=== PATIENT | male | born 1945 | race Caucasian/White ===

== ENCOUNTER 2016-05-07 12:53 | Outpatient (CLI) | payer MEDICARE, OTHER ==
[~2016-05-07] VITALS: Ht 167.6 cm; Wt 124.9 kg
[~2016-05-07 12:53] MED LIST: ACET325T49 PO; ALFU10TA11 PO; ALLO100T PO; AMIO200T2 PO; ASP325T PO; ASP81TEC PO; ATOR10TA66 PO; CA C1TAB26 PO; CARV3.122 PO; CARV3.12T PO; CARV6.252 PO; CEFU500T5 PO; CHOL100011 PO; CLOP75TA28 PO; DICL100G18 TP; DIVA250T12 PO; DIVA250T2 PO; DIVA250T4 PO; DIVA250T93 PO; ENOX30DI4 SC; FENO30CA PO; FEXO-104 PO; FEXO180T84 PO; FISH OIL OMEGA1 EAC1 PO; FISH1CAP15 PO; FLUT16SP22 NS; FLUT1DIS26 IH; FLUT9.9S NS; FURO40TA4 PO; GLUC-173 PO; GLUC1000 PO; GLUC100016 PO; HYDR-3812 PO; HYDR-757 PO; IRON150C3 PO; KCL20TCR PO; LEVO112T55 PO; LORA10TA54 PO; LOSA100T28 PO; LOSA100T7 PO; LSRT50T PO; LVT.1T PO; MECL-124 PO; MULT-1029 PO; MULT-142 PO; MULT-974 PO; MULTIVITAMIN PO; NAPR-710 PO; NAPR220C11 PO; OMEG-11 PO; OXYC-12 PO; OXYC-471 PO; POTA-53 PO; POTA20TA8 PO; POTA2TAB15 PO; POTA99TA17 PO; SENN-20 PO; SPIR25TA3 PO; SPRN25T PO; [UNRECOGNIZED DRUG - OTHER] PO
[2016-05-07] MEDS ORDERED: CALC600T12 PO (13:16)
[2016-05-07] MEDS ORDERED: VITA100033 PO (13:16)
[2016-05-07] MEDS ORDERED: IBUP-1773 PO (13:16)
[2016-05-07 13:37] VITALS: BP 114/64
[2016-05-07 14:05] LABS: BASOPHILS % (AUTO) 0 % (0-10); EOSINOPHILS # (AUTO) 0.2 10^3/uL (0.0-0.3); EOSINOPHILS % (AUTO) 2 % (0-10); LYMPHOCYTES # (AUTO) 1.7 X 10^3 (1.0-4.0); LYMPHOCYTES % (AUTO) 24 % (12-44); MEAN CORPUSCULAR HEMOGLOBIN 32 PG (25-34); MEAN CORPUSCULAR HGB CONC 35 G/DL (32-36); MEAN CORPUSCULAR VOLUME 92 FL (80-99); MEAN PLATELET VOLUME 9.1 FL (7.4-10.4); MONOCYTES # (AUTO) 1.2 X 10^3 (0.0-1.0); MONOCYTES % (AUTO) 16 % (0-12); NEUTROPHILS # (AUTO) 4.1 X 10^3 (1.8-7.8); NEUTROPHILS % (AUTO) 57 % (42-75); PLATELET COUNT 146 10^3/uL (130-400); RED BLOOD COUNT 4.52 10^6/uL (4.35-5.85); WHITE BLOOD COUNT 7.1 10^3/uL (4.3-11.0)
[2016-05-10] MEDS ORDERED: PANT40TA2 PO (14:25)
[2016-05-10] MEDS ORDERED: ONDN4T PO (14:25)
[2016-05-10] MEDS ORDERED: OXYC-473 PO (14:25)
== END 2016-05-07 15:03 | disposition home or self-care (01) ==
LOC: PREOP 12:53
PROVIDERS: ATTEND Surgery Pediatric Surgery
DX: Z01.812 Encounter for preprocedural laboratory examination (principal); Z11.2 Encounter for screening for other bacterial diseases; E66.01 Morbid (severe) obesity due to excess calories; Z68.41 Body mass index [BMI] 40.0-44.9, adult
CPT/HCPCS: 36415; 85025; 87081

== ENCOUNTER 2016-05-10 11:00 | Inpatient (IN) | payer MEDICARE, OTHER ==
[~2016-05-10] VITALS: Ht 167.6 cm; Wt 124.9 kg
[~2016-05-10 11:00] MED LIST changes: +CALC600T12 PO; +IBUP-1773 PO; +VITA100033 PO
[2016-05-10] MEDS ORDERED: LACTATED RINGERS 1,000 ML IV PRN (11:23)
[2016-05-10] MEDS ORDERED: ceFAZolin 1 GM/NS 50 ML IVPB IV ONE ×2 (11:30)
[2016-05-10] MEDS ORDERED: ONDANSETRON 4 MG/2 ML (SDV) Z0FRAN IV ONE (11:30)
[2016-05-10] MEDS ORDERED: FAMOTIDINE 20MG/2ML IV (PEPCID) IV ONE (11:30)
[2016-05-10] MEDS ORDERED: SEVOFLURANE (ULTANE) 15 ML INHAL SOLN ONE ×2 (11:35→13:20)
[2016-05-10] MEDS ORDERED: ONDANSETRON 4 MG/2 ML (SDV) Z0FRAN ONE (11:35)
[2016-05-10] MEDS ORDERED: LIDOCAINE PF 2% 10 ML (XYLOCAINE) AMP ONE (11:35)
[2016-05-10] MEDS ORDERED: LACTATED RINGERS 1,000 ML IV ONE ×2 (11:35→13:20)
[2016-05-10] MEDS ORDERED: proPOfol 200 MG/20 ML (DIPRIVAN) VIAL IV ONE (11:35)
[2016-05-10] MEDS ORDERED: ROCURONIUM 50 MG/5 ML (ZEMURON) VIAL IV ONE (11:35)
[2016-05-10] MEDS ORDERED: fentaNYL INJECTION 100 MCG/2 ML AMP ONE ×3 (11:36→14:52)
[2016-05-10] MEDS ORDERED: MIDAZOLAM 2 MG/2 ML (VERSED) VIAL ONE (11:36)
[2016-05-10] MEDS ORDERED: BUP/EPI 0.5% 1:200,000 (SENSORCAINE) 30 ML VIAL ONE (11:47)
--- NOTE | 2016-05-10 11:50 | Progress Note-Pre Operative ---
Pre-Operative Progress Note H&P Reviewed The H&P was reviewed, patient examined and no changes noted. Date H&P Reviewed: May 10, 2016 Time H&P Reviewed: 11:45 Pre-Operative Diagnosis: morbid obesity, CAD, MELVA ROSSY CUNNINGHAM MD May 10, 2016 11:50 am
[2016-05-10 12:13] VITALS: BP 148/103
[2016-05-10] MEDS ORDERED: DESFLURANE (SUPRANE) 15 ML INHAL SOLN ONE ×4 (13:20→13:57)
[2016-05-10] MEDS ORDERED: GLYCOPYRROLATE 0.2 MG/ML (ROBINUL) 2 ML VIAL ONE ×2 (13:57→14:05)
[2016-05-10] MEDS ORDERED: NEOSTIGMINE (BLOXIVERZ ) 1 MG/1ML 10 ML VIAL ONE (13:57)
--- NOTE | 2016-05-10 14:09 | Progress Note-Post Operative ---
Post-Operative Progess Note Shuttle Veneering Supervisor tiny saldivar CHLORINATOR OPERATOR Pre-Operative Diagnosis morbid obesity, CAD, MELVA Post-Operative Diagnosis same Post-Op Procedure Note Date of Procedure: May 10, 2016 Name of Procedure: laparoscopic gastric sleeve resection Anesthesia Type GET Estimated blood loss (mL): minimal Specimen(s) collected stomach ROSSY CUNNINGHAM MD May 10, 2016 2:09 pm
[2016-05-10] MEDS ORDERED: fentaNYL INJECTION 5,000 MCG in NS (IVPB) 0 ML IV SCH (14:15)
[2016-05-10] MEDS ORDERED: diphenhydrAMINE 50 MG/ML INJ (BENADRYL) IVP PRN (14:15)
[2016-05-10] MEDS ORDERED: PANT40TA2 PO (14:25)
[2016-05-10] MEDS ORDERED: OXYC-473 PO (14:25)
[2016-05-10] MEDS ORDERED: ONDN4T PO (14:25)
--- NOTE | 2016-05-10 14:26 | Discharge Inst-Surgical ---
D/C Lap Instructions-OCTAVIO Follow Up Appt in 2 weeks Activity as tolerated No driving for 24 hours No driving while on pain medications Incentive Spirometry use every 2 hours while awake Phase 1 clear liquid diet for 2 weeks. Symptoms to Report: Fever over 101 degree F, Nausea/Vomiting Infection Signs and Symptoms to report: Increased redness, Foul odor of wound, Increased drainage Bathing instructions: May shower Operative Area Clean/Dry; Keep incision clean/dry If any problems/questions: Contact your physician or go to Emergency Room ROSSY CUNNINGHAM MD May 10, 2016 2:26 pm
[2016-05-10] MEDS: morphine INJ 10 MG/ML 1ML (SYR OR VIAL) IV PRN ×2 (14:44→14:51)
[2016-05-10] MEDS ORDERED: PROMETHAZINE INJ 25 MG/ML (PHENERGAN) AMP IV PRN (14:45)
[2016-05-10] MEDS ORDERED: ONDANSETRON 4 MG/2 ML (SDV) Z0FRAN IV PRN (14:45)
[2016-05-10] MEDS ORDERED: fentaNYL INJECTION 250 MCG/5 ML AMP IV PRN (14:45)
[2016-05-10 16:00] VITALS: BP 189/101
[2016-05-10] MEDS ORDERED: fentaNYL PCA 300 MCG/30 ML VIAL ONE (16:09)
[2016-05-10] MEDS ORDERED: fentaNYL PCA 300 MCG/30 ML VIAL IV PRN (16:30)
[2016-05-10] MEDS: 1/2 NS W/KCL 20 MEQ/L 1,000 ML IV SCH (16:41)
[2016-05-10] MEDS: metroNIDAZOLE 500MG/100ML IVPB 100 ML IV SCH (18:21)
[2016-05-10] MEDS: meTOprolol 5 MG/5 ML (LOPRESSOR) VIAL IVP SCH ×2 (18:22→22:20)
[2016-05-10] MEDS: ONDANSETRON 4 MG/2 ML (SDV) Z0FRAN IVP SCH ×2 (18:22→23:34)
[2016-05-10] MEDS: RT-ALBUTEROL SULF 2.5 MG/3 ML PRE-MIX VIAL INH SCH ×3 (18:35→22:14)
[2016-05-10 19:00] VITALS: BP 173/94
[2016-05-10] MEDS: ENOXAPARIN 40 MG/0.4 ML (LOVENOX) SYR SC SCH (20:38)
[2016-05-10] MEDS: ceFAZolin 2 GM IV (SDC ONLY) 50 ML IV SCH (20:38)
[2016-05-10 22:20] VITALS: BP 195/99
[2016-05-10 23:37] VITALS: BP 151/71
[2016-05-11] VITALS (10 sets, daily range): BP systolic 169–194; BP diastolic 64–94
[2016-05-11] MEDS: 1/2 NS W/KCL 20 MEQ/L 1,000 ML IV SCH ×5 (00:53→17:57)
[2016-05-11] MEDS: RT-ALBUTEROL SULF 2.5 MG/3 ML PRE-MIX VIAL INH SCH ×5 (02:11→22:32)
[2016-05-11] MEDS: metroNIDAZOLE 500MG/100ML IVPB 100 ML IV SCH ×2 (02:23→10:17)
[2016-05-11] MEDS: meTOprolol 5 MG/5 ML (LOPRESSOR) VIAL IVP SCH ×6 (02:26→20:28)
[2016-05-11] MEDS: ceFAZolin 2 GM IV (SDC ONLY) 50 ML IV SCH ×2 (04:29→12:24)
[2016-05-11 06:21] LABS: MEAN PLATELET VOLUME 9.1 FL (7.4-10.4); RED BLOOD COUNT 4.01 10^6/uL (4.35-5.85); WHITE BLOOD COUNT 10.7 10^3/uL (4.3-11.0)
[2016-05-11] MEDS: ONDANSETRON 4 MG/2 ML (SDV) Z0FRAN IVP SCH ×2 (06:30→12:24)
--- NOTE | 2016-05-11 06:34 | OPERATIVE REPORT ---
PROCEDURE PHYSICIAN: ROSSY KHAN DATE OF PROCEDURE: 05/10/2016 ATTENDING PRIMARY CARE PHYSICIAN: Dr. Nelson PREOPERATIVE DIAGNOSIS: 1. Morbid obesity. 2. Hypertension. 3. Hypercholesterolemia. 4. Coronary artery disease. 5. Sleep apnea. POSTOPERATIVE DIAGNOSIS: 1. Morbid obesity. 2. Hypertension. 3. Hypercholesterolemia. 4. Coronary artery disease. 5. Sleep apnea. PROCEDURE: Laparoscopic gastric sleeve resection. SURGEON: Dr. Khan DIVISIONAL MERCHANDISING MANAGER: Ck Tejada APRN ANESTHESIA: General endotracheal. ESTIMATED BLOOD LOSS: Minimal FINDINGS: Mild hepatomegaly. The gallbladder appeared normal. DISPOSITION: The patient tolerated the procedure well. Mr. Peng Camargo is a 70-year-old male with morbid obesity and in our bariatric surgical program for the laparoscopic gastric sleeve resection and meets the medical criteria for bariatric surgery. He reports that gaining the majority of his weight in the past several years. He had several surgeries and did gain a significant amount of weight. He has tried diet programs including Weight Watchers, Wilson, Low Calorie, and Mediterranean diet and would lose some weight, however, would regain the weight back. He has also tried exercise regimens, including biking, swimming, walking and weight training with no success. He has not tried any medications in the past. His medical comorbidities related to his obesity include hypertension, hypercholesterolemia, coronary artery disease, lower extremity edema, degenerative joint disease and obstructive sleep apnea. The patient was brought to the operating room, laid supine on the table. After adequate IV pain and sedative medications and general endotracheal intubation, the abdomen was prepped and draped in the standard surgical fashion. 0.5% Marcaine with epinephrine was used to anesthetize the overlying skin in the left upper abdominal quadrant and a small transverse skin incision was made using the 15 blade. An 0-silk suture was applied to the medial aspect of the incision for retraction and Veress needle inserted with a low opening pressure of 0 mmHg and the abdomen was insufflated to 15 mmHg pressure. A four quadrant abdominal exploration was performed. There was mild hepatomegaly. The gallbladder appeared normal. There was also thick peritoneum and omentum. Under direct visualization we then proceeded to place the mid abdominal, left of midline 10 mm port after the skin and peritoneum were anesthetized using 0.5% Marcaine with epinephrine and a transverse skin incision made using a 15 blade. In a similar manner a mid abdominal midline 15 mm port was placed followed by a 5 mm right upper abdominal quadrant port. An area in the epigastric region was then anesthetized and a small skin incision made using an 11 blade. A tract was then created through the abdominal layers using the trocar to a 5 mm port. Through this opening a medium sized Sundar liver retractor was placed. The left lobe of the liver was retracted anteriorly and superiorly. The patient was then placed in the steep reverse Trendelenburg position. The distance from the pylorus was measured proximally along the greater curvature and marked with a marking pen. We then proceeded to open the gastrocolic ligament close to the stomach using the Sonicision. We first proceeded with distal dissection until we were approximately 2 centimeters below our marking with visualization of good hemostasis. We then proceeded with a proximal dissection taking down the short gastric vessels. The entire angle of His was dissected out as well as the posterior stomach behind it with visualization of good hemostasis. The GastroSail was the placed under direct visualization and the Sail opened, placed to suction and the Sail portion closed with the tip of the GastroSail in the pylorus. We used this as our lighted bougie. A black load 45 mm polyglycolic acid coated stapler was then used to staple and transect approximately 2 cm below our marking. We then proceeded with two 60 millimeter black loads followed by one 60 millimeter purple load following the Sail as a guide. We also allocated approximately 2 cm from the gastroesophageal junction. Good hemostasis was observed. The staple line corners were then clipped with 5 mm clips. The pylorus was then occluded and 75 ml of air were placed into the stomach after saline infused with no air bubbles seen. The saline was then suctioned out. The staple line was then covered with Tisseel fibrin glue and the omentum placed back over the staple line. The liver retractor was then removed and the gastric sleeve was removed through the 15 mm port site. The fascia and peritoneum to the 15 and 10 millimeter port sites were then closed under direct visualization using Elijah-Juan Carlos device and 0-Vicryl suture. The abdomen was desufflated and the remaining ports removed. All skin incisions were closed using 4-0 Monocryl running subcuticular sutures. The wounds were then cleaned and covered with Dermabond. The patient tolerated the procedure well. We will admit him to the surgical floor. We will start phase I clear liquid diet tomorrow. We will also proceed with a UPPER CUTTER MACHINE with Fentanyl for pain control. We will also proceed with DVT prophylaxis with early ambulation, calf high SCDs as well as Lovenox injections. Once he is tolerating clears, has good pain control with oral pain medications, ambulating well, we will discharge him home. Job ID: [id number] Dictated Date: 05/10/2016 14:39:00 Outside Medical Sales Representative Date: 05/10/2016 14:49:58 / chaitanya FERRARA
[2016-05-11 06:38] LABS: ANION GAP 12 MMOL/L (5-14); BLOOD UREA NITROGEN 16 MG/DL (7-18); BUN/CREATININE RATIO 16; CALCIUM 8.8 MG/DL (8.5-10.1); CARBON DIOXIDE 22 MMOL/L (21-32); CHLORIDE 102 MMOL/L (98-107); CREATININE SERUM 1.01 MG/DL (0.60-1.30); GFR ESTIMATED > 60; GLUCOSE 141 MG/DL (70-105); POTASSIUM 4.5 MMOL/L (3.6-5.0); SODIUM 136 MMOL/L (135-145)
[2016-05-11] MEDS: PANTOPRAZOLE 40 MG/10 ML (PROTONIX) VIAL IV SCH (09:01)
[2016-05-11] MEDS: ENOXAPARIN 40 MG/0.4 ML (LOVENOX) SYR SC SCH ×2 (09:02→20:29)
[2016-05-11] MEDS ORDERED: CATHETER FLUSH 10 ML SYR IV PRN (09:45)
--- NOTE | 2016-05-11 10:42 | Progress Note (SOAP) ---
Subjective Subjective/Events-last exam doing well. tolerating phase 1 clear liquid diet. pain controlled however has some difficulty with ambulation. Objective Exam Vital Signs Date Time Temp Pulse Resp B/P Pulse Ox O2 Delivery O2 Flow Rate FiO2 05/11/16 10:10 98.4 73 16 190/94 97 Nasal Cannula 3.00 05/11/16 09:02 98.4 05/11/16 09:00 Nasal Cannula 3.00 05/11/16 08:00 98.4 73 16 190/94 97 Nasal Cannula 3.00 05/11/16 07:00 67 05/11/16 07:00 72 184/70 05/11/16 06:29 98.7 76 20 194/74 95 Nasal Cannula 3.00 05/11/16 06:29 98.7 76 20 194/74 95 3.00 05/11/16 04:00 99.5 67 20 178/64 96 3.00 05/11/16 04:00 99.5 67 20 178/64 96 Nasal Cannula 3.00 05/11/16 02:28 98.2 76 20 176/79 96 NIV/CPAP 05/11/16 02:28 98.2 76 20 176/79 96 3.00 05/11/16 02:11 96 NIV CPAP 3.00 05/10/16 23:37 97.6 81 20 151/71 98 Nasal Cannula 3.00 05/10/16 23:37 81 20 151/71 98 Nasal Cannula 3.00 05/10/16 23:37 97.6 81 20 151/71 98 Nasal Cannula 3.00 05/10/16 22:20 97.8 81 22 195/99 96 Nasal Cannula 3.00 05/10/16 22:20 97.8 81 22 195/99 96 Nasal Cannula 3.00 05/10/16 22:14 98 Nasal Cannula 3.00 05/10/16 21:00 Nasal Cannula 3.00 05/10/16 20:38 72 05/10/16 20:13 Nasal Cannula 4.00 05/10/16 19:00 97.0 75 20 173/94 98 Nasal Cannula 3.00 05/10/16 18:36 95 Nasal Cannula 3.00 05/10/16 17:10 98 Nasal Cannula 3.00 05/10/16 16:00 96.8 88 22 189/101 96 Nasal Cannula 3.00 05/10/16 15:03 97.8 05/10/16 14:51 97.8 05/10/16 14:44 97.8 05/10/16 12:13 98.1 76 16 148/103 95 Room Air I & O 05/11/16 07:00 Intake Total 100 ml Output Total 435 ml Balance -335 ml Capillary Refill : General Appearance: No Apparent Distress HEENT: PERRL/EOMI Neck: Full Range of Motion Respiratory: Chest Non Tender Lungs Clear Normal Breath Sounds Cardiovascular: Regular Rate, Rhythm Gastrointestinal: soft other (wound clean/dry) Extremity: Normal Capillary Refill Neurologic/Psychiatric: Alert Oriented x3 Skin: Normal Color Lymphatic: No Adenopathy Results Lab Laboratory Tests 05/11/16 05:40: Anion Gap 12, BUN/Creatinine Ratio 16, Blood Urea Nitrogen 16, Calcium Level 8.8 , Carbon Dioxide Level 22, Chloride Level 102, Creatinine 1.01, Estimat Glomerular Filtration Rate > 60, Glucose Level 141H, Hematocrit 37L, Hemoglobin 12.9L, Mean Corpuscular Hemoglobin 32, Mean Corpuscular Hemoglobin Concent 35, Mean Corpuscular Volume 93, Mean Platelet Volume 9.1, Platelet Count 166, Potassium Level 4.5, Red Blood Count 4.01L, Red Cell Distribution Width 13.0, Sodium Level 136, White Blood Count 10.7 Assessment/Plan Assessment/Plan Assess & Plan/Chief Complaint s/p laparoscopic gastric sleeve resection. doing well tolerating diet and stable vitals. having some mild issues with ambulation due to body habitus. will continue ambulation with assist and home tomorrow. Diagnosis/Problems: Clinical Quality Measures DVT/VTE Risk/Contraindication: Risk Factor Score Per Nursin RFS Level Per Nursing on Admit: 4+=Very High ROSSY CUNNINGHAM MD May 11, 2016 10:42 am
--- NOTE | 2016-05-11 11:44 | Consultation-Hospitalist ---
HPI History of Present Illness: HPI/Chief Complaint CC: s/p uncomplicated gastric sleeve HPI: This is a 70-year-old white male clinic patient of [facility] with a past medical history of congestive heart failure, CAD, and borderline diabetes the presents after an uncomplicated gastric sleeve procedure by Dr. Khan. He currently is doing well otherwise. Source: patient Exam Limitations: no limitations Date Seen 05/11/16 Attending Physician Lady Khan MD PCP Reina Nelson DO Referring Physician Date of Admission May 10, 2016 at 11:00 Home Medications & Allergies Home Medications Reviewed patient Home Medication Reconciliation Form Allergies Coded Allergies: Guwxcau-Gmc-Bcj Reductase Inhibitor (Unverified Allergy, Unknown, 05/07/16) Past Qcnyhca-Vlrfqj-Rllufz Hx Patient Social History Marrital Status: cohabiting Employed/Student: retired Alcohol Use: Denies Use Recreational Drug Use: No Smoking Status: Former Smoker Former smoker/When Quit: Dec 30, 1982 Physical Abuse Screen: No Sexual Abuse: No Recent Foreign Travel: No Contact w/other who traveled: No Recent Hopitalizations: No Recent Infectious Disease Expo: No Immunizations Up To Date Date of Pneumonia Vaccine: Mar 05, 2016 Date of Influenza Vaccine: Mar 05, 2016 Seasonal Allergies Seasonal Allergies: Yes Surgeries HX Surgeries: Yes (BILATERAL TKR, STENTS ', DEVIATED SEPTUM, BYPASS ) Surgeries: Orthopedic, Pacemaker Respiratory Hx Respiratory Disorders: Yes (VERY MILD, CPAP) Respiratory Disorders: Sleep Apnea Cardiovascular Hx Cardiovascular Disorders: Yes (CHF, PVC'S, 3X STENTS, TRIPLE BY-PASS '96) Cardiac Disorders: Atrial Fibrillation, Chronic Edema/Swelling, Congenital Heart Disease, High Cholesterol, Hypertension, Valvular Heart Disease Neurological Hx Neurological Disorders: No Neurological Disorders: Neuropathy Reproductive System Hx Reproductive Disorders: No Sexually Transmitted Disease: No HIV/AIDS: No Genitourinary Hx Genitourinary Disorders: No Genitourinary Disorders: Renal Failure Gastrointestinal Hx Gastrointestinal Disorders: Yes Gastrointestinal Disorders: Diverticulosis, Polyps Musculoskeletal Hx Musculoskeletal Disorders: Yes (OSTEOARTHRITIS) Musculoskeletal Disorders: Degenerate Disk Disease, Arthritis, Gout Endocrine Hx Endocrine Disorders: Yes (BOARDERLINE DIABETIC) Endocrine Disorders: Hypothyroidsim HEENT HX ENT Disorders: Yes (INDUSTRIAL HEARING LOSS, READING GLASSES) Loss of Vision: Bilateral Hearing Impairment: Denies, Bilateral Hearing Aide Cancer Hx Cancer: No Psychosocial Hx Psychiatric Problems: Yes Behavioral Health Disorders: Anxiety, Bipolar, Depression Integumentary HX Skin/Integumentary Disorder: No Blood Transfusions Hx Blood Disorders: No Adverse Reaction to a Blood Tr: No Family Medical History Family Hx: Alzheimer's disease 19 MOTHER Hypertension 19 FATHER G8 BROTHER G8 SISTER Myocardial infarction 19 FATHER Review of Systems Constitutional: see HPI EENTM: no symptoms reported Respiratory: no symptoms reported Cardiovascular: no symptoms reported Gastrointestinal: nausea Genitourinary: no symptoms reported Musculoskeletal: no symptoms reported Skin: no symptoms reported Psychiatric/Neurological: No Symptoms Reported All Other Systems Reviewed Negative Unless Noted: Yes Physical Exam Physical Exam Vital Signs Vital Sign - Last 12Hours 05/10/16 05/10/16 12:13 16:00 Temp 98.1 Pulse 76 Resp 16 B/P 148/103 Pulse Ox 95 O2 Delivery Room Air O2 Flow Rate 3.00 Capillary Refill : General Appearance: No Apparent Distress WD/WN Chronically ill Obese Eyes: Bilateral Eye Normal Inspection, Bilateral Eye PERRL HEENT: PERRL/EOMI Normal ENT Inspection Pharynx Normal Neck: Full Range of Motion Normal Inspection Non Tender Supple Carotid Bruit Respiratory: Chest Non Tender Lungs Clear Normal Breath Sounds No Accessory Muscle Use No Respiratory Distress Cardiovascular: Regular Rate, Rhythm No Edema No Gallop No JVD No Murmur Normal Peripheral Pulses Gastrointestinal: Normal Bowel Sounds No Organomegaly No Pulsatile Mass Non Tender Soft Back: Normal Inspection No CVA Tenderness No Vertebral Tenderness Extremity: Normal Capillary Refill Normal Inspection Normal Range of Motion Non Tender No Calf Tenderness No Pedal Edema Neurologic/Psychiatric: Alert Oriented x3 No Motor/Sensory Deficits Normal Mood/Affect Skin: Normal Color Warm/Dry Lymphatic: No Adenopathy Results Results/Procedures Lab Laboratory Tests 05/11/16 05:40 Assessment/Plan Admission Diagnosis Assessment: uncomplicated gastric sleeve procedure Borderline diabetes Congestive heart failure managed by Dr. Childers Pacemaker defibrillator placement by Dr. Childers Hypertension Hyperlipidemia intolerant to statin therapy MELVA COPD Assessment and Plan continue all home meds Sleep apnea treatment Monitor closely Clinical Quality Measures DVT/VTE Risk/Contraindication: Risk Factor Score Per Nursin RFS Level Per Nursing on Admit: 4+=Very High REINA NELSON DO May 11, 2016 11:44
[2016-05-11] MEDS ORDERED: amLODIPine 5 MG (NORVASC) TAB PO NR (12:45)
[2016-05-11] MEDS ORDERED: ALFU10TA11 PO (13:38)
--- NOTE | 2016-05-11 14:01 | Occupational Therapy Eval ---
OT Evaluation-General/PLF Medical Diagnosis Admission Date May 10, 2016 at 11:00 Medical Diagnosis: gastric sleeve Onset Date: May 10, 2016 Therapy Diagnosis Therapy Diagnosis: decreased self care Height/Weight Height (Feet): 5 Height (Inches): 6.00 Weight (Pounds): 275 Weight (Ounces): 4.0 Precautions Precautions/Isolations: Standard Precautions Safety Interventions: Bed Exit Alarm Medical History Pertinent Medical History: Atrial Fib, CABG, CAD, Heart Failure, HTN, Hypothroidism, Neuropathy, OA Additional Medical History bilateral TKA, sleep apnea, chronic edema, high cholesterol, valvular heart disease, renal failure, diverticulosis, gout, borderline diabetic, anxiety, depression. Current History Pt had gastric sleeve procedure yesterday Reviewed History: Yes Social History Current Living Status: Significant Other Entry Into Home: Stairs With Railing Steps Into Home: 2 ADL-Prior Level of Function ADL PLOF Comments Pt reports being independent with basic self care and mobility. Pt states he was not using any assistive devices for mobility. Drive Self: Yes OT Current Status Subjective Pt in bed, agrees to treatment. Pt reports 4/10 abdominal pain. At end of session pt reports itching feet and nausea. RN notified of pt's complaints. Mental Status/Objective Patient Orientation: Person, Place, Time, Situation Attachments: IV, Oxygen Current Glasses/Contacts: Yes Upper Extremity ROM grossly WFL Upper Extremity Coordination intact Upper Extremity Strength grossly WFL ADL-Treatment ADL-Current Pt supine to sit with minimal assistance. Pt requests to use restroom. Don slippers with set up. Sit to stand with supervision. Pt ambulated to restroom with SBA using cane, assist for IV pole. Pt transferred to toilet with supervision using grab bar. Pt sit to stand with supervision. Pt stood at sink to wash hands and brush teeth with SBA. Pt transferred to chair with supervision. Pt sitting in chair with needs met after session, RN aware. Functional [place] Measure 0=Not Assessed/NA 4=Minimal Assistance 1=Total Assistance 5=Supervision or Setup 2=Maximal Assistance 6=Modified [place] 3=Moderate Assistance 7=Complete IndependenceIRFPAI Quality Coding Scale 6 Independent with activity with or without an assistive device 5 Patient requires set up or clean up by helper. Patient completes activity by themselves 4 Supervision or touching assist (CGA). [place] provide cues , steadying assist 3 The helper provides less than half the effort to complete the activity 2 The helper provides more than half the effort to complete the activity 1 Dependent. The helper does all the effort to complete an activity 7 Patient refused to complete or attempt activity 9 The patient did not perform the activity before the current illness or injury 88 Not attempted due to Medical conditions or safety concerns Grooming (FIM): 5 Toilet/Commode Transfer (FIM): 5 Education OT Patient Education: Rehab process Teaching Recipient: Patient Teaching Methods: Discussion Response to Teaching: Verbalize Understanding OT Short Term Goals Short Term Goals 1=Demonstrate adherence to instructed precautions during ADL tasks. 2=Patient will verbalize/demonstrate understanding of assistive devices/ modifications for ADL. 3=Patient will improve strength/tolerance for activity to enable patient to perform ADL's. OT Zmt Operator Goals Nursing Home Goals Time Frame: 1 week Eating (FIM): 6 Grooming(FIM): 6 Bathing(FIM): 5 Upper Body Dressing(FIM): 6 Lower Body Dressing(FIM): 5 Toileting(FIM): 6 Toilet/Commode Transfer(FIM): 6 1=Demonstrate adherence to instructed precautions during ADL tasks. 2=Patient will verbalize/demonstrate understanding of assistive devices/ modifications for ADL. 3=Patient will improve strength/tolerance for activity to enable patient to perform ADL's. OT Education/Plan Problem List/Assessment Assessment: Dependent Transfers, Impaired Self-Care Skills Pt to benefit from short term skilled OT while hospitalized to increase functional independence and allow safe return home. Discharge Recommendations Plan/Recommendations: Continue POC Treatment Plan/Plan of Care Treatment,Training & Education: Yes Patient would benefit from OT for education, treatment and training to promote independence in ADL's, mobility, safety and/or upper extremity function for ADL' s. Plan of Care: ADL Retraining, Functional Mobility, UE Funct Exercise/Act Treatment Duration: May 18, 2016 # of days/week 5 Agreement: Yes Rehab Potential: Good Time/GCodes Start Time: 11:44 Stop Time: 12:07 Total Time Billed (hr/min): 23 Billed Treatment Time 1 visit, EVLOWC(8minutes), ADL(15minutes) CRUZITO BARTON OT May 11, 2016 14:01
[2016-05-11] MEDS ORDERED: METOCLOPRAMIDE INJ 10 MG/2 ML (REGLAN) IVP PRN (14:15)
[2016-05-11] MEDS ORDERED: ONDANSETRON 4 MG/2 ML (SDV) Z0FRAN IVP PRN (14:15)
--- NOTE | 2016-05-11 14:18 | Anesthesia-General Post-Op ---
General Patient Condition Mental Status/LOC: Same as Preop Cardiovascular: Satisfactory Nausea/Vomiting: Absent Respiratory: Satisfactory Pain: Controlled Complications: Absent Post Op Complications Complications None Follow Up Care/Instructions Patient Instructions None needed. Anesthesia/Patient Condition Patient Condition Patient is doing well, no complaints, stable vital signs, no apparent adverse anesthesia problems. No complications reported per nursing. CAIT HOWARD CRNA May 11, 2016 14:18
[2016-05-11] MEDS: APAP 325 MG/10.15 ML LIQ (TYLENOL) UDC PO PRN ×2 (21:22→22:23)
[2016-05-12] VITALS: BP 186/87
[2016-05-12] MEDS: meTOprolol 5 MG/5 ML (LOPRESSOR) VIAL IVP SCH ×4 (00:03→13:10)
[2016-05-12] MEDS: oxyCODONE 20 MG/1 ML ORAL CONC (RoxiCODONE) CHARGE PER 1 ML PO PRN ×3 (03:14→11:16)
[2016-05-12] MEDS: RT-ALBUTEROL SULF 2.5 MG/3 ML PRE-MIX VIAL INH SCH ×3 (03:15→11:15)
[2016-05-12 04:00] VITALS: BP 161/75
[2016-05-12] MEDS: APAP 325 MG/10.15 ML LIQ (TYLENOL) UDC PO PRN (04:05)
[2016-05-12] MEDS: 1/2 NS W/KCL 20 MEQ/L 1,000 ML IV SCH (04:11)
[2016-05-12 06:43] LABS: RED BLOOD COUNT 3.82 10^6/uL (4.35-5.85); RED CELL DISTRIBUTION WIDTH 13.1 % (10.0-14.5); WHITE BLOOD COUNT 9.6 10^3/uL (4.3-11.0)
[2016-05-12] MEDS: PANTOPRAZOLE 40 MG/10 ML (PROTONIX) VIAL IV SCH (08:09)
[2016-05-12] MEDS: ENOXAPARIN 40 MG/0.4 ML (LOVENOX) SYR SC SCH (08:09)
[2016-05-12 08:30] VITALS: BP 126/65
--- NOTE | 2016-05-12 11:02 | Progress Note-Hospitalist ---
Subjective HPI/CC On Admission CC: s/p uncomplicated gastric sleeve HPI: This is a 70-year-old white male clinic patient of [facility] with a past medical history of congestive heart failure, CAD, and borderline diabetes the presents after an uncomplicated gastric sleeve procedure by Dr. Cunningham. He currently is doing well otherwise. Date Seen 05/12/16 Subjective/Events-last exam patient reports she's tolerating liquids without difficulty. He's had no nausea this morning and is hoping to go home today. He denies chest pain or shortness of breath. Objective Exam Vital Signs Vital Sign - Last 12Hours 05/10/16 05/10/16 12:13 16:00 Temp 98.1 Pulse 76 Resp 16 B/P 148/103 Pulse Ox 95 O2 Delivery Room Air O2 Flow Rate 3.00 Capillary Refill : General Appearance: No Apparent Distress Respiratory: Chest Non Tender Lungs Clear Normal Breath Sounds No Accessory Muscle Use No Respiratory Distress Cardiovascular: Regular Rate, Rhythm No Edema No Gallop No JVD No Murmur Normal Peripheral Pulses Gastrointestinal: Other (obese but nondistended bowel sounds are present butt hypoactive trocar incision sites look good no evidence for significant hematoma formation is noted. The abdomen is relatively soft.) Extremity: Other (no cyanosis clubbing or edema is noted.) Results/Procedures Lab Laboratory Tests 05/12/16 06:29 Assessment/Plan Assessment and Plan Assess & Plan/Chief Complaint 1. Status post gastric sleeve doing well. From a medical standpoint discharge later today is okay pending Dr. CUNNINGHAM's evaluation. CLOTILDE AUGUST MD May 12, 2016 11:02
[2016-05-12 12:10] VITALS: BP 115/58
--- NOTE | 2016-05-12 13:05 | Progress Note (SOAP) ---
Subjective Subjective/Events-last exam doing well. tolerating clears. pain controlled. Objective Exam Vital Signs Date Time Temp Pulse Resp B/P Pulse Ox O2 Delivery O2 Flow Rate FiO2 05/12/16 11:15 94 Room Air 05/12/16 08:30 97.4 65 20 126/65 93 Nasal Cannula 05/12/16 08:14 Nasal Cannula 3.00 05/12/16 08:09 98.6 05/12/16 07:26 94 Nasal Cannula 3.00 05/12/16 07:00 67 05/12/16 06:24 98.6 05/12/16 06:24 98.6 05/12/16 04:05 100.2 05/12/16 04:00 100.2 83 18 161/75 95 NIV/CPAP 05/12/16 03:15 94 Nasal Cannula 3.00 05/12/16 01:04 64 05/12/16 00:00 99.9 72 19 186/87 92 NIV/CPAP 05/11/16 22:33 95 NIV CPAP 3.00 05/11/16 22:22 99.2 05/11/16 21:22 101.2 05/11/16 21:18 101.6 05/11/16 20:30 NIV/CPAP 3.00 05/11/16 19:50 101.2 77 18 190/79 94 Nasal Cannula 3.00 05/11/16 19:00 84 05/11/16 15:50 98.9 79 22 190/83 95 Nasal Cannula 3.00 05/11/16 15:09 96 Nasal Cannula 3.00 05/11/16 14:05 99.0 82 18 169/78 96 Nasal Cannula 3.00 I & O 05/12/16 07:00 Intake Total 4340 ml Output Total 3475 ml Balance 865 ml Capillary Refill : General Appearance: No Apparent Distress HEENT: PERRL/EOMI Neck: Full Range of Motion Respiratory: Chest Non Tender Lungs Clear Normal Breath Sounds Cardiovascular: Regular Rate, Rhythm Gastrointestinal: soft other (wounds clean/dry) Extremity: Normal Capillary Refill Neurologic/Psychiatric: Alert Oriented x3 Skin: Normal Color Lymphatic: No Adenopathy Results Lab Laboratory Tests 05/12/16 06:29: Hematocrit 36L, Hemoglobin 12.4L, Mean Corpuscular Hemoglobin 33, Mean Corpuscular Hemoglobin Concent 34, Mean Corpuscular Volume 94, Mean Platelet Volume 9.0, Platelet Count 145, Red Blood Count 3.82L, Red Cell Distribution Width 13.1, White Blood Count 9.6 Assessment/Plan Assessment/Plan Assess & Plan/Chief Complaint s/p laparoscopic gastric sleeve resection. doing well tolerating diet and stable vitals. ambulate and home soon. Diagnosis/Problems: Clinical Quality Measures DVT/VTE Risk/Contraindication: Risk Factor Score Per Nursin RFS Level Per Nursing on Admit: 4+=Very High ROSSY CUNNINGHAM MD May 12, 2016 1:05 pm
[2016-05-12] MEDS ORDERED: CARVEDILOL 6.25 MG (COREG) TAB PO SCH (21:00)
[2016-05-13] MEDS ORDERED: LOSARTAN 50 MG (COZAAR) TAB PO SCH (09:00)
== END 2016-05-12 14:30 | disposition home or self-care (01) | DRG 621 ==
LOC: SURGICAL 11:00 → SURG 11:01 → 4TH 15:40
PROVIDERS: ADMIT Surgery Pediatric Surgery; ATTEND Surgery Pediatric Surgery
PROC: 0DB64Z3 Excision of Stomach, Percutaneous Endoscopic Approach, Vertical (ICD-10-PCS; principal; 2016-05-10 12:09)
DX: E66.01 Morbid (severe) obesity due to excess calories (principal); Z68.41 Body mass index [BMI] 40.0-44.9, adult; G47.33 Obstructive sleep apnea (adult) (pediatric); I25.10 Atherosclerotic heart disease of native coronary artery without angina pectoris; I11.0 Hypertensive heart disease with heart failure; I50.9 Heart failure, unspecified; E78.5 Hyperlipidemia, unspecified; M19.90 Unspecified osteoarthritis, unspecified site; R73.03 Prediabetes; J44.9 Chronic obstructive pulmonary disease, unspecified; Z95.810 Presence of automatic (implantable) cardiac defibrillator
CPT/HCPCS: 36415; 80048; 85025; 85027; 87081; 94640; 94760

== ENCOUNTER 2016-10-24 09:48 | Outpatient (CLI) | payer MEDICARE, OTHER ==
[~2016-10-24] VITALS: Ht 167.6 cm; Wt 99.0 kg
[~2016-10-24 09:48] MED LIST changes: +LORA-714 PO; -LORA10TA54 PO; +ONDN4T PO; +OXYC-473 PO; +PANT40TA2 PO
== END 2016-10-24 12:01 ==
LOC: PREOP 09:48
PROVIDERS: ATTEND Surgery
DX: Z01.818 Encounter for other preprocedural examination (principal); R19.4 Change in bowel habit

== ENCOUNTER 2016-10-26 10:48 | Day surgery (SDC) | payer MEDICARE, OTHER ==
[~2016-10-26] VITALS: Ht 167.6 cm; Wt 99.0 kg
--- OUTSIDE RECORDS SUMMARY | 2016-10-26 10:54 | XMS REPORT | Clinical Summary ---
Author Author User, [employer] Organization Reina Nelson DO, FACP Address Unknown Phone Allergies, Adverse Reactions, Alerts Allergy Name Reaction Description Start Date Severity Status Provider DIABETIC MEDICATIONS Critical Active Reina Nelson STATIN DRUGS Critical Active Reina Nelson Conditions or Problems Problem Name Problem Code Onset Date Status Entry Date Provider Comment Standard Description Annotate DIABETES MELLITUS, NONINSULIN DEPENDENT (NIDDM) 250.02 Active Reina Nelson Diabetes mellitus without mention of complication, type II or unspecified type, uncontrolled CORONARY ARTERY BYPASS GRAFT, THREE VESSEL, HX OF V45.81 Active eRina Nelson Postsurgical aortocoronary bypass status CORONARY ATHEROSCLEROSIS, 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 Active Reina Nelson Coronary atherosclerosis of [place] coronary artery HYPERTENSION 401.1 Active Reina Nelson Benign essential hypertension CHF 428.0 Active Reina Nelson Congestive heart failure, unspecified OSTEOARTHRITIS 715.90 Active Reina Nelson Osteoarthrosis, unspecified whether generalized or localized, involving unspecified site DYSPNEA 786.09 Active Reina Nelson Other dyspnea and respiratory abnormality EDEMA LEG 782.3 Active Reina Nelson Edema HYPOTHYROIDISM, PRIMARY 244.9 Active Reina Nelson Unspecified hypothyroidism ALLERGIC RHINITIS, SEASONAL 477.0 Active Reina Nelson Allergic rhinitis due to pollen UNSPECIFIED VITAMIN D DEFICIENCY 268.9 Active Reina Nelson Unspecified vitamin D deficiency PALPITATIONS, OCCASIONAL 785.1 Active Reina Nelson Palpitations SINUSITIS, SPHENOIDAL, ACUTE 461.3 Inactive Reina Nelson Acute sphenoidal sinusitis CARDIOMYOPATHY, ISCHEMIC 414.8 Active Reina Nelson Other specified forms of chronic ischemic heart disease IMPLANTATION OF DEFIBRILLATOR, HX OF V45.02 Active Reina Nelson Automatic implantable cardiac defibrillator in situ COUGH 786.2 Resolved Reina Nelson Cough MUSCLE PAIN 729.1 Active Reina Nelson Myalgia and myositis, unspecified SPINAL STENOSIS, LUMBAR 724.02 Active Reina Nelson Spinal stenosis of lumbar region without neurogenic claudication HYPOKALEMIA 276.8 Active Reina Nelson Hypopotassemia BRONCHITIS, ACUTE 466.0 Resolved Reina Nelson Acute bronchitis COUGH 786.2 Resolved Reina Nelson Cough DIZZINESS 780.4 Active Reina Nelson Dizziness and giddiness GOUT 274.9 Active Reina Nelson Gout, unspecified SLEEP APNEA, OBSTRUCTIVE, SEVERE 780.57 Active Reina Nelson Unspecified sleep apnea Medication List Medication Instructions Start Date Stop Date Generic Name NDC Status Provider Patient Instruction ADVAIR DISKUS 250-50 MCG/DOSE MISC 1 Puff BID FLUTICASONE-SALMETEROL 15304368211 Active Reina Nelson COLCRYS 0.6 MG TABS 1 PO every 4 hrs prn Gout flare COLCHICINE 42272853851 No Longer Active Reinawilmar Nelson HYDROCODONE-ACETAMINOPHEN 5-325 MG TABS 1 PO TID HYDROCODONE-ACETAMINOPHEN 37423512456 No Longer Active Reina Shayy Nelson ADVAIR DISKUS 250-50 MCG/DOSE MISC 1 Puff BID FLUTICASONE-SALMETEROL 82175324754 No Longer Active Reina Shayy Nelson FLUTICASONE PROPIONATE 50 MCG/ACT SUSP 2 puffs each nostril daily FLUTICASONE PROPIONATE 69497729687 Active Reina Shayy Nelson TRANSDERM-SCOP 1.5 MG PT72 1 patch behind ear and change every 3 days SCOPOLAMINE BASE 68236132606 No Longer Active Joan Jack MECLIZINE HCL 25 MG TAB 1 PO Q6hrs prn dizziness MECLIZINE HCL 50673585709 Active Joan Jack ZOSTAVAX 38254 UNT/0.65ML SOLR 1 injection once to prevent Shingles ZOSTER VACCINE LIVE 43515813232 No Longer Active Reinawilmar Nelson SYNTHROID 0.112 MG TAB 1 PO daily LEVOTHYROXINE SODIUM 53786958223 Active Reinawilmar Nelson AMIODARONE HCL 200 MG TABS 1 PO daily AMIODARONE HCL 86485420591 Active Reina Shayy Nelson COREG 6.25 MG TABS 1 PO BID CARVEDILOL 73369887521 Active Reinawilmar Nelson ZYLOPRIM 100 MG TABS 1 PO daily to prevent Gout ALLOPURINOL 69201114666 Active Reinawilmar Nelson TUSSIONEX PENNKINETIC ER 10-8 MG/5ML LQCR 1 tsp PO BID prn cough HYDROCOD POLST-CHLORPHEN POLST 70797628229 No Longer Active Reinawilmar Nelson PREDNISONE 10 MG TAB 2 PO at one time daily for 3 days, then 1 PO daily for 3 days PREDNISONE 50316742471 No Longer Active Reina Shayy Nelson BIAXIN 500 MG TAB 1 PO BID CLARITHROMYCIN 05024700799 No Longer Active Reina Shayy Nelson ALEVE 220 MG TAB 2 PO BID NAPROXEN SODIUM 03858609869 Active Reina Shayy Nelson WELCHOL 3.75 GM PACK 1 packet PO daily COLESEVELAM HCL 74869233294 No Longer Active Reina Shayy Nelson DIVALPROEX SODIUM 250 MG TBEC 2 PO BID DIVALPROEX SODIUM 22283855938 Active Reina Shayy Nelson PACERONE 200 MG TABS 1 PO DAILY AMIODARONE HCL 19392679432 No Longer Active Reina Shayy Nelson KLOR-CON M20 20 MEQ CR-TABS 1 PO BID POTASSIUM CHLORIDE PHILLIP CR 07441187409 Active Joan Jack ASPIRIN 81 MG TAB 1 PO daily ASPIRIN 50895466065 Active Reinawilmar Nelson FISH OIL 1000 MG CAPS 3 PO daily OMEGA-3 FATTY ACIDS 42735698225 Active Reinawilmar Nelson PLAVIX 75 MG TABS 1 PO QD CLOPIDOGREL BISULFATE 65199396376 Active Reinawilmar Nelson LASIX 40 MG TABS 2 PO QAM and 1 PO QPM FUROSEMIDE 18509016812 Active Reinawilmar Nelson ANTARA 130 MG CAPS 1 PO daily FENOFIBRATE MICRONIZED 03320502532 No Longer Active Reinawilmar Nelson ALDACTONE 25 MG TABS 1 PO daily SPIRONOLACTONE 61513877709 Active Reinawilmar Nelson AUGMENTIN 500-125 MG TAB 1 PO BID AMOXICILLIN-POT CLAVULANATE 53165422218 No Longer Active Reina MCINTYRE'S NASAL SPRAY (DEXAMETHASONE, GENTAMICIN, SALINE) 2 puffs each nostril TID for [address] MCINTYRE'Precious NASAL SPRAY ( DEXAMETHASONE, GENTAMICIN, SALINE) No Longer Active Reina Nelson DIVALPROEX SODIUM 250 MG TBEC 1 PO DAILY DIVALPROEX SODIUM 44726160922 No Longer Active Reina Coener ZOSTAVAX 16647 UNT/0.65ML SOLR 1 injection once to prevent Shingles ZOSTER VACCINE LIVE 61945569895 No Longer Active Johnny Hines ZOSTAVAX 85733 UNT/0.65ML SOLR 1 injection once to prevent Shingles ZOSTER VACCINE LIVE 28825691673 No Longer Active Reinawilmar Nelson VITAMIN D 1000 UNIT TABS 1 PO Daily CHOLECALCIFEROL 77954214745 Active Reina Nelson [facility] GLUCOSAMINE-CHONDROITIN TABS 2 PO DAILY GLUCOSAMINE- CHONDROITIN TABS 20232643030 Active Reina Nelson IBUPROFEN 200 MG TAB 1 PO PRN IBUPROFEN 95981530806 No Longer Active Reina Nelson MULTIVITAMINS TABS 1 PO QD MULTIPLE VITAMIN Active Reina Nelson COZAAR 100 MG TABS 1 PO DAILY [place] POTASSIUM 47254765165 Active Reina Nelson Immunizations Vaccine Administration Date Value Standard Description Influenza vaccine given Done influenza virus vaccine, unspecified formulation Influenza vaccine given Done influenza virus vaccine, unspecified formulation pneumococcal immunization administered done pneumococcal polysaccharide vaccine, 23 valent Vital Signs Date Name Value Unit Range Description blood pressure, diastolic - 8462-4 86 mm[Hg] BP nguyen blood pressure, systolic - 8480-6 139 mm[Hg] BP sys pulse rate E&M - 8867-4 60 /min Heart rate respiratory rate E&M - 9279-1 14 /min Resp rate temperature E&M 98.6 [degF] Body temperature weight E&M - 3141-9 258 [lb_av] Weight Measured blood pressure, diastolic - 8462-4 74 mm[Hg] BP nguyen blood pressure, systolic - 8480-6 120 mm[Hg] BP sys pulse rate E&M - 8867-4 64 /min Heart rate respiratory rate E&M - 9279-1 14 /min Resp rate weight E&M - 3141-9 248 [lb_av] Weight Measured blood pressure, diastolic - 8462-4 68 mm[Hg] BP nguyen blood pressure, systolic - 8480-6 122 mm[Hg] BP sys pulse rate E&M - 8867-4 70 /min Heart rate respiratory rate E&M - 9279-1 14 /min Resp rate temperature E&M 98.6 [degF] Body temperature weight E&M - 3141-9 255 [lb_av] Weight Measured blood pressure, diastolic - 8462-4 78 mm[Hg] BP nguyen blood pressure, systolic - 8480-6 138 mm[Hg] BP sys pulse rate E&M - 8867-4 64 /min Heart rate respiratory rate E&M - 9279-1 14 /min Resp rate temperature E&M 97.7 [degF] Body temperature weight E&M - 3141-9 250 [lb_av] Weight Measured blood pressure, diastolic - 8462-4 96 mm[Hg] BP nguyen blood pressure, systolic - 8480-6 162 mm[Hg] BP sys pulse rate E&M - 8867-4 78 /min Heart rate respiratory rate E&M - 9279-1 14 /min Resp rate weight E&M - 3141-9 244 [lb_av] Weight Measured blood pressure, diastolic - 8462-4 78 mm[Hg] BP nguyen blood pressure, systolic - 8480-6 124 mm[Hg] BP sys pulse rate E&M - 8867-4 64 /min Heart rate respiratory rate E&M - 9279-1 14 /min Resp rate temperature E&M 98.6 [degF] Body temperature weight E& - 3141-9 233 [lb_av] Weight Measured blood pressure, diastolic - 8462-4 70 mm[Hg] BP nguyen blood pressure, systolic - 8480-6 128 mm[Hg] BP sys pulse rate E&M - 8867-4 64 /min Heart rate respiratory rate E& - 9279-1 14 /min Resp rate weight E&M - 3141-9 230 [lb_av] Weight Measured Diagnostic Results Date Name Value Unit Range Description Clinical Lists Update: CBC,[facility] - Chemistry Estimated Glomerular Filtration Rate (calc) 53 mL/min/1.73m2 glucose, plasma fasting 120 mg/dL albumin, serum 4.3 g/dL alkaline phosphatase, serum 44 U/L urea nitrogen, blood 34 mg/dL calcium, serum 9.3 mg/dL chloride, serum 95 mmol/L carbon dioxide, venous blood 27.0 mmol/L anion gap, serum 13 sodium, serum 131 mmol/L bilirubin, serum, total 0.3 mg/dL alanine aminotransferase (SGPT), serum 15 U/L aspartate aminotransferase (SGOT), serum 23 U/L protein, total, serum 6.5 g/dL potassium, serum 4.4 mmol/L creatinine, serum 1.4 mg/dL Clinical Lists Update: CBC,[facility] - Hematology erythrocyte (RBC) count 4.10 10*6/mm3 leukocyte count, blood 7.5 10*3/mm3 mean corpuscular volume, RBC 98 fL red blood cell distribution width 13.7 % hemoglobin, blood 13.9 g/dL platelet count 168 10*3/mm3 hematocrit, blood 40 % Clinical Lists Update: CBC,CMP,CHOL,TRIG,TSH,FREE T4,FERRITIN,ESR - Chemistry Estimated Glomerular Filtration Rate (calc) 51 mL/min/1.73m2 albumin, serum 4.7 g/dL anion gap, serum 11 sodium, serum 138 mmol/L triglyceride, serum, fasting 398 mg/dL bilirubin, serum, total 0.5 mg/dL alanine aminotransferase (SGPT), serum 18 U/L aspartate aminotransferase (SGOT), serum 24 U/L protein, total, serum 7.3 g/dL potassium, serum 4.4 mmol/L thyroid stimulating hormone, serum 1.94 u[iU]/mL thyroxine, serum, free 0.95 ng/dL ferritin, serum 36.3 ng/mL creatinine, serum 1.4 mg/dL carbon dioxide, venous blood 32.0 mmol/L cholesterol, serum 253 mg/dL chloride, serum 99 mmol/L calcium, serum 9.7 mg/dL urea nitrogen, blood 29 mg/dL alkaline phosphatase, serum 43 U/L glucose, plasma fasting 103 mg/dL Clinical Lists Update: CBC,CMP,CHOL,TRIG,TSH,FREE T4,FERRITIN,ESR - Hematology hematocrit, blood 48 % erythrocyte sedimentation rate 18 mm/h hemoglobin, blood 15.2 g/dL platelet count 208 10*3/mm3 erythrocyte (RBC) count 4.87 10*6/mm3 leukocyte count, blood 9.1 10*3/mm3 mean corpuscular volume, RBC 99 fL red blood cell distribution width 14.9 % Clinical Lists Update: CBC,CMP,FLP,PT,INR [facility] - Chemistry protein, total, serum 6.9 g/dL Estimated Glomerular Filtration Rate (calc) 53 mL/min/1.73m2 LDL cholesterol, serum 105 mg/dL HDL cholesterol, serum 29 mg/dL creatinine, serum 1.33 mg/dL carbon dioxide, venous blood 26 mmol/L cholesterol, serum 188 mg/dL chloride, serum 105 mmol/L calcium, serum 9.2 mg/dL urea nitrogen, blood 24 mg/dL alkaline phosphatase, serum 42 U/L albumin, serum 4.1 g/dL potassium, serum 5.2 mmol/L glucose, plasma fasting 97 mg/dL very low density lipoproteins 61 mg/dL aspartate aminotransferase (SGOT), serum 26 U/L alanine aminotransferase (SGPT), serum 17 U/L bilirubin, serum, total 0.3 mg/dL triglyceride, serum, fasting 305 mg/dL sodium, serum 140 mmol/L Clinical Lists Update: CBC,CMP,FLP,PT,INR [facility] - Coagulation prothrombin time (patient) 12.4 s PTT patient 24 s international normalized ratio (INR) 0.9 Clinical Lists Update: CBC,CMP,FLP,PT,INR [facility] - Hematology red blood cell distribution width 13.7 % mean corpuscular volume, RBC 93 fL leukocyte count, blood 8.3 10*3/mm3 erythrocyte (RBC) count 4.12 10*6/mm3 platelet count 171 10*3/mm3 hemoglobin, blood 13.3 g/dL hematocrit, blood 38 % Clinical Lists Update: CMP,FLP,TSH,FREE T4,ESR,HGA1C - Chemistry cholesterol/HDL ratio, serum, percent 6.8 glucose, plasma fasting 108 mg/dL Estimated Glomerular Filtration Rate (calc) 57 mL/min/1.73m2 anion gap, serum 14 sodium, serum 134 mmol/L triglyceride, serum, fasting 361 mg/dL bilirubin, serum, total 0.4 mg/dL alanine aminotransferase (SGPT), serum 16 U/L aspartate aminotransferase (SGOT), serum 20 U/L protein, total, serum 6.4 g/dL potassium, serum 4.5 mmol/L LDL cholesterol, serum 109 mg/dL thyroid stimulating hormone, serum 4.91 u[iU]/mL hemoglobin A1C, blood, as % of total hemoglobin 5.5 % HDL cholesterol, serum 31.0 mg/dL creatinine, serum 1.3 mg/dL carbon dioxide, venous blood 23.0 mmol/L cholesterol, serum 212 mg/dL chloride, serum 102 mmol/L calcium, serum 8.7 mg/dL urea nitrogen, blood 25 mg/dL alkaline phosphatase, serum 46 U/L albumin, serum 4.1 g/dL Clinical Lists Update: CMP,FLP,TSH,FREE T4,ESR,HGA1C - Hematology erythrocyte sedimentation rate 21 mm/h Office Visit: Dr Nelson's Check Up: Established Patient Visit - Chemistry cholesterol/HDL ratio, serum, percent 6.2 glucose, plasma fasting 86 mg/dL Estimated Glomerular Filtration Rate (calc) 52 mL/min/1.73m2 anion gap, serum 10 albumin, serum 4.6 g/dL alkaline phosphatase, serum 42 U/L urea nitrogen, blood 32 mg/dL calcium, serum 9.4 mg/dL chloride, serum 100 mmol/L cholesterol, serum 235 mg/dL carbon dioxide, venous blood 33.0 mmol/L sodium, serum 139 mmol/L triglyceride, serum, fasting 271 mg/dL bilirubin, serum, total 0.4 mg/dL alanine aminotransferase (SGPT), serum 19 U/L aspartate aminotransferase (SGOT), serum 29 U/L protein, total, serum 6.9 g/dL potassium, serum 4.3 mmol/L LDL cholesterol, serum 143 mg/dL thyroid stimulating hormone, serum 3.29 u[iU]/mL hemoglobin A1C, blood, as % of total hemoglobin 4.9 % HDL cholesterol, serum 38.0 mg/dL thyroxine, serum, free 0.86 ng/dL creatinine, serum 1.4 mg/dL Office Visit: Dr Nelson's Check Up: Established Patient Visit - Hematology red blood cell distribution width 13.4 % hematocrit, blood 50 % hemoglobin, blood 15.9 g/dL platelet count 151 10*3/mm3 erythrocyte (RBC) count 5.03 10*6/mm3 leukocyte count, blood 7.7 10*3/mm3 mean corpuscular volume, RBC 99 fL Office Visit: Dr Nelson'precious Check Up: Established Patient Visit - Urinalysis microalbumin, urine, semiquantitative 0.3 mg/dL Encounters Code Encounter Date Provider Facility CPT-66976 Ofc Vst, Est Level IV 16:59:35 CDT Re[facility] CPT-94992 Ofc Vst, Est Level III 16:22:38 CDT Re[facility] CPT-96954 Ofc Vst, Est Level III 13:27:33 [facility] Reina Nelson DO, FACP CPT-74819 Ofc Vst, Est Level IV 12:43:02 [facility] FACILITY MANAGER Reina Noe Omar, DO, FACP CPT-86280 Ofc Vst, Est Level III 20:57:09 [facility] FACILITY MANAGER Reina Noe Omar, DO, FACP CPT-14812 Ofc Vst, Est Level III 12:57:02 [facility] FACILITY MANAGER Reina Noe Omar, DO, FACP CPT-37322 Ofc Vst, Est Level IV 16:21:18 CDT Reinawilmar Coener Reina Noe Omar, DO, FACP CPT-75287 Ofc Vst, Est Level III 14:05:10 CDT Reinawilmar Noe Omar, DO, FACP CPT-68484 Ofc Vst, Est Level III 12:30:23 [facility]IDENTIAL CARE FACILITY MANAGER Reina Noe Omar, DO, FACP CPT-21264 Ofc Vst, Est Level III 20:03:53 [facility] FACILITY MANAGER Reina Noe Omar, DO, FACP CPT-24558 Ofc Vst, New Level IV 16:23:53 [facility] FACILITY MANAGER Reina Noe Omar, DO, FACP Procedures Code Procedure Name Date Entry Date Standard Description CPT-G0439 Medicare Annual Wellness Visit 16:57:55 CDT CPT-G8443 E-Prescribing Medication Sent 14:05:10 CDT CPT-G8446 E-Prescribing not done due to controlled substance 16:17 :01 [facility]IDENT[facility] FACILITY MANAGER CPT-G0438 Medicare Annual Wellness Visit Initial 16:17:01 RESIDENTIAL CARE FACILITY MANAGER CPT-G8446 E-Prescribing not done due to controlled substance 12:30 :23 RESIDENTIAL CARE FACILITY MANAGER CPT-G8443 E-Prescribing Medication Sent 20:03:53 RESIDENTIAL CARE FACILITY MANAGER CPT-G8443 E-Prescribing Medication Sent 16:23:53 RESIDENTIAL CARE FACILITY MANAGER
--- OUTSIDE RECORDS SUMMARY | 2016-10-26 11:03 | XMS REPORT | Continuity of Care Document ---
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 03/12/2016 CRESCENCIO QUESADA MD Ot Z01.810 ENCOUNTER FOR PREPROCEDURAL CARDIOVASCUL 03/12/2016 CRESCENCIO QUESADA MD Ot Z01.811 ENCOUNTER FOR PREPROCEDURAL RESPIRATORY 03/12/2016 CRESCENCIO QUESADA MD Ot Z01.812 ENCOUNTER FOR PREPROCEDURAL LABORATORY E 03/12/2016 CRESCENCIO QUESADA MD Ot Z11.2 ENCOUNTER FOR SCREENING FOR OTHER BACTER 03/12/2016 JAYLA DOWNING DO Ot I71.4 ABDOMINAL AORTIC ANEURYSM, WITHOUT RUPTU 03/12/2016 JAYLA DOWNING DO Ot R10.12 LEFT UPPER QUADRANT PAIN 03/13/2016 ROSSY CUNNINGHAM MD Ot K21.9 GASTRO-ESOPHAGEAL REFLUX DISEASE WITHOUT 04/03/2016 ROSSY CUNNINGHAM MD, Ot K21.9 GASTRO-ESOPHAGEAL REFLUX DISEASE WITHOUT 04/06/2016 ROSSY CUNNINGHAM MD, Ot K21.9 GASTRO-ESOPHAGEAL REFLUX DISEASE WITHOUT 05/07/2016 ROSSY CUNNINGHAM MD, Ot E66.01 MORBID (SEVERE) OBESITY DUE TO EXCESS CA 05/07/2016 ROSSY CUNNINGHAM MD, Ot Z01.812 ENCOUNTER FOR PREPROCEDURAL LABORATORY E 05/07/2016 ROSSY CUNNINGHAM MD, Ot Z11.2 ENCOUNTER FOR SCREENING FOR OTHER BACTER 05/07/2016 ROSSY CUNNINGHAM MD, Ot Z68.41 BODY MASS INDEX (BMI) 40.0-44.9, ADULT 05/12/2016 ROSSY CUNNINGHAM MD, Ot E66.01 MORBID (SEVERE) OBESITY DUE TO EXCESS CA 05/12/2016 ROSSY CUNNINGHAM MD, Ot E78.5 HYPERLIPIDEMIA, UNSPECIFIED 05/12/2016 ROSSY CUNNINGHAM MD, Ot G47.33 OBSTRUCTIVE SLEEP APNEA (ADULT) (PEDIATR 05/12/2016 ROSSY CUNNINGHAM MD, Ot I11.0 HYPERTENSIVE HEART DISEASE WITH HEART FA 05/12/2016 ROSSY CUNNINGHAM MD, Ot I25.10 ATHSCL HEART DISEASE OF [place] CORONARY 05/12/2016 ROSSY CUNNINGHAM MD Ot I50.9 HEART FAILURE, UNSPECIFIED 05/12/2016 ROSSY CUNNINGHAM MD, Ot J44.9 CHRONIC OBSTRUCTIVE PULMONARY DISEASE, U 05/12/2016 ROSSY CUNNINGHAM MD, Ot M19.90 UNSPECIFIED OSTEOARTHRITIS, UNSPECIFIED 05/12/2016 ROSSY CUNNINGHAM MD Ot R73.03 PREDIABETES 05/12/2016 ROSSY CUNNINGHAM MD, Ot Z68.41 BODY MASS INDEX (BMI) 40.0-44.9, ADULT 05/12/2016 ROSSY CUNNINGHAM MD, Ot Z95.810 PRESENCE OF AUTOMATIC (IMPLANTABLE) CARD 05/22/2016 BEAN GAGE MD Ot E11.9 TYPE 2 DIABETES MELLITUS WITHOUT COMPLIC 05/22/2016 BEAN GAGE MD, Ot E78.2 MIXED HYPERLIPIDEMIA 05/22/2016 BEAN GAGE MD Ot I10 ESSENTIAL (PRIMARY) HYPERTENSION 05/22/2016 BEAN GAGE MD Ot I25.10 ATHSCL HEART DISEASE OF [place] CORONARY 05/22/2016 BEAN GAGE MD Ot I50.22 CHRONIC SYSTOLIC (CONGESTIVE) HEART FAIL 05/25/2016 BEAN GAGE MD, Ot E11.9 TYPE 2 DIABETES MELLITUS WITHOUT COMPLIC 05/25/2016 BEAN GAGE MD, Ot E78.2 MIXED HYPERLIPIDEMIA 05/25/2016 BEAN GAGE MD, Ot I10 ESSENTIAL (PRIMARY) HYPERTENSION 05/25/2016 BEAN GAGE MD, Ot I25.10 ATHSCL HEART DISEASE OF [place] CORONARY 05/25/2016 BEAN GAGE MD, Ot I50.22 CHRONIC SYSTOLIC (CONGESTIVE) HEART FAIL Procedures Code Description Performed By Performed On [id number] 02/02/2015 [id number] 07/06/2015 [id number] 07/08/2015 [id number] EXCISION OF STOMACH, PERCUTANEOUS ENDOSC 05/10/2016 Results Test Result Range Complete blood count (CBC) with automated white blood cell (WBC) differential - 05/07/16 13:45 Blood leukocytes automated count (number/volume) 7.1 10*3/ uL 4.3-11.0 Blood erythrocytes automated count (number/volume) 4.52 10*6 /uL 4.35-5.85 Venous blood hemoglobin measurement (mass/volume) 14.4 g/dL 13.3-17.7 Blood hematocrit (volume fraction) 41 % 40-54 Automated erythrocyte mean corpuscular volume 92 [foz_us] 80-99 Automated erythrocyte mean corpuscular hemoglobin (mass per erythrocyte) 32 pg 25-34 Automated erythrocyte mean corpuscular hemoglobin concentration measurement ( mass/volume) 35 g/dL 32-36 Automated erythrocyte distribution width ratio 13.0 % 10.0-14.5 Automated blood platelet count (count/volume) 146 10*3/uL 130-400 Automated blood platelet mean volume measurement 9.1 [foz_us ] 7.4-10.4 Automated blood neutrophils/100 leukocytes 57 % 42-75 Automated blood lymphocytes/100 leukocytes 24 % 12-44 Blood monocytes/100 leukocytes 16 % 0-12 Automated blood eosinophils/100 leukocytes 2 % 0-10 Automated blood basophils/100 leukocytes 0 % 0-10 Blood neutrophils automated count (number/volume) 4.1 10*3 1.8-7.8 Blood lymphocytes automated count (number/volume) 1.7 10*3 1.0-4.0 Blood monocytes automated count (number/volume) 1.2 10*3 0.0-1.0 Automated eosinophil count 0.2 10*3/uL 0.0-0.3 Automated blood basophil count (count/volume) 0.0 10*3/uL 0.0-0.1 Methicillin resistant Staphylococcus aureus (MRSA) screening culture - 13:45 Methicillin resistant Staphylococcus aureus (MRSA) screening culture NEG NRG Automated blood complete blood count (hemogram) panel - 05/11/16 05:40 Blood leukocytes automated count (number/volume) 10.7 10*3/ uL 4.3-11.0 Blood erythrocytes automated count (number/volume) 4.01 10*6 /uL 4.35-5.85 Venous blood hemoglobin measurement (mass/volume) 12.9 g/dL 13.3-17.7 Blood hematocrit (volume fraction) 37 % 40-54 Automated erythrocyte mean corpuscular volume 93 [foz_us] 80-99 Automated erythrocyte mean corpuscular hemoglobin (mass per erythrocyte) 32 pg 25-34 Automated erythrocyte mean corpuscular hemoglobin concentration measurement ( mass/volume) 35 g/dL 32-36 Automated erythrocyte distribution width ratio 13.0 % 10.0-14.5 Automated blood platelet count (count/volume) 166 10*3/uL 130-400 Automated blood platelet mean volume measurement 9.1 [foz_us ] 7.4-10.4 Whole blood basic metabolic panel - 05/11/16 05:40 Serum or plasma sodium measurement (moles/volume) 136 mmol/ L 135-145 Serum or plasma potassium measurement (moles/volume) 4.5 mmol/L 3.6-5.0 Serum or plasma chloride measurement (moles/volume) 102 mmol /L 98-107 Carbon dioxide 22 mmol/L 21-32 Serum or plasma anion gap determination (moles/volume) 12 mmol/L 5-14 Serum or plasma urea nitrogen measurement (mass/volume) 16 mg/dL 7-18 Serum or plasma creatinine measurement (mass/volume) 1.01 mg /dL 0.60-1.30 Serum or plasma urea nitrogen/creatinine mass ratio 16 NRG Serum or plasma creatinine measurement with calculation of estimated glomerular filtration rate > NRG Serum or plasma glucose measurement (mass/volume) 141 mg/dL 70-105 Serum or plasma calcium measurement (mass/volume) 8.8 mg/dL 8.5-10.1 Automated blood complete blood count (hemogram) panel - 05/12/16 06:29 Blood leukocytes automated count (number/volume) 9.6 10*3/ uL 4.3-11.0 Blood erythrocytes automated count (number/volume) 3.82 10*6 /uL 4.35-5.85 Venous blood hemoglobin measurement (mass/volume) 12.4 g/dL 13.3-17.7 Blood hematocrit (volume fraction) 36 % 40-54 Automated erythrocyte mean corpuscular volume 94 [foz_us] 80-99 Automated erythrocyte mean corpuscular hemoglobin (mass per erythrocyte) 33 pg 25-34 Automated erythrocyte mean corpuscular hemoglobin concentration measurement ( mass/volume) 34 g/dL 32-36 Automated erythrocyte distribution width ratio 13.1 % 10.0-14.5 Automated blood platelet count (count/volume) 145 10*3/uL 130-400 Automated blood platelet mean volume measurement 9.0 [foz_us ] 7.4-10.4 Encounters ACCT No. Visit Date/Time Discharge Status Pt. Type Provider Facility Loc./Unit Complaint [id number] 05/10/2016 11:00:00 2016 14:30:00 DIS Inpatient ROSSY CUNNINGHAM MD Via [facility] 4TH MORBID OBESITY [id number] 05/07/2016 12:53:00 2016 15:03:00 DIS Outpatient ROSSY CUNNINGHAM MD [facility] PREOP MORBID OBESITY [id number] 10/07/2015 14:45:00 2015 15:22:00 DIS Outpatient CRESCENCIO QUESADA MD [facility] REHAB S/P L TKR [id number] 07/08/2015 10:35:00 2015 10:20:00 DIS Inpatient MAURICIO REYES MD [facility] IRF IRF-LEFT KNEE OSTEOARTHRITIS [id number] 07/06/2015 05:57:00 2015 11:26:00 DIS Inpatient CRESCENCIO QUESADA MD [facility] 4TH LEFT KNEE OSTEOARTHRITIS [id number] 04/19/2015 14:15:00 2014 17:33:00 DIS Outpatient CRESCENCIO QUESADA MD [facility] REHAB OA RIGHT KNEE [id number] 02/07/2015 09:56:00 2014 11:00:00 DIS Inpatient MAURICIO REYES MD [facility] IRF RIGHT TOTAL KNEE REPLACEMENT [id number] 01/26/2015 09:49:00 2014 23:59:59 CLS Outpatient CRESCENCIO QUESADA MD [facility] PREOP RIGHT KNEE SEVERE OSTEOARTHRITIS [id number] 12/28/2014 09:40:00 2014 23:59:59 CLS Outpatient NANETTE COWAN MD [facility] RAD CHRONIC PAIN OF RIGHT KNEE [id number] 12/10/2014 19:37:00 2014 04:50:00 DIS Outpatient FREEMAN HOWE DO [facility] SLEEP OBSERVED APNEAS SNORING EXCESSIVE DAYTIME SLEEPINE [id number] 11/22/2014 07:49:00 2014 23:59:59 CLS Outpatient BEAN GAGE MD [facility] CARD CAD,CHF,HTN,HLP [id number] 11/17/2014 16:16:00 2014 23:59:59 CLS Outpatient HARLEY DOVER DO [facility] RT SOB [id number] 11/08/2014 13:32:00 2014 23:59:59 CLS Outpatient BEAN GAGE MD [facility] CARD CAD,CHF,HTN,HLP [id number] 10/22/2014 06:54:00 2014 07:48:00 DIS Outpatient NANETTE COWAN MD [facility] CARD DEGENERATIVE DISC DISEASE LUMBAR [id number] 01/20/2014 08:14:00 2013 12:10:00 DIS Outpatient BEAN GAGE MD [facility] CR STENT [id number] 01/11/2014 08:53:00 2013 00:01:00 DIS Outpatient BEAN GAGE MD [facility] CR STENT [id number] 12/30/2013 09:04:00 2013 13:19:00 DIS Outpatient BEAN GAGE MD [facility] SDC CHS,CAD,HLP,HTN [id number] 12/24/2013 12:47:00 2013 23:59:59 CLS Outpatient BEAN GAGE MD [facility] CARD CHF,CAD,HLP,HTN [id number] 11/15/2013 19:24:00 2013 19:53:00 DIS Emergency CAROL ANN PORTILLO, KVNG Shea [facility] ER R TOE INJ [id number] 09/23/2013 11:55:00 2013 19:30:00 DIS Outpatient BEAN GAGE MD [facility] CATH ABNORMAL STRESS, CAD,CHF,HTN,HLP [id number] 09/16/2013 07:29:00 2013 23:59:59 CLS Outpatient BEAN GAGE MD [facility] CARD CAD,CHF,DM,HTN [id number] 08/26/2013 08:35:00 2013 23:59:59 CLS Outpatient BEAN GAGE MD [facility] CARD CAD,CHF,DM,HTN [id number] 04/12/2016 10:31:00 ACT Outpatient BEAN GAGE MD [facility] CARD CAD,CHF,DIABETES MELLITUS,HLP,HTN [id number] 03/12/2016 10:15:00 ACT Outpatient ROSSY CUNNINGHAM MD [facility] RAD REFLUX [id number] 11/11/2015 13:28:00 ACT Outpatient JAYLA DOWNING DO [facility] RAD SOFT TISSUE MASS,LT UPPER QUAD PAIN [id number] 06/15/2015 09:47:00 ACT Outpatient CRESCENCIO QUESADA MD [facility] PREOP LEFT KNEE OSTEOARTHRITIS [id number] 02/02/2015 05:46:00 PEN Inpatient CRESCENCIO QUESADA MD [facility] SURGICAL RIGHT KNEE SEVERE OSTEOARTHRITIS [id number] 11/09/2013 08:30:00 Document Registration
[2016-10-26] MEDS ORDERED: NS IV 500 ML 500 ML ONE (11:06)
[2016-10-26] MEDS ORDERED: NS IV 500 ML 500 ML IV ONE (11:15)
[2016-10-26 11:35] VITALS: BP 131/75
[2016-10-26] MEDS ORDERED: FLUT9.9S NS (11:44)
[2016-10-26] MEDS ORDERED: MIDAZOLAM 2 MG/2 ML (VERSED) VIAL ONE ×6 (12:09→12:10)
[2016-10-26] MEDS ORDERED: LIDOCAINE JELLY 2% (XYLOCAINE) 5 ML TUBE ONE (12:09)
[2016-10-26] MEDS ORDERED: fentaNYL INJECTION 100 MCG/2 ML AMP ONE ×2 (12:09)
[2016-10-26] MEDS: fentaNYL INJECTION 100 MCG/2 ML AMP IVP PRN ×4 (12:22→12:32)
--- NOTE | 2016-10-26 12:23 | Conscious Sedation/ASA ---
Conscious Sedation Pre-Proced Time Reviewed: 12:00 ASA Class: 2 Airway Mallampati Classification: ([place] appropriate class) I. II. III, IV Lungs Heart ASA score ASA 1: a normal healthy patient ASA 2: a patient with a mild systemic disease (mid diabetes, controlled hypertension, obesity ASA 3: a patient with a severe systemic disease that limits activity (angina , COPD, prior Myocardial infarction) ASA 4: a patient with an incapacitating disease that is a constant threat to life (CHF, renal failure) ASA 5: a moribund patient not expected to survive 24 hrs. (ruptured aneurysm) ASA 6: a declared brain patient whose organs are being harvested. For emergent operations, add the letter E after the classification Grade 2 Sedation Plan: Analgesia, Amnesia, Plan communicated to team members, Discussed options with patient/fam, Discussed risks with patient/fam Note The patient is an appropriate candidate to undergo the planned procedure, sedation, and anesthesia. The patient immediately re-assessed prior to indication. ROSSY CUNNINGHAM MD Oct 26, 2016 12:23 pm
--- NOTE | 2016-10-26 12:23 | Progress Note-Pre Operative ---
Pre-Operative Progress Note H&P Reviewed The H&P was reviewed, patient examined and no changes noted. Date Seen by Provider: Oct 26, 2016 Time Seen by Provider: 12:00 Date H&P Reviewed: Oct 26, 2016 Time H&P Reviewed: 12:00 Pre-Operative Diagnosis: hx colon polyp, change bowel habit ROSSY CUNNINGHAM MD Oct 26, 2016 12:23 pm
[2016-10-26] MEDS: MIDAZOLAM 2 MG/2 ML (VERSED) VIAL IVP PRN ×3 (12:24→12:31)
[2016-10-26] MEDS ORDERED: ONDANSETRON 4 MG/2 ML (SDV) Z0FRAN IV PRN (12:30)
[2016-10-26] MEDS ORDERED: HYDROcodone/APAP 5 MG/325 MG (LORTAB) TAB PO PRN (12:30)
[2016-10-26] MEDS ORDERED: ACETAMINOPHEN 325 MG TABLET/CAPLET (TYLENOL) PO PRN (12:30)
[2016-10-26] MEDS ORDERED: morphine INJ 10 MG/ML 1ML (SYR OR VIAL) IV PRN (12:30)
--- NOTE | 2016-10-26 12:59 | Progress Note-Post Operative ---
Post-Operative Progess Note Surgeon (s)/Concrete Stone Fabricating Supervisor (s) Surgeon ROSSY CUNNINGHAM MD [employer] Fabricating Supervisor: none Pre-Operative Diagnosis hx colon polyp, change bowel habit, family hx colon ca Post-Operative Diagnosis chronic stage 2 ext and int hemorrhoids, mild sigmoid diverticulosis. Procedure & Operative Findings Date of Procedure 10/26/16 Procedure Performed/Findings Colonoscopy Anesthesia Type CS Estimated Blood Loss Estimated blood loss (mL): minimal Specimens/Packing Specimens Removed none ROSSY CUNNINGHAM MD Oct 26, 2016 12:59 pm
--- NOTE | 2016-10-26 13:00 | Discharge Inst-Surgical ---
D/C Lap Instructions-OCTAVIO Follow Up 5 years Activity as tolerated High Fiber Diet 25g or more per day Avoid Alcohol, Caffeine, Spicy [place] and Acid foods. Drink 64 fluid oz or more of fluids per day. Symptoms to Report: Fever over 101 degree F, Nausea/Vomiting If any problems/questions: Contact your physician or go to Emergency Room ROSSY CUNNINGHAM MD Oct 26, 2016 1:00 pm
[2016-10-26] MEDS ORDERED: LIDOCAINE JELLY 2% (XYLOCAINE) 5 ML TUBE TOP ONE (13:15)
[2016-10-26 13:20] VITALS: BP 101/60
[2016-10-26 13:50] VITALS: BP 100/67
[2016-10-26 14:15] VITALS: BP 100/67
--- NOTE | 2016-10-27 12:10 | OPERATIVE REPORT ---
PROCEDURE PHYSICIAN: ROSSY KHAN DATE OF PROCEDURE: 10/26/2016 ATTENDING PHYSICIAN: Dr. Nelson. PREOPERATIVE DIAGNOSIS: 1. History of colon polyps. 2. Change in bowel habits. POSTOPERATIVE DIAGNOSES: 1. Chronic, stage II external and internal hemorrhoids. 2. Mild sigmoid diverticulosis. PROCEDURE: Colonoscopy. SURGEON: Dr. Khan. ANESTHESIA: Conscious sedation. ESTIMATED BLOOD LOSS: Minimal. FINDINGS: 1. Chronic, stage II external and internal hemorrhoids. 2. Prostate gland was palpable and appeared normal. 3. Mild sigmoid diverticulosis. 4. The remainder of the colon was normal. There were no polyps identified. DISPOSITION: The patient tolerated the procedure well. Mr. Peng Camargo is a 71-year-old male in need of a colonoscopy. This gentleman reports that his last colonoscopy was greater than 10 years ago and he does remember that on his last colonoscopy, he was found to have polyps, biopsied and found to be benign. He also does report a family history of colon cancer. The patient was brought to the endoscopy suite, laid in the left lateral decubitus position. After adequate IV pain and sedative medications and conscious sedation anesthesia, a digital rectal examination was performed. Chronic, stage II external and internal hemorrhoids were identified which were not actively edematous nor inflamed and no bleeding. Normal sphincter tone was felt and there were no palpable masses. Prostate gland was palpable and appeared normal. The endoscope was then intubated into the anus and the rectum gently insufflated. The endoscope was then advanced through the valves of Zhou of the rectum with no polyps or any neoplasms identified. Through the sigmoid colon, a mild sigmoid diverticulosis identified. There were no mucosal inflammatory changes to indicate any diverticulitis. The endoscope was then advanced through the remainder of the descending, transverse, and ascending colon to the cecum. These segments were normal. There were no polyps or any neoplasms identified throughout the colon or rectum. The endoscope was then slowly withdrawn while taking a second look and suctioning the residual air with no additional findings. The patient tolerated the procedure well. We will have him continue with medical management with a high fiber diet with at least 30 grams of fiber per day, as well as at least 64 fluid ounces of water daily to promote soft stools on a daily basis. We will recommend a follow-up colonoscopy in approximately 5 years. Job ID: [id number] Dictated Date: 10/26/2016 12:52:29 Edge Stripper Date: 10/27/2016 11:58:39 / piter
== END 2016-10-26 14:15 | disposition home or self-care (01) ==
LOC: ENDO 10:48
PROVIDERS: ATTEND Surgery
DX: R19.4 Change in bowel habit (principal); K57.30 Diverticulosis of large intestine without perforation or abscess without bleeding; K64.1 Second degree hemorrhoids; Z86.010 Personal history of colon polyps; Z80.0 Family history of malignant neoplasm of digestive organs; I10 Essential (primary) hypertension; E03.9 Hypothyroidism, unspecified; E78.00 Pure hypercholesterolemia, unspecified; I25.10 Atherosclerotic heart disease of native coronary artery without angina pectoris

== ENCOUNTER → 2017-02-27 | Outpatient (CLI) | payer MEDICARE, OTHER ==
[~2017-02-27] MED LIST changes: +CATHETER FLUSH 10 ML SYR IV PRN; +REGADENOSON 0.4 MG/5 ML SYR (LEXISCAN) IV ONE
[2017-02-27 09:08] VITALS: BP 117/65
--- NOTE | 2017-02-27 22:42 | STRESS TEST ---
DATE OF SERVICE: 02/27/2017 LEXISCAN MYOVIEW STRESS TEST REPORT REFERRING PHYSICIAN: Dr. Nelson. Baseline heart rate is 67. Baseline blood pressure is 154/77. Baseline EKG sinus rhythm with no ischemic changes. In summary, patient was injected with 10.46 mCi of technetium-99 Myoview and the resting images were obtained. Then, the patient received 0.4 mg of Lexiscan followed by 29.8 mCi of technetium-99 Myoview. Throughout the test, there were no EKG changes. The resting and stress images were reviewed and compared in the short axis, horizontal long axis, and vertical long axis views. Review of the images showed fixed defect involving the whole inferior wall and inferolateral wall at SSS 24, SDS 0. TID value 1.15. On the gated images, the left ventricle appeared to be dilated with diffuse left ventricular hypokinesia, akinesia of the inferior wall. Calculated ejection fraction 30%. CONCLUSION: 1. The patient tolerated Lexiscan well. 2. 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 3. Diffuse left ventricular hypokinesia with akinesia of the inferior wall. Calculated ejection fraction 30%. Job ID: [id number] DocumentID: [id number] Dictated Date: 02/27/2017 14:56:58 Chief Fishery Division Date: 02/27/2017 18:36:25 Dictated By: BEAN GAGE MD
== END ==
LOC: CARD 06:51
PROVIDERS: ATTEND Physician Assistant
DX: I25.10 Atherosclerotic heart disease of native coronary artery without angina pectoris (principal); I11.0 Hypertensive heart disease with heart failure; I50.22 Chronic systolic (congestive) heart failure; E78.2 Mixed hyperlipidemia
CPT/HCPCS: 78452; 93017

== ENCOUNTER → 2017-05-22 | Outpatient (CLI) | payer MEDICARE, OTHER ==
[~2017-05-22] MED LIST changes: +ACHD5005 PO; -CATHETER FLUSH 10 ML SYR IV PRN; -HYDR-3812 PO; -REGADENOSON 0.4 MG/5 ML SYR (LEXISCAN) IV ONE
== END ==
LOC: RAD 12:37
PROVIDERS: ATTEND Internal Medicine Cardiovascular Disease
DX: I25.10 Atherosclerotic heart disease of native coronary artery without angina pectoris (principal); I11.9 Hypertensive heart disease without heart failure; I50.22 Chronic systolic (congestive) heart failure; E78.2 Mixed hyperlipidemia
CPT/HCPCS: 93306

== ENCOUNTER → 2018-02-26 | Outpatient (CLI) | payer MEDICARE, OTHER ==
[~2018-02-26] MED LIST changes: -AMIO200T2 PO; +AMIO200T4 PO; +HYDR-4226 PO; -HYDR-757 PO; -LOSA100T28 PO; +LOSA100T8 PO; +REGADENOSON 0.4 MG/5 ML SYR (LEXISCAN) IV ONE; -SPIR25TA3 PO; +SPIR25TA5 PO
[2018-02-26] MEDS: CATHETER FLUSH 10 ML SYR IV PRN ×2 (08:08→09:34)
[2018-02-26 09:32] VITALS: BP 155/70
--- NOTE | 2018-02-26 18:18 | STRESS TEST ---
DATE OF SERVICE: 02/26/2018 LEXISCAN MYOVIEW STRESS TEST REPORT Baseline heart rate is 66, baseline blood pressure 155/70. Baseline EKG is sinus rhythm with nonspecific T-wave abnormality. In summary, the patient received 9.91 mCi of technetium-99 Myoview and the resting images were obtained. Then, he received 0.4 mg of Lexiscan followed by 31.3 mCi of technetium-99 Myoview. Throughout the test, there were no EKG changes. The resting and stress images were reviewed and compared in the short axis, horizontal long axis, and vertical long axis views. Review of the images showed fix defect involving the whole inferior wall inferoapical segment and through apex and inferolateral wall. SSS is 28, SDS 2, TID value 1.07. On the gated images, the left ventricle appeared to be dilated with akinesia of the inferior wall and inferolateral wall and inferoseptum. Calculated ejection fraction 28%. CONCLUSION: 1. The patient tolerated Lexiscan well. 2. Total infarction of the whole inferior wall, inferolateral wall and inferior apex with no significant ischemia. 3. Dilated left ventricle with akinesia of the inferior wall, inferolateral wall and inferoseptum and inferior apex. Calculated ejection fraction 28%. Job ID: [id number] DocumentID: [id number] Dictated Date: 02/26/2018 15:21:05 Couture Alterations Dressmaker Date: 02/26/2018 18:17:40 Dictated By: BEAN GAGE MD
== END ==
LOC: CARD 07:30
PROVIDERS: ATTEND Physician Assistant
DX: I25.10 Atherosclerotic heart disease of native coronary artery without angina pectoris (principal); I11.0 Hypertensive heart disease with heart failure; I50.22 Chronic systolic (congestive) heart failure; E78.5 Hyperlipidemia, unspecified
CPT/HCPCS: 78452; 93017

== ENCOUNTER 2018-04-04 11:02 | Outpatient (RCR) | payer MEDICARE, OTHER ==
[~2018-04-04 11:02] MED LIST changes: -REGADENOSON 0.4 MG/5 ML SYR (LEXISCAN) IV ONE
[2018-04-30] MEDS ORDERED: AMIO100T4 PO (11:40)
[2018-04-30] MEDS ORDERED: CHOL10003 PO (11:40)
[2018-04-30] MEDS ORDERED: ASPI-999 PO (11:40)
[2018-04-30] MEDS ORDERED: DIVA250T2 PO (11:40)
[2018-04-30] MEDS ORDERED: LOSA50TA7 PO (14:19)
[2018-04-30] MEDS ORDERED: DIVA250T12 PO (14:19)
[2018-04-30] MEDS ORDERED: LEVO88TA54 PO (14:19)
[2018-04-30] MEDS ORDERED: AMIO200T4 PO (14:19)
[2018-04-30] MEDS ORDERED: FLUT16SP22 NS (14:19)
[2018-05-01] MEDS ORDERED: RT-ALBUINH INH (10:51)
[2018-05-01] MEDS ORDERED: MONT10TA21 PO (10:51)
[2018-05-01] MEDS ORDERED: BUDE10.2 IH (10:51)
[2018-05-06] MEDS ORDERED: ACHD5005 PO (06:20)
== END 2018-05-05 | disposition home or self-care (01) ==
PROVIDERS: ATTEND Nurse Practitioner
DX: M54.16 Radiculopathy, lumbar region (principal)

== ENCOUNTER 2018-04-30 10:25 | Outpatient (CLI) | payer MEDICARE, OTHER ==
[~2018-04-30] VITALS: Ht 167.6 cm; Wt 100.2 kg
[2018-04-30 10:34] VITALS: BP 118/65
[2018-04-30 11:06] LABS: BASOPHILS % (AUTO) 0 % (0-10); EOSINOPHILS % (AUTO) 0 % (0-10); HEMATOCRIT 39 % (40-54); HEMOGLOBIN 13.3 G/DL (13.3-17.7); LYMPHOCYTES # (AUTO) 2.1 X 10^3 (1.0-4.0); LYMPHOCYTES % (AUTO) 24 % (12-44); MEAN CORPUSCULAR HEMOGLOBIN 33 PG (25-34); MEAN CORPUSCULAR HGB CONC 34 G/DL (32-36); MEAN CORPUSCULAR VOLUME 96 FL (80-99); MEAN PLATELET VOLUME 8.7 FL (7.4-10.4); MONOCYTES # (AUTO) 1.1 X 10^3 (0.0-1.0); MONOCYTES % (AUTO) 12 % (0-12); NEUTROPHILS # (AUTO) 5.4 X 10^3 (1.8-7.8); NEUTROPHILS % (AUTO) 63 % (42-75); PLATELET COUNT 180 10^3/uL (130-400); RED BLOOD COUNT 4.04 10^6/uL (4.35-5.85); RED CELL DISTRIBUTION WIDTH 12.9 % (10.0-14.5); WHITE BLOOD COUNT 8.5 10^3/uL (4.3-11.0)
[2018-04-30 11:23] LABS: CALCIUM 9.1 MG/DL (8.5-10.1); CREATININE SERUM 1.22 MG/DL (0.60-1.30); POTASSIUM 4.3 MMOL/L (3.6-5.0)
[2018-04-30] MEDS ORDERED: AMIO100T4 PO (11:40)
[2018-04-30] MEDS ORDERED: DIVA250T2 PO (11:40)
[2018-04-30] MEDS ORDERED: CHOL10003 PO (11:40)
[2018-04-30] MEDS ORDERED: ASPI-999 PO (11:40)
[2018-04-30] MEDS ORDERED: AMIO200T4 PO (14:19)
[2018-04-30] MEDS ORDERED: LEVO88TA54 PO (14:19)
[2018-04-30] MEDS ORDERED: FLUT16SP22 NS (14:19)
[2018-04-30] MEDS ORDERED: LOSA50TA7 PO (14:19)
[2018-04-30] MEDS ORDERED: DIVA250T12 PO (14:19)
[2018-05-01] MEDS ORDERED: MONT10TA21 PO (10:51)
[2018-05-01] MEDS ORDERED: RT-ALBUINH INH (10:51)
[2018-05-01] MEDS ORDERED: BUDE10.2 IH (10:51)
== END 2018-04-30 10:59 | disposition home or self-care (01) ==
LOC: PREOP 10:25
PROVIDERS: ATTEND Orthopaedic Surgery Orthopaedic Surgery of the Spine
DX: Z01.812 Encounter for preprocedural laboratory examination (principal); Z11.2 Encounter for screening for other bacterial diseases; M48.061 Spinal stenosis, lumbar region without neurogenic claudication
CPT/HCPCS: 36415; 80048; 85025; 87081

== ENCOUNTER 2018-05-05 05:45 | Inpatient (IN) | payer MEDICARE, OTHER ==
--- NOTE | 2018-05-01 10:57 | NUR ---
HAD A LIST FAXED OVER FROM [employer] AND CALLED AND WENT OVER THE LIST WITH THE PATIENT. salgomed FILLED: 04-27-18 AMIODARONE 200MG DAILY #30 (STATES HE TAKES 1/2 TAB DAILY) 04-26-18 PREDNISONE 20MG #7 (WILL BE FINISHED BY SURGERY) 04-26-18 AMOX/CLAV 875-125 #20 ( WILL BE FINISHED BY SURGERY) 04-14-18 SINGULAIR 10MG #30 DAILY 04-14-18 LOSARTAN 50MG #90 DAILY 04-14-18 DEPAKOTE ER 250MG #150 2 AM 3 HS 04-14-18 PLAVIX 75MG DAILY #90 03-26-18 SYMBICORT 160 03-26-18 FLONASE 03-25-18 LEVOTHYROXINE 88MCG DAILY #90 03-11-18 SPIRONOLACTONE 25MG DAILY #90 03-11-18 CRESTOR 10MG #30 (NO LONGER TAKING) 03-11-18 ALFUZOSIN HCL ER 10MG DAILY #30 03-03-18 NIACIN ER 1000MG DAILY #30(NO LONGER TAKING) 02-17-18 IBU 500MG BID PRN #60 01-07-18 KLOR CON 20MEQ BID #180 01-07-18 COREG 6.25MG BID #180 10-31-17 VENTOLIN 10-22-17 FUROSEMIDE 40MG #270 FOR 90 DAYS (STATES HE ONLY TAKES IT BID) PATIENT TAKES THE FOLLOWING OTC: MTV DAILY JARAD PRN FISH OIL DAILY VITAMIN D DAILY ASPIRIN 81MG DAILY
[~2018-05-05] VITALS: Ht 167.6 cm; Wt 103.0 kg
[~2018-05-05 05:45] MED LIST changes: +AMIO100T4 PO; +ASPI-999 PO; +BUDE10.2 IH; +CHOL10003 PO; +LEVO88TA54 PO; +LOSA50TA7 PO; +MONT10TA21 PO; +RT-ALBUINH INH
[2018-05-05 06:05] VITALS: BP 134/76
[2018-05-05] MEDS ORDERED: ceFAZolin 2 GM IV Premixed 50 ML IV ONE (06:15)
[2018-05-05] MEDS: LACTATED RINGERS 1,000 ML IV PRN ×2 (06:33→08:10)
[2018-05-05] MEDS ORDERED: BUP/EPI 0.5% 1:200,000 (SENSORCAINE) 30 ML VIAL ONE (06:35)
[2018-05-05] MEDS ORDERED: GENTAMICIN 40 MG/ML 2 ML INJ SDV ONE (06:35)
[2018-05-05] MEDS ORDERED: VANCOMYCIN 1000 MG/VIAL ONE (06:35)
[2018-05-05] MEDS ORDERED: DEXAMETHASONE 10 MG/ML (DECADRON) 1 ML VIAL ONE (06:41)
[2018-05-05] MEDS ORDERED: proPOfol 200 MG/20 ML (DIPRIVAN) VIAL IV ONE (06:41)
[2018-05-05] MEDS ORDERED: PROPOFOL INJECTION 50 ML IV ONE (06:41)
[2018-05-05] MEDS ORDERED: ONDANSETRON 4 MG/2 ML (SDV) Z0FRAN ONE (06:41)
[2018-05-05] MEDS ORDERED: SEVOFLURANE (ULTANE) 15 ML INHAL SOLN ONE ×3 (06:41→09:03)
[2018-05-05] MEDS ORDERED: SUCCINYLCHOLINE INJ 100 MG/5 ML SYR ONE (06:41)
[2018-05-05] MEDS ORDERED: fentaNYL INJECTION 100 MCG/2 ML AMP ONE (06:41)
[2018-05-05] MEDS ORDERED: ROCURONIUM 10 MG/ML 5 ML SYRINGE IV ONE (06:41)
[2018-05-05] MEDS ORDERED: LIDOCAINE PF 2% 5 ML (XYLOCAINE) VIAL ONE (06:52)
[2018-05-05] MEDS ORDERED: BISACODYL 10 MG SUPP (DULCOLAX) PR PRN (07:15)
[2018-05-05] MEDS ORDERED: morphine INJ 10 MG/ML 1ML (SYR OR VIAL) IVP PRN (07:15)
[2018-05-05] MEDS ORDERED: ONDANSETRON 4 MG/2 ML (SDV) Z0FRAN IV PRN (07:15)
[2018-05-05] MEDS ORDERED: ACETAMINOPHEN 325 MG TABLET PO PRN (07:15)
[2018-05-05] MEDS ORDERED: PHENYLEPHRINE 100 MCG/ML 10 ML (ANESTHESIA) SYR ONE (08:10)
[2018-05-05] MEDS ORDERED: GLYCOPYRROLATE 0.2 MG/ML (ROBINUL) 2 ML VIAL ONE (08:37)
[2018-05-05] MEDS ORDERED: NEOSTIGMINE 1 MG/ML 5 ML SYRINGE ONE (08:37)
--- NOTE | 2018-05-05 08:43 | Progress Note-Post Operative ---
Post-Operative Progess Note Surgeon (s)/Table Lever Operator (s) Surgeon DAIANA TIDWELL MD Table Lever Operator: PONCHO Serrano Pre-Operative Diagnosis Lumbar Stenosis Post-Operative Diagnosis Same Procedure & Operative Findings Date of Procedure 05/05/18 Procedure Performed/Findings L2-5 Laminectpmy Anesthesia Type GETA Estimated Blood Loss Estimated blood loss (mL): minimal Specimens/Packing Specimens Removed none DAIANA TIDWELL MD May 05, 2018 08:43
[2018-05-05] MEDS ORDERED: HYDROmorphone 2 MG/ML VIAL (DILAUDID) ONE (09:11)
[2018-05-05] MEDS ORDERED: ONDANSETRON 4 MG/2 ML (SDV) Z0FRAN IVP PRN (09:15)
[2018-05-05] MEDS ORDERED: HYDROmorphone 2 MG/ML VIAL (DILAUDID) IV ONE (09:15)
--- NOTE | 2018-05-05 09:55 | NUR ---
TRANSFERRED FROM [facility] PER BED. ALERT AND ORIENTED. SKIN W/D/ DRESSING TO LOW BACK AND MID BACK WITH TELFA AND OP-SITE IN PLACE. SITES CLEAR. NO BLEEDING NOTED. ARUN DRAIN TO LOW BACK WITH SMALL AMT. RED DRAINAGE NOTED. IV SITE TO LEFT F/A CLEAR AND IV FLUIDS INFUSING WELL. DEEP BREATHING ENCOURAGED. AT BEDSIDE. V/S-TEMP-97 BP-148/88 P-78 R-18 O2 SAT 98 % WITH O2 AT 2 L PER MIN. RATES PAIN 3/10 TO BACK INC. AREA.
--- NOTE | 2018-05-05 10:12 | Diagnostic Imaging Report ---
INDICATION: Back pain. IMPRESSION: 3.5 seconds of fluoroscopy and a single digital image for localization was used in Surgery by Dr. Salazar. Dictated by: Dictated on workstation # [id number]
[2018-05-05] MEDS ORDERED: ceFAZolin 2 GM IV Premixed 50 ML ONE (11:07)
[2018-05-05] MEDS: NS IV 1000 ML 1,000 ML IV SCH ×2 (11:12→19:24)
[2018-05-05] MEDS ORDERED: ceFAZolin INJECTION 2,000 MG in NS (IVPB) 50 ML IV SCH (11:15)
[2018-05-05] MEDS: ceFAZolin 2 GM IV Premixed 50 ML IV SCH ×6 (11:30→19:24)
[2018-05-05 12:00] VITALS: BP 118/64
--- NOTE | 2018-05-05 12:00 | NUR ---
UP TO CHAIR. HEIDI. WELL. BACK BRACE APPLIED. AMBULATED TO BATHROOM. VOIDED WITHOUT DIFFICULTY. CHEERFUL AND COOPERATIVE.
[2018-05-05] MEDS ORDERED: HYDROcodone/APAP 5 MG/325 MG (LORTAB) TAB ONE (12:29)
[2018-05-05] MEDS: HYDROcodone/APAP 5 MG/325 MG (LORTAB) TAB PO PRN ×3 (12:33→23:00)
--- NOTE | 2018-05-05 13:01 | OPERATIVE REPORT ---
DATE OF SERVICE: 05/05/2018 PREOPERATIVE DIAGNOSES: Lumbar stenosis, neural canal degenerative disk and osseous structures, neurogenic claudication. POSTOPERATIVE DIAGNOSES: Lumbar stenosis, neural canal degenerative disk and osseous structures, neurogenic claudication. PROCEDURES PERFORMED: 1. L2-3 laminectomy, bilateral medial facetectomy and foraminotomy. 2. L3-4 laminectomy, bilateral medial facetectomy and foraminotomy. 3. L4-5 laminectomy, bilateral medial facetectomy and foraminotomy. DATE AND TIME OF SURGERY: Please see anesthesia record. SURGEON: William Salazar MD. DOCUMENTATION LEAD: FAROOQ Serrano. ROLE OF USED CAR SALES MANAGER: Aid in retraction of the procedure, suction of neural elements, and wound closure. ANESTHESIA: General endotracheal. ESTIMATED BLOOD LOSS: Minimal. INTRAVENOUS FLUIDS: Please see anesthesia record. ANTIBIOTICS: Ancef. COMPLICATIONS: None. INDICATIONS FOR PROCEDURE: The patient is a -72-year-old male with progressive and intolerable back and lower extremity pain, high grade stenosis, failed conservative therapy and desires operative treatment. NEUROMONITORING: Standard intraoperative neurophysiologic monitoring carried out by means of real time continuous high quality bidirectional mode, audio and visual communication to both the broadcast operations technician and surgeon by Dr. Saenz was performed. SSEPS, EMGs, TcMEPs, TOFs were carried out continuously throughout the procedure stable. DESCRIPTION OF PROCEDURE: The patient was taken to the preoperative holding area and brought back to the operative suite. After adequate induction of general anesthetic and preoperative antibiotics, carefully turned prone on Edenil[place] table, careful padding to all extremities, sterilely prepped and draped posterior lumbar spine. Attention directed into the midline where incision was made from L2-5. Dissection was carried down to the level of lamina. Once the appropriate level was confirmed, self-retaining retractors were placed and then a partial 2, complete 3, complete 4 and partial L5 laminectomy, bilateral medial facetectomy and foraminotomy was carried out. Full and adequate decompression was assured. Hemostasis was achieved with bone wax, bipolar cautery and Surgiflo. Once sufficient hemostasis and decompression was assured, wound was copiously irrigated, closed in layers over a drain and the patient was transferred to recovery room in stable condition having tolerated the procedure well with stable spinal monitoring. Job ID: [id number] DocumentID: [id number] Dictated Date: 05/05/2018 08:46:18 Paper Core Machine Operator Date: 05/05/2018 13:00:40 Dictated By: WILLIAM SALAZAR MD
[2018-05-05 16:30] VITALS: BP 148/81
[2018-05-05 20:55] VITALS: BP 118/57
[2018-05-05] MEDS: DOCUSATE SODIUM 100 MG (COLACE) CAP PO SCH (20:56)
[2018-05-06] VITALS: BP 155/71
[2018-05-06] MEDS ORDERED: ceFAZolin 2 GM IV Premixed 50 ML IV SCH (02:00)
[2018-05-06] MEDS: NS IV 1000 ML 1,000 ML IV SCH (03:47)
[2018-05-06 04:00] VITALS: BP 154/69
--- NOTE | 2018-05-06 06:18 | Progress Note (SOAP) ---
Subjective Date Seen by a Provider: May 06, 2018 Time Seen by a Provider: 06:17 Subjective/Events-last exam Pain ok, legs better, can stand up straight for first time in forever. Objective Exam Vital Signs Date Time Temp Pulse Resp B/P (MAP) Pulse Ox O2 Delivery O2 Flow Rate FiO2 05/06/18 00:00 98.1 60 16 155/71 (99) 95 Room Air 05/05/18 20:55 98.0 69 20 118/57 (77) 95 Room Air 05/05/18 20:45 95 Room Air 05/05/18 16:30 98.0 85 20 148/81 (103) 95 Room Air 05/05/18 12:00 95.9 71 18 118/64 (82) 94 Room Air I & O 05/06/18 07:00 Intake Total 3230 ml Output Total 1260 ml Balance 1970 ml Capillary Refill : General Appearance: No Apparent Distress Respiratory: Chest Non Tender, No Accessory Muscle Use, No Respiratory Distress Cardiovascular: Regular Rate, Rhythm Gastrointestinal: soft Extremity: No Calf Tenderness Neurologic/Psychiatric: Alert, Oriented x3, No Motor/Sensory Deficits Assessment/Plan Assessment/Plan Assess & Plan/Chief Complaint Lumbar Stenosis Neurogenic Claudication Plan: Up with PT, D/C Drain, D/c Home today, instructions given Clinical Quality Measures DVT/VTE Risk/Contraindication: Risk Factor Score Per Nursin RFS Level Per Nursing on Admit: 4+=Very High DAIANA TIDWELL MD May 06, 2018 06:18
[2018-05-06] MEDS ORDERED: ACHD5005 PO (06:20)
[2018-05-06] MEDS ORDERED: PANTOPRAZOLE 40 MG (PROTONIX) TAB PO SCH (07:00)
[2018-05-06] MEDS ORDERED: MULTIVIT W/MINERALS TAB (THERAGRAN M) PO SCH (07:00)
--- NOTE | 2018-05-06 07:00 | NUR ---
ARUN Drain dc'd as instructed by Dr. Salazar. New dressing applied. Pt tolerated well.
[2018-05-06] MEDS: HYDROcodone/APAP 5 MG/325 MG (LORTAB) TAB PO PRN ×2 (07:08→11:59)
[2018-05-06 08:00] VITALS: BP 166/75
--- NOTE | 2018-05-06 09:09 | Consultation-Hospitalist ---
HPI History of Present Illness: HPI/Chief Complaint CC: Medical management following lumbar spine surgery uncomplicated by Dr Salazar HPI: This is a 72-year-old white male clinic patient of mine for the last several years with a history of diabetes, congestive heart failure, pacemaker placement, hypertension and hyperlipidemia with obstructive sleep apnea who presented following an uncomplicated lumbar spine surgery by Dr. Salazar. Patient has recovered rapidly and doing extremely well and is set for discharge today. I did order a front wheeled walker for patient. Source: patient Exam Limitations: no limitations Date Seen 05/06/18 Attending Physician William Salazar MD PCP Reina Dover DO Referring Physician Date of Admission May 05, 2018 at 05:45 Home Medications & Allergies Home Medications Reviewed patient Home Medication Reconciliation performed by pharmacy medication reconciliations medical laboratory technician and/or nursing. Patients Allergies have been reviewed. Allergies Allergies Coded Allergies Acksidd-Wjx-Rck Reductase Inhibitor (Unverified Allergy, Unknown, 10/24/16) niacin (Verified Allergy, Unknown, 05/05/18) sacubitril (Verified Allergy, Unknown, 05/05/18) valsartan (Verified Allergy, Unknown, 05/05/18) Past Ruyxesa-Oqqzdb-Xvqtsh Hx Past Med/Social Hx: Reviewed Nursing Past Med/Soc Hx, Reviewed and Corrections made Patient Social History Marrital Status: cohabiting Employed/Student: retired Alcohol Use: Past History Recreational Drug Use: No Smoking Status: Former Smoker Former Smoker, Quit: May 07, 1984 Physical Abuse Screen: No Sexual Abuse: No Recent Foreign Travel: No Contact w/other who traveled: No Recent Hopitalizations: No Recent Infectious Disease Expo: No Immunizations Up To Date Date of Pneumonia Vaccine: Mar 05, 2016 Date of Influenza Vaccine: Jan 27, 2018 Seasonal Allergies Seasonal Allergies: Yes Past Medical History Surgeries: Abdominal (gastric sleeve Dr Khan), Orthopedic, Pacemaker Respiratory: Sleep Apnea Currently Using CPAP: Yes (not able to use r/t claustrophobia) Currently Using BIPAP: No Cardiac: Atrial Fibrillation, Chronic Edema/Swelling, Congenital Heart Disease , High Cholesterol, Hypertension, Valvular Heart Disease Neurological: Neuropathy Reproductive: No Sexually Transmitted Disease: No HIV/AIDS: No Genitourinary: Renal Failure Gastrointestinal: Diverticulosis, Polyps Musculoskeletal: Degenerate Disk Disease, Arthritis, Gout Endocrine: Hypothyroidsim Loss of Vision: Bilateral Hearing Impairment: Denies, Bilateral Hearing Aide Psychosocial: Anxiety, Bipolar, Depression History of Blood Disorders: No Adverse Reaction to Blood Nash: No Family History Alzheimer's disease 19 MOTHER Hypertension 19 FATHER G8 BROTHER G8 SISTER Myocardial infarction 19 FATHER Review of Systems Constitutional: see HPI, weakness EENTM: no symptoms reported Respiratory: no symptoms reported Cardiovascular: no symptoms reported Gastrointestinal: no symptoms reported Genitourinary: no symptoms reported Musculoskeletal: back pain Skin: no symptoms reported Psychiatric/Neurological: No Symptoms Reported All Other Systems Reviewed Negative Unless Noted: Yes Physical Exam Physical Exam Vital Signs Vital Signs - First Documented 05/05/18 06:05 Temp 96.4 Pulse 65 Resp 20 B/P (MAP) 134/76 (95) Pulse Ox 95 O2 Delivery Room Air Capillary Refill : Height, Weight, BMI Height: 5'6.00" Weight: 227lbs. 0.0oz. 102.037430gf; 36.6 BMI Method: General Appearance: No Apparent Distress, WD/WN, Chronically ill Eyes: Bilateral Eye Normal Inspection, Bilateral Eye PERRL HEENT: PERRL/EOMI, Normal ENT Inspection, Pharynx Normal Neck: Full Range of Motion, Normal Inspection, Non Tender, Supple, Carotid Bruit Respiratory: Chest Non Tender, Lungs Clear, Normal Breath Sounds, No Accessory Muscle Use, No Respiratory Distress Cardiovascular: Regular Rate, Rhythm, No Edema, No Gallop, No JVD, No Murmur, Normal Peripheral Pulses Gastrointestinal: Normal Bowel Sounds, No Organomegaly, No Pulsatile Mass, Non Tender, Soft Back: Decreased Range of Motion Extremity: Normal Capillary Refill, Normal Inspection, Normal Range of Motion, Non Tender, No Calf Tenderness, No Pedal Edema Neurologic/Psychiatric: Alert, Oriented x3, No Motor/Sensory Deficits, Normal Mood/Affect Skin: Normal Color, Warm/Dry Lymphatic: No Adenopathy Results Results/Procedures Labs Patient resulted labs reviewed. Assessment/Plan Assessment and Plan Assess & Plan/Chief Complaint Assessment: Status post uncomplicated lumbar spine surgery due to severe stenosis Diabetes mellitus Congestive heart failure Pacemaker Hyperlipidemia Hypertension Chronic renal insufficiency Obstructive sleep apnea Plan: Continue home medications Pain medication Discharge home Walker order placed Diagnosis/Problems Diagnosis/Problems (1) Lumbar stenosis with neurogenic claudication Status: Resolved Resolution Date/Time: 05/06/18 @ 19:56 (2) Coronary arteriosclerosis in [place] artery Status: Chronic (3) Obstructive sleep apnea Status: Chronic (4) Renal insufficiency Status: Chronic (5) Diabetes Status: Chronic Qualifiers: Diabetes mellitus type: type 2 Diabetes mellitus senior living insulin use: without under cutter use Diabetes mellitus complication status: with circulatory complication Diabetes mellitus complication detail: with other circulatory complications Qualified Codes: E11.59 - Type 2 diabetes mellitus with other circulatory complications Clinical Quality Measures DVT/VTE Risk/Contraindication: Risk Factor Score Per Nursin RFS Level Per Nursing on Admit: 4+=Very High REINA DOVER DO May 06, 2018 09:09
[2018-05-06] MEDS: DOCUSATE SODIUM 100 MG (COLACE) CAP PO SCH (09:16)
--- NOTE | 2018-05-06 09:50 | Physical Therapy Evaluation ---
PT Evaluation-General Medical Diagnosis Admission Date May 05, 2018 at 05:45 Medical Diagnosis: stenosis Onset Date: May 05, 2018 Therapy Diagnosis Therapy Diagnosis: debility Height/Weight Height (Feet): 5 Height (Inches): 6.00 Weight (Pounds): 227 Weight (Ounces): 0.0 Precautions Precautions/Isolations: Fall Prevention, Standard Precautions, Pressure Ulcer Weight Bear Status Right Lower Extremity: Right Weight Bearing/Tolerated Left Lower Extremity: Left Weight Bearing/Tolerated Referral Physician: Martin Reason for Referral: Evaluation/Treatment Medical History Pertinent Medical History: Atrial Fib, CABG, CAD, Heart Failure, HTN, Hypothroidism, Neuropathy, OA Current History s/p L2-L5 lami Reviewed History: Yes Social History Home: Single Level Current Living Status: Significant Other Prior/Core FIM Prior Level of Function Therapy Code Descriptions/Definitions Functional [place] Measure: 0=Not Assessed/NA 4=Minimal Assistance 1=Total Assistance 5=Supervision or Setup 2=Maximal Assistance 6=Modified [place] 3=Moderate Assistance 7=Complete [place] Therapy Quality Codes: 6 Independent with activity with or without an assistive device 5 Patient requires set up or clean up by helper. Patient completes activity by themselves 4 Supervision or touching assist (CGA). [place] provide cues , steadying assist 3 The helper provides less than half the effort to complete the activity 2 The helper provides more than half the effort to complete the activity 1 Dependent. The helper does all the effort to complete an activity 7 Patient refused to complete or attempt activity 9 The patient did not perform the activity before the current illness or injury 88 Not attempted due to Medical conditions or safety concerns Functional Abilities and Goals: Independent: Patient completed the activities by him/herself, with or without an assistive device, with no assistance from a helper. Needed Some Help: Patient needed partial assistance from another person to complete activities. Dependent: A helper completed the activities for the patient. Unknown: Not Applicable: Bed Mobility: 6 Transfers (B,C,W/C) (FIM): 6 Gait: 6 Indoor Mobility (Ambulation): Independent Stairs: Independent Prior Devices Use: Other-see list below (cane) PT Evaluation-Current Subjective Patient reports he feels much better and agrees to PT. Pain Numeric Pain Scale: 3 Location: Lower Location Body Site: Back Pain Description: Chronic Objective Patient Orientation: Normal For Age Problem Solving: Fair ROM/Strength ROM Lower Extremities bilateral LE WFL Strength Lower Extremities 4/5 grossly bilaterally Integumentary/Posture Integumentary refer to nursing notes Bowel Incontinence: No Bladder Incontinence: No Posture trunk flexed posture Neuromuscular (Tone, Coordination, Reflexes) grossly intact Sensory Vision: Functional Hearing: Impaired Sensation Right Lower Extremit: Impaired Sensation Left Lower Extremity: Impaired Transfers Therapy Code Descriptions/Definitions Functional [place] Measure: 0=Not Assessed/NA 4=Minimal Assistance 1=Total Assistance 5=Supervision or Setup 2=Maximal Assistance 6=Modified [place] 3=Moderate Assistance 7=Complete [place] Transfers (B, C, W/C) (FIM): 6 Scootin Rollin Supine to/from Sit: 6 Sit to/from Stand: 6 Gait Mode of Locomotion: Walk Anticipated Mode of Locomotion: Walk Gait (FIM): 6 Distance (FIM): 3=150 ft Distance: >500' Gait Level of Assist: 6 Gait Assistive Device: FWW Comments/Gait Description skilled verbal instruction for body placement in FWW for safety Balance Sitting Static: Normal Sitting Dynamic: Normal Standing Static: Normal Standing Dynamic: Normal Assessment/Needs 72 y.o. male, is currently at [facility] with all gross motor skills and will dismiss to home on this date. Rehab Potential: Good PT Plan Treatment/Plan Treatment Plan: Discontinue PT, goals met Treatment Plan: Other Treatment Duration: May 06, 2018 Frequency: 1 time per week Estimated Hrs Per Day: .5 hour per day Patient and/or Family Agrees t: Yes Discharge Recommendations Therapy D/C Recommendations: Home w/ Family Support Time/GCodes Time In: 815 Time Out: 834 Total Billed Treatment Time: 14 Total Billed Treatment 1 visit [facility] 14 min MARY ESCOBAR PT May 06, 2018 09:50
--- NOTE | 2018-05-06 11:18 | NUR ---
CM/SS sent information to DME for FWW. 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 He knew of no other needs at this time.
--- NOTE | 2018-05-06 13:22 | Anesthesia-General Post-Op ---
General Patient Condition Mental Status/LOC: Same as Preop Cardiovascular: Satisfactory Nausea/Vomiting: Absent Respiratory: Satisfactory Pain: Controlled Complications: Absent Post Op Complications Complications None Follow Up Care/Instructions Patient Instructions None needed. Anesthesia/Patient Condition Patient Condition Patient is doing well, no complaints, stable vital signs, no apparent adverse anesthesia problems. No complications reported per nursing. MATT DAY CRNA May 06, 2018 13:22
[2018-05-06 13:56] VITALS: BP 166/75
== END 2018-05-06 12:00 | disposition home or self-care (01) | DRG 519 ==
LOC: 4TH 05:45 → SURG 05:46 → EDSTATUS 07:30 → 4TH 09:55
PROVIDERS: ADMIT Orthopaedic Surgery Orthopaedic Surgery of the Spine; ATTEND Orthopaedic Surgery Orthopaedic Surgery of the Spine
PROC: 00NY0ZZ Release Lumbar Spinal Cord, Open Approach (ICD-10-PCS; principal; 2018-05-05 07:28)
DX: M48.062 Spinal stenosis, lumbar region with neurogenic claudication (principal); E11.40 Type 2 diabetes mellitus with diabetic neuropathy, unspecified; I13.0 Hypertensive heart and chronic kidney disease with heart failure and stage 1 through stage 4 chronic kidney disease, or unspecified chronic kidney disease; I50.9 Heart failure, unspecified; E78.5 Hyperlipidemia, unspecified; E03.9 Hypothyroidism, unspecified; G47.33 Obstructive sleep apnea (adult) (pediatric); I48.91 Unspecified atrial fibrillation; E78.00 Pure hypercholesterolemia, unspecified; Q24.9 Congenital malformation of heart, unspecified; F31.9 Bipolar disorder, unspecified; N18.9 Chronic kidney disease, unspecified; I25.10 Atherosclerotic heart disease of native coronary artery without angina pectoris; E11.59 Type 2 diabetes mellitus with other circulatory complications; Z95.0 Presence of cardiac pacemaker; Z95.1 Presence of aortocoronary bypass graft; Z95.5 Presence of coronary angioplasty implant and graft; Z86.010 Personal history of colon polyps; Z87.891 Personal history of nicotine dependence
CPT/HCPCS: 94664

== ENCOUNTER → 2018-06-24 | Outpatient (CLI) | payer MEDICARE, OTHER ==
[~2018-06-24] MED LIST changes: +LOSA100T57 PO; -LOSA100T8 PO; +LOSA50TA63 PO; -LOSA50TA7 PO
[2018-06-24 09:36] LABS: BASOPHILS % (AUTO) 0 % (0-10); EOSINOPHILS # (AUTO) 0.1 10^3/uL (0.0-0.3); EOSINOPHILS % (AUTO) 1 % (0-10); HEMATOCRIT 40 % (40-54); HEMOGLOBIN 13.5 G/DL (13.3-17.7); LYMPHOCYTES # (AUTO) 2.7 X 10^3 (1.0-4.0); LYMPHOCYTES % (AUTO) 33 % (12-44); MEAN CORPUSCULAR HEMOGLOBIN 32 PG (25-34); MEAN CORPUSCULAR HGB CONC 33 G/DL (32-36); MEAN CORPUSCULAR VOLUME 95 FL (80-99); MEAN PLATELET VOLUME 8.7 FL (7.4-10.4); MONOCYTES # (AUTO) 0.9 X 10^3 (0.0-1.0); MONOCYTES % (AUTO) 11 % (0-12); NEUTROPHILS # (AUTO) 4.6 X 10^3 (1.8-7.8); NEUTROPHILS % (AUTO) 55 % (42-75); PLATELET COUNT 200 10^3/uL (130-400); RED CELL DISTRIBUTION WIDTH 13.1 % (10.0-14.5); WHITE BLOOD COUNT 8.2 10^3/uL (4.3-11.0)
[2018-06-24 09:58] LABS: ALANINE AMINOTRANSFERASE 7 U/L (0-55); ALBUMIN 4.2 GM/DL (3.2-4.5); ALKALINE PHOSPHATASE 44 U/L (40-136); BILIRUBIN,TOTAL 0.4 MG/DL (0.1-1.0); BUN/CREATININE RATIO 20; CALCIUM 9.9 MG/DL (8.5-10.1); CARBON DIOXIDE 23 MMOL/L (21-32); CHLORIDE 104 MMOL/L (98-107); CREATININE SERUM 1.05 MG/DL (0.60-1.30); GFR ESTIMATED > 60; GLUCOSE 92 MG/DL (70-105); POTASSIUM 4.1 MMOL/L (3.6-5.0); SODIUM 138 MMOL/L (135-145)
--- NOTE | 2018-06-24 09:58 | Diagnostic Imaging Report ---
INDICATION: Cough and fever. COMPARISON: Comparison made with prior examination 07/12/2015. FINDINGS: There is cardiomegaly. There has been a previous median sternotomy and coronary bypass graft. There is calcified granuloma in the left lung base. There is no pleural effusion, pneumothorax or pneumonia. Mediastinum is unremarkable. Pacemaker overlies the left hemithorax. IMPRESSION: 1. No acute cardiopulmonary abnormality. 2. Mild cardiomegaly. Dictated by: Dictated on workstation # [id number]
[2018-06-24 10:01] LABS: VALPROIC ACID 37.8 UG/ML (50.0-100.0)
[2018-06-24 11:32] LABS: ERYTHROCYTE SEDIMENTATION RATE 19 MM/HR (0-30)
== END ==
LOC: RAD 08:42
PROVIDERS: ATTEND Internal Medicine
DX: I51.7 Cardiomegaly (principal); R05 Cough; Z95.1 Presence of aortocoronary bypass graft
CPT/HCPCS: 36415; 71046; 80053; 80164; 83880; 84484; 85025; 85652

== ENCOUNTER 2018-08-21 14:16 | Outpatient (RCR) | payer MEDICARE, OTHER | END 2018-09-01 | disposition home or self-care (01) | PROVIDERS: ATTEND Physician Assistant | DX: M54.2 Cervicalgia (principal); Z98.890 Other specified postprocedural states ==

== ENCOUNTER 2018-09-09 13:42 | Outpatient (RCR) | payer MEDICARE, OTHER | END 2018-09-25 14:06 | disposition home or self-care (01) | PROVIDERS: ATTEND Physician Assistant | DX: M54.2 Cervicalgia (principal); Z98.890 Other specified postprocedural states ==

== ENCOUNTER 2018-12-04 14:35 | Outpatient (RCR) | payer MEDICARE, OTHER | END 2018-12-04 16:29 | disposition home or self-care (01) | PROVIDERS: ATTEND Orthopaedic Surgery | DX: S43.421A Sprain of right rotator cuff capsule, initial encounter (principal); W19.XXXA Unspecified fall, initial encounter ==

== ENCOUNTER → 2019-03-09 | Outpatient (CLI) | payer MEDICARE | LOC: CARD 12:31 | PROVIDERS: ATTEND Physician Assistant | DX: I08.0 Rheumatic disorders of both mitral and aortic valves (principal); I11.0 Hypertensive heart disease with heart failure; E78.5 Hyperlipidemia, unspecified; I50.9 Heart failure, unspecified; I25.10 Atherosclerotic heart disease of native coronary artery without angina pectoris | CPT/HCPCS: 93306 ==

== ENCOUNTER 2019-03-11 18:32 | Emergency (ER) | payer MEDICARE ==
[~2019-03-11] VITALS: Ht 170 cm; Wt 102.9 kg
--- NOTE | 2019-03-11 19:21 | ED Head Injury ---
General Chief Complaint: Trauma-Non Activation Stated Complaint: FELL Nursing Triage Note: L toe, L knee and nose pain Source: patient Exam Limitations: no limitations History of Present Illness Date Seen by Provider: Mar 11, 2019 Time Seen by Provider: 19:19 Initial Comments To ER with reports of pain to the left knee left great toe and nose after he tripped and fell at [employer] and [place]. No loss consciousness no neck pain no abdomen pelvis or chest pain. On Plavix Location Injury Occurred: [employer] Occurred: this evening Severity: moderate Location: frontal Method of Injury: direct blow Loss of Consciousness: no loss of consciousness Associated Systoms: No Headaches, No Nausea/Vomiting Allergies and Home Medications Allergies Coded Allergies: Xikvuym-Ihw-Nvf Reductase Inhibitor (Unverified Allergy, Unknown, 10/24/16) niacin (Verified Allergy, Unknown, 05/05/18) sacubitril (Verified Allergy, Unknown, 05/05/18) valsartan (Verified Allergy, Unknown, 05/05/18) Home Medications Albuterol Sulfate 1 Puff Puff, 2 PUFF INH Q4H PRN for SHORTNESS OF BREATH, (Reported) 1 PUFF = 90 MCG Alfuzosin HCl 10 Mg Tab.er.24h, 10 MG PO 1800, (Reported) LAST FILLED #30 03-11-18 Amiodarone HCl 200 Mg Tablet, 100 MG PO DAILY, (Reported) TAKES 1/2 (200MG) TABLET Aspirin 81 Mg Tab.chew, 81 MG PO DAILY, (Reported) Budesonide/Formoterol Fumarate 10.2 Gm Hfa.aer.ad, 2 PUFF IH BID, (Reported) Carvedilol 6.25 Mg Tablet, 6.25 MG PO BID, (Reported) LAST FILLED #180 01-07-18 Cholecalciferol (Vitamin D3) 1,000 Unit Tablet, 1,000 UNIT PO DAILY, (Reported) Divalproex Sodium 250 Mg Tab.er.24h, 500 MG PO DAILY, (Reported) TAKES 2 (250 MG) TABLETS Divalproex Sodium 250 Mg Tab.er.24h, 750 MG PO HS, (Reported) TAKES 3 (250MG) TABLETS Fexofenadine HCl 180 Mg Tablet, 180 MG PO DAILY PRN for ALLERGIES, (Reported) Fish Oil/Dha/Epa 1 Each Capsule, 1,200 MG PO DAILY, (Reported) Fluticasone Propionate 16 Gm Harris.susp, 1 SPRAY NS BID, (Reported) Furosemide 40 Mg Tablet, 40 MG PO BID, (Reported) LAST FILLED #270 10-22-17 Hydrocodone Bit/Acetaminophen 1 Tab Tab, 1-2 TAB PO Q4H PRN for PAIN-MODERATE TO SEVERE Prescribed by: DAIANA TIDWELL on 05/06/18 0620 Ibuprofen 600 Mg Tablet, 600 MG PO BID PRN for PAIN-MILD, (Reported) Levothyroxine Sodium 88 Mcg Tablet, 88 MCG PO DAILY, (Reported) Losartan Potassium 50 Mg Tablet, 50 MG PO DAILY, (Reported) Montelukast Sodium 10 Mg Tablet, 10 MG PO HS, (Reported) Multivit-Min/FA/Lycopene/Lut 1 Each Tablet, 1 TAB PO DAILY, (Reported) Potassium Chloride 20 Meq Tab.er.prt, 20 MEQ PO BID, (Reported) LAST FILLED #180 01-07-18 Spironolactone 25 Mg Tablet, 25 MG PO DAILY, (Reported) Patient Home Medication List Home Medication List Reviewed: Yes Review of Systems Review of Systems Constitutional: see HPI Eyes: No Symptoms Reported Ears, Nose, Mouth, Throat: no symptoms reported Respiratory: no symptoms reported Cardiovascular: no symptoms reported Genitourinary: no symptoms reported Musculoskeletal: no symptoms reported Skin: see HPI Psychiatric/Neurological: No Symptoms Reported Endocrine: No Symptoms Reported Hematologic/Lymphatic: No Symptoms Reported Past Sjqxgmh-Zpxdku-Ahcjtn Hx Patient Social History Alcohol Use: Denies Use Recreational Drug Use: No Former Smoker, Quit: May 07, 1984 Recent Foreign Travel: No Contact w/Someone Who Travel: No Recent Infectious Disease Expo: No Recent Hopitalizations: No Physical Abuse: No Sexual Abuse: No Mistreated: No Fear: No Immunizations Up To Date Date of Pneumonia Vaccine: Mar 05, 2016 Date of Influenza Vaccine: Jan 27, 2018 Seasonal Allergies Seasonal Allergies: Yes Past Medical History Surgeries: Yes (BILATERAL TKR, STENTS ', DEVIATED SEPTUM, triple BYPASS ) Abdominal, Coronary Stent, Orthopedic, Pacemaker Respiratory: Yes (VERY MILD, ) Asthma, Sleep Apnea, COPD Currently Using CPAP: Yes (not able to use r/t claustrophobia) Currently Using BIPAP: No Cardiac: Yes (CHF, PVC'S, 3X STENTS, TRIPLE BY-PASS ) Atrial Fibrillation, Chronic Edema/Swelling, Congenital Heart Disease, High Cholesterol, Hypertension, Valvular Heart Disease Neurological: Yes Neuropathy Reproductive Disorders: No Sexually Transmitted Disease: No HIV/AIDS: No Genitourinary: No (denies) Renal Failure Gastrointestinal: Yes Diverticulosis, Polyps Musculoskeletal: Yes (OSTEOARTHRITIS) Degenerate Disk Disease, Arthritis, Gout Endocrine: Yes Hypothyroidsim HEENT: Yes (cataracts removed) Loss of Vision: Bilateral Hearing Impairment: Denies, Bilateral Hearing Aide Cancer: No Psychosocial: Yes Anxiety, Bipolar, Depression Integumentary: No Blood Disorders: No Adverse Reaction/Blood Tranf: No Family Medical History Alzheimer's disease 19 MOTHER Hypertension 19 FATHER G8 BROTHER G8 SISTER Myocardial infarction 19 FATHER Physical Exam Vital Signs Vital Signs - First Documented 03/11/19 18:40 Temp 36.8 Pulse 65 Resp 20 B/P (MAP) 158/82 (107) Pulse Ox 99 Capillary Refill : Less Than 3 Seconds Height, Weight, BMI Height: 5'6.00" Weight: 227lbs. 0.0oz. 102.552751nn; 35.00 BMI Method: General Appearance: WD/WN, no apparent distress HEENT: PERRL/EOMI, TMs normal, pharynx normal, other (abrasion/laceration to the bridge of the nose no septal hematoma) Neck: non-tender, full range of motion; No tender lateral, No tender midline Respiratory: no respiratory distress, no accessory muscle use Extremities: normal range of motion, non-tender Psychiatric: alert, oriented x 3 [place] Nerves: normal hearing, normal speech, PERRL Skin: normal color, warm/dry, other (Neurologic abrasion left knee) Progress/Results/Core Measures Results/Orders My Orders Orders - GAYE ROWELL APRN Ct Head Wo (03/11/19 19:17) Foot, Left, 3 Views (03/11/19 19:21) Cbc With Automated Diff (03/11/19 19:36) Comprehensive Metabolic Panel (03/11/19 19:36) Protime With Inr (03/11/19 19:36) Ct Cervical Spine Wo (03/11/19 19:44) Vital Signs/I&O 03/11/19 18:40 Temp 36.8 Pulse 65 Resp 20 B/P (MAP) 158/82 (107) Pulse Ox 99 Blood Pressure Mean: 107 POS Diagnostic Imaging Diagonstic Imaging: CT Comments NAME: RADHA BENAVIDES [facility] REC#: [id number] PT STATUS: REG ER : 1945 PHYSICIAN: GAYE ROWELL APRN ADMIT DATE: 03/11/19/ER Signed POSDate of Exam:03/11/19 CT HEAD WO PROCEDURE: CT head without contrast. TECHNIQUE: Multiple contiguous axial images were obtained through the brain without the use of intravenous contrast. Auto Exposure Controls were utilized during the CT exam to meet ALARA standards for radiation dose reduction. INDICATION: Facial trauma from a fall There is a left posterior parietal extra-axial and has acute margins typical of an epidural hematoma, however, it has mixed density. Hematoma measuring 5 cm in diameter with a thickness of 7 mm. It extends anteriorly in the extra-axial space into the left temporal fossa. IMPRESSION: Left posterior parietal extra-axial hemorrhage. The appearance is concerning for epidural hematoma. Results were called to Gaye in the Emergency Room at time of dictation. Dictated by: Dictated on workstation # [id number] Dict: 03/11/191929 Trans: 03/11/191941 [facility] [id number] Interpreted by: YOLETTE PRATT MD Electronically signed by: YOLETTE PRATT MD 03/11/191941 NAME: RADHA BENAVIDES [facility] REC#: [id number] PT STATUS: REG ER : 1945 PHYSICIAN: GAYE ROWELL APRN ADMIT DATE: 03/11/19/ER Signed POSDate of Exam:03/11/19 CT CERVICAL SPINE WO PROCEDURE: CT cervical spine without contrast. TECHNIQUE: Multiple contiguous axial images were obtained through the cervical spine without the use of intravenous contrast. Sagittal and coronal reformations were then performed. Auto Exposure Controls were utilized during the CT exam to meet ALARA standards for radiation dose reduction. INDICATION: Fell onto face. Neck pain. COMPARISON: None. FINDINGS: No acute fracture or dislocation is seen in the cervical spine. No focal osseous lesions. Vertebral body heights are well-maintained. The craniocervical junction is well-maintained. Mild degenerative changes are seen in the cervical spine with disc osteophyte complexes and uncovertebral arthropathy. Soft tissues of the neck are unremarkable. IMPRESSION: 1. No acute fracture or dislocation in the cervical spine. Dictated by: Dictated on workstation # [id number] Dict: 03/11/191999 Trans: 03/11/[address] [facility] [phone] Interpreted by: SANCHEZ VU DO Electronically signed by: SANCHEZ VU DO 03/11/192000 Departure Communication (Admissions) 1954-discussed the case with Dr. Arnold from neurosurgery in [place], except the patient in transfer to the emergency room. Spoke with Dr. Castillo in the emergency room also agrees to accept the patient. GCS remains 15 alert and oriented left and joking without symptoms of head injury such as nausea vomiting dizziness confusion. Blood pressure 176/86. I'll give 10 mg of labetalol IV. Urologist has called to report that it has the shape of an epidural but the mixed density to suggest a subacute subdural. Impression Primary Impression: Intracranial hemorrhage Disposition: 01 HOME, SELF-CARE Condition: Stable Transfer Transfer Reason: Exceeds level of care Time Spoke to Accepting Phy: 19:55 Transfer Time: 19:55 Departure-Patient Inst. Decision time for Depature: 20:06 Referrals: HARLEY DOVER DO (PCP/Family) Primary Care Physician Copy Copies To 1: HARLEY DOVER PETER J ACQUISITION MARKETING COORDINATOR Mar 11, 2019 19:20 POS
--- NOTE | 2019-03-11 19:39 | Diagnostic Imaging Report ---
PROCEDURE: CT head without contrast. TECHNIQUE: Multiple contiguous axial images were obtained through the brain without the use of intravenous contrast. Auto Exposure Controls were utilized during the CT exam to meet ALARA standards for radiation dose reduction. INDICATION: Facial trauma from a fall There is a left posterior parietal extra-axial and has acute margins typical of an epidural hematoma, however, it has mixed density. Hematoma measuring 5 cm in diameter with a thickness of 7 mm. It extends anteriorly in the extra-axial space into the left temporal fossa. IMPRESSION: Left posterior parietal extra-axial hemorrhage. The appearance is concerning for epidural hematoma. Results were called to Dave in the Emergency Room at time of dictation. Dictated by: Dictated on workstation # [id number]
--- NOTE | 2019-03-11 20:03 | Diagnostic Imaging Report ---
PROCEDURE: CT cervical spine without contrast. TECHNIQUE: Multiple contiguous axial images were obtained through the cervical spine without the use of intravenous contrast. Sagittal and coronal reformations were then performed. Auto Exposure Controls were utilized during the CT exam to meet ALARA standards for radiation dose reduction. INDICATION: Fell onto face. Neck pain. COMPARISON: None. FINDINGS: No acute fracture or dislocation is seen in the cervical spine. No focal osseous lesions. Vertebral body heights are well-maintained. The craniocervical junction is well-maintained. Mild degenerative changes are seen in the cervical spine with disc osteophyte complexes and uncovertebral arthropathy. Soft tissues of the neck are unremarkable. IMPRESSION: 1. No acute fracture or dislocation in the cervical spine. Dictated by: Dictated on workstation # [id number]
--- NOTE | 2019-03-11 20:04 | Diagnostic Imaging Report ---
CLINICAL HISTORY: Fall. Pain in the left great toe. COMPARISON: None TECHNIQUE: 3 views of the left foot. FINDINGS: There is no acute fracture or dislocation of the left foot. Osteopenia is noted. No focal osseous lesions. Mild generalized soft tissue edema is present in the left foot. IMPRESSION: 1. No acute fracture or dislocation in the left foot. Dictated by: Dictated on workstation # [id number]
[2019-03-11 20:25] VITALS: BP 171/91
[2019-03-11 20:27] LABS: BASOPHILS % (AUTO) 0 % (0-10); EOSINOPHILS # (AUTO) 0.2 10^3/uL (0.0-0.3); EOSINOPHILS % (AUTO) 3 % (0-10); HEMATOCRIT 39 % (40-54); LYMPHOCYTES # (AUTO) 1.8 X 10^3 (1.0-4.0); LYMPHOCYTES % (AUTO) 28 % (12-44); MEAN CORPUSCULAR HEMOGLOBIN 32 PG (25-34); MEAN CORPUSCULAR HGB CONC 34 G/DL (32-36); MEAN CORPUSCULAR VOLUME 96 FL (80-99); MONOCYTES # (AUTO) 1.2 X 10^3 (0.0-1.0); MONOCYTES % (AUTO) 19 % (0-12); NEUTROPHILS % (AUTO) 49 % (42-75); PLATELET COUNT 125 10^3/uL (130-400); RED CELL DISTRIBUTION WIDTH 13.3 % (10.0-14.5); WHITE BLOOD COUNT 6.2 10^3/uL (4.3-11.0)
[2019-03-11 20:49] LABS: ALBUMIN 4.1 GM/DL (3.2-4.5); BILIRUBIN,TOTAL 0.4 MG/DL (0.1-1.0); CALCIUM 8.9 MG/DL (8.5-10.1); CREATININE SERUM 1.43 MG/DL (0.60-1.30); POTASSIUM 4.6 MMOL/L (3.6-5.0); TOTAL PROTEIN 6.6 GM/DL (6.4-8.2)
[2019-03-11 21:18] LABS: BAND NEUTROPHILS 0 %; BASOPHILS % (MANUAL) 0 %; EOSINOPHILS % (MANUAL) 5 %; LYMPHOCYTES % (MANUAL) 32 %; MONOCYTES % (MANUAL) 9 %; NEUTROPHILS % (MANUAL) 53 %
[2019-03-11 21:19] LABS: ATYPICAL LYMPHOCYTES 1 %; RBC MORPH NORMAL
== END 2019-03-11 20:26 | disposition short-term general hospital (02) ==
LOC: EDUNIT# 18:32 → ER 18:33
DX: S06.9X0A Unspecified intracranial injury without loss of consciousness, initial encounter (principal); J44.9 Chronic obstructive pulmonary disease, unspecified; I11.0 Hypertensive heart disease with heart failure; I10 Essential (primary) hypertension; I48.91 Unspecified atrial fibrillation; E78.00 Pure hypercholesterolemia, unspecified; G62.9 Polyneuropathy, unspecified; M10.9 Gout, unspecified; E03.9 Hypothyroidism, unspecified; F41.9 Anxiety disorder, unspecified; F31.9 Bipolar disorder, unspecified; Z88.8 Allergy status to other drugs, medicaments and biological substances; Z79.82 Long term (current) use of aspirin; Z79.51 Long term (current) use of inhaled steroids; Z87.891 Personal history of nicotine dependence; Z96.653 Presence of artificial knee joint, bilateral; Z95.1 Presence of aortocoronary bypass graft; Z95.5 Presence of coronary angioplasty implant and graft; Z95.0 Presence of cardiac pacemaker; Z82.49 Family history of ischemic heart disease and other diseases of the circulatory system; W01.0XXA Fall on same level from slipping, tripping and stumbling without subsequent striking against object, initial encounter; Y92.511 Restaurant or cafe as the place of occurrence of the external cause
CPT/HCPCS: 36415; 70450; 72125; 73630; 80053; 85007; 85027

== ENCOUNTER 2019-03-16 18:30 | Observation (INO) | payer MEDICARE ==
[~2019-03-16] VITALS: Ht 167.7 cm; Wt 105.4 kg
[2019-03-16] MEDS ORDERED: NS IV 500 ML 500 ML IV ONE (18:49)
--- NOTE | 2019-03-16 19:00 | NUR ---
REPORT TO KENNETH ROD
[2019-03-16 19:10] LABS: BASOPHILS % (AUTO) 0 % (0-10); EOSINOPHILS # (AUTO) 0.3 10^3/uL (0.0-0.3); EOSINOPHILS % (AUTO) 3 % (0-10); HEMATOCRIT 36 % (40-54); HEMOGLOBIN 12.4 G/DL (13.3-17.7); LYMPHOCYTES # (AUTO) 2.6 X 10^3 (1.0-4.0); LYMPHOCYTES % (AUTO) 26 % (12-44); MEAN CORPUSCULAR HEMOGLOBIN 33 PG (25-34); MEAN CORPUSCULAR HGB CONC 34 G/DL (32-36); MEAN CORPUSCULAR VOLUME 96 FL (80-99); MEAN PLATELET VOLUME 10.2 FL (7.4-10.4); MONOCYTES % (AUTO) 20 % (0-12); NEUTROPHILS # (AUTO) 4.9 X 10^3 (1.8-7.8); NEUTROPHILS % (AUTO) 51 % (42-75); PLATELET COUNT 143 10^3/uL (130-400); RED CELL DISTRIBUTION WIDTH 13.6 % (10.0-14.5); WHITE BLOOD COUNT 9.7 10^3/uL (4.3-11.0)
--- NOTE | 2019-03-16 19:18 | NUR ---
SEE LIST FOR CURRENT MEDS
--- NOTE | 2019-03-16 19:18 | ED Fall/Injury ---
General Chief Complaint: Trauma-Non Activation Stated Complaint: FALL Source: patient Exam Limitations: no limitations History of Present Illness Date Seen by Provider: Mar 16, 2019 Time Seen by Provider: 18:39 Initial Comments Here with report of fall at home. This is not well described it appears that he was sitting in his chair and was trying to get to his walker. Patient states that he slid down to the floor because he was too weak to get up. Did have a fa ll on 03/11/19 and ended up with epidural hematoma and transferred to [facility]. He was discharged from there today to home. At home, he apparently was too weak to stand on his own and had this incident. He denies any significant injury. Patient's significant other arrived later and tells the story of him being discharged home today. On arrival home, patient stated he couldn't get out of the car because of pain in his feet (has history of gout). On trying to get out of the car and ended up sliding to the ground. He was ultimately helped up on that and was able to make it into the house. Several hours later when it was dinnertime, significant other has been trying to get him to get up and he tried for about an hour and couldn't due to pain. She had given him a Percocet for the pain. She said he was a little sleepy but still talking and such. Ultimately he was unable to get out of the chair and slid down to the floor. It took 4 people to get him back up to the chair and that was when EMS was summoned. She doesn't report any injuries during either of these events. She does admit that he does not do very well with pain. He is supposed to be on CPAP but refuses to use it at home. Does not report any other concerns. Occurred: just prior to arrival Severity: mild Injuries/Pain Location: no injury Loss of Consciousness: no loss of consciousness Associated Symptoms (Fall): No Abdominal Pain, No Chest Pain, No Headache, No Muscle Spasms, No Nausea/Vomiting; Trouble Walking, Other (global weakness) Allergies and Home Medications Allergies Coded Allergies: Ycsksga-Mdr-Vpy Reductase Inhibitor (Unverified Allergy, Unknown, 10/24/16) niacin (Verified Allergy, Unknown, 05/05/18) sacubitril (Verified Allergy, Unknown, 05/05/18) valsartan (Verified Allergy, Unknown, 05/05/18) Home Medications Albuterol Sulfate 1 Puff Puff, 2 PUFF INH Q4H PRN for SHORTNESS OF BREATH, (Reported) 1 PUFF = 90 MCG Alfuzosin HCl 10 Mg Tab.er.24h, 10 MG PO 1800, (Reported) LAST FILLED #30 03-11-18 Amiodarone HCl 200 Mg Tablet, 100 MG PO DAILY, (Reported) TAKES 1/2 (200MG) TABLET Aspirin 81 Mg Tab.chew, 81 MG PO DAILY, (Reported) Budesonide/Formoterol Fumarate 10.2 Gm Hfa.aer.ad, 2 PUFF IH BID, (Reported) Carvedilol 6.25 Mg Tablet, 6.25 MG PO BID, (Reported) LAST FILLED #180 01-07-18 Cholecalciferol (Vitamin D3) 1,000 Unit Tablet, 1,000 UNIT PO DAILY, (Reported) Divalproex Sodium 250 Mg Tab.er.24h, 500 MG PO DAILY, (Reported) TAKES 2 (250 MG) TABLETS Divalproex Sodium 250 Mg Tab.er.24h, 750 MG PO HS, (Reported) TAKES 3 (250MG) TABLETS Fexofenadine HCl 180 Mg Tablet, 180 MG PO DAILY PRN for ALLERGIES, (Reported) Fish Oil/Dha/Epa 1 Each Capsule, 1,200 MG PO DAILY, (Reported) Fluticasone Propionate 16 Gm [place].susp, 1 SPRAY NS BID, (Reported) Furosemide 40 Mg Tablet, 40 MG PO BID, (Reported) LAST FILLED #270 10-22-17 Hydrocodone Bit/Acetaminophen 1 Tab Tab, 1-2 TAB PO Q4H PRN for PAIN-MODERATE TO SEVERE Prescribed by: DAIANA TIDWELL on 05/06/18 0620 Ibuprofen 600 Mg Tablet, 600 MG PO BID PRN for PAIN-MILD, (Reported) Levothyroxine Sodium 88 Mcg Tablet, 88 MCG PO DAILY, (Reported) Losartan Potassium 50 Mg Tablet, 50 MG PO DAILY, (Reported) Montelukast Sodium 10 Mg Tablet, 10 MG PO HS, (Reported) Multivit-Min/FA/Lycopene/Lut 1 Each Tablet, 1 TAB PO DAILY, (Reported) Potassium Chloride 20 Meq Tab.er.prt, 20 MEQ PO BID, (Reported) LAST FILLED #180 01-07-18 Spironolactone 25 Mg Tablet, 25 MG PO DAILY, (Reported) Patient Home Medication List Home Medication List Reviewed: Yes Review of Systems Review of Systems Constitutional: see HPI; No chills, No fever Eyes: No Symptoms Reported Ears, Nose, Mouth, Throat: no symptoms reported Respiratory: no symptoms reported Cardiovascular: no symptoms reported Gastrointestinal: No abdominal pain, No nausea, No vomiting Genitourinary: no symptoms reported Musculoskeletal: No back pain; joint pain, joint swelling (bilateral feet), muscle weakness; No neck pain Psychiatric/Neurological: No Symptoms Reported All Other Systems Reviewed Negative Unless Noted: Yes Past Wzyngyn-Oqswga-Temcwk Hx Past Med/Social Hx: Reviewed Nursing Past Med/Soc Hx Patient Social History Alcohol Use: Denies Use Recreational Drug Use: No Smoking Status: Former Smoker Former Smoker, Quit: May 07, 1984 Recent Foreign Travel: No Contact w/Someone Who Travel: No Recent Hopitalizations: No Immunizations Up To Date Date of Pneumonia Vaccine: Mar 05, 2016 Date of Influenza Vaccine: Jan 27, 2018 Seasonal Allergies Seasonal Allergies: Yes Past Medical History Surgeries: Yes (BILATERAL TKR, STENTS ', DEVIATED SEPTUM, triple BYPASS ) Abdominal, Coronary Stent, Orthopedic, Pacemaker Respiratory: Yes (VERY MILD, ) Asthma, Sleep Apnea, COPD Currently Using CPAP: Yes (not able to use r/t claustrophobia) Currently Using BIPAP: No Cardiac: Yes (CHF, PVC'S, 3X STENTS, TRIPLE BY-PASS ') Atrial Fibrillation, Chronic Edema/Swelling, Congenital Heart Disease, High Cholesterol, Hypertension, Valvular Heart Disease Neurological: Yes Neuropathy Reproductive Disorders: No Sexually Transmitted Disease: No HIV/AIDS: No Genitourinary: No (denies) Renal Failure Gastrointestinal: Yes Diverticulosis, Polyps Musculoskeletal: Yes (OSTEOARTHRITIS) Degenerate Disk Disease, Arthritis, Gout Endocrine: Yes Hypothyroidsim HEENT: Yes (cataracts removed) Loss of Vision: Bilateral Hearing Impairment: Denies, Bilateral Hearing Aide Cancer: No Psychosocial: Yes Anxiety, Bipolar, Depression Integumentary: No Blood Disorders: No Adverse Reaction/Blood Tranf: No Family Medical History Reviewed Nursing Family Hx Alzheimer's disease 19 MOTHER Hypertension 19 FATHER G8 BROTHER G8 SISTER Myocardial infarction 19 FATHER Physical Exam Vital Signs Vital Signs - First Documented 03/16/19 18:32 Temp 36.5 Pulse 98 Resp 20 B/P (MAP) 117/72 (87) Pulse Ox 96 Capillary Refill : Height, Weight, BMI Height: 5'6.00" Weight: 227lbs. 0.0oz. 102.730139hc; 35.00 BMI Method: General Appearance: WD/WN, no apparent distress HEENT: PERRL/EOMI, pharynx normal Neck: full range of motion, supple Cardiovascular: regular rate, rhythm, no murmur Respiratory: lungs clear, normal breath sounds Gastrointestinal: non tender, soft Back: normal inspection, no CVA tenderness, no vertebral tenderness Extremities: normal range of motion, pelvis stable, other (tender bilateral feet) Neurologic/Psychiatric: alert, other (oriented to self and place but seems a bit confused about situation.) Skin: warm/dry, ecchymosis (ecchymotic lesions noted on the face) Uriel Coma Score Best Eye Response: (4) Open Spontaneously Best Verbal Response: (5) Oriented Best Motor Response: (6) Obeys Commands Progress/Results/Core Measures Results/Orders Lab Results Laboratory Tests Test 03/16/19 19:00 03/16/19 19:27 03/16/19 19:33 Range/Units White Blood Count 9.7 4.3-11.0 10^3/uL Red Blood Count 3.77 L 4.35-5.85 10^6/uL Hemoglobin 12.4 L 13.3-17.7 G/DL Hematocrit 36 L 40-54 % Mean Corpuscular Volume 96 80-99 FL Mean Corpuscular Hemoglobin 33 25-34 PG Mean Corpuscular Hemoglobin Concent 34 32-36 G/DL Red Cell Distribution Width 13.6 10.0-14.5 % Platelet Count 143 130-400 10^3/uL Mean Platelet Volume 10.2 7.4-10.4 FL Neutrophils (%) (Auto) 51 42-75 % Lymphocytes (%) (Auto) 26 12-44 % Monocytes (%) (Auto) 20 H 0-12 % Eosinophils (%) (Auto) 3 0-10 % Basophils (%) (Auto) 0 0-10 % Neutrophils # (Auto) 4.9 1.8-7.8 X 10^3 Lymphocytes # (Auto) 2.6 1.0-4.0 X 10^3 Monocytes # (Auto) 2.0 H 0.0-1.0 X 10^3 Eosinophils # (Auto) 0.3 0.0-0.3 10^3/uL Basophils # (Auto) 0.0 0.0-0.1 10^3/uL Sodium Level 134 L 135-145 MMOL/L Potassium Level 6.1 H 3.6-5.0 MMOL/L Chloride Level 100 98-107 MMOL/L Carbon Dioxide Level 22 21-32 MMOL/L Anion Gap 12 5-14 MMOL/L Blood Urea Nitrogen 15 7-18 MG/DL Creatinine 0.99 0.60-1.30 MG/DL Estimat Glomerular Filtration Rate > 60 BUN/Creatinine Ratio 15 Glucose Level 96 70-105 MG/DL Calcium Level 8.6 8.5-10.1 MG/DL Corrected Calcium 8.8 8.5-10.1 MG/DL Total Bilirubin 0.6 0.1-1.0 MG/DL Aspartate Amino Transf (AST/SGOT) 35 H 5-34 U/L Alanine Aminotransferase (ALT/SGPT) 12 0-55 U/L Alkaline Phosphatase 49 40-136 U/L C-Reactive Protein High Sensitivity 4.55 H 0.00-0.50 MG/DL Total Protein 6.9 6.4-8.2 GM/DL Albumin 3.8 3.2-4.5 GM/DL Blood Gas Puncture Site RT BRACHIAL Blood Gas Patient Temperature 36.2 Arterial Blood pH 7.45 H 7.37-7.43 Arterial Blood Partial Pressure CO2 37 35-45 MMHG Arterial Blood Partial Pressure O2 70 L 79-93 MMHG Arterial Blood HCO3 25 23-27 MMOL/L Arterial Blood Total CO2 26.4 21.0-31.0 MMOL/L Arterial Blood Oxygen Saturation 95 94-100 % Arterial Blood Base Excess 1.4 -2.5-2.5 MMOL/L Enoc Test NA Blood Gas Ventilator Setting NA Blood Gas Inspired Oxygen NOT INDICATED Urine Color DARK YELLOW Urine Clarity CLEAR Urine pH 6.5 5-9 Urine Specific [place] 1.015 L 1.016-1.022 Urine Protein NEGATIVE NEGATIVE Urine Glucose (UA) NEGATIVE NEGATIVE Urine Ketones TRACE H NEGATIVE Urine Nitrite NEGATIVE NEGATIVE Urine Bilirubin NEGATIVE NEGATIVE Urine Urobilinogen 2.0 < = 1.0 MG/DL Urine Leukocyte Esterase NEGATIVE NEGATIVE Urine RBC (Auto) NEGATIVE NEGATIVE Urine RBC NONE /HPF Urine WBC NONE /HPF Urine Crystals NONE /LPF Urine Bacteria TRACE /HPF Urine Casts NONE /LPF Urine Mucus NEGATIVE /LPF Urine Culture Indicated NO My Orders Orders - YOLETTE DAVILA MD Cbc With Automated Diff (03/16/19 18:49) Comprehensive Metabolic Panel (03/16/19 18:49) Hs C Reactive Protein (03/16/19 18:49) Ed Iv/Invasive Line Start (03/16/19 18:49) Ns Iv 500 Ml (Sodium Chloride 0.9%) (03/16/19 18:49) Ct Head Wo (03/16/19 18:49) Ua Culture If Indicated (03/16/19 18:49) Arterial Blood Gas (03/16/19 19:00) Arterial Blood Draw (03/16/19 ) Arterial Blood Gas (03/16/19 19:27) General/Regular (03/16/19 Dinner) Medications Given in ED Current Medications Medications Dose Ordered Sig/Cyril Route Start Time Stop Time Status Last Admin Dose Admin Sodium Chloride 500 ml @ 0 mls/hr Q0M ONCE IV 03/16/19 18:49 03/16/19 18:51 DC 03/16/19 19:03 0 MLS/HR Vital Signs/I&O 03/16/19 18:32 Temp 36.5 Pulse 98 Resp 20 B/P (MAP) 117/72 (87) Pulse Ox 96 Progress Progress Note : Progress Note Seen and evaluated. IV, labs, CT head ordered. Normal saline 500 mL bolus. We will check urine. 1900: I have discussed the case with Dr. Dover. We will admit him for observation status with anticipation of transfer to inpatient rehabilitation if there is no other significant findings. We will check ABG as patient has history of CO2 narcosis and is not wearing his CPAP. Monitor patient. 8: Radiology does have concerns about CT scan. We will call [facility] and asked them to cloud the CT film from this morning for comparison. 2019: CT scan has been compared to the outside facility and there does appear to be slight increased layering especially in the area of the temporal lobe per radiology. We will cloud our CT scan over to [place] and I will try to talk with neurosurgery solutions development analyst about current findings. 2057. His [place] hospital. 2109: I was able to review the case in depth with Dr. Richey, on-call neurosurgeon and the neurosurgeon that has cared for this patient there. He was discharged and this morning so he was very familiar with the case. We did review both sets of images including the CT scan done this morning at their facility and the CT scan done this evening at our facility. He believes this is likely somewhat layering and did not necessarily increasing bleed or worsening. At this point he agrees with observation admission here and transition to inpatient rehabilitation which he believes will greatly benefit the patient. 2119: I did discuss the findings, concerns and conversations with Dr. Dover and she accepts patient for admission, observation status with anticipation of transition to inpatient rehabilitation. All findings concerns were discussed with patient who agrees with plan. He is hungry and would like something to eat so diet was ordered. He will go to medical bed initially. Diagnostic Imaging Diagonstic Imaging: CT Plain Films/CT/US/NM/MRI: head Comments [facility] POS [place], [place] POS NAME: RADHA BENAVIDES [facility] REC#: [id number] PT STATUS: REG ER : 1945 PHYSICIAN: YOLETTE DAVILA MD ADMIT DATE: 03/16/19/ER Draft POSDate of Exam:03/16/19 CT HEAD WO PROCEDURE: CT head without contrast. TECHNIQUE: Multiple contiguous axial images were obtained through the brain without the use of intravenous contrast. Auto Exposure Controls were utilized during the CT exam to meet ALARA standards for radiation dose reduction. INDICATION: Intracranial hemorrhage, follow-up. Continued headache and dizziness. CORRELATION STUDY: 03/11/2019 FINDINGS: There is the presence of an acute extra-axial hematoma most pronounced in the left posterior convexity. Maximum thickness is approximately 1 cm, relatively stable from prior study. However, this has a more uniform hyperdensity and extends more anteriorly into the left temporal region so overall appears to be likely larger. There is some mild localized mass effect upon the left occipital lobe. Generalized atrophic changes with prominence of the ventricles and sulci are again demonstrated. Basilar cisterns are maintained. No hyperdense MCA sign. The bony calvarium is intact. IMPRESSION: 1. There does appear to be overall slight increased size of a left sided subdural hematoma. Blood most pronounced in the left occipital region but does extend anteriorly over the temporal region as well on follow-up. Mild localized mass effect upon the left occipital lobe. Telephone call has been made to the [facility] Emergency Department at time of this dictation, 7:25 PM. ADDENDUM: A previous study from [facility], obtained earlier in the day has now become available for comparison purposes. While somewhat difficult to quantify given the slight variation in layering differences, the overall volume of blood however does appear to be very slightly increased from the previous study more noticeable over the temporal region compared to earlier in the day. This is however a fairly minimal change. An additional phone call was made to the [facility] Emergency Department, 8:05 PM. Dictated on workstation # [id number] Dict: 03/16/191919 Trans: 03/16/192010 [facility] [id number] Interpreted by: MARCUS PEREZ DO Electronically signed by: Departure Communication (Admissions) Time/Spoke to Admitting Phy: 21:20 Impression Primary Impression: Generalized weakness Additional Impressions: Muscular deconditioning Subdural hematoma, post-traumatic Qualified Codes: S06.5X9D - Traumatic subdural hemorrhage with loss of consciousness of unspecified duration, subsequent encounter Gout Qualified Codes: M10.9 - Gout, unspecified Disposition: 09 ADMITTED INPATIENT Condition: Stable Admissions Decision to Admit Reason: Admit from ER (General) Decision to Admit/Date: Mar 16, 2019 Time/Decision to Admit Time: 21:20 Departure-Patient Inst. Referrals: HARLEY DOVER DO (PCP/Family) Primary Care Physician YOLETTE DAVILA MD Mar 16, 2019 19:18 POS
[2019-03-16 19:29] LABS: ALANINE AMINOTRANSFERASE 12 U/L (0-55); ALBUMIN 3.8 GM/DL (3.2-4.5); ALKALINE PHOSPHATASE 49 U/L (40-136); BILIRUBIN,TOTAL 0.6 MG/DL (0.1-1.0); BUN/CREATININE RATIO 15; CALCIUM 8.6 MG/DL (8.5-10.1); CARBON DIOXIDE 22 MMOL/L (21-32); CHLORIDE 100 MMOL/L (98-107); CREATININE SERUM 0.99 MG/DL (0.60-1.30); GFR ESTIMATED > 60; GLUCOSE 96 MG/DL (70-105); POTASSIUM 6.1 MMOL/L (3.6-5.0); SODIUM 134 MMOL/L (135-145); TOTAL PROTEIN 6.9 GM/DL (6.4-8.2)
--- NOTE | 2019-03-16 19:34 | Diagnostic Imaging Report ---
PROCEDURE: CT head without contrast. TECHNIQUE: Multiple contiguous axial images were obtained through the brain without the use of intravenous contrast. Auto Exposure Controls were utilized during the CT exam to meet ALARA standards for radiation dose reduction. INDICATION: Intracranial hemorrhage, follow-up. Continued headache and dizziness. CORRELATION STUDY: 03/11/2019 FINDINGS: There is the presence of an acute extra-axial hematoma most pronounced in the left posterior convexity. Maximum thickness is approximately 1 cm, relatively stable from prior study. However, this has a more uniform hyperdensity and extends more anteriorly into the left temporal region so overall appears to be likely larger. There is some mild localized mass effect upon the left occipital lobe. Generalized atrophic changes with prominence of the ventricles and sulci are again demonstrated. Basilar cisterns are maintained. No hyperdense MCA sign. The bony calvarium is intact. IMPRESSION: 1. There does appear to be overall slight increased size of a left sided subdural hematoma. Blood most pronounced in the left occipital region but does extend anteriorly over the temporal region as well on follow-up. Mild localized mass effect upon the left occipital lobe. Telephone call has been made to the [facility] Emergency Department at time of this dictation, 7:25 PM. ADDENDUM: A previous study from [facility], obtained earlier in the day has now become available for comparison purposes. While somewhat difficult to quantify given the slight variation in layering differences, the overall volume of blood however does appear to be very slightly increased from the previous study more noticeable over the temporal region compared to earlier in the day. This is however a fairly minimal change. An additional phone call was made to the [facility] Emergency Department, 8:05 PM. Dictated by: Dictated on workstation # [id number]
[2019-03-16 19:43] LABS: ABG BASE EXCESS 1.4 MMOL/L (-2.5-2.5); ABG OXYGEN SATURATION 95 % (94-100); ABG PCO2 37 MMHG (35-45); ABG PH 7.45 (7.37-7.43); ABG PO2 70 MMHG (79-93); ABG TCO2 26.4 MMOL/L (21.0-31.0)
[2019-03-16 19:44] LABS: INSPIRED O2 NOT INDICATED; PATIENT TEMP 36.2
[2019-03-16 19:47] LABS: BILIRUBIN,URINE NEGATIVE (NEGATIVE); CLARITY,URINE CLEAR; COLOR,URINE DARK YELLOW; GLUCOSE, URINE (UA) NEGATIVE (NEGATIVE); KETONES,URINE TRACE (NEGATIVE); LEUKOCYTE ESTERASE ,URINE NEGATIVE (NEGATIVE); NITRITE,URINE NEGATIVE (NEGATIVE); PH,URINE 6.5 (5-9); PROTEIN,URINE NEGATIVE (NEGATIVE)
[2019-03-16 19:59] LABS: BACTERIA,URINE TRACE /HPF
--- NOTE | 2019-03-16 21:45 | NUR ---
RADHA BENAVIDES admitted to room 411-1, with an admitting diagnosis of weakness, on 03/16/19 from ER, accompanied by ER STAFF.RADHA BENAVIDES introduced to surroundings, call light, bed controls, phone, TV, temperature control, lights, meal times, smoking policy, visitor policy, side rail policy, bathrooms and showers. Patient Rights given to patient in the handbook. RADHA BENAVIDES verbalizes understanding that [facility] is not responsible for the loss or damage to any personal effects or valuables that are kept in the patients posession during their hospitalization. Patient and/or family were informed about the Rapid Response Team and its purpose.
[2019-03-16 21:50] VITALS: BP 149/69
[2019-03-16] MEDS ORDERED: ONDANSETRON 4 MG/2 ML (SDV) Z0FRAN IV PRN (22:30)
[2019-03-16] MEDS: oxyCODONE/APAP 5/325MG (PERCOCET 5) TABLET PO PRN (22:32)
[2019-03-16 23:30] VITALS: BP 124/57
[2019-03-17 04:15] VITALS: BP 148/68
[2019-03-17] MEDS: oxyCODONE/APAP 5/325MG (PERCOCET 5) TABLET PO PRN (04:35)
[2019-03-17] MEDS ORDERED: FLU QUADRIvalent (5+ YOA) 2019-2020 (AFLURIA) 0.5 ML IM ONE (07:00)
[2019-03-17 08:00] VITALS: BP 110/65
[2019-03-17 08:27] LABS: BASOPHILS % (AUTO) 0 % (0-10); EOSINOPHILS # (AUTO) 0.2 10^3/uL (0.0-0.3); EOSINOPHILS % (AUTO) 3 % (0-10); HEMATOCRIT 34 % (40-54); HEMOGLOBIN 11.3 G/DL (13.3-17.7); LYMPHOCYTES # (AUTO) 2.3 X 10^3 (1.0-4.0); LYMPHOCYTES % (AUTO) 34 % (12-44); MEAN CORPUSCULAR HEMOGLOBIN 33 PG (25-34); MEAN CORPUSCULAR HGB CONC 33 G/DL (32-36); MEAN CORPUSCULAR VOLUME 99 FL (80-99); MEAN PLATELET VOLUME 8.9 FL (7.4-10.4); MONOCYTES # (AUTO) 0.9 X 10^3 (0.0-1.0); MONOCYTES % (AUTO) 13 % (0-12); NEUTROPHILS # (AUTO) 3.3 X 10^3 (1.8-7.8); NEUTROPHILS % (AUTO) 50 % (42-75); PLATELET COUNT 168 10^3/uL (130-400); RED CELL DISTRIBUTION WIDTH 13.3 % (10.0-14.5); WHITE BLOOD COUNT 6.7 10^3/uL (4.3-11.0)
[2019-03-17 08:47] LABS: ALANINE AMINOTRANSFERASE 10 U/L (0-55); ALBUMIN 3.3 GM/DL (3.2-4.5); ALKALINE PHOSPHATASE 44 U/L (40-136); BILIRUBIN,TOTAL 0.4 MG/DL (0.1-1.0); BUN/CREATININE RATIO 15; CALCIUM 8.6 MG/DL (8.5-10.1); CARBON DIOXIDE 21 MMOL/L (21-32); CHLORIDE 104 MMOL/L (98-107); CREATININE SERUM 1.01 MG/DL (0.60-1.30); GFR ESTIMATED > 60; GLUCOSE 135 MG/DL (70-105); POTASSIUM 4.6 MMOL/L (3.6-5.0); SODIUM 135 MMOL/L (135-145); TOTAL PROTEIN 5.5 GM/DL (6.4-8.2)
--- NOTE | 2019-03-17 08:56 | NUR ---
IRF Evaluation Order received to evaluate patient for the ARU. Chart review complete and findings discussed with Dr. Nelson. Patient accepted for admission. Anticipate admission, 03/17. Thank you for this referral.
--- NOTE | 2019-03-17 09:20 | Consultation-Cardiology ---
HPI-Cardiology Cardiology Consultation Date of Consultation 03/17/19 Date of Admission Time Seen by Provider: 08:15 Indication: CAD, CHF HPI Patient is a 73-year-old with history of coronary artery disease, congestive heart failure, retention, hyperlipidemia. Presented to the ER with complaints of generalized weakness. Patient was evaluated March 11, 2019 after sustaining a fall, diagnosed with subdural hematoma and transferred to [place]. Was discharged home yesterday. Once arriving home, patient had difficulty getting out of his car secondary to pain and weakness in his legs. He was able to get out of his car and into the house, patient and later had heart time getting out of his chair secondary to pain and generalized weakness. Denies any chest pain or palpitation. Continues complain of headache. Repeat CT had revealed slight increase of subdural hematoma. 73 years old gentleman with history of coronary artery disease, congestive heart failure, sustained a fall with subdural hematoma, still having generalized weakness and loss of energy, continue to have headache Home Medications & Allergies Allergies: Coded Allergies: Gssanvv-Rbi-Juv Reductase Inhibitor (Unverified Allergy, Unknown, 10/24/16) niacin (Verified Allergy, Unknown, 05/05/18) sacubitril (Verified Allergy, Unknown, 05/05/18) valsartan (Verified Allergy, Unknown, 05/05/18) Home Medication List Reviewed: Yes JOQ-Jcivpf-Opvuuc Hx Patient Social History Marital Status: domestic partnership Employed/Student: retired Alcohol Use: Denies Use Recreational Drug Use: No Smoking Status: Former Smoker Former smoker/When Quit: Dec 30, 1982 Recent Foreign Travel: No Recent Infectious Disease Expo: No Recent Hopitalizations: Yes (SUBDERAL HEMATOMA) Immunizations Up To Date Date of Pneumonia Vaccine: Mar 05, 2016 Date of Influenza Vaccine: Jan 27, 2018 Past Medical History Coronary artery disease, CHF, hypertension, hyperlipidemia Family Medical History Significant Family History: No Pertinent Family Hx Family History: Alzheimer's disease 19 MOTHER Hypertension 19 FATHER G8 BROTHER G8 SISTER Myocardial infarction 19 FATHER Review of Systems-General Review of Systems Constitutional: see HPI; No chills, No fever; malaise, weakness EENTM: see HPI; No blurred vision, No double vision Respiratory: no symptoms reported; No cough, No dyspnea on exertion, No short of breath Cardiovascular: no symptoms reported; No chest pain, No edema; Hx of Intervention; No palpitations, No syncope; vascular heart diseas Gastrointestinal: No abdominal pain, No nausea, No vomiting Genitourinary: no symptoms reported Musculoskeletal: No back pain; joint pain, joint swelling (bilateral feet), muscle weakness; No neck pain Skin: No lesions, No rash Psychiatric/Neurological: No Symptoms Reported All Other Systems Reviewed Negative Unless Noted: Yes Reviewed Test Results Reviewed Test Results Lab Laboratory Tests 03/16/19 19:00: White Blood Count 9.7, Red Blood Count 3.77L, Hemoglobin 12.4L, Hematocrit 36L, Mean Corpuscular Volume 96, Mean Corpuscular Hemoglobin 33, Mean Corpuscular Hemoglobin Concent 34, Red Cell Distribution Width 13.6, Platelet Count 143, Mean Platelet Volume 10.2, Neutrophils (%) (Auto) 51, Lymphocytes (%) (Auto) 26, Monocytes (%) (Auto) 20H, Eosinophils (%) (Auto) 3, Basophils (%) (Auto) 0, Neutrophils # (Auto) 4.9, Lymphocytes # (Auto) 2.6, Monocytes # (Auto) 2.0H, Eosinophils # (Auto) 0.3, Basophils # (Auto) 0.0, Sodium Level 134L, Potassium Level 6.1H, Chloride Level 100, Carbon Dioxide Level 22, Anion Gap 12, Blood Urea Nitrogen 15, Creatinine 0.99, Estimat Glomerular Filtration Rate > 60, BUN/Creatinine Ratio 15, Glucose Level 96, Calcium Level 8.6, Corrected Calcium 8.8, Total Bilirubin 0.6, Aspartate Amino Transf (AST/SGOT) 35H, Alanine Aminotransferase (ALT/SGPT) 12, Alkaline Phosphatase 49, C-Reactive Protein High Sensitivity 4.55H, Total Protein 6.9, Albumin 3.8 03/16/19 19:27: Blood Gas Puncture Site RT BRACHIAL, Blood Gas Patient Temperature 36.2, Arterial Blood pH 7.45H, Arterial Blood Partial Pressure CO2 37, Arterial Blood Partial Pressure O2 70L, Arterial Blood HCO3 25, Arterial Blood Total CO2 26.4, Arterial Blood Oxygen Saturation 95, Arterial Blood Base Excess 1.4, Enco Test NA, Blood Gas Ventilator Setting NA, Blood Gas Inspired Oxygen NOT INDICATED 03/16/19 19:33: Urine Color DARK YELLOW, Urine Clarity CLEAR, Urine pH 6.5, Urine Specific [place] 1.015L, Urine Protein NEGATIVE, Urine Glucose (UA) NEGATIVE, Urine Ketones TRACEH, Urine Nitrite NEGATIVE, Urine Bilirubin NEGATIVE, Urine Urobilinogen 2.0, Urine Leukocyte Esterase NEGATIVE, Urine RBC (Auto) NEGATIVE, Urine RBC NONE, Urine WBC NONE, Urine Crystals NONE, Urine Bacteria TRACE, Urine Casts NONE, Urine Mucus NEGATIVE, Urine Culture Indicated NO 03/17/19 08:20: White Blood Count 6.7, Red Blood Count 3.43L, Hemoglobin 11.3L, Hematocrit 34L, Mean Corpuscular Volume 99, Mean Corpuscular Hemoglobin 33, Mean Corpuscular Hemoglobin Concent 33, Red Cell Distribution Width 13.3, Platelet Count 168, Mean Platelet Volume 8.9, Neutrophils (%) (Auto) 50, Lymphocytes (%) (Auto) 34, Monocytes (%) (Auto) 13H, Eosinophils (%) (Auto) 3, Basophils (%) (Auto) 0, Neutrophils # (Auto) 3.3, Lymphocytes # (Auto) 2.3, Monocytes # (Auto) 0.9, Eosinophils # (Auto) 0.2, Basophils # (Auto) 0.0, Sodium Level 135, Potassium Level 4.6, Chloride Level 104, Carbon Dioxide Level 21, Anion Gap 10, Blood Urea Nitrogen 15, Creatinine 1.01, Estimat Glomerular Filtration Rate > 60, BUN/Creatinine Ratio 15, Glucose Level 135H, Calcium Level 8.6, Corrected Calcium 9.2, Total Bilirubin 0.4, Aspartate Amino Transf (AST/SGOT) 16, Alanine Aminotransferase (ALT/SGPT) 10, Alkaline Phosphatase 44, Total Protein 5.5L, Albumin 3.3 Physical Exam Physical Exam Vital Signs Vital Signs - First Documented 03/16/19 03/16/19 18:32 21:38 Temp 36.5 Pulse 98 Resp 20 B/P (MAP) 117/72 (87) Pulse Ox 96 O2 Delivery Room Air Capillary Refill : Less Than 3 Seconds Height, Weight, BMI Height: 5'6.00" Weight: 227lbs. 0.0oz. [id number]; 37.47 BMI Method: General Appearance: No Apparent Distress, WD/WN HEENT: PERRL/EOMI, Other (abrasion to nose, ecchymosis under her eyes, secondary to fall) Neck: Non Tender, Supple; No Carotid Bruit Respiratory: Chest Non Tender, Lungs Clear, Normal Breath Sounds, No Accessory Muscle Use, No Respiratory Distress Cardiovascular: Regular Rate, Rhythm, No Edema, No JVD, No Murmur, Normal Peripheral Pulses A/P-Cardiology Admission Diagnosis Generalized weakness/frequent falls Subdural hematoma CAD CHF Assessment/Plan Generalized weakness with frequent falls recently, PT/OT to eval Subdural hematoma secondary to trauma sustained from a fall on 03/11/19. Dx with subdural hematoma and transferred to [place]. Repeat CT head reveals minimal increase in size of subdural hematoma. Patient complaining of headache. Coronary artery disease, history of CABG 3 done in 1995, history of myocardial infarction 1995. Cardiac catheterization showed only 2 bypasses the ALVARADO to the LAD which was patent, the LAD itself is a very small artery with good flow profile the LAD system. The vein graft to the right coronary artery has 80 percent stenosis at the anastomosis point with mismatch in the size of the vein graft and the nome right coronary artery. The circumflex has mild to moderate disease, the left main coronary artery has 60 percent ostial lesion that is supplying the circumflex artery at this point. In September 2013 he had a cardiac catheterization with stent placement to the left main coronary artery with 3.08 mm Promus Premier stent, a stent to the vein graft to the right coronary artery using 3.020 mm Promus Premier stent without any complication, Stress test was done in January 2018 showing ejection fraction 28 percent dilated left ventricle, total infarction of the whole inferior wall and inferolateral wall. No ischemia was noted Congestive heart failure, history of chronic compensated left ventricular systolic dysfunction, last echocardiogram was done in February 2019 showing ejection fraction 55-60 percent, PA pressure 25 mmHg. Hyperkalemia-improved, continue to monitor. Intolerance to Entresto, had joint pain and muscle pain. Stopped the medication. History of Ventricular tachycardia, improved after restarting amiodarone and tolerating it well Permanent pacemaker/ICD, has chronic Evera , last interrogation was done on February 20, 2019 showing good sensing and capture activity. No arrhythmia was detected. Continue to monitor Hypertension, restart home blood pressure medication and continue to monitor. Hyperlipidemia, intolerance to statins, welchol, livalo, all causing myalgias and GI upset. couldn't afford Repatha. Continue to monitor as outpatient History of carotid stenosis, mild bilateral nonobstructive disease, last carotid ultrasound was done in February 2019, continue to monitor. Metabolic syndrome, not on any diabetic medicine, history of intolerance to metformin. Patient is doing well with weight loss and exercise. Encouraged to continue. Obesity, BMI is 36, has lost over 70 pounds since his gastric sleeve surgery. Encouraged to continue with diet and exercise Osteoarthritis. Obstructive sleep apnea, intolerant to C Pap machine. Hypothyroidism, monitored and managed by primary care physician. Thank you for allowing us to participate in the management of Mr. Camargo. This is Omar Liang PA-C, as a scribe for Dr. Childers. Patient was seen and evaluated with Omar, examination performed, management plan was discussed, agree with the current scribed note, I made few changes to the note using Italic font Patient is still having headache due to the subdural hematoma Cardiac status at this time is stable Cannot tolerate anticoagulation due to current condition Continue to monitor blood pressure Started with physical therapy Clinical Quality Measures DVT/VTE Risk/Contraindication: Risk Factor Score Per Nursin RFS Level Per Nursing on Admit: 4+=Very High OMAR HAINES Mar 17, 2019 09:20 BEAN ARRIAZA MD Mar 17, 2019 16:04 POS
[2019-03-17] MEDS ORDERED: LOSA25TA41 PO (09:33)
[2019-03-17] MEDS ORDERED: FURO40TA4 PO (09:33)
[2019-03-17] MEDS ORDERED: DIVA250T2 PO (09:33)
[2019-03-17] MEDS ORDERED: FLUT1DIS26 IH (09:33)
[2019-03-17] MEDS ORDERED: ASPI-983 PO (09:33)
[2019-03-17] MEDS ORDERED: OMEG-91 PO (09:33)
[2019-03-17] MEDS ORDERED: LORA10TA7 PO (09:33)
[2019-03-17] MEDS ORDERED: [UNRECOGNIZED DRUG - OTHER] TOP (09:33)
[2019-03-17] MEDS ORDERED: DOCU-143 PO (09:33)
[2019-03-17] MEDS ORDERED: OXYC1TAB87 PO (09:33)
[2019-03-17] MEDS ORDERED: DIVA-74 PO (09:33)
[2019-03-17] MEDS ORDERED: METO-370 PO (09:33)
[2019-03-17] MEDS ORDERED: ACET-2650 PO (09:33)
[2019-03-17] MEDS ORDERED: CLOP75TA69 PO ×2 (09:36→12:28)
--- NOTE | 2019-03-17 09:46 | NUR ---
PATIENT HAD HIS MEDICATION BOTTLES IN THE ROOM WITH HIM WELL HIS DISCHARGE MEDICATION LIST FROM [facility] FROM 03-16-19. WE WENT OVER THE LIST FROM [facility] AND I COMPARED IT WITH HIS BOTTLES. THE FOLLOWING MEDICATIONS WERE ORDERED TO STOP AT [facility] HOWEVER I HAVE LEFT THEM ON THE MED REC AT THIS TIME. PATIENT IS UNSURE WHEN HE IS SUPPOSED TO RESUME THEM. SPIRONOLACTONE 25MG DAILY POTASSIUM 20MEQ BID FISH OIL 1040 DAILY FUROSEMIDE 40MG BID AND PRN IBU 600MG BID PRN ASPIRIN 81MG DAILY ALFUZOSIN ER 10MG HS PLAVIX 75MG DAILY THE FOLLOWING WERE NEW PRESCRIPTIONS PRESCRIBED AT DISCHARGE FROM [facility]: OXYCODONE 5-325MG Q8H PRN #21 (FILLED 03-16-19 AT [facility]) COLCHICINE 0.6MG BID (PATIENT DID NOT RECEIVE PRINTED SCRIPT SEE NOTE BELOW) COLACE 100MG BID TYLENOL 650MG Q4 HOURS PRN [facility] DID NOT HAVE THE COLCHICINE SCRIPT ON FILE, I CALLED [facility] TO SEE IF THE COLCHICINE WAS E-SCRIBED TO A DIFFERENT LOCATION, THEY DID NOT HAVE RECORD OF IT BEING E-SCRIBED OR PRINTED AND SIGNED. I CALLED [facility] AT [facility] TO VERIFY AND THEY DID NOT HAVE THE PATIENT ON FILE. I SPOKE WITH THE PATIENTS SIGNIFICANT OTHER WHO STATES WHEN SHE WENT TO THE PHARMACY THEY TOLD HER THE ONLY MED WAS THE PERCOCET, SHE ALSO HAD A WRITTEN ORDER FOR OUTPATIENT PHYSICAL THERAPY. I DID NOT INCLUDE THIS MEDICATION ON THE MED REC SINCE IT WAS NOT FILLED OR AVAILABLE TO THE PATIENT. AFTER GOING OVER EACH MEDICATION WITH THE PATIENT HE STATES HE IS ONLY TAKING 1 LOSARTAN 25MG TABLET DAILY, THE SCRIPT STATES 2 DAILY HOWEVER HE DID NOT KNOW THAT AND HAS ONLY BEEN TAKING 1. I PUT IT ON THE MED REC ONE DAILY. HE VERIFIED HE ONLY USES HIS ADVAIR INHALER ONCE DAILY. ALSO, MADINA REPORTED JARAD DAILY HOWEVER CURRENTLY HE IS TAKING LORATADINE DAILY. NOT ON THE LIST FROM [facility] BUT IN HIS MED BOTTLES ARE VENTOLIN, HE STATES HE ONLY USES RARELY, AND TERPENICOL SOLUTION HE USES TOPICALLY NEEDED FOR TOE FUNGUS. I ADDED THEM TO THE MED REC AT THIS TIME. HE HAD A BOTTLE OF FIBER TABS BUT STATES HE HAS NOT TAKEN THIS FOR SOME TIME. BOTTLES HE HAD WITH HIM: 02-23-[address] 250MG 2AM AND 4 HS #180 02-15-19 POTASSIUM CHLORIDE 20MEQ BID #180 (DC'D ON DISCHARGE FROM [facility]) 02-04-19 FUROSEMIDE 40MG BID AND 1 EXTRA IF NEEDED #210 (DC'D ON DISCHARGE FROM [facility]) 02-04-19 IBU 600MG BID PRN #60 (DC'D ON DISCHARGE FROM [facility]) 02-04-19 PLAVIX 75MG DAILY #90 (DC'D ON DISCHARGE FROM [facility]) 01-27-19 METOPROLOL SUCCINATE 50MG DAILY #90 (TAKES AT HS) 01-22-19 AMIODARONE 200MG 1/2 DAILY #45 01-22-19 MONTELUKAST 10MG HS #90 01-16-19 ALFUZOSIN ER 10MG HS #90 (DC'D ON DISCHARGE FROM [facility]) 01-10-19 LOSARTAN 25MG 2 DAILY #180 (ONLY TAKES 1 DAILY) LEVOTHYROXINE 88MCG DAILY #90 12-17-18 SPIRONOLACTONE 25MG DAILY #90 (DC'D ON DISCHARGE FROM [facility]) VENTOLIN (STATES HE ONLY TAKES PRN AND NOT VERY OFTEN) ADVAIR 250-50 (TAKES 1 PUFF DAILY) FLONASE NASAL SPRAY DAILY OTC: ASPIRIN 81MG (DAILY) (DC'D ON DISCHARGE FROM [facility]) OMEGA 3 1040MG DAILY (DC'D ON DISCHARGE FROM [facility]) MTV DAILY VITAMIN D3 1000 UNITS DAILY LORATADINE 10MG DAILY (WAS ON LIST FROM [facility] JARAD 180, CHANGED TO CURRENT) TERPENICOL SOLUTION (USES TOPICALLY NEEDED FOR TOE FUNGUS FROM DR. BRAGA)
--- NOTE | 2019-03-17 11:39 | Short Stay Summary-Hospitalist ---
[facility] HERCULES,MED STUDENT 03/17/19 1139: History of Present Illness HPI/Chief Complaint Pt presented to ED via EMS after falling at home while trying to rise from his chair to his walker. Pts who witnessed fall states the pt slid to the ground and didn't fall traumatically. Pt had just returned home from inpatient stay at [facility] after falling on 03/11/19 that resulted in a subdural hematoma. Pt could not ambulate from the car into the house and also slumped to the ground outside his home. Endorses weakness and difficulty ambulating even with walker. Denies LoC, RODRIGUEZ. Source: patient Exam Limitations: no limitations Date Seen 03/17/19 Time Seen by a Provider: 08:06 Attending Physician Reina Dover DO PCP Reina Dover DO Referring Physician Date of Admission Mar 16, 2019 at 21:28 Home Medications & Allergies Home Medications Reviewed patient Home Medication Reconciliation performed by pharmacy medication reconciliations body art technician and/or nursing. Patients Allergies have been reviewed. Allergies Allergies Coded Allergies Ygbzbel-Sbq-Rru Reductase Inhibitor (Unverified Allergy, Unknown, 10/24/16) niacin (Verified Allergy, Unknown, 05/05/18) sacubitril (Verified Allergy, Unknown, 05/05/18) valsartan (Verified Allergy, Unknown, 05/05/18) Past Pguayll-Ztecei-Ynwmkr Hx Past Med/Social Hx: Reviewed Nursing Past Med/Soc Hx Patient Social History Marrital Status: domestic partnership Employed/Student: retired Alcohol Use: Denies Use Recreational Drug Use: No Smoking Status: Former Smoker Former Smoker, Quit: May 07, 1984 Recent Foreign Travel: No Contact w/other who traveled: No Recent Hopitalizations: Yes (SUBDERAL HEMATOMA) Recent Infectious Disease Expo: No Immunizations Up To Date Date of Pneumonia Vaccine: Mar 05, 2016 Date of Influenza Vaccine: Jan 27, 2018 Seasonal Allergies Seasonal Allergies: Yes Past Medical History Surgeries: Abdominal, Coronary Stent, Orthopedic, Pacemaker Respiratory: Sleep Apnea Currently Using CPAP: Yes (not able to use r/t claustrophobia) Currently Using BIPAP: No Cardiac: Atrial Fibrillation, Chronic Edema/Swelling, Congenital Heart Disease, High Cholesterol, Hypertension, Valvular Heart Disease Neurological: Neuropathy Reproductive: No Sexually Transmitted Disease: No HIV/AIDS: No Genitourinary: Renal Failure Gastrointestinal: Diverticulosis, Polyps Musculoskeletal: Degenerate Disk Disease, Arthritis, Gout Endocrine: Hypothyroidsim Loss of Vision: Bilateral Hearing Impairment: Denies, Bilateral Hearing Aide Psychosocial: Anxiety, Bipolar, Depression History of Blood Disorders: No Adverse Reaction to Blood Nash: No Family History Reviewed Nursing Family Hx Alzheimer's disease 19 MOTHER Hypertension 19 FATHER G8 BROTHER G8 SISTER Myocardial infarction 19 FATHER No Pertinent Family Hx, Hypertension (father, brother, sister) Review of Systems Constitutional: No chills, No fever, No malaise, No weight loss EENTM: other (face pain from previous fall ); No ear pain, No eye pain, No nose pain, No throat pain Respiratory: No cough, No dyspnea on exertion, No hemoptysis, No short of breath Cardiovascular: No chest pain; Hx of Intervention, vascular heart diseas Gastrointestinal: No abdominal pain, No constipation, No diarrhea, No dysphagia, No hematemesis, No melena, No nausea, No vomiting Genitourinary: No discharge, No frequency, No incontinence Musculoskeletal: back pain, joint pain Skin: lesions (abrasions from fall on face and L knee ); No lumps Psychiatric/Neurological: Anxiety, Depressed Physical Exam Physical Exam Vital Signs Vital Signs - First Documented 03/16/19 03/16/19 18:32 21:38 Temp 36.5 Pulse 98 Resp 20 B/P (MAP) 117/72 (87) Pulse Ox 96 O2 Delivery Room Air Capillary Refill : Less Than 3 SecondsLess Than 3 Seconds Height, Weight, BMI Height: 5'6.00" Weight: 227lbs. 0.0oz. [id number]; 37.47 BMI Method: General Appearance: No Apparent Distress, WD/WN HEENT: PERRL/EOMI, Other (abrasion to nose, ecchymosis under her eyes, secondary to fall) Neck: Non Tender, Supple; No Carotid Bruit Respiratory: Chest Non Tender, Lungs Clear, Normal Breath Sounds, No Accessory Muscle Use, No Respiratory Distress Cardiovascular: Regular Rate, Rhythm, No Edema, No JVD, No Murmur, Normal Peripheral Pulses Extremity: No Calf Tenderness, No Pedal Edema Neurologic/Psychiatric: Alert, Oriented x3 Skin: Normal Color, Warm/Dry Results Results/Procedures Labs Laboratory Tests 03/16/19 19:00 03/17/19 08:20 Patient resulted labs reviewed. Imaging: Reviewed Imaging Films, Reviewed Imaging Report Imaging CT HEAD WO PROCEDURE: CT head without contrast. TECHNIQUE: Multiple contiguous axial images were obtained through the brain without the use of intravenous contrast. Auto Exposure Controls were utilized during the CT exam to meet ALARA standards for radiation dose reduction. INDICATION: Intracranial hemorrhage, follow-up. Continued headache and dizziness. CORRELATION STUDY: 03/11/2019 FINDINGS: There is the presence of an acute extra-axial hematoma most pronounced in the left posterior convexity. Maximum thickness is approximately 1 cm, relatively stable from prior study. However, this has a more uniform hyperdensity and extends more anteriorly into the left temporal region so overall appears to be likely larger. There is some mild localized mass effect upon the left occipital lobe. Generalized atrophic changes with prominence of the ventricles and sulci are again demonstrated. Basilar cisterns are maintained. No hyperdense MCA sign. The bony calvarium is intact. IMPRESSION: 1. There does appear to be overall slight increased size of a left sided subdural hematoma. Blood most pronounced in the left occipital region but does extend anteriorly over the temporal region as well on follow-up. Mild localized mass effect upon the left occipital lobe. Telephone call has been made to the [facility] at time of this dictation, 7:25 PM. ADDENDUM: A previous study from [facility], obtained earlier in the day has now become available for comparison purposes. While somewhat difficult to quantify given the slight variation in layering differences, the overall volume of blood however does appear to be very slightly increased from the previous study more noticeable over the temporal region compared to earlier in the day. This is however a fairly minimal change. An additional phone call was made to the [facility] Emergency Department, 8:05 PM. Short Stay Diagnosis Discharge Diagnosis-Short Stay Admission Diagnosis S/P traumatic fall Final Discharge Diagnosis S/P Traumatic fall Conclusion Plan Pt is being transferred to Inpatient rehab unit PT, OT, Speech therapy will evaluate and treat Emphasis on regaining ADLs and ability to get OOB and ambulate so pt can return home with similar functional level Clinical Quality Measures DVT/VTE Risk/Contraindication: Risk Factor Score Per Nursin RFS Level Per Nursing on Admit: 4+=Very High REINA DOVER DO 03/17/192023: History of Present Illness HPI/Chief Complaint Chief complaint: Fall with severe leg weakness HPI: This is a 73yoWM with a multitude of medical problems including pacemaker defibrillator, and MELVA, who presented to the ER after an epidural hematoma after suffering a fall at home, had been moved to [facility], Dr. Arnold (neurosurgery), Pt was monitored, no surgical intervention required, discharged home but he began having falls and could not walk. All workup in the ER was within normal limits but he did show some evidence of slight thickening of the epidural, Dr. Arnold reviewed those results, imaging scans with Dr. Harrington so he was admitted to observation, monitored closely, Dr. Childers consulted, he will be moved down to inpatient rehab to regain function from his severe debility from the stroke. Source: patient Exam Limitations: no limitations Past Knciabr-Fbveqq-Iucppk Hx Past Med/Social Hx: Reviewed Nursing Past Med/Soc Hx, Reviewed and Corrections made Family History Alzheimer's disease 19 MOTHER Hypertension 19 FATHER G8 BROTHER G8 SISTER Myocardial infarction 19 FATHER Review of Systems Constitutional: weakness Psychiatric/Neurological: Anxiety, Depressed, Headache Physical Exam Physical Exam General Appearance: No Apparent Distress, WD/WN, Chronically ill Eyes: Bilateral Eye Normal Inspection, Bilateral Eye PERRL HEENT: PERRL/EOMI, Normal ENT Inspection, Pharynx Normal Neck: Full Range of Motion, Normal Inspection, Non Tender, Supple, Carotid Bruit Respiratory: Chest Non Tender, Lungs Clear, Normal Breath Sounds, No Accessory Muscle Use, No Respiratory Distress Cardiovascular: Regular Rate, Rhythm, No Edema, No Gallop, No JVD, No Murmur, Normal Peripheral Pulses Gastrointestinal: Normal Bowel Sounds, No Organomegaly, No Pulsatile Mass, Non Tender, Soft Back: Normal Inspection, No CVA Tenderness, No Vertebral Tenderness Extremity: Normal Capillary Refill, Normal Inspection, Normal Range of Motion, Non Tender, No Calf Tenderness, No Pedal Edema Neurologic/Psychiatric: Alert, Oriented x3, No Motor/Sensory Deficits, Normal Mood/Affect Skin: Normal Color, Warm/Dry Lymphatic: No Adenopathy Short Stay Diagnosis Discharge Diagnosis-Short Stay Admission Diagnosis Subdural hematoma Fall MELVA Final Discharge Diagnosis Subdural hematoma Fall MELVA Conclusion Plan DC to IRF Diagnosis/Problems Diagnosis/Problems (1) Subdural hematoma, post-traumatic Status: Acute Qualifiers: Qualified Codes: S06.5X9D - Traumatic subdural hemorrhage with loss of consciousness of unspecified duration, subsequent encounter (2) Muscular deconditioning Status: Acute (3) Intracranial hemorrhage Status: Acute (4) Generalized weakness Status: Acute Supervisory-Addendum Brief Verification & Attestation Participated in pt care: history, MDM, physical Personally performed: exam, history, MDM, supervision of care Care discussed with: Medical Student Procedures: n/a Results interpretation: Verified all documentation Verification and Attestation of Medical Student E/M Service A medical student performed and documented this service in my presence. I reviewed and verified all information documented by the medical student and made modifications to such information, when appropriate. I personally performed the physical exam and medical decision making. Reina Dover, Mar 17, 2019,20:22 [facility],MED STUDENT Mar 17, 2019 11:39 REINA MORLEY DO Mar 17, 2019 20:24 POS
== END 2019-03-17 11:15 ==
LOC: EDUNIT# 18:30 → ER 18:31 → UNDOADMOB 21:28 → 4TH 21:28 → UNDODISOB 03-17 11:15
PROVIDERS: ADMIT Internal Medicine; ATTEND Internal Medicine
DX: M62.81 Muscle weakness (generalized) (principal); S06.5X9D Traumatic subdural hemorrhage with loss of consciousness of unspecified duration, subsequent encounter; J44.9 Chronic obstructive pulmonary disease, unspecified; G47.30 Sleep apnea, unspecified; E24.9 Cushing's syndrome, unspecified; E78.00 Pure hypercholesterolemia, unspecified; G62.9 Polyneuropathy, unspecified; N19 Unspecified kidney failure; M19.90 Unspecified osteoarthritis, unspecified site; M10.9 Gout, unspecified; E66.9 Obesity, unspecified; E03.9 Hypothyroidism, unspecified; I48.91 Unspecified atrial fibrillation; I11.0 Hypertensive heart disease with heart failure; I25.10 Atherosclerotic heart disease of native coronary artery without angina pectoris; I50.9 Heart failure, unspecified; E78.5 Hyperlipidemia, unspecified; F31.9 Bipolar disorder, unspecified; F41.9 Anxiety disorder, unspecified; W01.0XXA Fall on same level from slipping, tripping and stumbling without subsequent striking against object, initial encounter; Z68.36 Body mass index [BMI] 36.0-36.9, adult; Z91.81 History of falling; Z79.82 Long term (current) use of aspirin; Z87.891 Personal history of nicotine dependence; Z95.0 Presence of cardiac pacemaker
CPT/HCPCS: 36415; 36600; 70450; 80053; 81000; 82805; 85025; 86141; 96360; G0378

== ENCOUNTER 2019-03-17 10:53 | Inpatient (IN) | payer MEDICARE ==
[~2019-03-17] VITALS: Ht 170 cm; Wt 103.4 kg
[~2019-03-17 10:53] MED LIST changes: +ACET-2650 PO; +ASPI-983 PO; +CLOP75TA69 PO; +DIVA-74 PO; +DOCU-143 PO; +LORA10TA7 PO; +LOSA25TA41 PO; +METO-370 PO; +OMEG-91 PO; +OXYC1TAB87 PO; +[UNRECOGNIZED DRUG - OTHER] TOP
[2019-03-17] MEDS ORDERED: DOCUSATE SODIUM 100 MG (COLACE) CAP PO PRN (11:00)
[2019-03-17] MEDS ORDERED: CALCIUM CARBONATE 500 MG (TUMS) TAB.CHEW PO PRN (11:00)
[2019-03-17] MEDS ORDERED: guaiFENesin/CODEINE (ROBITUSSIN AC) 10ML UDC PO PRN (11:00)
[2019-03-17] MEDS ORDERED: LOPERAMIDE 2 MG (IMODIUM) TABLET PO PRN (11:00)
[2019-03-17] MEDS ORDERED: ONDANSETRON 4 MG (ZOFRAN) ORAL DISSOLVE TAB PO PRN (11:00)
[2019-03-17] MEDS ORDERED: FLEET ENEMA ADULT 1 EA BTL PR PRN (11:00)
[2019-03-17] MEDS ORDERED: ALPRAZolam 0.25 MG (XANAX) TAB PO PRN (11:00)
[2019-03-17] MEDS ORDERED: BISACODYL 10 MG SUPP (DULCOLAX) PR PRN (11:00)
[2019-03-17] MEDS ORDERED: LACTULOSE SYRUP 10GM/15ML (ENULOSE) 30ML UDC PO PRN (11:00)
[2019-03-17] MEDS ORDERED: diphenhydrAMINE 25 MG TAB (BENADRYL) PO PRN (11:00)
[2019-03-17] MEDS ORDERED: ENOXAPARIN 40 MG/0.4 ML (LOVENOX) SYR SC SCH (11:00)
[2019-03-17 11:40] VITALS: BP 156/85
--- NOTE | 2019-03-17 11:47 | Physical Therapy Evaluation ---
PT Evaluation-General Medical Diagnosis Admission Date Medical Diagnosis: SDH Onset Date: Mar 12, 2019 Therapy Diagnosis Therapy Diagnosis: impaired mobility, strength, endurance Height/Weight Height (Feet): 5 Height (Inches): 6.00 Weight (Pounds): 227 Weight (Ounces): 0.0 Referral Physician: Reina Nelson DO Reason for Referral: Evaluation/Treatment Medical History Pertinent Medical History: Atrial Fib, CABG, CAD, Heart Failure, HTN, Hypothroidism, Neuropathy, OA Social History Home: Single Level Current Living Status: Spouse Entry Into Home: Level Entry Prior Prior Level of Function SCALE: Activities may be completed with or without assistive devices. 8-Ozlgbrgtjf-knbgzmn completes the activity by him/herself with no assistance from a helper. 5-Set-up or Clean-up Assistance-helper sets up or cleans up; patient completes activity. [place] assists only prior to or following the activity. 4-Supervision or Touching Assistance-helper provides verbal cues and/or touching/steadying and/or contact guard assistance as patient completes activity. Assistance may be provided throughout the activity or intermittently. 3-Partial/Moderate Assistance-helper does LESS THAN HALF the effort. [place] lifts, holds or supports trunk or limbs, but provides less than half the effort. 2-Substantial/Maximal Assistance-helper does MORE THAN HALF the effort. [place] lifts or holds trunk or limbs and provides more than half the effort. 7-Tjlehgwqy-quqwcz does ALL the effort. Patient does none of the effort to complete the activity. Or, the assistance of 2 or more helpers is required for the patient to complete the activity. If activity was not attempted, code reason: 7-Patient Refused. 9-Not Applicable-not attempted and the patient did not perform the activity before the current illness, exacerbation or injury. 10-Not Attempted due to Environmental Limitations-(lack of equipment, weather restraints, etc.). 88-Not Attempted due to Medical Conditions or Safety Concerns. Bed Mobility: 6 Transfers (B,C,W/C): 6 Gait: 6 Indoor Mobility (Ambulation): Independent Patient states he was using a single point cane previously. PT Evaluation-Current Subjective Patient in bed pre tx, agrees to PT, has 5/10 pain in his head, right hip, and left foot. Pt/Family Goals to be independent at home Objective Patient Orientation: Person, Place, Situation ROM/Strength ROM Lower Extremities WNL Strength Lower Extremities LLE (hip flexion 3+/5, knee flexion 4/5, knee extension 4/5, dorsiflexion 3/5), RLE (hip flexion 4/5, knee flexion 4+/5, knee extension 4+/5, dorsiflexion 4+/5) Sensory Vision: Wears Glasses Hearing: Functional Sensation Right Lower Extremit: Impaired Sensation Left Lower Extremity: Impaired Sensation Lower Extremities Patient has intact light touch sensation in both LE but states he has neuropathy bilaterally. Transfers Roll Left to Right (QC): 4 Sit to Lying (QC): 4 Lying to Sitting/Side of Bed(Q: 4 Sit to Stand (QC): 3 Chair/Fwz-ek-Tdpae Xfer(QC): 3 Car Transfer (QC): 3 Patient performs bed mobility with SBA, supine <-> sit with SBA, sit <-> stand min assist, transfers min assist, car transfer min assist. Patient needs o ccasional cues for positioning and safety. Gait Does the Patient Walk?: Yes Mode of Locomotion: Walk Anticipated Mode of Locomotion: Walk Walk 10 feet (QC): 4 Walk 50 ft with 2 Turns(QC): 88 Walk 150 ft (QC): 88 Walking 10ft/uneven surface-QC: 4 Distance: 40', 10' Gait Assistive Device: FWW Comments/Gait Description Patient ambulated 40' with a rolling walker with CGA (including 10' over an uneven surface). Patient needs close CGA and his knees seem to be just on the verge of buckling but it did not occur. Wheelchair Training Does the Pt Use a Wheelchair?: Yes Distance: 100' Wheel 50 ft with 2 turns (QC): 5 Wheel 150 ft (QC): 88 Type of Wheelchair: Manual Stairs 1 Step (curb) (QC): 88 4 Steps (QC): 88 12 Steps (QC): 88 No steps performed due to possibility of knee buckling. Balance Sitting Static: Normal Sitting Dynamic: Normal Standing Static: Good Standing Dynamic: Fair Picking up an Object (QC): 88 Assessment/Needs Patient has impaired mobility, strength, endurance. Weak LE strength and possible knee buckling with fatigue. Patient is a fall risk. Rehab Potential: Fair PT Short Term Goals Short Term Goals Time Frame: Mar 24, 2019 Roll Left & Right: 6 Sit to lyin Lying to sitting on side of be: 6 Sit to stand: 4 (SBA) Chair/xes-dm-bxbbb transfer: 4 (SBA) Toilet transfer: 4 (SBA) Car transfer: 4 (SBA) Walk 10 feet: 4 (SBA) Walk 50 feet with two turns: 4 (SBA) Walking 10ft on uneven surface: 4 (SBA) PT Snf Goals Snf Goals PT Snf Goals Time Frame: Apr 07, 2019 Roll Left & Right (QC): 6 Sit to Lying (QC): 6 Lying-Sitting on Side/Bed(QC): 6 Sit to Stand (QC): 6 Chair/Ujs-mq-Jsyvs Xfer(QC): 6 Toilet Transfer (QC): 6 Car Transfer (QC): 6 Does the Patient Walk: Yes Walk 10 feet (QC): 6 Walk 50ft with 2 Turns (QC): 6 Walk 150 ft (QC): 6 Walking 10ft on Uneven Surface: 6 1 Step (curb) (QC): 4 4 Steps (QC): 9 12 Steps (QC): 9 Picking up an Object (QC): 4 Does the Pt use WC or Scooter?: No Type: N/A Type: N/A PT Plan Problem List Problem List: Activity Tolerance, Functional Strength, Safety, Balance, Gait, Transfer, Bed Mobility Treatment/Plan Treatment Plan: Continue Plan of Care Treatment Plan: Bed Mobility, Concurrent Therapy, Education, Functional Activity Mary Jane, Functional Strength, Group Therapy, Gait, Safety, Therapeutic Exercise, Transfers Treatment Duration: Apr 07, 2019 Frequency: At least 5 of 7 days/Wk (IRF) Estimated Hrs Per Day: 1.5 hours per day Patient and/or Family Agrees t: Yes Safety Risks/Education Patient Education: Gait Training, Transfer Techniques, Correct Positioning, Safety Issues Teaching Recipient: Patient Teaching Methods: Demonstration, Discussion Response to Teaching: Reinforcement Needed Discharge Recommendations Plan Patient will perform bed mobility and transfer training, balance and endurance training, functional strengthening, stair training, gait training, and education, to improve functional mobility and independence at home. Therapy Discharge Recommendati: Other, See Comments (home with family) Time/GCodes Time In: 1110 Time Out: 1140 Total Billed Treatment Time: 30 Total Billed Treatment 1 visit [place] 15' FA 15' RENETTA SHARP PT Mar 17, 2019 11:47 POS
[2019-03-17] MEDS ORDERED: CLOP75TA69 PO (12:28)
--- NOTE | 2019-03-17 12:29 | NUR ---
REVIEWED MED REC IT WAS REPORTED UPON ADMISSION TO 4TH FLOOR. SEE NOTES ON THAT ACCOUNT FOR DETAIL. NOTE PLAVIX WAS DISCONTINUED UPON DISCHARGE FROM 4TH FLOOR TO REHAB, I ADDED IT BACK TO THE MED REC AT THIS TIME FOR PROPER DISCHARGE TO HOME ORDERS.
[2019-03-17] MEDS ORDERED: RT-ALBUTEROL SULF 2.5 MG/3 ML PRE-MIX VIAL INH PRN (13:00)
[2019-03-17] MEDS ORDERED: NON-FORMULARY MEDICATION 1 EA EA (Acetaminophen (Tylenol Arthritis) 650 MG) PO PRN (13:00)
[2019-03-17] MEDS ORDERED: FUROSEMIDE 40 MG (LASIX) TAB PO PRN (13:00)
[2019-03-17] MEDS ORDERED: IBUPROFEN 600 MG (MOTRIN) TAB PO PRN (13:00)
[2019-03-17] MEDS ORDERED: predniSONE 20 MG TAB PO NR (13:15)
--- NOTE | 2019-03-17 13:19 | Occupational Therapy Eval ---
OT Evaluation-General/PLF Medical Diagnosis Admission Date Mar 17, 2019 at 11:10 Medical Diagnosis: SDH Onset Date: Mar 12, 2019 Therapy Diagnosis Therapy Diagnosis: decreased ADL skills Height/Weight Height (Feet): 5 Height (Inches): 6.00 Weight (Pounds): 227 Weight (Ounces): 0.0 Precautions Precautions/Isolations: Fall Prevention, Standard Precautions Referral Physician: Reina Nelson DO Medical History Pertinent Medical History: Atrial Fib, CABG, CAD, Heart Failure, HTN, Hypothroidism, Neuropathy, OA Additional Medical History hyperlipidemia, sleep apnea, GERD, bipolar, bilateral TKA Social History Home: Single Level Current Living Status: Spouse Entry Into Home: Level Entry ADL-Prior Level of Function SCALE: Activities may be completed with or without assistive devices. 1-Cbozoxexjf-iygyqna completes the activity by him/herself with no assistance from a helper. 5-Set-up or Clean-up Assistance-helper sets up or cleans up; patient completes activity. [place] assists only prior to or following the activity. 4-Supervision or Touching Assistance-helper provides verbal cues and/or touching/steadying and/or contact guard assistance as patient completes activity. Assistance may be provided throughout the activity or intermittently. 3-Partial/Moderate Assistance-helper does LESS THAN HALF the effort. [place] lifts, holds or supports trunk or limbs, but provides less than half the effort. 2-Substantial/Maximal Assistance-helper does MORE THAN HALF the effort. [place] lifts or holds trunk or limbs and provides more than half the effort. 1-Zxejjdqww-elljis does ALL the effort. Patient does none of the effort to complete the activity. Or, the assistance of 2 or more helpers is required for the patient to complete the activity. If activity was not attempted, code reason: 7-Patient Refused. 9-Not Applicable-not attempted and the patient did not perform the activity before the current illness, exacerbation or injury. 10-Not Attempted due to Environmental Limitations-(lack of equipment, weather restraints, etc.). 88-Not Attempted due to Medical Conditions or Safety Concerns. ADL PLOF Comments Pt reports being independent with basic self care and mobility. Pt reports 3 falls recently. Self Care: Independent DME/Equipment: Grab Bars, Tub/Shower Drive Self: Yes OT Current Status Subjective Pt agreeable to therapy. Pt reports headache, and pain in knees and left foot. Pt requests pain medication, RN notified. Mental Status/Objective Patient Orientation: Person, Place Current Glasses/Contacts: Yes (reading) Dentures/Partials: No Hand Dominance: Left Upper Extremity ROM grossly WFL Upper Extremity Coordination Fair ADL-Treatment ADL-Current Pt sitting in w/c and participated in UE assessment. Pt required assist to doff socks. Pt requires assist to don left sock. Attempted to don right sock, but unable to complete without assist. Pt sit to stand and transfer to chair with min assist using FWW. Pt able to reposition in chair without assist. All needs met. Eating (QC): 10 Oral Hygiene (QC): 10 Shower/Bathe Self (QC): 10 Upper Body Dressing (QC): 10 Lower Body Dressing (QC): 10 On/Off Footwear (QC): 2 Toileting Hygiene (QC): 10 Toilet Transfer (QC): 10 Education OT Patient Education: Rehab process Teaching Recipient: Patient Teaching Methods: Discussion Response to Teaching: Verbalize Understanding OT Correction Goals Cigarette And Filter Chief Inspector Goals Time Frame: Apr 07, 2019 Eating (QC): 6 Oral Hygiene (QC): 6 Toileting Hygiene (QC): 6 Shower/Bathe Self (QC): 6 Upper Body Dressing (QC): 6 Lower Body Dressing (QC): 6 On/Off Footwear (QC): 6 Additional Goals: 1-Demonstrate ADL Tasks, 2-Verbalize Understanding, 3- ImproveStrength/Mary Jane 1=Demonstrate adherence to instructed precautions during ADL tasks. 2=Patient will verbalize/demonstrate understanding of assistive devices/modifications for ADL. 3=Patient will improve strength/tolerance for activity to enable patient to perform ADL's. OT Education/Plan Problem List/Assessment Assessment: Decreased Activ Tolerance, Decreased UE Strength, Dependent Transfers, Impaired Funct Balance, Impaired I ADL's, Impaired Self-Care Skills Pt to benefit from skilled OT intervention for ADL training, transfers, s trengthening, and home safety education to increase level of function and allow safe discharge. Discharge Recommendations Plan/Recommendations: Continue POC Treatment Plan/Plan of Care Treatment,Training & Education: Yes Patient would benefit from OT for education, treatment and training to promote independence in ADL's, mobility, safety and/or upper extremity function for ADL's. Plan of Care: ADL Retraining, Functional Mobility, Group Exercise/Act as Ind, UE Funct Exercise/Act Treatment Duration: Apr 07, 2019 Frequency: At least 5 of 7 days/Wk (IRF) Estimated Hrs Per Day: 1.5 hours per day Rehab Potential: Fair Time/GCodes Start Time: 11:40 Stop Time: 12:10 Total Time Billed (hr/min): 30 Billed Treatment Time 1 visit, EVM(20minutes), ADL(10minutes) CRUZITO BARTON OT Mar 17, 2019 13:19 POS
[2019-03-17] MEDS: oxyCODONE/APAP 5/325MG (PERCOCET 5) TABLET PO PRN ×2 (13:25→21:26)
--- NOTE | 2019-03-17 14:09 | Occupational Ther Daily Note ---
OT Current Status-Daily Note Subjective Pt alert, sitting in recliner. Pt agrees to therapy. No c/o pain at this time. Mental Status/Objective Patient Orientation: Person, Place, Time, Situation ADL-Treatment Pt agrees to shower. Pt able to set up own meal and uses regular utensils. Pt ambulated to bathroom using FWW, min A. Transferred to toilet using BSC, grabbars and FWW with CGA. Completed own hygiene and clothing manipulation with CGA in standing using grabbars, FWW and BSC. Pt transferred to shower with min A using FWW, shower bench and grabbars. Pt completed shower using grabbars, hand held shower and shower bench. Pt cleanse 80% of body sitting on bench, buttocks/yarely area in standing with CGA using grabbars for balance. Assist to wash L foot and dry B lower legs. After set up, pt required min A to pull shirt down in back and completed rest of donning shirt. Pt threaded feet through pant legs, assist to get pants over heels then CGA in standing to hike over hips. Max A for footwear. Sitting at sink, pt able to complete own oral care. After therapy, pt sitting in recliner with feet elevated. Call light/phone in reach. All needs met in room. Therapy Code Descriptions/Definitions Functional [place] Measure: 0=Not Assessed/NA 4=Minimal Assistance 1=Total Assistance 5=Supervision or Setup 2=Maximal Assistance 6=Modified [place] 3=Moderate Assistance 7=Complete IndependenceSCALE: Activities may be completed with or without assistive devices. 3-Ogwofkrzqy-ruczvpv completes the activity by him/herself with no assistance from a helper. 5-Set-up or Clean-up Assistance-helper sets up or cleans up; patient completes activity. [place] assists only prior to or following the activity. 4-Supervision or Touching Assistance-helper provides verbal cues and/or touching/steadying and/or contact guard assistance as patient completes activity. Assistance may be provided throughout the activity or intermittently. 3-Partial/Moderate Assistance-helper does LESS THAN HALF the effort. [place] lifts, holds or supports trunk or limbs, but provides less than half the effort. 2-Substantial/Maximal Assistance-helper does MORE THAN HALF the effort. [place] lifts or holds trunk or limbs and provides more than half the effort. 1-Exbtddfyk-moqlkl does ALL the effort. Patient does none of the effort to complete the activity. Or, the assistance of 2 or more helpers is required for the patient to complete the activity. If activity was not attempted, code reason: 7-Patient Refused. 9-Not Applicable-not attempted and the patient did not perform the activity before the current illness, exacerbation or injury. 10-Not Attempted due to Environmental Limitations-(lack of equipment, weather restraints, etc.). 88-Not Attempted due to Medical Conditions or Safety Concerns. Eating (QC): 6 Oral Hygiene (QC): 6 Shower/Bathe Self (QC): 3 Upper Body Dressing (QC): 3 Lower Body Dressing (QC): 3 (Footwear (QC) 2) Toileting Hygiene (QC): 4 Toilet Transfer (QC): 4 Pt will need sock aide and hand sewer shoes for lower body dressing. OT Cable Engineer Outside Plant Goals Fdc Goals Time Frame: Apr 07, 2019 Eating (QC): 6 Oral Hygiene (QC): 6 Toileting Hygiene (QC): 6 Shower/Bathe Self (QC): 6 Upper Body Dressing (QC): 6 Lower Body Dressing (QC): 6 On/Off Footwear (QC): 6 Additional Goals: 1-Demonstrate ADL Tasks, 2-Verbalize Understanding, 3- ImproveStrength/[place] 1=Demonstrate adherence to instructed precautions during ADL tasks. 2=Patient will verbalize/demonstrate understanding of assistive device s/modifications for ADL. 3=Patient will improve strength/tolerance for activity to enable patient to perform ADL's. OT Education/Plan Problem List/Assessment Assessment: Decreased Activ Tolerance, Decreased UE Strength, Impaired Coordination, Impaired Funct Balance, Impaired I ADL's, Impaired Self-Care Skills Pt to benefit from skilled OT intervention for ADL training, transfers, strengthening, and home safety education to increase level of function and allow safe discharge. Discharge Recommendations Plan/Recommendations: Continue POC Treatment Plan/Plan of Care Patient would benefit from OT for education, treatment and training to promote independence in ADL's, mobility, safety and/or upper extremity function for ADL's. Plan of Care: ADL Retraining, Functional Mobility, Group Exercise/Act as Ind, UE Funct Exercise/Act Treatment Duration: Apr 07, 2019 Frequency: At least 5 of 7 days/Wk (IRF) Estimated Hrs Per Day: 1.5 hours per day Rehab Potential: Fair Time/GCodes Start Time: 13:00 Stop Time: 14:00 Total Time Billed (hr/min): 60 Billed Treatment Time 1 visit-ADL 4 (60 min) KEESHA MORAN Mar 17, 2019 14:09 POS
--- NOTE | 2019-03-17 14:44 | Physical Therapy Daily Note ---
PT Daily Note-Current Subjective pt in recliner pre-tx agrees to therapy. pt's present but leaves before therapy starts Appearance Pt in recliner post-tx. pt with call light, room phone, and tray table in reach with all needs met at this time. Mental Status Patient Orientation: Person, Place, Time, Situation Transfers SCALE: Activities may be completed with or without assistive devices. 5-Jycggfgxzs-iiqaexz completes the activity by him/herself with no assistance from a helper. 5-Set-up or Clean-up Assistance-helper sets up or cleans up; patient completes activity. [place] assists only prior to or following the activity. 4-Supervision or Touching Assistance-helper provides verbal cues and/or touching/steadying and/or contact guard assistance as patient completes activity. Assistance may be provided throughout the activity or intermittently. 3-Partial/Moderate Assistance-helper does LESS THAN HALF the effort. [place] lifts, holds or supports trunk or limbs, but provides less than half the effort. 2-Substantial/Maximal Assistance-helper does MORE THAN HALF the effort. [place] lifts or holds trunk or limbs and provides more than half the effort. 4-Zzvzorecy-madpgf does ALL the effort. Patient does none of the effort to complete the activity. Or, the assistance of 2 or more helpers is required for the patient to complete the activity. If activity was not attempted, code reason: 7-Patient Refused. 9-Not Applicable-not attempted and the patient did not perform the activity before the current illness, exacerbation or injury. 10-Not Attempted due to Environmental Limitations-(lack of equipment, weather restraints, etc.). 88-Not Attempted due to Medical Conditions or Safety Concerns. Sit to Stand (QC): 3 Gait Training Distance: 120'x2 Walk 10 feet (QC): 4 (SBA) Walk 50 ft with 2 Turns(QC): 4 (SBA) Gait Assistive Device: FWW Pt allows FWW to get out ahead of him and leans forward without standing straight up. Cues to stay closer to the walker. Exercises Standing: Hip Abduction, Heel/toe raises, Marching, Step-ups (forward & sideways) Standing Reps: 30 (10reps 3 sets) NuStep Minutes: 15 NuStep Workload: 4 Treatments pt performed functional LE strengthening/endurance training, transfer training, skilled ambulation training, and education this date. Assessment Current Status: Good Progress pt sit to stand transfers are improving with increased control for descent. Pt is increasing ambulation distance and activity c[place]. PT Short Term Goals Short Term Goals Time Frame: Mar 24, 2019 Roll Left & Right: 6 Sit to lyin Lying to sitting on side of be: 6 Sit to stand: 4 (SBA) Chair/bqy-ey-rehgg transfer: 4 (SBA) Toilet transfer: 4 (SBA) Car transfer: 4 (SBA) Walk 10 feet: 4 (SBA) Walk 50 feet with two turns: 4 (SBA) Walking 10ft on uneven surface: 4 (SBA) PT Care Home Goals [place] Goals PT [place] Goals Time Frame: Apr 07, 2019 Roll Left & Right (QC): 6 Sit to Lying (QC): 6 Lying-Sitting on Side/Bed(QC): 6 Sit to Stand (QC): 6 Chair/Vfg-fn-[place] Xfer(QC): 6 Toilet Transfer (QC): 6 Car Transfer (QC): 6 Does the Patient Walk: Yes Walk 10 feet (QC): 6 Walk 50ft with 2 Turns (QC): 6 Walk 150 ft (QC): 6 Walking 10ft on Uneven Surface: 6 1 Step (curb) (QC): 4 4 Steps (QC): 9 12 Steps (QC): 9 Picking up an Object (QC): 4 Does the Pt use WC or Scooter?: No Type: N/A Type: N/A PT Plan Problem List Problem List: Activity Tolerance, Functional Strength, Safety, Balance, Gait, Transfer, Bed Mobility, ROM Treatment/Plan Treatment Plan: Continue Plan of Care Treatment Plan: Bed Mobility, Concurrent Therapy, Education, Functional Activity Mary Jane, Functional Strength, Group Therapy, Gait, Safety, Therapeutic Exercise, Transfers Treatment Duration: Apr 07, 2019 Frequency: At least 5 of 7 days/Wk (IRF) Estimated Hrs Per Day: 1.5 hours per day Patient and/or Family Agrees t: Yes Safety Risks/Education Patient Education: Gait Training, Transfer Techniques, Correct Positioning, Safety Issues Teaching Recipient: Patient Teaching Methods: Demonstration, Discussion Response to Teaching: Return Demonstration, Reinforcement Needed Time/GCodes Time In: 1400 Time Out: 1500 Total Billed Treatment Time: 60 Total Billed Treatment 1 visit EX 30' FA 15' GT 15' RENETTA SHARP PT Mar 17, 2019 14:44 POS
[2019-03-17] MEDS: FUROSEMIDE 40 MG (LASIX) TAB PO SCH (17:06)
[2019-03-17] MEDS: TAMSULOSIN 0.4 MG (FLOMAX) CAP PO SCH (17:06)
[2019-03-17 17:30] VITALS: BP 127/69
[2019-03-17] MEDS: MONTELUKAST 10 MG (SINGULAIR) TAB PO SCH (20:27)
[2019-03-17] MEDS: meTOproloL SUCCINATE 50 MG (TOPROL XL) TAB PO SCH (20:27)
[2019-03-17] MEDS: DIVALPROEX 250 MG DELAYED RELEASE (DEPAKOTE) TAB PO SCH (20:28)
[2019-03-17] MEDS: POLYETHYLENE GLYCOL 17 GM (MIRALAX) PACK PO SCH (20:28)
[2019-03-17] MEDS: DOCUSATE SODIUM 100 MG (COLACE) CAP PO SCH (20:28)
[2019-03-17] MEDS: SENNA W/DOCUSATE (SENOKOT S) TABLET PO SCH (20:28)
[2019-03-17] MEDS ORDERED: NON-FORMULARY MEDICATION 1 EA EA (Montelukast Sodium (Singulair) 10 MG) PO SCH (21:00)
[2019-03-17] MEDS ORDERED: NON-FORMULARY MEDICATION 1 EA EA (Alfuzosin HCl (Alfuzosin HCl ER) 10 MG) PO SCH (21:00)
[2019-03-18 04:58] LABS: BASOPHILS % (AUTO) 0 % (0-10); EOSINOPHILS % (AUTO) 0 % (0-10); HEMATOCRIT 32 % (40-54); HEMOGLOBIN 10.9 G/DL (13.3-17.7); LYMPHOCYTES # (AUTO) 2.2 X 10^3 (1.0-4.0); LYMPHOCYTES % (AUTO) 31 % (12-44); MEAN CORPUSCULAR HEMOGLOBIN 33 PG (25-34); MEAN CORPUSCULAR HGB CONC 35 G/DL (32-36); MEAN CORPUSCULAR VOLUME 94 FL (80-99); MEAN PLATELET VOLUME 8.5 FL (7.4-10.4); MONOCYTES # (AUTO) 1.1 X 10^3 (0.0-1.0); MONOCYTES % (AUTO) 15 % (0-12); NEUTROPHILS # (AUTO) 3.9 X 10^3 (1.8-7.8); NEUTROPHILS % (AUTO) 54 % (42-75); PLATELET COUNT 174 10^3/uL (130-400); RED CELL DISTRIBUTION WIDTH 12.8 % (10.0-14.5); WHITE BLOOD COUNT 7.1 10^3/uL (4.3-11.0)
[2019-03-18 05:09] VITALS: BP 124/73
[2019-03-18 05:24] LABS: ALANINE AMINOTRANSFERASE 8 U/L (0-55); ALBUMIN 3.3 GM/DL (3.2-4.5); ALKALINE PHOSPHATASE 42 U/L (40-136); BILIRUBIN,TOTAL 0.3 MG/DL (0.1-1.0); BUN/CREATININE RATIO 16; CALCIUM 8.3 MG/DL (8.5-10.1); CARBON DIOXIDE 25 MMOL/L (21-32); CHLORIDE 103 MMOL/L (98-107); CREATININE SERUM 0.98 MG/DL (0.60-1.30); GFR ESTIMATED > 60; GLUCOSE 114 MG/DL (70-105); POTASSIUM 4.2 MMOL/L (3.6-5.0); SODIUM 138 MMOL/L (135-145); TOTAL PROTEIN 5.4 GM/DL (6.4-8.2)
[2019-03-18] MEDS: LEVOTHYROXINE 88 MCG (LEVOTHORID) TAB PO SCH (05:26)
[2019-03-18] MEDS: oxyCODONE/APAP 5/325MG (PERCOCET 5) TABLET PO PRN ×3 (05:26→22:20)
[2019-03-18] MEDS: FUROSEMIDE 40 MG (LASIX) TAB PO SCH ×2 (05:26→18:23)
[2019-03-18] MEDS: MULTIVIT W/MINERALS TAB (THERAGRAN M) PO SCH (05:27)
[2019-03-18] MEDS: OMEGA 3 (FISH OIL) 1000 MG CAP PO SCH (05:27)
[2019-03-18] MEDS: RT-ADVAIR HFA 115/21 MCG PER PUFF IH SCH (06:23)
[2019-03-18] MEDS ORDERED: predniSONE 20 MG TAB PO SCH (07:00)
--- NOTE | 2019-03-18 07:46 | PM&R Post Admission Assessment ---
PM&R HP Date of Visit: Mar 18, 2019 Time of Visit: 08:15 History of Present Illness Chief complaint: Fall with severe leg weakness HPI: This is a 73yoWM with a multitude of medical problems including pacemaker defibrillator, and MELVA, who presented to the ER after an subdural hematoma after suffering a fall at home, had been moved to [facility], Dr. Arnold (neurosurgery), Pt was monitored, no surgical intervention required, discharged home but he began having falls and could not walk. All workup in the ER was within normal limits but he did show some evidence of slight thickening of the subdural, Dr. Arnold reviewed those results, imaging scans with Dr. Harrington so he was admitted to observation, monitored closely, Dr. Childers consulted, he will be moved down to inpatient rehab to regain function from his severe debility from the stroke. HPI per medical student: Pt presented to ED via EMS after falling at home while trying to rise from his chair to his walker. Pts who witnessed fall states the pt slid to the ground and didn't fall traumatically. Pt had just returned home from inpatient stay at [facility] after falling on 03/11/19 that resulted in a subdural h ematoma. Pt could not ambulate from the car into the house and also slumped to the ground outside his home. Endorses weakness and difficulty ambulating even with walker. Denies LoC, RODRIGUEZ. Today his left foot gout attack is much improved on prednisone of 20 MG for total of 3 days. Bowels are moving really well. Pain is much better with oxycodone. Past Iyxkihh-Uwqttl-Cbgpcw Hx Past Med/Social Hx: Reviewed Nursing Past Med/Soc Hx, Reviewed and Corrections made Patient Social History Marrital Status: cohabiting Employed/Student: retired Alcohol Use: Denies Use Recreational Drug Use: No Smoking Status: Former Smoker Former Smoker, Quit: May 07, 1984 Physical Abuse Screen: No Sexual Abuse: No Recent Foreign Travel: No Contact w/other who traveled: No Recent Hopitalizations: Yes (SUBDERAL HEMATOMA) Recent Infectious Disease Expo: No Immunizations Up To Date Date of Pneumonia Vaccine: Mar 05, 2016 Date of Influenza Vaccine: Jan 27, 2019 Seasonal Allergies Seasonal Allergies: Yes Past Medical History Surgeries: Abdominal, Coronary Stent, Orthopedic, Pacemaker Respiratory: Sleep Apnea Currently Using CPAP: Yes (not able to use r/t claustrophobia) Currently Using BIPAP: No Cardiac: Atrial Fibrillation, Chronic Edema/Swelling, Congenital Heart Disease, High Cholesterol, Hypertension, Valvular Heart Disease pacemaker/defibrillator Neurological: Neuropathy Reproductive: No Sexually Transmitted Disease: No HIV/AIDS: No Genitourinary: Renal Failure Gastrointestinal: Diverticulosis, Polyps Musculoskeletal: Degenerate Disk Disease, Arthritis, Gout Endocrine: Hypothyroidsim Loss of Vision: Bilateral Hearing Impairment: Denies, Bilateral Hearing Aide Psychosocial: Anxiety, Bipolar, Depression History of Blood Disorders: No Adverse Reaction to Blood Nash: No Family History Alzheimer's disease 19 MOTHER Hypertension 19 FATHER G8 BROTHER G8 SISTER Myocardial infarction 19 FATHER No Pertinent Family Hx Prior Level of Function Bed Mobility: 6 Transfers: 6 Gait: 6 Indoor Mobility (Ambulation): Independent Self Care: Independent Drive Self: Yes Current Level of Fuctioning Roll Left to Right: 4 Sit to Lyin Lying to Sitting/Side of Bed: 4 Sit to Stand: 3 Chair/Dfw-jz-Eoqcv Xfer: 3 Car Transfer: 3 Does the Patient Walk: Yes Mode of Locomotion: Walk Anticipated Mode of Locomotion: Walk Walk 10 feet: 4 (SBA) Walk 50 ft with 2 Turns: 4 (SBA) Walk 150 ft: 88 Walking 10ft on uneven surface: 4 Gait Assistive Device: FWW Does the Pt Use a Wheelchair: Yes Wheelchair Distance: 100' Wheel 50 ft with 2 turns: 5 Wheel 150 ft: 88 Type of Wheelchair: Manual 1 Step (curb): 88 4 Steps: 88 12 Steps: 88 Picking up an Object: 88 Eatin Oral Hygiene: 6 Shower/Bathe Self: 3 Upper Body Dressin Lower Body Dressin (Footwear (QC) 2) On/Off Footwear: 2 Toileting Hygiene: 4 Toilet Transfer: 4 PM&R Allergy/Meds/Data Review Allergies Coded Allergies: Jcqxcbr-Vcq-Bqm Reductase Inhibitor (Unverified Allergy, Unknown, 10/24/16) niacin (Verified Allergy, Unknown, 05/05/18) sacubitril (Verified Allergy, Unknown, 05/05/18) valsartan (Verified Allergy, Unknown, 05/05/18) Home Medications Scheduled Alfuzosin HCl (Alfuzosin HCl ER), 10 MG PO HS, (Reported) Amiodarone HCl (Amiodarone HCl), 100 MG PO DAILY, (Reported) Aspirin (Aspirin EC), 81 MG PO DAILY, (Reported) Cholecalciferol (Vitamin D3) (Vitamin D3), 1,000 UNIT PO DAILY, (Reported) Clopidogrel Bisulfate (Plavix), 75 MG PO DAILY, (Reported) Divalproex Sodium (Depakote), 500 MG PO DAILY, (Reported) Divalproex Sodium (Divalproex Sodium), 1,000 MG PO HS, (Reported) Docusate Sodium (Colace), 100 MG PO BID, (Reported) Fluticasone Propionate (Fluticasone Propionate), 1 SPRAY NS DAILY, (Reported) Fluticasone/Salmeterol (Advair 250-50 Diskus), 1 PUFF IH DAILY, (Reported) Furosemide (Furosemide), 40 MG PO BID, (Reported) Levothyroxine Sodium (Levothyroxine Sodium), 88 MCG PO DAILY, (Reported) Loratadine (Loratadine), 10 MG PO DAILY, (Reported) Losartan Potassium (Losartan Potassium), 25 MG PO DAILY, (Reported) Metoprolol Succinate (Metoprolol Succinate), 50 MG PO HS, (Reported) Montelukast Sodium (Singulair), 10 MG PO HS, (Reported) Multivit-Min/FA/Lycopene/Lut (Centrum Silver Tablet), 1 TAB PO DAILY, (Reported) White Post-3/Dha/Epa/Dpa/Fish Oil (White Post-3 1,050 mg Softgel), 1 CAP PO DAILY, (Reported) Potassium Chloride (Klor-Con M20), 20 MEQ PO BID, (Reported) Spironolactone (Spironolactone), 25 MG PO DAILY, (Reported) Scheduled PRN Acetaminophen (Tylenol Arthritis), 650 MG PO Q4H PRN for PAIN-MILD (1-4), (Reported) Albuterol Sulfate (Ventolin Hfa), 2 PUFF INH Q4H PRN for SHORTNESS OF BREATH, (Reported) Furosemide (Furosemide), 40 MG PO DAILY PRN for EXTRA DOSE PRN SWELLING, (Reported) Ibuprofen (Ibuprofen), 600 MG PO BID PRN for PAIN-MILD, (Reported) Oxycodone HCl/Acetaminophen (Percocet 5-325 mg Tablet), 1 TAB PO Q8H PRN for PAIN-MODERATE (5-7), (Reported) [Terpenicol Solution], TOP DAILY PRN for TOE FUNGUS, (Reported) Discontinued Medications Carvedilol (Carvedilol), 6.25 MG PO BID, (Reported) Discontinued Reason: No Longer Taking Clopidogrel Bisulfate (Plavix), 75 MG PO DAILY, (Reported) Fexofenadine HCl (Jennifer Allergy), 180 MG PO DAILY PRN for ALLERGIES, (Reported) Discontinued Reason: Duplicate Order Fish Oil/Dha/Epa (Fish Oil 1,200 mg Fish Oil), 1,200 MG PO DAILY, (Reported) Discontinued Reason: Prescription changed Hydrocodone Bit/Acetaminophen (Hydrocodone/Acetaminophen 5/325mg Tablet), 1-2 TA B PO Q4H PRN for PAIN-MODERATE TO SEVERE Discontinued Reason: No Longer Taking Losartan Potassium (Losartan Potassium), 50 MG PO DAILY, (Reported) Discontinued Reason: Prescription changed Current Medications Current Medications Reviewed Laboratory Data Laboratory Tests 03/18/19 04:40: White Blood Count 7.1, Red Blood Count 3.35L, Hemoglobin 10.9L, Hematocrit 32L, Mean Corpuscular Volume 94, Mean Corpuscular Hemoglobin 33, Mean Corpuscular Hemoglobin Concent 35, Red Cell Distribution Width 12.8, Platelet Count 174, Mean Platelet Volume 8.5, Neutrophils (%) (Auto) 54, Lymphocytes (%) (Auto) 31, Monocytes (%) (Auto) 15H, Eosinophils (%) (Auto) 0, Basophils (%) (Auto) 0, Neutrophils # (Auto) 3.9, Lymphocytes # (Auto) 2.2, Monocytes # (Auto) 1.1H, Eosinophils # (Auto) 0.0, Basophils # (Auto) 0.0, Sodium Level 138, Potassium Level 4.2, Chloride Level 103, Carbon Dioxide Level 25, Anion Gap 10, Blood Urea Nitrogen 16, Creatinine 0.98, Estimat Glomerular Filtration Rate > 60, BUN/Creatinine Ratio 16, Glucose Level 114H, Calcium Level 8.3L, Corrected Calcium 8.9, Total Bilirubin 0.3, Aspartate Amino Transf (AST/SGOT) 15, Alanine Aminotransferase (ALT/SGPT) 8, Alkaline Phosphatase 42, Total Protein 5.4L, Albumin 3.3 Review of Systems Constitutional: see HPI, malaise, weakness EENTM: other (facial pain) Respiratory: no symptoms reported Cardiovascular: no symptoms reported Gastrointestinal: no symptoms reported Genitourinary: no symptoms reported Musculoskeletal: back pain, joint pain, muscle stiffness Skin: no symptoms reported Psychiatric/Neurological: Anxiety, Depressed, Headache, Numbness, Weakness All Other Systems Reviewed Negative Unless Noted: Yes Physical Exam Physical Exam Vital Signs Vital Signs - First Documented 03/17/19 11:40 Temp 36.3 Pulse 52 Resp 22 B/P (MAP) 156/85 Pulse Ox 94 O2 Delivery Room Air Capillary Refill : Height, Weight, BMI Height: 5'6.00" Weight: 227lbs. 0.0oz. 102.237872ux; 37.47 BMI Method: General Appearance: No Apparent Distress, WD/WN, Chronically ill Eyes: Bilateral Eye Normal Inspection, Bilateral Eye PERRL HEENT: PERRL/EOMI, Normal ENT Inspection, Pharynx Normal Neck: Full Range of Motion, Normal Inspection, Non Tender, Supple, Carotid Bruit Respiratory: Chest Non Tender, Lungs Clear, Normal Breath Sounds, No Accessory Muscle Use, No Respiratory Distress Cardiovascular: Regular Rate, Rhythm, No Edema, No Gallop, No JVD, No Murmur, Normal Peripheral Pulses Gastrointestinal: Normal Bowel Sounds, No Organomegaly, No Pulsatile Mass, Non Tender, Soft Back: Normal Inspection, No CVA Tenderness, No Vertebral Tenderness Extremity: Normal Capillary Refill, Normal Inspection, Normal Range of Motion, Non Tender, No Calf Tenderness, No Pedal Edema, Other (left foot gouty attack) Neurologic/Psychiatric: Alert, Oriented x3, No Motor/Sensory Deficits (weakness of the legs 4/5 with high fall risk), Normal Mood/Affect, copy center associate II-XII Norm as Tested Skin: Normal Color, Warm/Dry Lymphatic: No Adenopathy PM&R Medical Assessment & Plan REHAB/MEDICAL ASSESSMENT AND PLAN: REHAB IMPAIRMENT GROUP: Subdural hematoma ETIOLOGIC DIAGNOSIS: Subdural hematoma with fall The comorbidities that impact the patients function and/or functional outcome by: Obstructive sleep apnea, pacemaker/defibrillator, CAD, bipolar disorder REHAB PLAN: The patient is being admitted to our comprehensive inpatient rehabilitation facility and can tolerate the intensity of service consisting of at least: 180 minutes of therapy a day, 5 out of 7 days a week Rehab treatment will consist of: Physical therapy will focus on fall prevention and strengthening of lower extremities with the use of a walker, OT will help regain independence with ADLs and prevent falls in the bathroom The patient/family has a good understanding of our discharge process and will benefit from an interdisciplinary inpatient rehabilitation program. The patient has potential to make improvement and is in need of at least two of the following multidisciplinary therapies including but not limited to physical, occupational, speech, and prosthetics and orthotics. Additionally the patient will need services from respiratory, nutritional services, wound care, psychology, etc. (Customize this to each patient). Given the patients complex condition and risk of further medical complications, rehabilitation services cannot be safely or effectively provided at a lower level of care such as a assisted facility. BARRIERS TO DISCHARGE: Able to ambulate and regain enough strength to prevent falls ESTIMATED LOS: 7 days DISPOSITION: Home RELEVANT CHANGES SINCE PREADMISSION SCREENING: I have compared the patients medical and functional status at the time of the preadmission screening and there are: no changes PROGNOSIS: Good REHABILITATION GOALS: 1. PT will focus on the weakness of the legs from the subdural hematoma residual 2. OT will focus on improving ADL strengths All the above goals were reviewed with the patient and he/she is in agreement. By signing this document, I acknowledge that I have personally performed a full physical examination on this patient within 24 hours of admission to this inpatient rehabilitation facility and have determined the patient to be able to tolerate the above course of treatment at an intensive level for a reasonable period of time. I will be completing a detailed individualized Plan of Care for this patient by day #4 of the patients stay based upon the Preadmission Screen, the Post-Admission Evaluation, and the therapy evaluations. Admission Dx/Comorbidities: (1) Subdural hematoma, post-traumatic Status: Acute ICD Codes: S06.5X9A - Traumatic subdural hemorrhage with loss of consciousness of unspecified duration, initial encounter (2) Muscular deconditioning Status: Acute ICD Codes: R29.898 - Other symptoms and signs involving the musculoskeletal system (3) Generalized weakness Status: Acute ICD Codes: R53.1 - Weakness (4) Gout Status: Acute ICD Codes: M10.9 - Gout, unspecified (5) Coronary arteriosclerosis in rosebud artery Status: Chronic ICD Codes: I25.10 - Coronary arteriosclerosis in rosebud artery (6) Obstructive sleep apnea Status: Chronic ICD Codes: G47.33 - Obstructive sleep apnea (7) Renal insufficiency Status: Chronic ICD Codes: N28.9 - Renal insufficiency (8) Diabetes Status: Chronic ICD Codes: E11.9 - Diabetes (9) Bipolar 1 disorder, depressed, full remission Status: Acute ICD Codes: F31.76 - Bipolar 1 disorder, depressed, full remission HARLEY DOVER DO Mar 18, 2019 07:46 POS
[2019-03-18] MEDS: FLUTICASONE NASAL SPRAY (FLONASE) 16 GM BTL NS SCH (08:34)
[2019-03-18] MEDS: SPIRONOLACTONE 25 MG (ALDACTONE) TAB PO SCH (08:35)
[2019-03-18] MEDS: LORATADINE (CLARITIN) 10 MG TAB PO SCH (08:35)
[2019-03-18] MEDS: LOSARTAN 25 MG (COZAAR) TAB PO SCH (08:36)
[2019-03-18] MEDS: AMIODARONE 200 MG (CORDARONE) TAB PO SCH (08:36)
[2019-03-18] MEDS: VITAMIN D3 1,000 UNITS (CHOLECALCIFEROL) TABLET PO SCH (08:36)
[2019-03-18] MEDS: DIVALPROEX 500 MG DELAYED RELEASE (DEPAKOTE) TAB PO SCH (08:36)
[2019-03-18] MEDS: SENNA W/DOCUSATE (SENOKOT S) TABLET PO SCH ×2 (08:37→20:48)
[2019-03-18] MEDS: POLYETHYLENE GLYCOL 17 GM (MIRALAX) PACK PO SCH ×2 (08:37→20:48)
[2019-03-18] MEDS: DOCUSATE SODIUM 100 MG (COLACE) CAP PO SCH ×2 (08:40→20:48)
[2019-03-18] MEDS ORDERED: NON-FORMULARY MEDICATION 1 EA EA (Cholecalciferol (Vitamin D3) (Vitamin D3) 1,000 UNIT) PO SCH (09:00)
[2019-03-18] MEDS ORDERED: DIVALPROEX SODIUM 500 MG PO SCH (09:00)
[2019-03-18] MEDS ORDERED: NON-FORMULARY MEDICATION 1 EA EA (Fluticasone/Salmeterol (Advair 250-50 Diskus) 1 PUFF) IH SCH (09:00)
[2019-03-18] MEDS ORDERED: NON-FORMULARY MEDICATION 1 EA EA (Multivit-Min/FA/Lycopene/Lut (Centrum Silver Tablet) 1 T PO SCH (09:00)
[2019-03-18] MEDS ORDERED: NON-FORMULARY MEDICATION 1 EA EA (Losartan Potassium 25 MG) PO SCH (09:00)
--- NOTE | 2019-03-18 09:32 | ST Cognitive Linguistic Eval ---
Speech Evaluation-General Medical Diagnosis SDH Onset Date: Mar 12, 2019 Therapy Diagnosis Therapy Diagnosis: Cognitive-communication Referral Referring Physician: Dr. Nelson Medical History Pertinent Medical History: Atrial Fib, CABG, CAD, Heart Failure, HTN, Hypothroidism, Neuropathy, OA Social History Current Living Status: Spouse Speech PLF-Current Status Prior Level of Function Patient lives at home with his spouse. He is independent for his daily needs. Subjective Patient was pleasant and cooperative with the cognitive assessment. Language Eval: Auditory Comprehends Simple Yes/No Ques: Functional Indent/Objects Multiple Paez: Functional Ident/Pics in Multiple Paez: Functional Follows 1-Step Commands: Functional Follows Complex Directions: Functional Follows General Conversations: Functional Language Eval: Verbal Language Completes Spontaneous Greeting: Functional Produces Auto, Serial Info: Functional Imitates Simple Words/Phrases: Functional Word Finding: Functional Requests Basic Needs: Functional States Basic Personal Info: Functional Expresses Complex Ideas: Functional Objective Cognitive Domain Attention: WNL Memory: Mild Problem Solving: Functional Executive Functions: WNL Visuospatial Skills: WNL Composite Severity Rating: WNL Clock Drawing Severity Rating: WNL Objective Formal/Standardized Tests [facility] Mental Status ([facility]) Results 28/30, within normal range of function Oral Motor/Speech Production Within Functional Limits Impression Patient is a pleasant 73 year old male who was admitted to the ARU for strengthening prior to returning home. The patient was given the SLUMS at bedside. Results obtained were 28/30 which is within the normal range of function. The patient does not require skilled ST services at this time. Speech Patient Assess Expression of Ideas/Wants: Expression (4) Understanding Verbal Content: Understands (4) Brief Interview-Mental Status: Yes Repetition of Three Words: Three (3) Temporal Orientation: Year: Correct (3) Temporal Orientation: Month: Accurate within 5 days(2) Temporal Orientation: Day: Correct (1) Recall : Wear to say "Sock": Yes, no cue required (2) Recall : Color: Yes, after cueing (1) Recall : Bed: Yes,after cueing (1) Memory/Recall Ability: Current season, Staff names and faces, That he or she is in a hsp/hsp unit Speech-Plan Patient/Family Goals Patient/Family Goals: Patient plans on returning home with his post rehab. Treatment Plan Speech Therapy Treatment Plan: Discontinue ST Patient does not warrant skilled ST services at this time. Treatment Duration: Mar 18, 2019 Frequency: 1 time per week Estimated Hrs Per Day: .25 hour per day Rehab Potential: Fair Barriers to Learning: None identified Pt/Family Agrees to Plan: Yes Safety Risks/Education Teaching Recipient: Patient Teaching Methods: Discussion Response to Teaching: Verbalize Understanding Education Topics Provided: Safety within his room and communication of wants/needs. Time Speech Therapy Time In: 09:00 Speech Therapy Time Out: 09:15 Total Billed Time: 15 Billed Treatment Time 1, MAGDY Mccauley Mar 18, 2019 09:32 POS
--- NOTE | 2019-03-18 10:35 | Physical Therapy Daily Note ---
PT Daily Note-Current Subjective Pt agreeable to PT session. States he is worried about his and dog because they are both close to having a nervous break down. Pain Numeric Pain Scale: 4 Comment: had oxycodone earlier this morning, some pain shoulders, knees Appearance Pt sitting up in recliner awake and alert upon arrival. At end of session, pt sitting up in recliner with phone, call light and bedside table within reach. Mental Status Patient Orientation: Person, Place, Time, Eyes Open, Situation Attachments: Saline Lock Transfers SCALE: Activities may be completed with or without assistive devices. 4-Efpqroejge-imfdkqe completes the activity by him/herself with no assistance from a helper. 5-Set-up or Clean-up Assistance-helper sets up or cleans up; patient completes activity. Clinton assists only prior to or following the activity. 4-Supervision or Touching Assistance-helper provides verbal cues and/or touch ing/steadying and/or contact guard assistance as patient completes activity. Assistance may be provided throughout the activity or intermittently. 3-Partial/Moderate Assistance-helper does LESS THAN HALF the effort. Clinton lifts, holds or supports trunk or limbs, but provides less than half the effort. 2-Substantial/Maximal Assistance-helper does MORE THAN HALF the effort. Clinton lifts or holds trunk or limbs and provides more than half the effort. 4-Nliajbaqz-zhzynt does ALL the effort. Patient does none of the effort to complete the activity. Or, the assistance of 2 or more helpers is required for the patient to complete the activity. If activity was not attempted, code reason: 7-Patient Refused. 9-Not Applicable-not attempted and the patient did not perform the activity before the current illness, exacerbation or injury. 10-Not Attempted due to Environmental Limitations-(lack of equipment, weather restraints, etc.). 88-Not Attempted due to Medical Conditions or Safety Concerns. Sit to Stand (QC): 4 Good technique with hand placement, talking self through steps for safety and technique Gait Training Does the Patient Walk?: Yes Distance: 250 x2 Walk 10 feet (QC): 4 Walk 50 ft with 2 Turns(QC): 4 Walk 150 ft (QC): 4 Gait Persons Needed: 1 Gait Assistive Device: FWW able to follow skilled instruction to correct fwd flexed posture, increasing step height and fwd head as well as maintaining safe distance from walker but does require re instruction at times Wheelchair Training Does the Pt Use a Wheelchair?: No Exercises Seated Therapy Exercises: Ankle pumps (50), Long arc quads (BLE's simultaneously slow and controlled x50), Hip flexion (x50 BLE's simultaneously to incorporate core strengthening) NuStep Minutes: 10 NuStep Workload: 6 (seat 9, arms 9) Neuromuscular standing in // bars with unilat UE support, attempting without UE support at times: SLS each LE x5 with up to 15 sec holds, tandem stand each x5 up to 15 sec holds, toe tap onto lg roll with foot roll fwd and bkwd 2x 5 each LE, step over fwd and backward small roll with each LE 2x5 each Treatments education, safety, transfers, gait, balance, strength, functional mobility, activity tolerance Assessment Current Status: Good Progress pt requiring several sitting and standing rest breaks throughout tx session PT Short Term Goals Short Term Goals Time Frame: Mar 24, 2019 Roll Left & Right: 6 Sit to lyin Lying to sitting on side of be: 6 Sit to stand: 4 (SBA) Chair/pyz-is-naknk transfer: 4 (SBA) Toilet transfer: 4 (SBA) Car transfer: 4 (SBA) Walk 10 feet: 4 (SBA) Walk 50 feet with two turns: 4 (SBA) Walking 10ft on uneven surface: 4 (SBA) PT Snf Goals Snf Goals PT Eyewear Manufacturing Supervisor Goals Time Frame: Apr 07, 2019 Roll Left & Right (QC): 6 Sit to Lying (QC): 6 Lying-Sitting on Side/Bed(QC): 6 Sit to Stand (QC): 6 Chair/Jfh-fk-Mtbbo Xfer(QC): 6 Toilet Transfer (QC): 6 Car Transfer (QC): 6 Does the Patient Walk: Yes Walk 10 feet (QC): 6 Walk 50ft with 2 Turns (QC): 6 Walk 150 ft (QC): 6 Walking 10ft on Uneven Surface: 6 1 Step (curb) (QC): 4 4 Steps (QC): 9 12 Steps (QC): 9 Picking up an Object (QC): 4 Does the Pt use WC or Scooter?: No Type: N/A Type: N/A PT Plan Treatment/Plan Treatment Plan: Continue Plan of Care Treatment Plan: Bed Mobility, Concurrent Therapy, Education, Functional Activity Mary Jane, Functional Strength, Group Therapy, Gait, Safety, Therapeutic Exercise, Transfers Treatment Duration: Apr 07, 2019 Frequency: At least 5 of 7 days/Wk (IRF) Estimated Hrs Per Day: 1.5 hours per day Patient and/or Family Agrees t: Yes Safety Risks/Education Patient Education: Gait Training, Transfer Techniques, Safety Issues Teaching Recipient: Patient Teaching Methods: Demonstration, Discussion Response to Teaching: Verbalize Understanding, Return Demonstration, Reinforcement Needed Time/GCodes Time In: 1030 Time Out: 1130 Total Billed Treatment Time: 60 Total Billed Treatment 1 visit, EX x20 min, GT x15 min, NM x25 JUAN J MEYERS SIEBEL DEVELOPER Mar 18, 2019 10:35 POS
--- NOTE | 2019-03-18 11:58 | Occupational Ther Daily Note ---
OT Current Status-Daily Note Subjective Pt in bed, agrees to treatment. ADL-Treatment Pt declined shower this am. Requested clean gown, states his spouse will be bringing him more clothes later. Supine to sit without assist. Pt donned clean gown with set up. Sit to stand with supervision. Gait to restroom with FWW. Pt transferred to toilet with SBA. Pt able to complete toileting hygiene and clothing management with SBA. Pt stood at sink to brush teeth and wash hands with supervision. Therapy Code Descriptions/Definitions Functional [place] Measure: 0=Not Assessed/NA 4=Minimal Assistance 1=Total Assistance 5=Supervision or Setup 2=Maximal Assistance 6=Modified [place] 3=Moderate Assistance 7=Complete IndependenceSCALE: Activities may be completed with or without assistive devices. 8-Kcoexfnqvn-vjwgems completes the activity by him/herself with no assistance from a helper. 5-Set-up or Clean-up Assistance-helper sets up or cleans up; patient completes activity. [place] assists only prior to or following the activity. 4-Supervision or Touching Assistance-helper provides verbal cues and/or touching /steadying and/or contact guard assistance as patient completes activity. Assistance may be provided throughout the activity or intermittently. 3-Partial/Moderate Assistance-helper does LESS THAN HALF the effort. [place] lifts, holds or supports trunk or limbs, but provides less than half the effort. 2-Substantial/Maximal Assistance-helper does MORE THAN HALF the effort. [place] lifts or holds trunk or limbs and provides more than half the effort. 4-Ggghccwuq-pzjttt does ALL the effort. Patient does none of the effort to complete the activity. Or, the assistance of 2 or more helpers is required for the patient to complete the activity. If activity was not attempted, code reason: 7-Patient Refused. 9-Not Applicable-not attempted and the patient did not perform the activity before the current illness, exacerbation or injury. 10-Not Attempted due to Environmental Limitations-(lack of equipment, weather restraints, etc.). 88-Not Attempted due to Medical Conditions or Safety Concerns. Oral Hygiene (QC): 4 Toileting Hygiene (QC): 4 (SBA) Toilet Transfer (QC): 4 (SBA) Other Treatment Gait to therapy gym with FWW, occasional cues for safety. Arm bike [id number] to increase overall strength and activity tolerance needed for functional task completion. Pt completed activity with minimal resistance and slow pace. No rest breaks needed. Pt completed wilde bag toss with bilateral UE while standing to increase balance and activity tolerance. Pt able to complete task with supervision and one seated rest break. Pt performed fine motor task with nuts and bolts with bilateral UE to increase coordination/manipulation skills and activity tolerance. Pt completed task with increased time. Pt returned to room, sitting in chair with needs met after session. OT Tourist Adviser Goals Tourist Adviser Goals Time Frame: Apr 07, 2019 Eating (QC): 6 Oral Hygiene (QC): 6 Toileting Hygiene (QC): 6 Shower/Bathe Self (QC): 6 Upper Body Dressing (QC): 6 Lower Body Dressing (QC): 6 On/Off Footwear (QC): 6 Additional Goals: 1-Demonstrate ADL Tasks, 2-Verbalize Understanding, 3- ImproveStrength/Mary Jane 1=Demonstrate adherence to instructed precautions during ADL tasks. 2=Patient will verbalize/demonstrate understanding of assistive devices/modifications for ADL. 3=Patient will improve strength/tolerance for activity to enable patient to perform ADL's. OT Education/Plan Discharge Recommendations Plan/Recommendations: Continue POC Treatment Plan/Plan of Care Patient would benefit from OT for education, treatment and training to promote independence in ADL's, mobility, safety and/or upper extremity function for ADL's. Plan of Care: ADL Retraining, Functional Mobility, Group Exercise/Act as Ind, UE Funct Exercise/Act Treatment Duration: Apr 07, 2019 Frequency: At least 5 of 7 days/Wk (IRF) Estimated Hrs Per Day: 1.5 hours per day Rehab Potential: Fair Time/GCodes Start Time: 09:15 Stop Time: 10:15 Total Time Billed (hr/min): 60 Billed Treatment Time 1 visit, ADL(20minutes), EXx2(25minutes), FA(15minutes) CRUZITO BARTON OT Mar 18, 2019 11:57 POS
--- NOTE | 2019-03-18 15:00 | Therapy Group Daily Note ---
Therapy Daily Group Note Patient Education Topic Home Safety Exercises LE Seated Exercise, UE Exercise Session Ratio (pt:therapist): 6:2 Goal of Session: Home Safety Strategies, UE/LE Strengthing Goal Met for this Session: Yes Pt Benefit of Group: Contributions to Others, F/U Use of Strategies @Home, Increased Functional Safety, Increased Functional Strength, Improved Cognition, Recognition of Peers, Socialization Other/Notes Pt ambulated to [facility] for OT/PT group. Group consisted of introductions (name, place living, favorite restaurant), socialization, UE/LE seated exercises and home safety. Pt introduced self appropriately and actively listened to peers. Pt was able to remember an exercise and lead group then participated when peers lead an exercise. Pt acknowledged understanding of educational topics by verbalizing own personal story and strategies. After therapy, pt sitting in recliner with call light/phone in reach. All needs met. Start Time: 13:00 Stop Time: 14:10 Total Billed Treatment Time: 70 Total Billed Treatment 1-GRP KEESHA MORAN Mar 18, 2019 15:00 POS
--- NOTE | 2019-03-18 15:07 | NUR ---
"RD ASSESSMENT PMHx: CAD; CHF; HTN; HLD PT INTERACTION: Pt was awake and pleasant during nutrition assessment. Pt states current appetite is not good and hasn't been good since his injury. Note pt avg PO intake of 56% x2d, per chart review. Pt states following a regular diet at home and he typically avoids meat. Pt states no recent issues with chewing/swallowing food at this time. Pt states some episodes with nausea and vomiting. Pt states no recent issues with constipation or diarrhea. Note last BM was 03/17 and pt currently on bowel regimen of miralax BID; senna BID; colace BID; and bisacodyl PRN, per chart review. Pt states no recent wt changes. Note unable to determine recent wt hx, per chart review. ABNORMAL NUTRITION-RELATED LAB VALUES: glu 114 (H); Ca 8.3 (L); Pro 5.4 (L) Est. kcal needs: 2627-4207 kcal | 15-20 kcal/kg Est. Pro needs: 86-107 g Pro | 0.8-1.0 g Pro/kg PES STATEMENT: Inadequate oral intake (NI-2.1) related to loss of appetite | nausea | vomiting as evidenced by pt interview | avg PO intake of 56% x2d INTERVENTION: Continue with current diet order of Regular diet. Add Ensure Enlive (vanilla) to meals BID. Provides 350 kcal and 13 g Pro per serving. Will continue to follow and reassess as pt needs and status change. MONITOR/EVALUATE: PO Intake; Plan of Care; Hydration Status; Weight Status; Lab Values Emily Mcintosh, MS, RD, LD"
[2019-03-18 18:00] VITALS: BP 120/69
[2019-03-18] MEDS: TAMSULOSIN 0.4 MG (FLOMAX) CAP PO SCH (18:23)
[2019-03-18 18:51] VITALS: BP 120/69
[2019-03-18] MEDS: DIVALPROEX 250 MG DELAYED RELEASE (DEPAKOTE) TAB PO SCH (20:48)
[2019-03-18] MEDS: meTOproloL SUCCINATE 50 MG (TOPROL XL) TAB PO SCH (20:48)
[2019-03-18] MEDS: MONTELUKAST 10 MG (SINGULAIR) TAB PO SCH (20:48)
--- NOTE | 2019-03-18 21:03 | Individualized Plan of Care ---
Individualized Plan of Care Rehab Nursing IPOC Order Admission Date Mar 17, 2019 at 11:10 Current Orders Orders Admission Order(Inpt,Obs,Sdc) (03/17/19 10:57) Vital Signs: Per Unit Policy ( 08,16,00 (03/17/19 10:57) Calendar Control Clerk Blood Bank-Inpt Rehab Con (03/17/19 10:57) Rehab Nursing Orders-Ipoc (03/17/19 10:57) Physical Therapy Rehab Orders (03/17/19 10:57) Occupational Therapy Rehab Ord (03/17/19 10:57) Speech Therapy Rehab Orders (03/17/19 10:57) Cbc With Automated Diff (03/18/19 06:00) Comprehensive Metabolic Panel (03/18/19 06:00) Intake & Output 06,14,22 (03/17/19 10:57) Precautions (Aru) (03/17/19 10:57) Daily Weight 06 (03/17/19 10:57) Rehab-Intensity Of Therapy (03/17/19 10:57) Initiate Admission Nursing Pro .admission (03/17/19 10:57) Alprazolam Tablet (Xanax Tablet) (03/17/19 11:00) Calcium Carbonate Chew Tablet (Antacid C (03/17/19 11:00) Diphenhydramine Tablet (Benadryl Tablet) (03/17/19 11:00) Docusate Sodium Capsule (Colace Capsule) (03/17/19 11:00) Bisacodyl Suppository (Dulcolax Supposit (03/17/19 11:00) Lactulose Oral Solution (Enulose Oral So (03/17/19 11:00) Na Phos/Na Biphos Enema (Fleet Enema Lukasz (03/17/19 11:00) Guaifenesin/Codeine Syrup (Robitussin Ac (03/17/19 11:00) Loperamide Tablet (Imodium Tablet) (03/17/19 11:00) Enoxaparin Injection (Lovenox Injection) (03/17/19 11:00) Melatonin Tablet (Melatonin Tablet) (03/17/19 11:00) Polyethylene Glycol Powder Pkt (Miralax (03/17/19 21:00) Ondansetron Oral Dissolve Tab (Zofran (03/17/19 11:00) Senna S Tablet (Senokot S Tablet) (03/17/19 21:00) Admission Arrival Bed Request (03/17/19 11:10) General/Regular (03/17/19 Lunch) Albuterol Pre-Mix Nebs (Rt) (Proventil (03/17/19 13:00) Amiodarone Tablet (Cordarone Tablet) (03/18/19 09:00) Divalproex Delay Release Tab (Depakote T (03/17/19 21:00) Docusate Sodium Capsule (Colace Capsule) (03/17/19 21:00) Fluticasone Nasal Zenda (Flonase Nasal S (03/18/19 09:00) Furosemide Tablet (Lasix Tablet) (03/17/19 17:00) Furosemide Tablet (Lasix Tablet) (03/17/19 13:00) Ibuprofen Tablet (Motrin Tablet) (03/17/19 13:00) Levothyroxine Tablet (Synthroid Tablet) (03/18/19 06:30) Loratadine Tablet (Claritin Tablet) (03/18/19 09:00) Metoprolol Succinate (Xl) Tab (Toprol Xl (03/17/19 21:00) Oxycodone/Apap 5/325mg Tablet (Percocet (03/17/19 13:00) Spironolactone Tablet (Aldactone Tablet) (03/18/19 09:00) (Nf) Acetaminophen (Tylenol Arthritis) (03/17/19 13:00) (Nf) Alfuzosin Hcl (Alfuzosin Hcl Er) (03/17/19 21:00) (Nf) Cholecalciferol (Vitamin D3) (Vitam (03/18/19 09:00) (Nf) Divalproex Sodium (Depakote) (03/18/19 09:00) (Nf) Fluticasone/Salmeterol (Advair 250- (03/18/19 09:00) (Nf) Losartan Potassium (03/18/19 09:00) (Nf) Montelukast Sodium (Singulair) (03/17/19 21:00) (Nf) Multivit-Min/Fa/Lycopene/Lut (Centr (03/18/19 09:00) (Nf) [place]-3/Dha/Epa/Dpa/Fish Oil ([place] (03/18/19 09:00) Svn Small Volume Nebulizer (03/17/19 12:52) Vte Contraindication (03/17/19 12:55) Losartan Tablet (Cozaar Tablet) (03/18/19 09:00) Acetaminophen Tablet/Caplet (Tylenol T (03/17/19 13:15) Cholecalciferol Capsule/Tablet (Vitamin (03/18/19 09:00) Therapeutic Multivitamin Tab (Vitamins, (03/18/19 07:00) Montelukast Tablet (Singulair Tablet) (03/17/19 21:00) Divalproex Delay Release Tab (Depakote T (03/18/19 09:00) [place] 3 Capsule (Fish Oil Capsule) (03/18/19 07:00) Fluticasone/Salmeterol Common (Advair 11 (03/18/19 08:00) Tamsulosin Capsule (Flomax Capsule) (03/17/19 18:00) Prednisone Tablet (Deltasone Tablet) (03/17/19 13:15) Prednisone Tablet (Deltasone Tablet) (03/18/19 07:00) Patient Visit (03/17/19 ) Pt Eval Moderate Complexity (03/17/19 ) Functional Activities, Ea 15 (03/17/19 ) Exercise Therap, Ea 15 Min (03/17/19 ) Gait Training, Ea 15 Min (03/17/19 ) Ambulate 08,12,20 (03/17/19 15:14) Sequential Compression Device Q4H (03/17/19 15:14) Dvt/Vte Risk - Notifiy Physici Q4H (03/17/19 15:14) Vte Contraindication (03/17/19 15:53) Patient Visit (03/18/19 ) Speech Sound Lang Comp (03/18/19 ) Patient Visit (03/18/19 ) Gait Training, Ea 15 Min (03/18/19 ) Exercise Therap, Ea 15 Min (03/18/19 ) Ex Neuromuscular, Ea 15 Min (03/18/19 ) Rehab Nursing Orders: Ongoing Assess. of Cognitive Status, Ongoing Assess. of Function Status, Bladder Training, Bowel Management, Disease Management & Educaiton, DVT Prophylaxis, Fall Prevention, Fluid/Electrolyte/Nutrition Mgmt, Infection Prevention, Medication Management & Education, Management of Risks & Complications, Nutrition Management, Pain Management, Patient/Family Support, Safety Management, Swallow Precautions Intensity of Therapy to be met Patient to be seen: Min.3h per day/5 of 7d PT IPOC Problem List: Activity Tolerance, Functional Strength, Safety, Balance, Gait, Transfer, Bed Mobility, ROM Treatment Plan: Continue Plan of Care Bed Mobility, Concurrent Therapy, Education, Functional Activity Mary Jane, Functional Strength, Group Therapy, Gait, Safety, Therapeutic Exercise, Transfers Treatment Duration: Apr 07, 2019 Frequency: At least 5 of 7 days/Wk (IRF) Estimated Hrs Per Day: 1.5 hours per day OT IPOC Problems: Decreased Activ Tolerance, Decreased UE Strength, Dependent Transfers, Impaired Funct Balance, Impaired I ADL's, Impaired Self-Care Skills OT Treatment, Training and Edu: Yes Plan of Care: ADL Retraining, Functional Mobility, Group Exercise/Act as Ind, UE Funct Exercise/Act Treatment Duration: Apr 07, 2019 Frequency: At least 5 of 7 days/Wk (IRF) Estimated Hrs Per Day: 1.[address] IPOC Speech Therapy Treatment Plan: Discontinue ST Treatment Duration: Mar 18, 2019 Frequency: 1 time per week Estimated Hrs Per Day: .25 hour per day Calendar Control Clerk Blood Bank/Case Mgmt Calendar Control Clerk Blood Bank/Case Managemen: Discharge Planning Dietitian/Tactical/Mobile Watch Officer Dietitian/Tactical/Mobile Watch Officer to monitor nutritional status and make changes and/or recommendations as needed and work with speech pathology on dietary upgrades as the occur. Physician IPOC Medical Issues being managed closely and that require the 24 hour availability of a physician: 24hr physician coverage required due to recent subdural hematoma with slight thickening of the bleed after he had a fall prior to admission date Medical Issues: Bowel/Bladder Function, DVT Prophylaxis, Falls Precautions, Fluid/Electrolyte/Nutrition Balance, Pain Management Brief Synthesis of Preadmission Screen, Post-Admission Evaluation, and Therapy Evaluations: PT and OT will focus on ambulation and strengthening orf the lower legs with the use of a walker OT will focus on regaining independence with ADLs considering subdural hematoma one week ago Medical Prognosis: Good Anticipated Length of Stay: 7 days HARLEY DOVER DO Mar 18, 2019 21:03 POS
[2019-03-19 06:00] VITALS: BP 131/66
[2019-03-19] MEDS: OMEGA 3 (FISH OIL) 1000 MG CAP PO SCH (06:20)
[2019-03-19] MEDS: LEVOTHYROXINE 88 MCG (LEVOTHORID) TAB PO SCH (06:20)
[2019-03-19] MEDS: MULTIVIT W/MINERALS TAB (THERAGRAN M) PO SCH (06:20)
[2019-03-19] MEDS: FUROSEMIDE 40 MG (LASIX) TAB PO SCH ×2 (06:20→18:11)
[2019-03-19] MEDS: oxyCODONE/APAP 5/325MG (PERCOCET 5) TABLET PO PRN (06:20)
[2019-03-19] MEDS: VITAMIN D3 1,000 UNITS (CHOLECALCIFEROL) TABLET PO SCH (08:47)
[2019-03-19] MEDS: DOCUSATE SODIUM 100 MG (COLACE) CAP PO SCH ×2 (08:47→21:00)
[2019-03-19] MEDS: SENNA W/DOCUSATE (SENOKOT S) TABLET PO SCH ×2 (08:47→21:07)
[2019-03-19] MEDS: AMIODARONE 200 MG (CORDARONE) TAB PO SCH (08:47)
[2019-03-19] MEDS: SPIRONOLACTONE 25 MG (ALDACTONE) TAB PO SCH (08:47)
[2019-03-19] MEDS: LOSARTAN 25 MG (COZAAR) TAB PO SCH (08:47)
[2019-03-19] MEDS: DIVALPROEX 500 MG DELAYED RELEASE (DEPAKOTE) TAB PO SCH (08:47)
[2019-03-19] MEDS: LORATADINE (CLARITIN) 10 MG TAB PO SCH (08:47)
[2019-03-19] MEDS: FLUTICASONE NASAL SPRAY (FLONASE) 16 GM BTL NS SCH (08:48)
[2019-03-19] MEDS: RT-ADVAIR HFA 115/21 MCG PER PUFF IH SCH (09:01)
[2019-03-19] MEDS: POLYETHYLENE GLYCOL 17 GM (MIRALAX) PACK PO SCH ×2 (09:37→21:10)
--- NOTE | 2019-03-19 09:52 | PM&R Progress Note ---
Subjective HPI/CC On Admission Date Seen by Provider: Mar 19, 2019 Time Seen by Provider: 08:15 Subjective/Events-last exam Changing Oxycodone to Q12hrs since he can overuse narcotics. Tylenol will be given prn. K-Pad to the left foot for gout will be initiated. Kenn wrap will be provided to the foot also. Overall progressing well and participating in therapy. Checked meds and labs Conferred with RN Reviewed therapy notes Review of Systems General: Fatigue Musculoskeletal: foot pain Objective Exam Vital Signs Vital Signs Date Time Temp Pulse Resp B/P (MAP) Pulse Ox O2 Delivery O2 Flow Rate FiO2 03/19/19 18:00 36.5 58 20 120/69 (86) 96 Room Air Capillary Refill : General Appearance: No Apparent Distress, WD/WN, Chronically ill HEENT: PERRL/EOMI, Normal ENT Inspection, Pharynx Normal Neck: Full Range of Motion, Normal Inspection, Non Tender, Supple, Carotid Bruit Respiratory: Chest Non Tender, Lungs Clear, Normal Breath Sounds, No Accessory Muscle Use, No Respiratory Distress Cardiovascular: Regular Rate, Rhythm, No Edema, No Gallop, No JVD, No Murmur, Normal Peripheral Pulses Gastrointestinal: Normal Bowel Sounds, No Organomegaly, No Pulsatile Mass, Non Tender, Soft Back: Normal Inspection, No CVA Tenderness, No Vertebral Tenderness Extremity: Normal Capillary Refill, Normal Inspection, Normal Range of Motion, Non Tender, No Calf Tenderness, No Pedal Edema, Other (left foot gouty attack) Neurologic/Psychiatric: Alert, Oriented x3, No Motor/Sensory Deficits (weakness of the legs 4/5 with high fall risk), Normal 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 FIM Transfers Therapy Code Descriptions/Definitions Functional [place] Measure: 0=Not Assessed/NA 4=Minimal Assistance 1=Total Assistance 5=Supervision or Setup 2=Maximal Assistance 6=Modified [place] 3=Moderate Assistance 7=Complete IndependenceSCALE: Activities may be completed with or without assistive devices. 0-Mqczhedphi-otqciex completes the activity by him/herself with no assistance from a helper. 5-Set-up or Clean-up Assistance-helper sets up or cleans up; patient completes activity. [place] assists only prior to or following the activity. 4-Supervision or Touching Assistance-helper provides verbal cues and/or touchin g/steadying and/or contact guard assistance as patient completes activity. Assistance may be provided throughout the activity or intermittently. 3-Partial/Moderate Assistance-helper does LESS THAN HALF the effort. [place] lifts, holds or supports trunk or limbs, but provides less than half the effort. 2-Substantial/Maximal Assistance-helper does MORE THAN HALF the effort. [place] lifts or holds trunk or limbs and provides more than half the effort. 9-Lfpfjnumt-kwsrol does ALL the effort. Patient does none of the effort to complete the activity. Or, the assistance of 2 or more helpers is required for the patient to complete the activity. If activity was not attempted, code reason: 7-Patient Refused. 9-Not Applicable-not attempted and the patient did not perform the activity before the current illness, exacerbation or injury. 10-Not Attempted due to Environmental Limitations-(lack of equipment, weather restraints, etc.). 88-Not Attempted due to Medical Conditions or Safety Concerns. Roll Left to Right (QC): 4 Sit to Lying (QC): 4 Sit to Stand (QC): 4 Chair/Zxr-mz-Hiwun Xfer(QC): 3 Car Transfer (QC): 3 Gait Training Does the Patient Walk?: Yes Distance: 250 x2 Walk 10 feet (QC): 4 Walk 50 ft with 2 Turns(QC): 4 Walk 150 ft (QC): 4 Walking 10ft/uneven surface-QC: 4 Gait Persons Needed: 1 Gait Assistive Device: FWW Wheelchair Training Does the Pt Use a Wheelchair?: No Distance: 100' Wheel 50 ft with 2 turns (QC): 5 Wheel 150 ft (QC): 88 Type of Wheelchair: Manual Stair Training 1 Step (curb) (QC): 88 4 Steps (QC): 88 12 Steps (QC): 88 Balance Picking up an Object (QC): 88 ADL-Treatment Eating (QC): 6 Oral Hygiene (QC): 4 Shower/Bathe Self (QC): 3 Upper Body Dressing (QC): 3 Lower Body Dressing (QC): 3 (Footwear (QC) 2) On/Off Footwear (QC): 2 Toileting Hygiene (QC): 4 (SBA) Toilet Transfer (QC): 4 (SBA) Assessment/Plan Assessment and Plan Assess & Plan/Chief Complaint Assessment: Subdural hematoma Falls Weakness of legs Bipolar disorder CHF CAD MELVA Gout left foot Plan: IRF protocol O2 CPAP Monitor closely (1) Subdural hematoma, post-traumatic Status: Acute (2) Muscular deconditioning Status: Acute (3) Generalized weakness Status: Acute (4) Gout Status: Acute (5) Coronary arteriosclerosis in [place] artery Status: Chronic (6) Obstructive sleep apnea Status: Chronic (7) Renal insufficiency Status: Chronic (8) Diabetes Status: Chronic (9) Bipolar 1 disorder, depressed, full remission Status: Acute HARLEY DOVER DO Mar 19, 2019 09:52 POS
--- NOTE | 2019-03-19 10:07 | Occupational Ther Daily Note ---
OT Current Status-Daily Note Subjective Pt alert, sitting in recliner. Pt agrees to therapy. No c/o pain. Mental Status/Objective Patient Orientation: Person, Place, Time, Situation ADL-Treatment Pt agrees to shower. Pt ambulated to bathroom using FWW, initially unsteady and stiff. Pt transferred to toilet using BSC and FWW with supervision. Completed hygiene and clothing manipulation with supervision. Transferred into shower with SBA using FWW, grabbars and shower bench. Completed shower with SBA when standing to cleanse buttocks/yarely area then supervision for all other areas when pt was sitting. After set up, pt able to complete upper body by self then SBA for lower body and donned/doffed socks by self. Pt stood at sink with SBA to complete oral care. Therapy Code Descriptions/Definitions Functional [place] Measure: 0=Not Assessed/NA 4=Minimal Assistance 1=Total Assistance 5=Supervision or Setup 2=Maximal Assistance 6=Modified [place] 3=Moderate Assistance 7=Complete IndependenceSCALE: Activities may be completed with or without assistive devices. 9-Gzswrvcurp-djkprfm completes the activity by him/herself with no assistance from a helper. 5-Set-up or Clean-up Assistance-helper sets up or cleans up; patient completes activity. [place] assists only prior to or following the activity. 4-Supervision or Touching Assistance-helper provides verbal cues and/or touching/steadying and/or contact guard assistance as patient completes ac tivity. Assistance may be provided throughout the activity or intermittently. 3-Partial/Moderate Assistance-helper does LESS THAN HALF the effort. [place] lifts, holds or supports trunk or limbs, but provides less than half the effort. 2-Substantial/Maximal Assistance-helper does MORE THAN HALF the effort. [place] lifts or holds trunk or limbs and provides more than half the effort. 7-Tcmtdxizu-powtgy does ALL the effort. Patient does none of the effort to complete the activity. Or, the assistance of 2 or more helpers is required for the patient to complete the activity. If activity was not attempted, code reason: 7-Patient Refused. 9-Not Applicable-not attempted and the patient did not perform the activity before the current illness, exacerbation or injury. 10-Not Attempted due to Environmental Limitations-(lack of equipment, weather restraints, etc.). 88-Not Attempted due to Medical Conditions or Safety Concerns. Oral Hygiene (QC): 4 Bathing Location: L Arm, R Arm, L Upper Leg, R Upper Leg, L Lower Leg (including foot), R Lower Leg (including foot), Chest, Abdomen, Buttocks, Per ineal Area Shower/Bathe Self (QC): 4 Upper Body Dressing (QC): 5 Lower Body Dressing (QC): 4 (Footwear (QC) 6) Toileting Hygiene (QC): 4 Toilet Transfer (QC): 4 Other Treatment Pt ambulated to therapy gym using FWW with SBA. Completed arm bike for 15 min at 15 iverson resistance to increase strength and activity tolerance for daily functional tasks. Physician wanted JOANN wraps and MHP to pt's L foot, reported to nrsg. Pt sitting in recliner with feet elevated and call light/phone in reach after session. All needs met in room. OT Consular Officer Goals Consular Officer Goals Time Frame: Apr 07, 2019 Eating (QC): 6 Oral Hygiene (QC): 6 Toileting Hygiene (QC): 6 Shower/Bathe Self (QC): 6 Upper Body Dressing (QC): 6 Lower Body Dressing (QC): 6 On/Off Footwear (QC): 6 Additional Goals: 1-Demonstrate ADL Tasks, 2-Verbalize Understanding, 3- ImproveStrength/Mary Jane 1=Demonstrate adherence to instructed precautions during ADL tasks. 2=Patient will verbalize/demonstrate understanding of assistive devices/modifications for ADL. 3=Patient will improve strength/tolerance for activity to enable patient to perform ADL's. OT Education/Plan Problem List/Assessment Assessment: Decreased Activ Tolerance, Decreased Safety Aware, Decreased UE Strength, Impaired Coordination, Impaired Funct Balance, Impaired Self-Care Skills Discharge Recommendations Plan/Recommendations: Continue POC Treatment Plan/Plan of Care Patient would benefit from OT for education, treatment and training to promote independence in ADL's, mobility, safety and/or upper extremity function for ADL's. Plan of Care: ADL Retraining, Functional Mobility, Group Exercise/Act as Ind, UE Funct Exercise/Act Treatment Duration: Apr 07, 2019 Frequency: At least 5 of 7 days/Wk (IRF) Estimated Hrs Per Day: 1.5 hours per day Rehab Potential: Fair Time/GCodes Start Time: 07:00 Stop Time: 08:30 Total Time Billed (hr/min): 90 Billed Treatment Time 1 visit-ADL 5 (75 min) EX 1 (15 min) KEESHA MORAN Mar 19, 2019 10:07 POS
--- NOTE | 2019-03-19 10:35 | NUR ---
Pastoral care visit.
--- NOTE | 2019-03-19 11:07 | Physical Therapy Daily Note ---
PT Daily Note-Current Subjective Pt agreeable to PT session. States he is going to be here at least another week. States he had a bath this morning and felt very good to do that. Pain Numeric Pain Scale: 3 Comment: L leg and head, received pain med earlier Appearance Pt sitting up in recliner awake and alert visiting with mobile sales consultant upon arrival. Pt requesting and assisted to bathroom. At end of session, pt reclined in recliner, call light, phone and bedside table within reach, nursing present Mental Status Patient Orientation: Person, Place, Time, Eyes Open, Situation Transfers SCALE: Activities may be completed with or without assistive devices. 7-Ouebyioywb-pymejpn completes the activity by him/herself with no assistance from a helper. 5-Set-up or Clean-up Assistance-helper sets up or cleans up; patient completes activity. [place] assists only prior to or following the activity. 4-Supervision or Touching Assistance-helper provides verbal cues and/or touching/steadying and/or contact guard assistance as patient completes activity. Assistance may be provided throughout the activity or intermittently. 3-Partial/Moderate Assistance-helper does LESS THAN HALF the effort. [place] lifts, holds or supports trunk or limbs, but provides less than half the effort. 2-Substantial/Maximal Assistance-helper does MORE THAN HALF the effort. [place] lifts or holds trunk or limbs and provides more than half the effort. 5-Iidkvwmzj-rfppfg does ALL the effort. Patient does none of the effort to complete the activity. Or, the assistance of 2 or more helpers is required for the patient to complete the activity. If activity was not attempted, code reason: 7-Patient Refused. 9-Not Applicable-not attempted and the patient did not perform the activity before the current illness, exacerbation or injury. 10-Not Attempted due to Environmental Limitations-(lack of equipment, weather restraints, etc.). 88-Not Attempted due to Medical Conditions or Safety Concerns. Sit to Stand (QC): 4 (SBA) Pt demonstrating good technique with all sit to and from stand transfers. Gait Training Does the Patient Walk?: Yes Distance: 600, 300, 120 Walk 10 feet (QC): 4 Walk 50 ft with 2 Turns(QC): 4 Walk 150 ft (QC): 4 Gait Persons Needed: 1 Gait Assistive Device: FWW Shuffling, heavily relying with UE's on walker, fwd flexed, walker too far out front. Gait quality, posture and use of walker improved with skilled inst but pt does require re instruction at times Exercises Seated Therapy Exercises: Ankle pumps (50), Sit to stand, Long arc quads, Hip flexion, Kicking activity, Hip abd/add Seated Reps: 20 NuStep Minutes: 15 NuStep Workload: 5 (seat 10 arms 8, c/o pain R ankle and foot adjusting foot on pedal several times during time on NuStep) Treatments education, safety, transfers, gait, balance, strength, functional mobility, activity tolerance, toileting, yarely care Assessment Current Status: Good Progress RODRIGUEZ increasing throughout tx session, nursing advised. Pain in R foot/ankle > L with amb and liyah on NuStep PT Short Term Goals Short Term Goals Time Frame: Mar 24, 2019 Roll Left & Right: 6 Sit to lyin Lying to sitting on side of be: 6 Sit to stand: 4 (SBA) Chair/gzb-rh-qinyp transfer: 4 (SBA) Toilet transfer: 4 (SBA) Car transfer: 4 (SBA) Walk 10 feet: 4 (SBA) Walk 50 feet with two turns: 4 (SBA) Walking 10ft on uneven surface: 4 (SBA) PT Half-Way Goals Half-Way Goals PT Half-Way Goals Time Frame: Apr 07, 2019 Roll Left & Right (QC): 6 Sit to Lying (QC): 6 Lying-Sitting on Side/Bed(QC): 6 Sit to Stand (QC): 6 Chair/Rxw-ru-Ctnbl Xfer(QC): 6 Toilet Transfer (QC): 6 Car Transfer (QC): 6 Does the Patient Walk: Yes Walk 10 feet (QC): 6 Walk 50ft with 2 Turns (QC): 6 Walk 150 ft (QC): 6 Walking 10ft on Uneven Surface: 6 1 Step (curb) (QC): 4 4 Steps (QC): 9 12 Steps (QC): 9 Picking up an Object (QC): 4 Does the Pt use WC or Scooter?: No Type: N/A Type: N/A PT Plan Treatment/Plan Treatment Plan: Continue Plan of Care Treatment Plan: Bed Mobility, Concurrent Therapy, Education, Functional Activity Mary Jane, Functional Strength, Group Therapy, Gait, Safety, Therapeutic Exercise, Transfers Treatment Duration: Apr 07, 2019 Frequency: At least 5 of 7 days/Wk (IRF) Estimated Hrs Per Day: 1.5 hours per day Patient and/or Family Agrees t: Yes Safety Risks/Education Patient Education: Gait Training, Transfer Techniques, Safety Issues Teaching Recipient: Patient Teaching Methods: Demonstration, Discussion Response to Teaching: Verbalize Understanding, Return Demonstration, Reinforcement Needed Time/GCodes Time In: 1100 Time Out: 1200 Total Billed Treatment Time: 60 Total Billed Treatment 1 visit, EX x30 min, GT x30 min JUAN J MEYERS EMPLOYMENT EDUCATIONAL COORD Mar 19, 2019 11:07 POS
[2019-03-19] MEDS: ACETAMINOPHEN 325 MG TABLET PO PRN (11:52)
--- NOTE | 2019-03-19 11:59 | NUR ---
Patient was admitted to ARU 03/17/19 for Subdural Hematoma resulting from a fall. He had been hospitalized for this issue under Neurology at [facility], was discharged home, and upon arrival he was unable to ambulate safely enough to get himself inside. Met with patient to complete initial assessment. He resides at home with his spouse Melissa Bustos who is also indicated as his POA. They have two dogs, Bernadette and Venice, who are an important part of both of their lives. Consider a pet pass depending on length of stay. Patient and spouse have downsized from a 3 story home to a smaller ranch, remodel continues. He will return home with Melissa when medically/functionally safe to do so. DME: Patient has 4WW with seat. Discussed FWW for better control, patient stated he was used to his 4WW and preferred it. He desires a shower chair for a walk-in shower, he understands it is not covered under Medicare benefits and he stated he can private pay without issue. HHC: Recommended for PT and OT. Reviewed agencies within patient service area, he requested [facility] stating "you can not beat [facility] services." Insured Medicare and [facility] AA Plan F. Explained purpose of ARU Weekly Team Conference and patient verbalized understanding. Continue intermittent review and followup regarding post hospital care needs.
--- NOTE | 2019-03-19 12:15 | NUR ---
Reviewed weekly Rehab Team Conference Summary with patient. He understands his target discharge date is 03/26/19 () and is in agreement to a continued stay with review next Saturday.
--- NOTE | 2019-03-19 15:08 | Physical Therapy Daily Note ---
PT Daily Note-Current Subjective Pt agreeable to PT session. States RODRIGUEZ is better. States foot and ankle still hurt some throughout tx session Appearance Pt sitting up in recliner upon arrival, awake and alert. Pt requesting and assisted to bathroom. At end of session, pt sitting up in recliner with LE's elevated, present, call light, phone and bedside table within reach Mental Status Patient Orientation: Person, Place, Time, Eyes Open, Situation Transfers SCALE: Activities may be completed with or without assistive devices. 1-Frnmhowbwn-aiilvqs completes the activity by him/herself with no assistance from a helper. 5-Set-up or Clean-up Assistance-helper sets up or cleans up; patient completes activity. [place] assists only prior to or following the activity. 4-Supervision or Touching Assistance-helper provides verbal cues and/or touching/steadying and/or contact guard assistance as patient completes activity. Assistance may be provided throughout the activity or intermittently. 3-Partial/Moderate Assistance-helper does LESS THAN HALF the effort. [place] lifts, holds or supports trunk or limbs, but provides less than half the effort. 2-Substantial/Maximal Assistance-helper does MORE THAN HALF the effort. [place] lifts or holds trunk or limbs and provides more than half the effort. 4-Rrnyhldvs-xbrvkh does ALL the effort. Patient does none of the effort to complete the activity. Or, the assistance of 2 or more helpers is required for the patient to complete the activity. If activity was not attempted, code reason: 7-Patient Refused. 9-Not Applicable-not attempted and the patient did not perform the activity before the current illness, exacerbation or injury. 10-Not Attempted due to Environmental Limitations-(lack of equipment, weather restraints, etc.). 88-Not Attempted due to Medical Conditions or Safety Concerns. Sit to Stand (QC): 4 Gait Training Does the Patient Walk?: Yes Distance: 150 x2 Walk 10 feet (QC): 4 Walk 50 ft with 2 Turns(QC): 4 Walk 150 ft (QC): 4 Gait Persons Needed: 1 Gait Assistive Device: FWW skilled verb inst to improve gait quality and posture, kyphotic, maintains distance too far from walker, decreased step height Exercises Seated Therapy Exercises: Ankle pumps, Sit to stand, Long arc quads, Hip flexion, Hip abd/add Seated Reps: 20 Neuromuscular standing in // bars, unilat to no UE support, static and dynamic stance on Airex, tandem gait, retro gait, heel toe raises, march in place, mini squats, wt shifting, stepping over objects. Pt requiring grasping of // bars at times, min A to correct LOB x4 episodes Treatments education, safety, transfers, gait, balance, strength, toileting, activity tolerance, functional mobility Assessment Current Status: Good Progress PT Short Term Goals Short Term Goals Time Frame: Mar 24, 2019 Roll Left & Right: 6 Sit to lyin Lying to sitting on side of be: 6 Sit to stand: 4 (SBA) Chair/tbx-ou-pykxs transfer: 4 (SBA) Toilet transfer: 4 (SBA) Car transfer: 4 (SBA) Walk 10 feet: 4 (SBA) Walk 50 feet with two turns: 4 (SBA) Walking 10ft on uneven surface: 4 (SBA) PT Chcf Goals Personnel Specialist Goals PT Chcf Goals Time Frame: Apr 07, 2019 Roll Left & Right (QC): 6 Sit to Lying (QC): 6 Lying-Sitting on Side/Bed(QC): 6 Sit to Stand (QC): 6 Chair/Waj-py-Cqill Xfer(QC): 6 Toilet Transfer (QC): 6 Car Transfer (QC): 6 Does the Patient Walk: Yes Walk 10 feet (QC): 6 Walk 50ft with 2 Turns (QC): 6 Walk 150 ft (QC): 6 Walking 10ft on Uneven Surface: 6 1 Step (curb) (QC): 4 4 Steps (QC): 9 12 Steps (QC): 9 Picking up an Object (QC): 4 Does the Pt use WC or Scooter?: No Type: N/A Type: N/A PT Plan Treatment/Plan Treatment Plan: Continue Plan of Care Treatment Plan: Bed Mobility, Concurrent Therapy, Education, Functional Activity Mary Jane, Functional Strength, Group Therapy, Gait, Safety, Therapeutic Exercise, Transfers Treatment Duration: Apr 07, 2019 Frequency: At least 5 of 7 days/Wk (IRF) Estimated Hrs Per Day: 1.5 hours per day Patient and/or Family Agrees t: Yes Safety Risks/Education Patient Education: Gait Training, Transfer Techniques, Safety Issues Teaching Recipient: Patient Teaching Methods: Discussion Response to Teaching: Verbalize Understanding, Return Demonstration, Reinforcement Needed Time/GCodes Time In: 1430 Time Out: 1500 Total Billed Treatment Time: 30 Total Billed Treatment 1 visit, GT x10 min, NM x20 min JUAN J MEYERS WOODWINDS TEACHER Mar 19, 2019 15:08 POS
[2019-03-19 16:36] VITALS: BP 119/67
[2019-03-19 18:00] VITALS: BP 120/69
[2019-03-19] MEDS ORDERED: oxyCODONE/APAP 5/325MG (PERCOCET 5) TABLET PO PRN (18:00)
[2019-03-19] MEDS: TAMSULOSIN 0.4 MG (FLOMAX) CAP PO SCH (18:11)
--- NOTE | 2019-03-19 19:00 | NUR ---
resting quietly in bed, pain level 0/10 on flacc scale
--- NOTE | 2019-03-19 19:14 | NUR ---
bedside report received from XIOMARA ROD, assume care of pt
[2019-03-19] MEDS: DIVALPROEX 250 MG DELAYED RELEASE (DEPAKOTE) TAB PO SCH (21:00)
[2019-03-19] MEDS: MONTELUKAST 10 MG (SINGULAIR) TAB PO SCH (21:00)
--- NOTE | 2019-03-19 21:00 | NUR ---
pt stated when woke up alittle while ago was disoriented & did not know what to urinate in stated he figured it out but this happened twice already today, advised had taken pain pain pill at 1850 this evening & doctor cut dose to q 12hrs, should see improvement, refused miralax this evening
[2019-03-19] MEDS: meTOproloL SUCCINATE 50 MG (TOPROL XL) TAB PO SCH (21:07)
[2019-03-20] MEDS: ACETAMINOPHEN 325 MG TABLET PO PRN ×4 (01:42→21:25)
--- NOTE | 2019-03-20 01:42 | NUR ---
c/o neck, leg & foot pain level 4/10 on numeric scale, Tylenol 650mg given, also c/o upset stomach Zofran 4mg given
--- NOTE | 2019-03-20 02:16 | NUR ---
rates pain 2/10 on numeric scale
[2019-03-20 05:55] VITALS: BP 122/71
[2019-03-20] MEDS: LEVOTHYROXINE 88 MCG (LEVOTHORID) TAB PO SCH (06:43)
[2019-03-20] MEDS: OMEGA 3 (FISH OIL) 1000 MG CAP PO SCH (06:43)
[2019-03-20] MEDS: MULTIVIT W/MINERALS TAB (THERAGRAN M) PO SCH (06:43)
[2019-03-20] MEDS: FUROSEMIDE 40 MG (LASIX) TAB PO SCH ×2 (06:43→17:39)
--- NOTE | 2019-03-20 07:08 | NUR ---
bedside report given to MITZI ROD
[2019-03-20 07:57] VITALS: BP 114/66
[2019-03-20] MEDS: LORATADINE (CLARITIN) 10 MG TAB PO SCH (07:58)
[2019-03-20] MEDS: DIVALPROEX 500 MG DELAYED RELEASE (DEPAKOTE) TAB PO SCH (07:58)
[2019-03-20] MEDS: SPIRONOLACTONE 25 MG (ALDACTONE) TAB PO SCH (07:58)
[2019-03-20] MEDS: AMIODARONE 200 MG (CORDARONE) TAB PO SCH (07:59)
[2019-03-20] MEDS: VITAMIN D3 1,000 UNITS (CHOLECALCIFEROL) TABLET PO SCH (07:59)
[2019-03-20] MEDS: LOSARTAN 25 MG (COZAAR) TAB PO SCH (07:59)
[2019-03-20] MEDS: DOCUSATE SODIUM 100 MG (COLACE) CAP PO SCH ×2 (09:00→21:29)
[2019-03-20] MEDS: POLYETHYLENE GLYCOL 17 GM (MIRALAX) PACK PO SCH ×2 (09:00→21:29)
[2019-03-20] MEDS: SENNA W/DOCUSATE (SENOKOT S) TABLET PO SCH ×2 (09:00→21:30)
[2019-03-20] MEDS: FLUTICASONE NASAL SPRAY (FLONASE) 16 GM BTL NS SCH (09:00)
--- NOTE | 2019-03-20 09:56 | Physical Therapy Daily Note ---
PT Daily Note-Current Subjective Pt. agrees to Rx, quite jovial. Comments that he falls a lot but is usually able to get himself up Pain Numeric Pain Scale: 4 Location: Left Location Body Site: Knee Pain Description: Ache Comment: c/o pain only when challenged with quadruped position and attempt at crawli Mental Status Patient Orientation: Normal For Age Transfers SCALE: Activities may be completed with or without assistive devices. 8-Kknulyzswz-mwamrim completes the activity by him/herself with no assistance from a helper. 5-Set-up or Clean-up Assistance-helper sets up or cleans up; patient completes activity. [place] assists only prior to or following the activity. 4-Supervision or Touching Assistance-helper provides verbal cues and/or touching/steadying and/or contact guard assistance as patient completes activity. Assistance may be provided throughout the activity or intermittently. 3-Partial/Moderate Assistance-helper does LESS THAN HALF the effort. [place] lifts, holds or supports trunk or limbs, but provides less than half the effort. 2-Substantial/Maximal Assistance-helper does MORE THAN HALF the effort. [place] lifts or holds trunk or limbs and provides more than half the effort. 8-Jxwyhttno-ykpfwf does ALL the effort. Patient does none of the effort to complete the activity. Or, the assistance of 2 or more helpers is required for the patient to complete the activity. If activity was not attempted, code reason: 7-Patient Refused. 9-Not Applicable-not attempted and the patient did not perform the activity before the current illness, exacerbation or injury. 10-Not Attempted due to Environmental Limitations-(lack of equipment, weather restraints, etc.). 88-Not Attempted due to Medical Conditions or Safety Concerns. Roll Left & Right (QC): 6 Sit to Lying (QC): 6 Lying to Sitting/Side of Bed(Q: 6 Sit to Stand (QC): 6 Chair/Yyu-ui-Dyaou Xfer(QC): 6 Toilet Transfer (QC): 6 c/o quadruped and crawling was uncomfortable in knees but did crawl 2-3 ft for and back Gait Training Does the Patient Walk?: Yes Walk 10 feet (QC): 5 Walk 50 ft with 2 Turns(QC): 5 Walk 150 ft (QC): 5 Gait Persons Needed: 1 Gait Assistive Device: FWW flexed over FWW, heavy wt bearing on device Exercises Supine Ex: Bridging, Rolling, Heel Slides, Scooting, Straight leg raise, Hip abd/add Supine Reps: 12 Standing: Hip Abduction, Hamstring curls, Heel/toe raises, Marching, Mini squats Standing Reps: 12 Treatments tioleted indep Assessment Current Status: Good Progress PT Short Term Goals Short Term Goals Time Frame: Mar 24, 2019 Roll Left & Right: 6 Sit to lyin Lying to sitting on side of be: 6 Sit to stand: 4 (SBA) Chair/dht-fx-vxpye transfer: 4 (SBA) Toilet transfer: 4 (SBA) Car transfer: 4 (SBA) Walk 10 feet: 4 (SBA) Walk 50 feet with two turns: 4 (SBA) Walking 10ft on uneven surface: 4 (SBA) PT Fpc Goals Street Flusher Driver Goals PT Fpc Goals Time Frame: Apr 07, 2019 Roll Left & Right (QC): 6 Sit to Lying (QC): 6 Lying-Sitting on Side/Bed(QC): 6 Sit to Stand (QC): 6 Chair/Nec-ed-Ovpgg Xfer(QC): 6 Toilet Transfer (QC): 6 Car Transfer (QC): 6 Does the Patient Walk: Yes Walk 10 feet (QC): 6 Walk 50ft with 2 Turns (QC): 6 Walk 150 ft (QC): 6 Walking 10ft on Uneven Surface: 6 1 Step (curb) (QC): 4 4 Steps (QC): 9 12 Steps (QC): 9 Picking up an Object (QC): 4 Does the Pt use WC or Scooter?: No Type: N/A Type: N/A PT Plan Treatment/Plan Treatment Plan: Continue Plan of Care Treatment Plan: Bed Mobility, Concurrent Therapy, Education, Functional Activity Mary Jane, Functional Strength, Group Therapy, Gait, Safety, Therapeutic Exercise, Transfers Treatment Duration: Apr 07, 2019 Frequency: At least 5 of 7 days/Wk (IRF) Estimated Hrs Per Day: 1.5 hours per day Patient and/or Family Agrees t: Yes Safety Risks/Education Patient Education: Gait Training, Transfer Techniques, Correct Positioning, Disease Process, Safety Issues Teaching Recipient: Patient Teaching Methods: Demonstration, Discussion Response to Teaching: Verbalize Understanding, Return Demonstration, Reinforcement Needed Time/GCodes Time In: 900 Time Out: 1000 Total Billed Treatment Time: 60 Total Billed Treatment 1,EX25m,FA15m,GT20m LEEANN TERAN WARP PREPARER Mar 20, 2019 09:56 POS
--- NOTE | 2019-03-20 10:17 | PM&R Progress Note ---
Subjective HPI/CC On Admission Date Seen by Provider: Mar 20, 2019 Time Seen by Provider: 08:30 Subjective/Events-last exam Percocet will be discontinued per his order because he was confused with it last night Bowels are moving okay, two times yesterday and a little bit too loose so will hold laxatives Hydrocodone will be available if he needs to take pain med Gout of the left foot is much improved Checked meds and labs Conferred with RN Reviewed therapy notes Review of Systems General: Fatigue Musculoskeletal: leg pain, foot pain Objective Exam Vital Signs Vital Signs Date Time Temp Pulse Resp B/P (MAP) Pulse Ox O2 Delivery O2 Flow Rate FiO2 03/20/19 16:34 36.2 60 14 110/64 (79) 94 Room Air Capillary Refill : General Appearance: No Apparent Distress, WD/WN, Chronically ill HEENT: PERRL/EOMI, Normal ENT Inspection, Pharynx Normal Neck: Full Range of Motion, Normal Inspection, Non Tender, Supple, Carotid Bruit Respiratory: Chest Non Tender, Lungs Clear, Normal Breath Sounds, No Accessory Muscle Use, No Respiratory Distress Cardiovascular: Regular Rate, Rhythm, No Edema, No Gallop, No JVD, No Murmur, Normal Peripheral Pulses Gastrointestinal: Normal Bowel Sounds, No Organomegaly, No Pulsatile Mass, Non Tender, Soft Back: Normal Inspection, No CVA Tenderness, No Vertebral Tenderness Extremity: Normal Capillary Refill, Normal Inspection, Normal Range of Motion, Non Tender, No Calf Tenderness, No Pedal Edema, Other (left foot gouty attack) Neurologic/Psychiatric: Alert, Oriented x3, No Motor/Sensory Deficits (weakness of the legs 4/5 with high fall risk), Normal Mood/Affect, housing counselor II-XII Norm as Tested Skin: Normal Color, Warm/Dry Lymphatic: No Adenopathy Results/Procedures Lab Patient resulted labs reviewed. FIM Transfers Therapy Code Descriptions/Definitions Functional [place] Measure: 0=Not Assessed/NA 4=Minimal Assistance 1=Total Assistance 5=Supervision or Setup 2=Maximal Assistance 6=Modified [place] 3=Moderate Assistance 7=Complete IndependenceSCALE: Activities may be completed with or without assistive devices. 7-Sodaonlxhr-vswjddx completes the activity by him/herself with no assistance from a helper. 5-Set-up or Clean-up Assistance-helper sets up or cleans up; patient completes activity. [place] assists only prior to or following the activity. 4-Supervision or Touching Assistance-helper provides verbal cues and/or touching/steadying and/or contact guard assistance as patient completes activity. Assistance may be provided throughout the activity or intermittently. 3-Partial/Moderate Assistance-helper does LESS THAN HALF the effort. [place] lifts, holds or supports trunk or limbs, but provides less than half the effort. 2-Substantial/Maximal Assistance-helper does MORE THAN HALF the effort. [place] lifts or holds trunk or limbs and provides more than half the effort. 9-Gdnrnpjam-pzrfjp does ALL the effort. Patient does none of the effort to complete the activity. Or, the assistance of 2 or more helpers is required for the patient to complete the activity. If activity was not attempted, code reason: 7-Patient Refused. 9-Not Applicable-not attempted and the patient did not perform the activity before the current illness, exacerbation or injury. 10-Not Attempted due to Environmental Limitations-(lack of equipment, weather restraints, etc.). 88-Not Attempted due to Medical Conditions or Safety Concerns. Roll Left to Right (QC): 6 Sit to Lying (QC): 6 Sit to Stand (QC): 6 Chair/Kqt-me-Ebcex Xfer(QC): 6 Car Transfer (QC): 3 Gait Training Does the Patient Walk?: Yes Distance: 150 x2 Walk 10 feet (QC): 5 Walk 50 ft with 2 Turns(QC): 5 Walk 150 ft (QC): 5 Walking 10ft/uneven surface-QC: 4 Gait Persons Needed: 1 Gait Assistive Device: FWW Wheelchair Training Does the Pt Use a Wheelchair?: No Distance: 100' Wheel 50 ft with 2 turns (QC): 5 Wheel 150 ft (QC): 88 Type of Wheelchair: Manual Stair Training 1 Step (curb) (QC): 88 4 Steps (QC): 88 12 Steps (QC): 88 Balance Picking up an Object (QC): 88 ADL-Treatment Eating (QC): 6 Oral Hygiene (QC): 4 Bathing Location: L Arm, R Arm, L Upper Leg, R Upper Leg, L Lower Leg (including foot), R Lower Leg (including foot), Chest, Abdomen, Buttocks, Perineal Area Shower/Bathe Self (QC): 4 Upper Body Dressing (QC): 5 Lower Body Dressing (QC): 4 (Footwear (QC) 6) On/Off Footwear (QC): 2 Toileting Hygiene (QC): 4 Toilet Transfer (QC): 4 Assessment/Plan Assessment and Plan Assess & Plan/Chief Complaint Assessment: Subdural hematoma Falls Weakness of legs Bipolar disorder CHF CAD MELVA Gout left foot Confusion due to Percocet Plan: IRF protocol O2 CPAP Monitor closely DC Percocet (1) Subdural hematoma, post-traumatic Status: Acute (2) Muscular deconditioning Status: Acute (3) Generalized weakness Status: Acute (4) Gout Status: Acute (5) Coronary arteriosclerosis in [place] artery Status: Chronic (6) Obstructive sleep apnea Status: Chronic (7) Renal insufficiency Status: Chronic (8) Diabetes Status: Chronic (9) Bipolar 1 disorder, depressed, full remission Status: Acute HARLEY DOVER DO Mar 20, 2019 10:17 POS
[2019-03-20] MEDS: RT-ADVAIR HFA 115/21 MCG PER PUFF IH SCH (13:04)
--- NOTE | 2019-03-20 13:24 | Occupational Ther Daily Note ---
OT Current Status-Daily Note Subjective Pt sitting in chair, agrees to therapy. ADL-Treatment Pt declined ADLs at this time, states he has already completed a sponge bath, changed clothes, and groomed this morning with nursing. Pt doffed/donned socks while seated in chair. Pt sit to stand without assist. Gait to restroom with F WW. Pt demonstrated ability to perform toilet transfer using grab bars for safety. Therapy Code Descriptions/Definitions Functional [place] Measure: 0=Not Assessed/NA 4=Minimal Assistance 1=Total Assistance 5=Supervision or Setup 2=Maximal Assistance 6=Modified [place] 3=Moderate Assistance 7=Complete IndependenceSCALE: Activities may be completed with or without assistive devices. 9-Khsydsdnez-zakpkdv completes the activity by him/herself with no assistance from a helper. 5-Set-up or Clean-up Assistance-helper sets up or cleans up; patient completes activity. [place] assists only prior to or following the activity. 4-Supervision or Touching Assistance-helper provides verbal cues and/or touching/steadying and/or contact guard assistance as patient completes activity. Assistance may be provided throughout the activity or intermittently. 3-Partial/Moderate Assistance-helper does LESS THAN HALF the effort. [place] lifts, holds or supports trunk or limbs, but provides less than half the effort. 2-Substantial/Maximal Assistance-helper does MORE THAN HALF the effort. [place] lifts or holds trunk or limbs and provides more than half the effort. 7-Jdrmxstua-azqooa does ALL the effort. Patient does none of the effort to complete the activity. Or, the assistance of 2 or more helpers is required for the patient to complete the activity. If activity was not attempted, code reason: 7-Patient Refused. 9-Not Applicable-not attempted and the patient did not perform the activity before the current illness, exacerbation or injury. 10-Not Attempted due to Environmental Limitations-(lack of equipment, weather restraints, etc.). 88-Not Attempted due to Medical Conditions or Safety Concerns. Toilet Transfer (QC): 5 Footwear QC:6 Other Treatment Gait to therapy gym with FWW. Arm bike x15 minutes to increase overall strength and activity tolerance needed for functional task completion. Pt performed activity with moderate resistance and steady pace. No rest breaks needed. Graded clothespin task with bilateral hands to increase acls specialist/pinch strength. Pt performed biceps curls and triceps extension exercises x10 reps with red theraband to increase strength for ADLs and transfers. Pt performed ring toss activity with bilateral UE while standing to increase balance and activity tolerance for daily tasks. Pt completed activity with SBA for balance. One seated rest break taken secondary to fatigue. Pt completed fine motor task with nuts and bolts with 1# weights in place an bilateral UE to increase strength and coordination/manipulation skills. Activity completed with increased time. Pt performed sit to stand x5, 2 sets to increase strength and safety for transfers. Pt returned to room, sitting in chair with needs met after session. OT Museum Docent Goals Museum Docent Goals Time Frame: Apr 07, 2019 Eating (QC): 6 Oral Hygiene (QC): 6 Toileting Hygiene (QC): 6 Shower/Bathe Self (QC): 6 Upper Body Dressing (QC): 6 Lower Body Dressing (QC): 6 On/Off Footwear (QC): 6 Additional Goals: 1-Demonstrate ADL Tasks, 2-Verbalize Understanding, 3-ImproveStrength/[place] 1=Demonstrate adherence to instructed precautions during ADL tasks. 2=Patient will verbalize/demonstrate understanding of assistive devices/modifications for ADL. 3=Patient will improve strength/tolerance for activity to enable patient to perform ADL's. OT Education/Plan Discharge Recommendations Plan/Recommendations: Continue POC Treatment Plan/Plan of Care Patient would benefit from OT for education, treatment and training to promote independence in ADL's, mobility, safety and/or upper extremity function for ADL's. Plan of Care: ADL Retraining, Functional Mobility, Group Exercise/Act as Ind, UE Funct Exercise/Act Treatment Duration: Apr 07, 2019 Frequency: At least 5 of 7 days/Wk (IRF) Estimated Hrs Per Day: 1.5 hours per day Rehab Potential: Fair Time/GCodes Start Time: 10:30 Stop Time: 12:00 Total Time Billed (hr/min): 90 Billed Treatment Time 1 visit, ADL(10minutes), FA(15minutes), EXx4(65minutes) CRUZITO BARTON OT Mar 20, 2019 13:24 POS
--- NOTE | 2019-03-20 13:38 | Physical Therapy Daily Note ---
PT Daily Note-Current Subjective Agrees to Rx. States he feels he has made progress and gets to go home the day before Thanksgiving Pain Location: No Pain Reported Mental Status Patient Orientation: Normal For Age Transfers SCALE: Activities may be completed with or without assistive devices. 7-Xckgdotpzd-xsedxjy completes the activity by him/herself with no assistance from a helper. 5-Set-up or Clean-up Assistance-helper sets up or cleans up; patient completes activity. [place] assists only prior to or following the activity. 4-Supervision or Touching Assistance-helper provides verbal cues and/or touching /steadying and/or contact guard assistance as patient completes activity. Assistance may be provided throughout the activity or intermittently. 3-Partial/Moderate Assistance-helper does LESS THAN HALF the effort. [place] lifts, holds or supports trunk or limbs, but provides less than half the effort. 2-Substantial/Maximal Assistance-helper does MORE THAN HALF the effort. [place] lifts or holds trunk or limbs and provides more than half the effort. 3-Spabdvacg-kbhqki does ALL the effort. Patient does none of the effort to complete the activity. Or, the assistance of 2 or more helpers is required for the patient to complete the activity. If activity was not attempted, code reason: 7-Patient Refused. 9-Not Applicable-not attempted and the patient did not perform the activity before the current illness, exacerbation or injury. 10-Not Attempted due to Environmental Limitations-(lack of equipment, weather restraints, etc.). 88-Not Attempted due to Medical Conditions or Safety Concerns. Car Transfer (QC): 5 in out bed and chair all Mod I Gait Training Does the Patient Walk?: Yes Gait Assistive Device: FWW 150ft x 3 no LOB, flexed over FWW, retro gait and 360 turns, no LOB or incident Stair Training Stair Training: Handrails/: 2 handrails #of Steps: 4 1 Step (curb) (QC): 4 4 Steps (QC): 4 Stairs: Pattern: Step to good sequence and safety Exercises Supine Ex: Bridging, Ankle pumps, Rolling, Heel Slides, Hip abd/add Supine Reps: 12 Seated Therapy Exercises: Ankle pumps, Sit to stand, Long arc quads Seated Reps: 12 Assessment Current Status: Good Progress PT Short Term Goals Short Term Goals Time Frame: Mar 24, 2019 Roll Left & Right: 6 Sit to lyin Lying to sitting on side of be: 6 Sit to stand: 4 (SBA) Chair/jtj-ml-nnatk transfer: 4 (SBA) Toilet transfer: 4 (SBA) Car transfer: 4 (SBA) Walk 10 feet: 4 (SBA) Walk 50 feet with two turns: 4 (SBA) Walking 10ft on uneven surface: 4 (SBA) PT Teacher Education Director Goals Mcc Goals PT Mcc Goals Time Frame: Apr 07, 2019 Roll Left & Right (QC): 6 Sit to Lying (QC): 6 Lying-Sitting on Side/Bed(QC): 6 Sit to Stand (QC): 6 Chair/Npr-zo-Nvliu Xfer(QC): 6 Toilet Transfer (QC): 6 Car Transfer (QC): 6 Does the Patient Walk: Yes Walk 10 feet (QC): 6 Walk 50ft with 2 Turns (QC): 6 Walk 150 ft (QC): 6 Walking 10ft on Uneven Surface: 6 1 Step (curb) (QC): 4 4 Steps (QC): 9 12 Steps (QC): 9 Picking up an Object (QC): 4 Does the Pt use WC or Scooter?: No Type: N/A Type: N/A PT Plan Treatment/Plan Treatment Plan: Continue Plan of Care Treatment Plan: Bed Mobility, Concurrent Therapy, Education, Functional Activity [place] Jane, Functional Strength, Group Therapy, Gait, Safety, Therapeutic Exercise, Transfers Treatment Duration: Apr 07, 2019 Frequency: At least 5 of 7 days/Wk (IRF) Estimated Hrs Per Day: 1.5 hours per day Patient and/or Family Agrees t: Yes Safety Risks/Education Patient Education: Gait Training, Transfer Techniques, Steps, Correct Positioning, Disease Process, Safety Issues Teaching Recipient: Patient Teaching Methods: Demonstration, Discussion Response to Teaching: Verbalize Understanding, Return Demonstration, Reinforcement Needed Time/GCodes Time In: 1250 Time Out: 1320 Total Billed Treatment Time: 30 Total Billed Treatment 1,FA20,EX10 LEEANN TERAN LIFE COACH Mar 20, 2019 13:38 POS
[2019-03-20 16:34] VITALS: BP 110/64
[2019-03-20] MEDS: TAMSULOSIN 0.4 MG (FLOMAX) CAP PO SCH (17:39)
[2019-03-20] MEDS: DIVALPROEX 250 MG DELAYED RELEASE (DEPAKOTE) TAB PO SCH (21:25)
[2019-03-20] MEDS: meTOproloL SUCCINATE 50 MG (TOPROL XL) TAB PO SCH (21:25)
[2019-03-20] MEDS: MONTELUKAST 10 MG (SINGULAIR) TAB PO SCH (21:25)
[2019-03-21 06:00] VITALS: BP 124/69
[2019-03-21] MEDS: ACETAMINOPHEN 325 MG TABLET PO PRN ×4 (06:24→23:50)
[2019-03-21] MEDS: MULTIVIT W/MINERALS TAB (THERAGRAN M) PO SCH (06:24)
[2019-03-21] MEDS: FUROSEMIDE 40 MG (LASIX) TAB PO SCH ×2 (06:25→08:05)
[2019-03-21] MEDS: LEVOTHYROXINE 88 MCG (LEVOTHORID) TAB PO SCH (06:25)
[2019-03-21] MEDS: OMEGA 3 (FISH OIL) 1000 MG CAP PO SCH (06:25)
[2019-03-21] MEDS: RT-ADVAIR HFA 115/21 MCG PER PUFF IH SCH (07:12)
[2019-03-21] MEDS: FLUTICASONE NASAL SPRAY (FLONASE) 16 GM BTL NS SCH (08:04)
[2019-03-21] MEDS: VITAMIN D3 1,000 UNITS (CHOLECALCIFEROL) TABLET PO SCH (08:05)
[2019-03-21] MEDS: DIVALPROEX 500 MG DELAYED RELEASE (DEPAKOTE) TAB PO SCH (08:05)
[2019-03-21] MEDS: LORATADINE (CLARITIN) 10 MG TAB PO SCH (08:05)
[2019-03-21] MEDS: SPIRONOLACTONE 25 MG (ALDACTONE) TAB PO SCH (08:05)
[2019-03-21] MEDS: AMIODARONE 200 MG (CORDARONE) TAB PO SCH (08:06)
[2019-03-21] MEDS: LOSARTAN 25 MG (COZAAR) TAB PO SCH (08:07)
[2019-03-21] MEDS: DOCUSATE SODIUM 100 MG (COLACE) CAP PO SCH ×2 (08:08→20:05)
[2019-03-21] MEDS: POLYETHYLENE GLYCOL 17 GM (MIRALAX) PACK PO SCH ×2 (08:09→20:05)
[2019-03-21] MEDS: SENNA W/DOCUSATE (SENOKOT S) TABLET PO SCH ×2 (08:09→20:05)
--- NOTE | 2019-03-21 10:38 | Physical Therapy Daily Note ---
PT Daily Note-Current Subjective Pt agreeable to PT session. States he always gets a sudden headache when doing his exercises. Pain Numeric Pain Scale: 0-No Pain Comment: sudden RODRIGUEZ during standing ex's, req pain med and rcv'd from nsg Appearance 1st attempt, pt receiving bath with nsg. 2nd attempt, pt sitting up in recliner awake and alert. At end of session, pt sitting up in recliner with LE's elevated, call light, phone, bedside table within reach. Nsg present Mental Status Patient Orientation: Person, Place, Time, Eyes Open, Situation Transfers SCALE: Activities may be completed with or without assistive devices. 1-Vhkzzwmisg-iujqpvc completes the activity by him/herself with no assistance from a helper. 5-Set-up or Clean-up Assistance-helper sets up or cleans up; patient completes activity. [place] assists only prior to or following the activity. 4-Supervision or Touching Assistance-helper provides verbal cues and/or touching/steadying and/or contact guard assistance as patient completes activity. Assistance may be provided throughout the activity or intermittently. 3-Partial/Moderate Assistance-helper does LESS THAN HALF the effort. [place] lifts, holds or supports trunk or limbs, but provides less than half the effort. 2-Substantial/Maximal Assistance-helper does MORE THAN HALF the effort. [place] lifts or holds trunk or limbs and provides more than half the effort. 9-Puvbymfms-zpbzzs does ALL the effort. Patient does none of the effort to complete the activity. Or, the assistance of 2 or more helpers is required for the patient to complete the activity. If activity was not attempted, code reason: 7-Patient Refused. 9-Not Applicable-not attempted and the patient did not perform the activity before the current illness, exacerbation or injury. 10-Not Attempted due to Environmental Limitations-(lack of equipment, weather restraints, etc.). 88-Not Attempted due to Medical Conditions or Safety Concerns. Sit to Stand (QC): 5 Gait Training Does the Patient Walk?: Yes Distance: 160 x2 Walk 10 feet (QC): 4 Walk 50 ft with 2 Turns(QC): 4 Walk 150 ft (QC): 4 Gait Persons Needed: 1 Gait Assistive Device: FWW constant redirection for posture standing up straight and closer to walker, good pace, no LOB or unsteadiness Neuromuscular // bars, attempting without UE support, standing on Airex balance pad marching, squat, wt shifting, standing on air disc static balance, walking over objects fwd and retro [address] Treatments education, safety, transfers, gait, balance, strength, activity tolerance, functional mobility, posture Assessment Current Status: Good Progress PT Short Term Goals Short Term Goals Time Frame: Mar 24, 2019 Roll Left & Right: 6 Sit to lyin Lying to sitting on side of be: 6 Sit to stand: 4 (SBA) Chair/evx-ef-xdhap transfer: 4 (SBA) Toilet transfer: 4 (SBA) Car transfer: 4 (SBA) Walk 10 feet: 4 (SBA) Walk 50 feet with two turns: 4 (SBA) Walking 10ft on uneven surface: 4 (SBA) PT Household Manager Goals Household Manager Goals PT Household Manager Goals Time Frame: Apr 07, 2019 Roll Left & Right (QC): 6 Sit to Lying (QC): 6 Lying-Sitting on Side/Bed(QC): 6 Sit to Stand (QC): 6 Chair/Qwu-rg-Opfnl Xfer(QC): 6 Toilet Transfer (QC): 6 Car Transfer (QC): 6 Does the Patient Walk: Yes Walk 10 feet (QC): 6 Walk 50ft with 2 Turns (QC): 6 Walk 150 ft (QC): 6 Walking 10ft on Uneven Surface: 6 1 Step (curb) (QC): 4 4 Steps (QC): 9 12 Steps (QC): 9 Picking up an Object (QC): 4 Does the Pt use WC or Scooter?: No Type: N/A Type: N/A PT Plan Treatment/Plan Treatment Plan: Continue Plan of Care Treatment Plan: Bed Mobility, Concurrent Therapy, Education, Functional Activity Mary Jane, Functional Strength, Group Therapy, Gait, Safety, Therapeutic Exercise, Transfers Treatment Duration: Apr 07, 2019 Frequency: At least 5 of 7 days/Wk (IRF) Estimated Hrs Per Day: 1.5 hours per day Patient and/or Family Agrees t: Yes Safety Risks/Education Patient Education: Gait Training, Transfer Techniques, Safety Issues Teaching Recipient: Patient Teaching Methods: Demonstration, Discussion Response to Teaching: Verbalize Understanding, Return Demonstration, Reinforcement Needed Time/GCodes Time In: 1015 Time Out: 1039 Total Billed Treatment Time: 24 Total Billed Treatment 1 visit, GT x12, NM x12 JUAN J MEYERS TANK HOUSE OPERATOR Mar 21, 2019 10:38 POS
--- NOTE | 2019-03-21 12:29 | PM&R Progress Note ---
Subjective HPI/CC On Admission Date Seen by Provider: Mar 21, 2019 Time Seen by Provider: 10:30 Subjective/Events-last exam Headache does occur with exertion Bowels moved yesterday Coccyx is red so placing protective patch there Did not sleep well last night Cardiology on board to monitor blood pressure Gout of the left foot is much improved Checked meds and labs Conferred with RN Reviewed therapy notes Review of Systems General: Fatigue Musculoskeletal: foot pain Objective Exam Vital Signs Vital Signs Date Time Temp Pulse Resp B/P (MAP) Pulse Ox O2 Delivery O2 Flow Rate FiO2 03/21/19 09:00 Room Air 03/21/19 07:12 94 03/21/19 06:00 36.6 50 18 124/69 (87) Capillary Refill : General Appearance: No Apparent Distress, WD/WN, Chronically ill HEENT: PERRL/EOMI, Normal ENT Inspection, Pharynx Normal Neck: Full Range of Motion, Normal Inspection, Non Tender, Supple, Carotid Bruit Respiratory: Chest Non Tender, Lungs Clear, Normal Breath Sounds, No Accessory Muscle Use, No Respiratory Distress Cardiovascular: Regular Rate, Rhythm, No Edema, No Gallop, No JVD, No Murmur, Normal Peripheral Pulses Gastrointestinal: Normal Bowel Sounds, No Organomegaly, No Pulsatile Mass, Non Tender, Soft Back: Normal Inspection, No CVA Tenderness, No Vertebral Tenderness Extremity: Normal Capillary Refill, Normal Inspection, Normal Range of Motion, Non Tender, No Calf Tenderness, No Pedal Edema, Other (left foot gouty attack) Neurologic/Psychiatric: Alert, Oriented x3, No Motor/Sensory Deficits (weakness of the legs 4/5 with high fall risk), Normal Mood/Affect, hearing therapy director II-XII Norm as Tested Skin: Normal Color, Warm/Dry Lymphatic: No Adenopathy Results/Procedures Lab Patient resulted labs reviewed. FIM Transfers Therapy Code Descriptions/Definitions Functional [place] Measure: 0=Not Assessed/NA 4=Minimal Assistance 1=Total Assistance 5=Supervision or Setup 2=Maximal Assistance 6=Modified [place] 3=Moderate Assistance 7=Complete IndependenceSCALE: Activities may be completed with or without assistive devices. 6-Hcvtlcycuv-zhrlakd completes the activity by him/herself with no assistance from a helper. 5-Set-up or Clean-up Assistance-helper sets up or cleans up; patient completes activity. [place] assists only prior to or following the activity. 4-Supervision or Touching Assistance-helper provides verbal cues and/or touching/steadying and/or contact guard assistance as patient completes activity. Assistance may be provided throughout the activity or intermittently. 3-Partial/Moderate Assistance-helper does LESS THAN HALF the effort. [place] lifts, holds or supports trunk or limbs, but provides less than half the effort. 2-Substantial/Maximal Assistance-helper does MORE THAN HALF the effort. [place] lifts or holds trunk or limbs and provides more than half the effort. 1-Icgdkzzxk-pcuzdt does ALL the effort. Patient does none of the effort to complete the activity. Or, the assistance of 2 or more helpers is required for the patient to complete the activity. If activity was not attempted, code reason: 7-Patient Refused. 9-Not Applicable-not attempted and the patient did not perform the activity before the current illness, exacerbation or injury. 10-Not Attempted due to Environmental Limitations-(lack of equipment, weather restraints, etc.). 88-Not Attempted due to Medical Conditions or Safety Concerns. Roll Left to Right (QC): 6 Sit to Lying (QC): 6 Sit to Stand (QC): 5 Chair/Rik-yp-Ahxqb Xfer(QC): 6 Car Transfer (QC): 5 Gait Training Does the Patient Walk?: Yes Distance: 160 x2 Walk 10 feet (QC): 4 Walk 50 ft with 2 Turns(QC): 4 Walk 150 ft (QC): 4 Walking 10ft/uneven surface-QC: 4 Gait Persons Needed: 1 Gait Assistive Device: FWW Wheelchair Training Does the Pt Use a Wheelchair?: No Distance: 100' Wheel 50 ft with 2 turns (QC): 5 Wheel 150 ft (QC): 88 Type of Wheelchair: Manual Stair Training Stair Training: Handrails/: 2 handrails #of Steps: 4 1 Step (curb) (QC): 4 4 Steps (QC): 4 12 Steps (QC): 88 Stairs: Pattern: Step to Balance Picking up an Object (QC): 88 ADL-Treatment Eating (QC): 6 Oral Hygiene (QC): 4 Bathing Location: L Arm, R Arm, L Upper Leg, R Upper Leg, L Lower Leg (including foot), R Lower Leg (including foot), Chest, Abdomen, Buttocks, Perineal Area Shower/Bathe Self (QC): 4 Upper Body Dressing (QC): 5 Lower Body Dressing (QC): 4 (Footwear (QC) 6) On/Off Footwear (QC): 2 Toileting Hygiene (QC): 4 Toilet Transfer (QC): 5 Assessment/Plan Assessment and Plan Assess & Plan/Chief Complaint Assessment: Subdural hematoma Falls Weakness of legs Bipolar disorder CHF CAD MELVA Gout left foot Confusion due to Percocet Plan: IRF protocol O2 CPAP Monitor closely DC Percocet Discharge on Saturday (1) Subdural hematoma, post-traumatic Status: Acute (2) Muscular deconditioning Status: Acute (3) Generalized weakness Status: Acute (4) Gout Status: Acute (5) Coronary arteriosclerosis in [place] artery Status: Chronic (6) Obstructive sleep apnea Status: Chronic (7) Renal insufficiency Status: Chronic (8) Diabetes Status: Chronic (9) Bipolar 1 disorder, depressed, full remission Status: Acute HARLEY DOVER DO Mar 21, 2019 12:29 POS
[2019-03-21 16:18] VITALS: BP 106/62
[2019-03-21] MEDS: TAMSULOSIN 0.4 MG (FLOMAX) CAP PO SCH (16:56)
[2019-03-21] MEDS: DIVALPROEX 250 MG DELAYED RELEASE (DEPAKOTE) TAB PO SCH (20:09)
[2019-03-21] MEDS: MONTELUKAST 10 MG (SINGULAIR) TAB PO SCH (20:09)
[2019-03-21] MEDS: meTOproloL SUCCINATE 50 MG (TOPROL XL) TAB PO SCH (20:09)
[2019-03-21] MEDS: MELATONIN 3 MG TABLET PO PRN (23:50)
[2019-03-22] MEDS: LEVOTHYROXINE 88 MCG (LEVOTHORID) TAB PO SCH (05:31)
[2019-03-22] MEDS: MULTIVIT W/MINERALS TAB (THERAGRAN M) PO SCH (05:32)
[2019-03-22] MEDS: FUROSEMIDE 40 MG (LASIX) TAB PO SCH ×2 (05:32→17:03)
[2019-03-22] MEDS: OMEGA 3 (FISH OIL) 1000 MG CAP PO SCH (05:32)
[2019-03-22] MEDS: ACETAMINOPHEN 325 MG TABLET PO PRN ×2 (05:35→11:42)
[2019-03-22 05:50] VITALS: BP 102/59
[2019-03-22] MEDS: RT-ADVAIR HFA 115/21 MCG PER PUFF IH SCH (06:41)
[2019-03-22] MEDS: POLYETHYLENE GLYCOL 17 GM (MIRALAX) PACK PO SCH ×2 (07:43→21:02)
[2019-03-22] MEDS: SENNA W/DOCUSATE (SENOKOT S) TABLET PO SCH ×2 (07:44→21:02)
[2019-03-22] MEDS: VITAMIN D3 1,000 UNITS (CHOLECALCIFEROL) TABLET PO SCH (09:46)
[2019-03-22] MEDS: FLUTICASONE NASAL SPRAY (FLONASE) 16 GM BTL NS SCH (09:46)
[2019-03-22] MEDS: DIVALPROEX 500 MG DELAYED RELEASE (DEPAKOTE) TAB PO SCH (09:47)
[2019-03-22] MEDS: LORATADINE (CLARITIN) 10 MG TAB PO SCH (09:47)
[2019-03-22] MEDS: SPIRONOLACTONE 25 MG (ALDACTONE) TAB PO SCH (10:13)
[2019-03-22] MEDS: AMIODARONE 200 MG (CORDARONE) TAB PO SCH (10:13)
[2019-03-22] MEDS: LOSARTAN 25 MG (COZAAR) TAB PO SCH (10:18)
[2019-03-22] MEDS: DOCUSATE SODIUM 100 MG (COLACE) CAP PO SCH ×2 (10:19→21:02)
--- NOTE | 2019-03-22 10:38 | NUR ---
Dr Vazquez to see patient. Had texted him about pt asymptomatic but lower BP. Physician assessed pt and stated to hold Losartan. Losartan parameters given to hold if below 90/60. Parameters placed in chart/Medication returned. Pt will be monitored.
--- NOTE | 2019-03-22 11:35 | Cardiology Progress Note ---
Cardiology SOAP Progress Note Subjective: No cardiac complaints. Objective: I&O/Vital Signs 03/22/19 03/22/19 05:50 09:00 Temp 36.9 Pulse 54 Resp 16 B/P (MAP) 102/59 (73) Pulse Ox 93 O2 Delivery Room Air Room Air 03/22/19 00:00 Intake Total 960 ml Output Total 3000 ml Balance -2040 ml Weight (Pounds): 227 Weight (Ounces): 0.0 Weight (Calculated Kilograms): 102.949078 Constitutional: AAO x 3 Respiratory: chest is bilaterally symmetric, lungs clear to auscultation Cardiovascular: regular rate-rhythm, S1 and S2 Gastrointestional: soft, audible bowel sounds Extremities: normal range of motion, non-tender, normal inspection, no lower extremity edema bilateral Neurologic/Psychiatric: no motor/sensory deficits, alert, normal mood/affect, oriented x 3 Skin: normal color, warm/dry A/P: Assessment/Dx: Generalized weakness/frequent falls, Subdural hematoma, CAD, CHF, Hypotension. Plan: Decreased blood pressure today. Systolic blood pressure in the 90s. Hold losartan. Continue amiodarone and Aldactone. GEneralized weakness with frequent falls recently, PT/OT to eval. continue inpatient rehabilitation. Subdural hematoma secondary to trauma sustained from a fall on 03/11/19. Dx with subdural hematoma and transferred to [place]. Repeat CT head reveals minimal increase in size of subdural hematoma. Coronary artery disease, history of CABG 3 done in 1995, history of myocardial infarction 1995. Cardiac catheterization showed only 2 bypasses the ALVARADO to the LAD which was patent, the LAD itself is a very small artery with good flow profile the LAD system. The vein graft to the right coronary artery has 80 percent stenosis at the anastomosis point with mismatch in the size of the vein graft and the [place] right coronary artery. The circumflex has mild to moderate disease, the left main coronary artery has 60 percent ostial lesion that is supplying the circumflex artery at this point. In September 2013 he had a cardiac catheterization with stent placement to the left main coronary artery with 3.08 mm Promus Premier stent, a stent to the vein graft to the right coronary artery using 3.020 mm Promus Premier stent without any complication, Stress test was done in January 2018 showing ejection fraction 28 percent dilated left ventricle, total infarction of the whole inferior wall and inferolateral wall. No ischemia was noted Congestive heart failure, history of chronic compensated left ventricular systolic dysfunction, last echocardiogram was done in February 2019 showing ejection fraction 55-60 percent, PA pressure 25 mmHg. Hyperkalemia-improved, continue to monitor. Intolerance to Entresto, had joint pain and muscle pain. Medication stopped previously. History of Ventricular tachycardia, improved after restarting amiodarone and tolerating it well Permanent pacemaker/ICD, has chronic Evera , last interrogation was done on February 20, 2019 showing good sensing and capture activity. No arrhythmia was detected. Continue to monitor Hypertension, restart home blood pressure medication and continue to monitor. Hyperlipidemia, intolerance to statins, welchol, livalo, all causing myalgias and GI upset. couldn't afford Repatha. Continue to monitor as outpatient History of carotid stenosis, mild bilateral nonobstructive disease, last carotid ultrasound was done in February 2019, continue to monitor. Metabolic syndrome, not on any diabetic medicine, history of intolerance to metformin. Patient is doing well with weight loss and exercise. Encouraged to continue. Obesity, BMI is 36, has lost over 70 pounds since his gastric sleeve surgery. Encouraged to continue with diet and exercise Osteoarthritis. Obstructive sleep apnea, intolerant to C Pap machine. Hypothyroidism, monitored and managed by primary care physician. Thank you for your consultation. Please call me if you have any questions. Maki Vazquez MD, FACP, FACC, FSCAI, FHRS, CCDS Interventional Cardiology Cardiac Electrophysiology Vascular Medicine and Endovascular Interventions Ann VAZQUEZ MD Mar 22, 2019 11:35 POS
--- NOTE | 2019-03-22 11:49 | PM&R Progress Note ---
Subjective HPI/CC On Admission Date Seen by Provider: Mar 22, 2019 Time Seen by Provider: 11:45 Subjective/Events-last exam Headache does occur with exertion and I counseled the patient this may occur for weeks Bowels moving Coccyx is red so placing protective patch there which is helping Did not sleep well last night Cardiology on board to monitor blood pressure Gout of the left foot is much improved Updated his partner today Checked meds and labs Conferred with RN Reviewed therapy notes Review of Systems General: Fatigue Objective Exam Vital Signs Vital Signs Date Time Temp Pulse Resp B/P (MAP) Pulse Ox O2 Delivery O2 Flow Rate FiO2 03/22/19 09:00 Room Air 03/22/19 05:50 36.9 54 16 102/59 (73) 93 Capillary Refill : General Appearance: No Apparent Distress, WD/WN, Chronically ill HEENT: PERRL/EOMI, Normal ENT Inspection, Pharynx Normal Neck: Full Range of Motion, Normal Inspection, Non Tender, Supple, Carotid Bruit Respiratory: Chest Non Tender, Lungs Clear, Normal Breath Sounds, No Accessory Muscle Use, No Respiratory Distress Cardiovascular: Regular Rate, Rhythm, No Edema, No Gallop, No JVD, No Murmur, Normal Peripheral Pulses Gastrointestinal: Normal Bowel Sounds, No Organomegaly, No Pulsatile Mass, Non Tender, Soft Back: Normal Inspection, No CVA Tenderness, No Vertebral Tenderness Extremity: Normal Capillary Refill, Normal Inspection, Normal Range of Motion, Non Tender, No Calf Tenderness, No Pedal Edema, Other (left foot gouty attack) Neurologic/Psychiatric: Alert, Oriented x3, No Motor/Sensory Deficits (weakness of the legs 4/5 with high fall risk), Normal Mood/Affect, 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 FIM Transfers Therapy Code Descriptions/Definitions Functional [place] Measure: 0=Not Assessed/NA 4=Minimal Assistance 1=Total Assistance 5=Supervision or Setup 2=Maximal Assistance 6=Modified [place] 3=Moderate Assistance 7=Complete IndependenceSCALE: Activities may be completed with or without assistive devices. 4-Dniizoznbv-gphafze completes the activity by him/herself with no assistance from a helper. 5-Set-up or Clean-up Assistance-helper sets up or cleans up; patient completes activity. [place] assists only prior to or following the activity. 4-Supervision or Touching Assistance-helper provides verbal cues and/or touching/steadying and/or contact guard assistance as patient completes activity. Assistance may be provided throughout the activity or intermittently. 3-Partial/Moderate Assistance-helper does LESS THAN HALF the effort. [place] lifts, holds or supports trunk or limbs, but provides less than half the effort. 2-Substantial/Maximal Assistance-helper does MORE THAN HALF the effort. [place] lifts or holds trunk or limbs and provides more than half the effort. 6-Bygctkaeh-avevvh does ALL the effort. Patient does none of the effort to complete the activity. Or, the assistance of 2 or more helpers is required for the patient to complete the activity. If activity was not attempted, code reason: 7-Patient Refused. 9-Not Applicable-not attempted and the patient did not perform the activity before the current illness, exacerbation or injury. 10-Not Attempted due to Environmental Limitations-(lack of equipment, weather restraints, etc.). 88-Not Attempted due to Medical Conditions or Safety Concerns. Roll Left to Right (QC): 6 Sit to Lying (QC): 6 Sit to Stand (QC): 5 Chair/Cqe-dt-[place] Xfer(QC): 6 Car Transfer (QC): 5 Gait Training Does the Patient Walk?: Yes Distance: 160 x2 Walk 10 feet (QC): 4 Walk 50 ft with 2 Turns(QC): 4 Walk 150 ft (QC): 4 Walking 10ft/uneven surface-QC: 4 Gait Persons Needed: 1 Gait Assistive Device: FWW Wheelchair Training Does the Pt Use a Wheelchair?: No Distance: 100' Wheel 50 ft with 2 turns (QC): 5 Wheel 150 ft (QC): 88 Type of Wheelchair: Manual Stair Training Stair Training: Handrails/: 2 handrails #of Steps: 4 1 Step (curb) (QC): 4 4 Steps (QC): 4 12 Steps (QC): 88 Stairs: Pattern: Step to Balance Picking up an Object (QC): 88 ADL-Treatment Eating (QC): 6 Oral Hygiene (QC): 4 Bathing Location: L Arm, R Arm, L Upper Leg, R Upper Leg, L Lower Leg (including foot), R Lower Leg (including foot), Chest, Abdomen, Buttocks, Perineal Area Shower/Bathe Self (QC): 4 Upper Body Dressing (QC): 5 Lower Body Dressing (QC): 4 (Footwear (QC) 6) On/Off Footwear (QC): 2 Toileting Hygiene (QC): 4 Toilet Transfer (QC): 5 Assessment/Plan Assessment and Plan Assess & Plan/Chief Complaint Assessment: Subdural hematoma Falls Weakness of legs Bipolar disorder CHF CAD MELVA Gout left foot Confusion due to Percocet Plan: IRF protocol O2 CPAP Monitor closely DC Percocet start Hydrocodone Discharge on Saturday (1) Subdural hematoma, post-traumatic Status: Acute (2) Muscular deconditioning Status: Acute (3) Generalized weakness Status: Acute (4) Gout Status: Acute (5) Coronary arteriosclerosis in [place] artery Status: Chronic (6) Obstructive sleep apnea Status: Chronic (7) Renal insufficiency Status: Chronic (8) Diabetes Status: Chronic (9) Bipolar 1 disorder, depressed, full remission Status: Acute HARLEY DOVER DO Mar 22, 2019 11:49 POS
[2019-03-22] MEDS: HYDROcodone/APAP 5 MG/325 MG (LORTAB) TAB PO PRN ×2 (13:07→19:32)
[2019-03-22] MEDS: TAMSULOSIN 0.4 MG (FLOMAX) CAP PO SCH (17:06)
[2019-03-22 17:30] VITALS: BP 127/68
--- NOTE | 2019-03-22 19:13 | NUR ---
bedside report received from CINDY ROD/NEO ROD, assume care of pt
--- NOTE | 2019-03-22 19:32 | NUR ---
c/o headache pain level 8/10 on numeric scale, Lortab 5 1 tab given
--- NOTE | 2019-03-22 20:25 | NUR ---
resting quietly in bed, pain level 0/10 on flacc scale
[2019-03-22] MEDS: meTOproloL SUCCINATE 50 MG (TOPROL XL) TAB PO SCH (20:58)
[2019-03-22] MEDS: DIVALPROEX 250 MG DELAYED RELEASE (DEPAKOTE) TAB PO SCH (20:58)
[2019-03-22] MEDS: MONTELUKAST 10 MG (SINGULAIR) TAB PO SCH (20:58)
--- NOTE | 2019-03-22 21:00 | NUR ---
pt refused miralx, Berhane & Dayanara
[2019-03-23] MEDS: HYDROcodone/APAP 5 MG/325 MG (LORTAB) TAB PO PRN ×4 (01:16→20:23)
--- NOTE | 2019-03-23 01:16 | NUR ---
c/o headache pain level 8/10 on numeric scale, Lortab 5 1 tab given
--- NOTE | 2019-03-23 02:00 | NUR ---
resting quietly in bed pain level 0/10 on flacc scale
[2019-03-23 05:13] LABS: BASOPHILS % (AUTO) 0 % (0-10); EOSINOPHILS # (AUTO) 0.2 10^3/uL (0.0-0.3); EOSINOPHILS % (AUTO) 2 % (0-10); HEMATOCRIT 33 % (40-54); HEMOGLOBIN 11.1 G/DL (13.3-17.7); LYMPHOCYTES # (AUTO) 2.3 X 10^3 (1.0-4.0); LYMPHOCYTES % (AUTO) 27 % (12-44); MEAN CORPUSCULAR HEMOGLOBIN 32 PG (25-34); MEAN CORPUSCULAR HGB CONC 34 G/DL (32-36); MEAN CORPUSCULAR VOLUME 95 FL (80-99); MEAN PLATELET VOLUME 8.4 FL (7.4-10.4); MONOCYTES # (AUTO) 1.2 X 10^3 (0.0-1.0); MONOCYTES % (AUTO) 14 % (0-12); NEUTROPHILS # (AUTO) 4.8 X 10^3 (1.8-7.8); NEUTROPHILS % (AUTO) 57 % (42-75); PLATELET COUNT 197 10^3/uL (130-400); WHITE BLOOD COUNT 8.5 10^3/uL (4.3-11.0)
[2019-03-23 05:39] LABS: ALANINE AMINOTRANSFERASE 9 U/L (0-55); ALBUMIN 3.2 GM/DL (3.2-4.5); ALKALINE PHOSPHATASE 42 U/L (40-136); BILIRUBIN,TOTAL 0.3 MG/DL (0.1-1.0); BUN/CREATININE RATIO 16; CALCIUM 8.2 MG/DL (8.5-10.1); CARBON DIOXIDE 26 MMOL/L (21-32); CHLORIDE 101 MMOL/L (98-107); CREATININE SERUM 0.93 MG/DL (0.60-1.30); GFR ESTIMATED > 60; GLUCOSE 106 MG/DL (70-105); POTASSIUM 3.6 MMOL/L (3.6-5.0); SODIUM 138 MMOL/L (135-145); TOTAL PROTEIN 5.2 GM/DL (6.4-8.2)
[2019-03-23 05:56] VITALS: BP 123/64
[2019-03-23] MEDS: MULTIVIT W/MINERALS TAB (THERAGRAN M) PO SCH (06:59)
[2019-03-23] MEDS: OMEGA 3 (FISH OIL) 1000 MG CAP PO SCH (06:59)
[2019-03-23] MEDS: FUROSEMIDE 40 MG (LASIX) TAB PO SCH ×2 (06:59→17:22)
[2019-03-23] MEDS: LEVOTHYROXINE 88 MCG (LEVOTHORID) TAB PO SCH (06:59)
--- NOTE | 2019-03-23 07:00 | NUR ---
c/o headache pain level 9/10 on numeric scale, Lortab 5 1 tab given
--- NOTE | 2019-03-23 07:20 | NUR ---
bedside report given to MITZI ROD
[2019-03-23 07:55] VITALS: BP 131/71
[2019-03-23] MEDS: AMIODARONE 200 MG (CORDARONE) TAB PO SCH (07:55)
[2019-03-23] MEDS: LOSARTAN 25 MG (COZAAR) TAB PO SCH (07:56)
[2019-03-23] MEDS: SENNA W/DOCUSATE (SENOKOT S) TABLET PO SCH ×2 (07:56→20:29)
[2019-03-23] MEDS: DIVALPROEX 500 MG DELAYED RELEASE (DEPAKOTE) TAB PO SCH (07:56)
[2019-03-23] MEDS: LORATADINE (CLARITIN) 10 MG TAB PO SCH (07:56)
[2019-03-23] MEDS: DOCUSATE SODIUM 100 MG (COLACE) CAP PO SCH ×2 (07:56→20:28)
[2019-03-23] MEDS: VITAMIN D3 1,000 UNITS (CHOLECALCIFEROL) TABLET PO SCH (07:56)
[2019-03-23] MEDS: SPIRONOLACTONE 25 MG (ALDACTONE) TAB PO SCH (07:56)
[2019-03-23] MEDS: FLUTICASONE NASAL SPRAY (FLONASE) 16 GM BTL NS SCH (07:57)
[2019-03-23] MEDS: RT-ADVAIR HFA 115/21 MCG PER PUFF IH SCH (08:37)
--- NOTE | 2019-03-23 09:06 | Physical Therapy Daily Note ---
PT Daily Note-Current Subjective Pt agreeable to PT session. States he might be getting another CT scan. States he talked to the dr about his L earache, L side neck swollen and sore glands. Pain Numeric Pain Scale: 7 Comment: was 9 earler before meds, pain in L side head, ear and neck Appearance Pt sitting up in recliner awake and alert. At end of session, pt sitting up in recliner with LE's elevated, cold wet cloth on forehead for c/o RODRIGUEZ, call light, phone and bedside table within reach. Mental Status Patient Orientation: Person, Place, Time, Eyes Open, Situation, Normal For Age Transfers SCALE: Activities may be completed with or without assistive devices. 5-Eukgyxiipu-pnthsdi completes the activity by him/herself with no assistance from a helper. 5-Set-up or Clean-up Assistance-helper sets up or cleans up; patient completes activity. [place] assists only prior to or following the activity. 4-Supervision or Touching Assistance-helper provides verbal cues and/or touching/steadying and/or contact guard assistance as patient completes activity. Assistance may be provided throughout the activity or intermittently. 3-Partial/Moderate Assistance-helper does LESS THAN HALF the effort. [place] lifts, holds or supports trunk or limbs, but provides less than half the effort. 2-Substantial/Maximal Assistance-helper does MORE THAN HALF the effort. [place] lifts or holds trunk or limbs and provides more than half the effort. 3-Qhkzdwxez-pqsptk does ALL the effort. Patient does none of the effort to complete the activity. Or, the assistance of 2 or more helpers is required for the patient to complete the activity. If activity was not attempted, code reason: 7-Patient Refused. 9-Not Applicable-not attempted and the patient did not perform the activity before the current illness, exacerbation or injury. 10-Not Attempted due to Environmental Limitations-(lack of equipment, weather restraints, etc.). 88-Not Attempted due to Medical Conditions or Safety Concerns. Sit to Stand (QC): 6 Chair/Hxo-ii-Lduei Xfer(QC): 6 Toilet Transfer (QC): 6 Pt demo good safe techniques with all sit to and from stand transfers from multiple surfaces Gait Training Does the Patient Walk?: Yes Distance: 500 x2, 150 Walk 10 feet (QC): 4 Walk 50 ft with 2 Turns(QC): 4 Walk 150 ft (QC): 4 Gait Persons Needed: 1 Gait Assistive Device: FWW skilled inst for posture and staying closer to walker for safety, SBA. GT 150 ft without AD, fair pace, WBOS, CGA, arms out to sides, lateral sway, no LOB Neuromuscular in // bars attempting unilat to no UE support while standing on Airex, heel toe raises x20, marching x30. in // bars stepping over objects attempting unilat to no UE support x30 objects requiring several sitting rest breaks. No UE support weaving around 12 pylons, sit rest then 20 pylons, slight unsteadiness with all activities, grabbing of // bars required at times for slight LOB. Treatments transfers, toileting, gait, safety, education, balance, strength, functional mobility, activity tolerance Assessment Current Status: Good Progress PT Short Term Goals Short Term Goals Time Frame: Mar 24, 2019 Roll Left & Right: 6 Sit to lyin Lying to sitting on side of be: 6 Sit to stand: 4 (SBA) Chair/tpn-hv-dbuxy transfer: 4 (SBA) Toilet transfer: 4 (SBA) Car transfer: 4 (SBA) Walk 10 feet: 4 (SBA) Walk 50 feet with two turns: 4 (SBA) Walking 10ft on uneven surface: 4 (SBA) PT Dementia Program Director Goals Nursing Home Goals PT Nursing Home Goals Time Frame: Apr 07, 2019 Roll Left & Right (QC): 6 Sit to Lying (QC): 6 Lying-Sitting on Side/Bed(QC): 6 Sit to Stand (QC): 6 Chair/Zin-mj-Tajqs Xfer(QC): 6 Toilet Transfer (QC): 6 Car Transfer (QC): 6 Does the Patient Walk: Yes Walk 10 feet (QC): 6 Walk 50ft with 2 Turns (QC): 6 Walk 150 ft (QC): 6 Walking 10ft on Uneven Surface: 6 1 Step (curb) (QC): 4 4 Steps (QC): 9 12 Steps (QC): 9 Picking up an Object (QC): 4 Does the Pt use WC or Scooter?: No Type: N/A Type: N/A PT Plan Treatment/Plan Treatment Plan: Continue Plan of Care Treatment Plan: Bed Mobility, Concurrent Therapy, Education, Functional Activity Mary Jane, Functional Strength, Group Therapy, Gait, Safety, Therapeutic Exercise, Transfers Treatment Duration: Apr 07, 2019 Frequency: At least 5 of 7 days/Wk (IRF) Estimated Hrs Per Day: 1.5 hours per day Patient and/or Family Agrees t: Yes Safety Risks/Education Patient Education: Gait Training, Transfer Techniques, Safety Issues Teaching Recipient: Patient Teaching Methods: Demonstration, Discussion Response to Teaching: Verbalize Understanding, Return Demonstration, Reinforcement Needed (posture and staying closer to walker) Time/GCodes Time In: 900 Time Out: 1000 Total Billed Treatment Time: 60 Total Billed Treatment 1 visit, GT x30 min, NM x30 min JUAN J MEYERS PTA Mar 23, 2019 09:06 POS
[2019-03-23] MEDS: POLYETHYLENE GLYCOL 17 GM (MIRALAX) PACK PO SCH ×2 (09:34→20:28)
--- NOTE | 2019-03-23 09:46 | PM&R Progress Note ---
Subjective HPI/CC On Admission Date Seen by Provider: Mar 23, 2019 Time Seen by Provider: 08:15 Subjective/Events-last exam Headache is a bit more continuous Will reach out to Dr. Arnold Neurosurgeon to see when we do a repeat CT scan Coccyx decubitus ulcer will be monitored closely Hydrocodone helping with the pain Checked meds and labs Conferred with RN Reviewed therapy notes Review of Systems General: Fatigue Neurological: Other (headache) Objective Exam Vital Signs Vital Signs Date Time Temp Pulse Resp B/P (MAP) Pulse Ox O2 Delivery O2 Flow Rate FiO2 03/23/19 16:03 36.6 60 16 119/64 (82) 95 Room Air Capillary Refill : General Appearance: No Apparent Distress, WD/WN, Chronically ill HEENT: PERRL/EOMI, Normal ENT Inspection, Pharynx Normal Neck: Full Range of Motion, Normal Inspection, Non Tender, Supple, Carotid Bruit Respiratory: Chest Non Tender, Lungs Clear, Normal Breath Sounds, No Accessory Muscle Use, No Respiratory Distress Cardiovascular: Regular Rate, Rhythm, No Edema, No Gallop, No JVD, No Murmur, Normal Peripheral Pulses Gastrointestinal: Normal Bowel Sounds, No Organomegaly, No Pulsatile Mass, Non Tender, Soft Back: Normal Inspection, No CVA Tenderness, No Vertebral Tenderness Extremity: Normal Capillary Refill, Normal Inspection, Normal Range of Motion, Non Tender, No Calf Tenderness, No Pedal Edema, Other (left foot gouty attack) Neurologic/Psychiatric: Alert, Oriented x3, No Motor/Sensory Deficits (weakness of the legs 4/5 with high fall risk), Normal 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 FIM Transfers Therapy Code Descriptions/Definitions Functional [place] Measure: 0=Not Assessed/NA 4=Minimal Assistance 1=Total Assistance 5=Supervision or Setup 2=Maximal Assistance 6=Modified [place] 3=Moderate Assistance 7=Complete IndependenceSCALE: Activities may be completed with or without assistive devices. 6-Fggilvreav-btelwak completes the activity by him/herself with no assistance from a helper. 5-Set-up or Clean-up Assistance-helper sets up or cleans up; patient completes activity. [place] assists only prior to or following the activity. 4-Supervision or Touching Assistance-helper provides verbal cues and/or touching/steadying and/or contact guard assistance as patient completes activity. Assistance may be provided throughout the activity or intermittently. 3-Partial/Moderate Assistance-helper does LESS THAN HALF the effort. [place] lifts, holds or supports trunk or limbs, but provides less than half the effort. 2-Substantial/Maximal Assistance-helper does MORE THAN HALF the effort. [place] lifts or holds trunk or limbs and provides more than half the effort. 6-Bzoxeiyqc-isceon does ALL the effort. Patient does none of the effort to complete the activity. Or, the assistance of 2 or more helpers is required for the patient to complete the activity. If activity was not attempted, code reason: 7-Patient Refused. 9-Not Applicable-not attempted and the patient did not perform the activity before the current illness, exacerbation or injury. 10-Not Attempted due to Environmental Limitations-(lack of equipment, weather restraints, etc.). 88-Not Attempted due to Medical Conditions or Safety Concerns. Roll Left to Right (QC): 6 Sit to Lying (QC): 6 Sit to Stand (QC): 5 Chair/Ghy-mr-Zrpcu Xfer(QC): 6 Car Transfer (QC): 5 Gait Training Does the Patient Walk?: Yes Distance: 160 x2 Walk 10 feet (QC): 4 Walk 50 ft with 2 Turns(QC): 4 Walk 150 ft (QC): 4 Walking 10ft/uneven surface-QC: 4 Gait Persons Needed: 1 Gait Assistive Device: FWW Wheelchair Training Does the Pt Use a Wheelchair?: No Distance: 100' Wheel 50 ft with 2 turns (QC): 5 Wheel 150 ft (QC): 88 Type of Wheelchair: Manual Stair Training Stair Training: Handrails/: 2 handrails #of Steps: 4 1 Step (curb) (QC): 4 4 Steps (QC): 4 12 Steps (QC): 88 Stairs: Pattern: Step to Balance Picking up an Object (QC): 88 ADL-Treatment Eating (QC): 6 Oral Hygiene (QC): 4 Bathing Location: L Arm, R Arm, L Upper Leg, R Upper Leg, L Lower Leg (including foot), R Lower Leg (including foot), Chest, Abdomen, Buttocks, Perineal Area Shower/Bathe Self (QC): 4 Upper Body Dressing (QC): 5 Lower Body Dressing (QC): 4 (Footwear (QC) 6) On/Off Footwear (QC): 2 Toileting Hygiene (QC): 4 Toilet Transfer (QC): 5 Assessment/Plan Assessment and Plan Assess & Plan/Chief Complaint Assessment: Subdural hematoma Falls Weakness of legs Bipolar disorder CHF CAD MELVA Gout left foot Confusion due to Percocet Plan: IRF protocol O2 CPAP Monitor closely DC Percocet start Hydrocodone Discharge on Saturday Dr Manuel 04/08/19 repeat scan then (1) Subdural hematoma, post-traumatic Status: Acute (2) Muscular deconditioning Status: Acute (3) Generalized weakness Status: Acute (4) Gout Status: Acute (5) Coronary arteriosclerosis in [place] artery Status: Chronic (6) Obstructive sleep apnea Status: Chronic (7) Renal insufficiency Status: Chronic (8) Diabetes Status: Chronic (9) Bipolar 1 disorder, depressed, full remission Status: Acute HARLEY DOVER DO Mar 23, 2019 09:46 POS
--- NOTE | 2019-03-23 10:01 | Cardiology Progress Note ---
Cardiology SOAP Progress Note Subjective: no cardiac complaints. Objective: I&O/Vital Signs 03/23/19 03/23/19 03/23/19 03/23/19 05:56 07:55 08:37 09:00 Temp 37.2 Pulse 57 55 Resp 18 B/P (MAP) 123/64 (83) 131/71 (91) Pulse Ox 94 96 O2 Delivery Room Air Room Air Room Air 03/23/19 00:00 Intake Total 1120 ml Balance 1120 ml Weight (Pounds): 227 Weight (Ounces): 0.0 Weight (Calculated Kilograms): 102.360670 Constitutional: AAO x 3 Respiratory: chest is bilaterally symmetric, lungs clear to auscultation Cardiovascular: regular rate-rhythm, S1 and S2 Gastrointestional: soft, audible bowel sounds Extremities: normal range of motion, non-tender, normal inspection, no lower extremity edema bilateral Neurologic/Psychiatric: no motor/sensory deficits, alert, normal mood/affect, oriented x 3 Skin: normal color, warm/dry Results/Procedures: Labs Laboratory Tests 03/23/19 05:00: White Blood Count 8.5, Red Blood Count 3.46L, Hemoglobin 11.1L, Hematocrit 33L, Mean Corpuscular Volume 95, Mean Corpuscular Hemoglobin 32, Mean Corpuscular Hemoglobin Concent 34, Red Cell Distribution Width 13.0, Platelet Count 197, Mean Platelet Volume 8.4, Neutrophils (%) (Auto) 57, Lymphocytes (%) (Auto) 27, Monocytes (%) (Auto) 14H, Eosinophils (%) (Auto) 2, Basophils (%) (Auto) 0, Neutrophils # (Auto) 4.8, Lymphocytes # (Auto) 2.3, Monocytes # (Auto) 1.2H, Eosinophils # (Auto) 0.2, Basophils # (Auto) 0.0, Sodium Level 138, Potassium Level 3.6, Chloride Level 101, Carbon Dioxide Level 26, Anion Gap 11, Blood Urea Nitrogen 15, Creatinine 0.93, Estimat Glomerular Filtration Rate > 60, BUN/C reatinine Ratio 16, Glucose Level 106H, Calcium Level 8.2L, Corrected Calcium 8.8, Total Bilirubin 0.3, Aspartate Amino Transf (AST/SGOT) 13, Alanine Aminotransferase (ALT/SGPT) 9, Alkaline Phosphatase 42, Total Protein 5.2L, Albumin 3.2 A/P: Assessment/Dx: Generalized weakness/frequent falls, Subdural hematoma, CAD, CHF, Hypotension. Plan: better blood pressure today. Can restart losartan however at a lower dose. Holding parameters. Continue amiodarone and Aldactone. GEneralized weakness with frequent falls recently, PT/OT to eval. continue inpatient rehabilitation. Subdural hematoma secondary to trauma sustained from a fall on 03/11/19. Dx with subdural hematoma and transferred to [place]. Repeat CT head reveals minimal increase in size of subdural hematoma. Coronary artery disease, history of CABG 3 done in 1995, history of myocardial infarction 1995. Cardiac catheterization showed only 2 bypasses the ALVARADO to the LAD which was patent, the LAD itself is a very small artery with good flow profile the LAD system. The vein graft to the right coronary artery has 80 percent stenosis at the anastomosis point with mismatch in the size of the vein graft and the [place] right coronary artery. The circumflex has mild to moderate disease, the left main coronary artery has 60 percent ostial lesion that is supplying the circumflex artery at this point. In September 2013 he had a cardiac catheterization with stent placement to the left main coronary artery with 3.08 mm Promus Premier stent, a stent to the vein graft to the right coronary artery using 3.020 mm Promus Premier stent without any complication, Stress test was done in January 2018 showing ejection fraction 28 percent dilated left ventricle, total infarction of the whole inferior wall and inferolateral wall. No ischemia was noted Congestive heart failure, history of chronic compensated left ventricular systo lic dysfunction, last echocardiogram was done in February 2019 showing ejection fraction 55-60 percent, PA pressure 25 mmHg. Hyperkalemia-improved, continue to monitor. Intolerance to Entresto, had joint pain and muscle pain. Medication stopped previously. History of Ventricular tachycardia, improved after restarting amiodarone and tolerating it well Permanent pacemaker/ICD, has chronic Evera , last interrogation was done on February 20, 2019 showing good sensing and capture activity. No arrhythmia was detected. Continue to monitor Hypertension, restart home blood pressure medication and continue to monitor. Hyperlipidemia, intolerance to statins, welchol, livalo, all causing myalgias and GI upset. couldn't afford Repatha. Continue to monitor as outpatient History of carotid stenosis, mild bilateral nonobstructive disease, last carotid ultrasound was done in February 2019, continue to monitor. Metabolic syndrome, not on any diabetic medicine, history of intolerance to metformin. Patient is doing well with weight loss and exercise. Encouraged to continue. Obesity, BMI is 36, has lost over 70 pounds since his gastric sleeve surgery. Encouraged to continue with diet and exercise Osteoarthritis. Obstructive sleep apnea, intolerant to C Pap machine. Hypothyroidism, monitored and managed by primary care physician. Thank you for your consultation. Please call me if you have any questions. Maki Vazquez MD, FACP, FACC, FSCAI, FHRS, CCDS Interventional Cardiology Cardiac Electrophysiology Vascular Medicine and Endovascular Interventions Ann VAZQUEZ MD Mar 23, 2019 10:01 POS
--- NOTE | 2019-03-23 11:57 | Occupational Ther Daily Note ---
OT Current Status-Daily Note Subjective Pt alert and willing to participate with OT services. Pt with no complaints of pain. Pt declined participation with ADLs as he stated that he took a sponge bath last night, and has clean clothes already. ADL-Treatment Therapy Code Descriptions/Definitions Functional [place] Measure: 0=Not Assessed/NA 4=Minimal Assistance 1=Total Assistance 5=Supervision or Setup 2=Maximal Assistance 6=Modified [place] 3=Moderate Assistance 7=Complete IndependenceSCALE: Activities may be completed with or without assistive devices. 4-Sgcwfjsaxd-kipznoc completes the activity by him/herself with no assistance from a helper. 5-Set-up or Clean-up Assistance-helper sets up or cleans up; patient completes activity. [place] assists only prior to or following the activity. 4-Supervision or Touching Assistance-helper provides verbal cues and/or touching/steadying and/or contact guard assistance as patient completes activity. Assistance may be provided throughout the activity or intermittently. 3-Partial/Moderate Assistance-helper does LESS THAN HALF the effort. [place] lifts, holds or supports trunk or limbs, but provides less than half the effort. 2-Substantial/Maximal Assistance-helper does MORE THAN HALF the effort. [place] lifts or holds trunk or limbs and provides more than half the effort. 5-Nbrffxyor-jwfuiz does ALL the effort. Patient does none of the effort to complete the activity. Or, the assistance of 2 or more helpers is required for the patient to complete the activity. If activity was not attempted, code reason: 7-Patient Refused. 9-Not Applicable-not attempted and the patient did not perform the activity before the current illness, exacerbation or injury. 10-Not Attempted due to Environmental Limitations-(lack of equipment, weather restraints, etc.). 88-Not Attempted due to Medical Conditions or Safety Concerns. Other Treatment Pt participated in functional mobility through navigating his environment with FWW with verbal cues for upright postural control. Pt participated in BUE ther ex with use of 1# free weight through RUE secondary to history of rotator cuff injury, and 3# free weight through LUE. Pt performed 1x10 reps through gross UE planes of motion, with verbal cues for proper movement patterns and techniques. Pt participated in standing balance therapeutic activities, to address stat ic/dynamic standing balance and functional activity tolerance while participating in standing tasks. Progressed pt to maintaining standing balance on foam pad to increase his challenge as pt plans on discharging to home later this week. Pt able to maintain multiple stands on foam pad for increments of 30 seconds prior to becoming shaky and fatigued. Education OT Patient Education: Exercise program, Purpose of tx/functional activities, Transfer techniques Teaching Recipient: Patient Teaching Methods: Demonstration, Discussion Response to Teaching: Verbalize Understanding, Return Demonstration OT Edge Baster Goals Edge Baster Goals Time Frame: Apr 07, 2019 Eating (QC): 6 Oral Hygiene (QC): 6 Toileting Hygiene (QC): 6 Shower/Bathe Self (QC): 6 Upper Body Dressing (QC): 6 Lower Body Dressing (QC): 6 On/Off Footwear (QC): 6 Additional Goals: 1-Demonstrate ADL Tasks, 2-Verbalize Understanding, 3- ImproveStrength/[place] 1=Demonstrate adherence to instructed precautions during ADL tasks. 2=Patient will verbalize/demonstrate understanding of assistive devices/modifications for ADL. 3=Patient will improve strength/tolerance for activity to enable patient to perform ADL's. OT Education/Plan Discharge Recommendations Plan/Recommendations: Continue POC Treatment Plan/Plan of Care Patient would benefit from OT for education, treatment and training to promote independence in ADL's, mobility, safety and/or upper extremity function for ADL's. Plan of Care: ADL Retraining, Functional Mobility, Group Exercise/Act as Ind, UE Funct Exercise/Act Treatment Duration: Apr 07, 2019 Frequency: At least 5 of 7 days/Wk (IRF) Estimated Hrs Per Day: 1.5 hours per day Rehab Potential: Fair Time/GCodes Start Time: 10:30 Stop Time: 12:00 Total Time Billed (hr/min): 90 Billed Treatment Time 1, FA4, EX2 JASEN MCLEAN OT Mar 23, 2019 11:57 POS
--- NOTE | 2019-03-23 15:29 | Physical Therapy Daily Note ---
PT Daily Note-Current Subjective Agrees. Reports he doesnt feel that good this afternoon. Mental Status Patient Orientation: Person, Place, Time, Situation Transfers SCALE: Activities may be completed with or without assistive devices. 5-Pxduginxjj-appbrlp completes the activity by him/herself with no assistance from a helper. 5-Set-up or Clean-up Assistance-helper sets up or cleans up; patient completes activity. [place] assists only prior to or following the activity. 4-Supervision or Touching Assistance-helper provides verbal cues and/or touching/steadying and/or contact guard assistance as patient completes activity. Assistance may be provided throughout the activity or intermittently. 3-Partial/Moderate Assistance-helper does LESS THAN HALF the effort. [place] lifts, holds or supports trunk or limbs, but provides less than half the effort. 2-Substantial/Maximal Assistance-helper does MORE THAN HALF the effort. [place] lifts or holds trunk or limbs and provides more than half the effort. 3-Dbenscsqh-duzkml does ALL the effort. Patient does none of the effort to complete the activity. Or, the assistance of 2 or more helpers is required for the patient to complete the activity. If activity was not attempted, code reason: 7-Patient Refused. 9-Not Applicable-not attempted and the patient did not perform the activity before the current illness, exacerbation or injury. 10-Not Attempted due to Environmental Limitations-(lack of equipment, weather restraints, etc.). 88-Not Attempted due to Medical Conditions or Safety Concerns. Sit to Stand (QC): 5 Gait Training Walk 150 ft (QC): 5 Gait Assistive Device: FWW Pt ambulated 200 ft x 3 with FWW with set up assist. Exercises NuStep Minutes: 15 (to promote LE strength and functional activity tolerance for mobility) Assessment Current Status: Good Progress Pt making functional progress with gait and mobility. PT Short Term Goals Short Term Goals Time Frame: Mar 24, 2019 Roll Left & Right: 6 Sit to lyin Lying to sitting on side of be: 6 Sit to stand: 4 (SBA) Chair/zcb-lr-gquap transfer: 4 (SBA) Toilet transfer: 4 (SBA) Car transfer: 4 (SBA) Walk 10 feet: 4 (SBA) Walk 50 feet with two turns: 4 (SBA) Walking 10ft on uneven surface: 4 (SBA) PT Mcfp Goals Mcfp Goals PT Mcfp Goals Time Frame: Apr 07, 2019 Roll Left & Right (QC): 6 Sit to Lying (QC): 6 Lying-Sitting on Side/Bed(QC): 6 Sit to Stand (QC): 6 Chair/Pnw-vp-Tizzo Xfer(QC): 6 Toilet Transfer (QC): 6 Car Transfer (QC): 6 Does the Patient Walk: Yes Walk 10 feet (QC): 6 Walk 50ft with 2 Turns (QC): 6 Walk 150 ft (QC): 6 Walking 10ft on Uneven Surface: 6 1 Step (curb) (QC): 4 4 Steps (QC): 9 12 Steps (QC): 9 Picking up an Object (QC): 4 Does the Pt use WC or Scooter?: No Type: N/A Type: N/A PT Plan Problem List Problem List: Activity Tolerance, Functional Strength, Safety, Balance, Gait, Transfer, Bed Mobility Treatment/Plan Treatment Plan: Continue Plan of Care Treatment Plan: Bed Mobility, Concurrent Therapy, Education, Functional Activi ty [place], Functional Strength, Group Therapy, Gait, Safety, Therapeutic Exercise, Transfers Treatment Duration: Apr 07, 2019 Frequency: At least 5 of 7 days/Wk (IRF) Estimated Hrs Per Day: 1.5 hours per day Patient and/or Family Agrees t: Yes Safety Risks/Education Patient Education: Safety Issues Teaching Recipient: Patient Teaching Methods: Discussion Response to Teaching: Verbalize Understanding Time/GCodes Time In: 1353 Time Out: 1425 Total Billed Treatment Time: 33 Total Billed Treatment visit EX 15 GT 18 KEESHA BUSCH PT Mar 23, 2019 15:29 POS
[2019-03-23 16:03] VITALS: BP 119/64
[2019-03-23] MEDS: TAMSULOSIN 0.4 MG (FLOMAX) CAP PO SCH (17:22)
--- NOTE | 2019-03-23 19:11 | NUR ---
bedside report received from MITZI ROD, assume care of pt
[2019-03-23] MEDS: meTOproloL SUCCINATE 50 MG (TOPROL XL) TAB PO SCH (20:22)
[2019-03-23] MEDS: MONTELUKAST 10 MG (SINGULAIR) TAB PO SCH (20:22)
[2019-03-23] MEDS: DIVALPROEX 250 MG DELAYED RELEASE (DEPAKOTE) TAB PO SCH (20:23)
--- NOTE | 2019-03-23 20:23 | NUR ---
c/o headache level 5/10 on numeric scale, Lortab 5 1 tab given, pt refused Colace, miralax & Senokot
[2019-03-23] MEDS: MELATONIN 3 MG TABLET PO PRN (20:28)
--- NOTE | 2019-03-23 21:18 | NUR ---
resting quietly in bed, pain level 0/10 on flacc scale
[2019-03-24 06:09] VITALS: BP 131/62
[2019-03-24] MEDS: HYDROcodone/APAP 5 MG/325 MG (LORTAB) TAB PO PRN ×3 (06:29→20:22)
[2019-03-24] MEDS: MULTIVIT W/MINERALS TAB (THERAGRAN M) PO SCH ×2 (06:29→19:45)
--- NOTE | 2019-03-24 06:29 | NUR ---
c/o headache pain level 9/10 on numeric scale, Lortab 5 1 tab given
[2019-03-24] MEDS: LEVOTHYROXINE 88 MCG (LEVOTHORID) TAB PO SCH ×2 (06:30→19:44)
[2019-03-24] MEDS: OMEGA 3 (FISH OIL) 1000 MG CAP PO SCH ×2 (06:30→19:45)
[2019-03-24] MEDS: FUROSEMIDE 40 MG (LASIX) TAB PO SCH ×3 (06:33→19:45)
--- NOTE | 2019-03-24 07:13 | NUR ---
pain level 3/10 on numeric scale, bedside report given to JUMA ROD
[2019-03-24] MEDS: RT-ADVAIR HFA 115/21 MCG PER PUFF IH SCH (07:54)
--- NOTE | 2019-03-24 09:48 | PM&R Progress Note ---
Subjective HPI/CC On Admission Date Seen by Provider: Mar 24, 2019 Time Seen by Provider: 08:30 Subjective/Events-last exam Headache is a bit more continuous on the left side Dr. Arnold Neurosurgeon will repeat CT scan when he has his appointment on 04/08/19 Coccyx decubitus ulcer will be monitored closely but seems to be healed Hydrocodone helping with the pain so will need that prescription when he goes home Checked meds and labs Conferred with RN Reviewed therapy notes Review of Systems Neurological: Other (headache) Objective Exam Vital Signs Vital Signs Date Time Temp Pulse Resp B/P (MAP) Pulse Ox O2 Delivery O2 Flow Rate FiO2 03/24/19 07:54 Room Air 03/24/19 06:09 36.9 56 16 131/62 (85) 3 Capillary Refill : General Appearance: No Apparent Distress, WD/WN, Chronically ill HEENT: PERRL/EOMI, Normal ENT Inspection, Pharynx Normal Neck: Full Range of Motion, Normal Inspection, Non Tender, Supple, Carotid Bruit Respiratory: Chest Non Tender, Lungs Clear, Normal Breath Sounds, No Accessory Muscle Use, No Respiratory Distress Cardiovascular: Regular Rate, Rhythm, No Edema, No Gallop, No JVD, No Murmur, Normal Peripheral Pulses Gastrointestinal: Normal Bowel Sounds, No Organomegaly, No Pulsatile Mass, Non Tender, Soft Back: Normal Inspection, No CVA Tenderness, No Vertebral Tenderness Extremity: Normal Capillary Refill, Normal Inspection, Normal Range of Motion, Non Tender, No Calf Tenderness, No Pedal Edema, Other (left foot gouty attack) Neurologic/Psychiatric: Alert, Oriented x3, No Motor/Sensory Deficits (weakness of the legs 4/5 with high fall risk), Normal Mood/Affect, supervisor pipeline II-XII Norm as Tested Skin: Normal Color, Warm/Dry Lymphatic: No Adenopathy Results/Procedures Lab Patient resulted labs reviewed. FIM Transfers Therapy Code Descriptions/Definitions Functional [place] Measure: 0=Not Assessed/NA 4=Minimal Assistance 1=Total Assistance 5=Supervision or Setup 2=Maximal Assistance 6=Modified [place] 3=Moderate Assistance 7=Complete IndependenceSCALE: Activities may be completed with or without assistive devices. 7-Mkmseecvrg-sgjtish completes the activity by him/herself with no assistance from a helper. 5-Set-up or Clean-up Assistance-helper sets up or cleans up; patient completes activity. [place] assists only prior to or following the activity. 4-Supervision or Touching Assistance-helper provides verbal cues and/or touching/steadying and/or contact guard assistance as patient completes activity. Assistance may be provided throughout the activity or intermittently. 3-Partial/Moderate Assistance-helper does LESS THAN HALF the effort. [place] lifts, holds or supports trunk or limbs, but provides less than half the effort. 2-Substantial/Maximal Assistance-helper does MORE THAN HALF the effort. [place] lifts or holds trunk or limbs and provides more than half the effort. 2-Qjwewkipj-tkhggo does ALL the effort. Patient does none of the effort to complete the activity. Or, the assistance of 2 or more helpers is required for the patient to complete the activity. If activity was not attempted, code reason: 7-Patient Refused. 9-Not Applicable-not attempted and the patient did not perform the activity before the current illness, exacerbation or injury. 10-Not Attempted due to Environmental Limitations-(lack of equipment, weather restraints, etc.). 88-Not Attempted due to Medical Conditions or Safety Concerns. Roll Left to Right (QC): 6 Sit to Lying (QC): 6 Sit to Stand (QC): 5 Chair/Iqs-re-[place] Xfer(QC): 6 Car Transfer (QC): 5 Gait Training Does the Patient Walk?: Yes Distance: 500 x2, 150 Walk 10 feet (QC): 4 Walk 50 ft with 2 Turns(QC): 4 Walk 150 ft (QC): 5 Walking 10ft/uneven surface-QC: 4 Gait Persons Needed: 1 Gait Assistive Device: FWW Wheelchair Training Does the Pt Use a Wheelchair?: No Distance: 100' Wheel 50 ft with 2 turns (QC): 5 Wheel 150 ft (QC): 88 Type of Wheelchair: Manual Stair Training Stair Training: Handrails/: 2 handrails #of Steps: 4 1 Step (curb) (QC): 4 4 Steps (QC): 4 12 Steps (QC): 88 Stairs: Pattern: Step to Balance Picking up an Object (QC): 88 ADL-Treatment Eating (QC): 6 Oral Hygiene (QC): 4 Bathing Location: L Arm, R Arm, L Upper Leg, R Upper Leg, L Lower Leg (including foot), R Lower Leg (including foot), Chest, Abdomen, Buttocks, Perineal Area Shower/Bathe Self (QC): 4 Upper Body Dressing (QC): 5 Lower Body Dressing (QC): 4 (Footwear (QC) 6) On/Off Footwear (QC): 2 Toileting Hygiene (QC): 4 Toilet Transfer (QC): 5 Assessment/Plan Assessment and Plan Assess & Plan/Chief Complaint Assessment: Subdural hematoma Falls Weakness of legs Bipolar disorder CHF CAD MELVA Gout left foot Confusion due to Percocet Plan: IRF protocol O2 CPAP Monitor closely DC Percocet start Hydrocodone Discharge on Saturday Dr Manuel 04/08/19 repeat scan then (1) Subdural hematoma, post-traumatic Status: Acute (2) Muscular deconditioning Status: Acute (3) Generalized weakness Status: Acute (4) Gout Status: Acute (5) Coronary arteriosclerosis in [place] artery Status: Chronic (6) Obstructive sleep apnea Status: Chronic (7) Renal insufficiency Status: Chronic (8) Diabetes Status: Chronic (9) Bipolar 1 disorder, depressed, full remission Status: Acute HARLEY DOVER DO Mar 24, 2019 09:48 POS
[2019-03-24] MEDS: POLYETHYLENE GLYCOL 17 GM (MIRALAX) PACK PO SCH ×2 (09:51→20:22)
[2019-03-24] MEDS: AMIODARONE 200 MG (CORDARONE) TAB PO SCH (10:00)
[2019-03-24] MEDS: DIVALPROEX 500 MG DELAYED RELEASE (DEPAKOTE) TAB PO SCH (10:00)
[2019-03-24] MEDS: VITAMIN D3 1,000 UNITS (CHOLECALCIFEROL) TABLET PO SCH (10:00)
[2019-03-24] MEDS: SENNA W/DOCUSATE (SENOKOT S) TABLET PO SCH ×2 (10:01→20:21)
[2019-03-24] MEDS: SPIRONOLACTONE 25 MG (ALDACTONE) TAB PO SCH (10:01)
[2019-03-24] MEDS: LORATADINE (CLARITIN) 10 MG TAB PO SCH (10:01)
[2019-03-24] MEDS: DOCUSATE SODIUM 100 MG (COLACE) CAP PO SCH ×2 (10:01→20:21)
[2019-03-24] MEDS: LOSARTAN 25 MG (COZAAR) TAB PO SCH (10:02)
[2019-03-24] MEDS: FLUTICASONE NASAL SPRAY (FLONASE) 16 GM BTL NS SCH (10:04)
[2019-03-24] MEDS ORDERED: ACHD5005 PO (10:40)
--- NOTE | 2019-03-24 10:41 | D/C HH Face to Face Order ---
D/C Face to Face Orders Reconcile Patient Problems Problems Reviewed?: Yes Instructions for Patient Via [facility] [employer], Patient Instructions/FollowUp: Dr. Nelson in one week Dr. Arnold neurosurgery on 04/08/19 Physician to follow Patient: Dr. Reina Nelson Discharge Diet for Home: Cardiac Diet Patient Problems: Subdural hematoma Falls Congestive heart failure Bipolar disorder Patient Data-Allergies,Ht & Wt Patient Allergies: Coded Allergies: Fkwxwdl-Rte-Cng Reductase Inhibitor (Unverified Allergy, Unknown, 10/24/16) niacin (Verified Allergy, Unknown, 05/05/18) sacubitril (Verified Allergy, Unknown, 05/05/18) valsartan (Verified Allergy, Unknown, 05/05/18) Height (Feet): 5 Height (Inches): 6.00 Weight (Pounds): 227 Weight (Ounces): 0.0 Home Health Need/Face to Face Date of Face to Face: Mar 24, 2019 Clinical Findings: Generalized weakness and fatigue, Instability, Muscle weakness, Unsteady gait I have seen Pt wafj-xe-ktjh: Yes Discharged To: Home Diagnosis/Conditions: Subdural hematoma Falls Congestive heart failure Bipolar disorder Patient is Homebound due to: CognItive deficits, Doug fall risk due to instabilty, Muscle weakness Homebound Status Due to the above stated illness, injury or surgical procedure (medical condition or diagnosis) and associated clinical findings, the patient is homebound because of his/her inability to leave home except with aid of a supportive device and/or person AND leaving the home requires a considerable and taxing effort or is medically contraindicated. Pt req the following assistanc: Walker Home Health Nursing Orders Home Health Services Order: Nursing Services, Making Machine Operator-Evaluate & Treat, Physical Therapy-Evaluate & Treat Certify Stmt I certify that this patient is under my care and that I, a nurse practitioner or a physician; a assistant teaching professor working with me, had a face to face encounter that - meets the physician face to face encounter requirements with this patient as dated. REINA NELSON DO Mar 24, 2019 10:41 POS
--- NOTE | 2019-03-24 10:47 | Cardiology Progress Note ---
Cardiology SOAP Progress Note Subjective: No cardiac complaints. Objective: I&O/Vital Signs 03/24/19 03/24/19 03/24/19 04:37 06:09 07:54 Temp 36.9 Pulse 56 Resp 16 B/P (MAP) 131/62 (85) Pulse Ox 3 O2 Delivery Room Air Room Air Room Air 03/24/19 00:00 Intake Total 400 ml Balance 400 ml Weight (Pounds): 227 Weight (Ounces): 0.0 Weight (Calculated Kilograms): 102.229070 Constitutional: AAO x 3 Respiratory: chest is bilaterally symmetric, lungs clear to auscultation Cardiovascular: regular rate-rhythm, S1 and S2 Gastrointestional: soft, audible bowel sounds Extremities: normal range of motion, non-tender, normal inspection, no lower extremity edema bilateral Neurologic/Psychiatric: no motor/sensory deficits, alert, normal mood/affect, oriented x 3 Skin: normal color, warm/dry A/P: Assessment/Dx: Generalized weakness/frequent falls, Subdural hematoma, CAD, CHF, Hypotension. Plan: better blood pressure today. Can restart losartan however at a lower dose i.e. Losartan 25mg daily. Holding parameters. Continue amiodarone and Aldactone. GEneralized weakness with frequent falls recently, PT/OT to eval. continue inpatient rehabilitation. Subdural hematoma secondary to trauma sustained from a fall on 03/11/19. Dx with subdural hematoma and transferred to [place]. Repeat CT head reveals minimal increase in size of subdural hematoma. Coronary artery disease, history of CABG 3 done in 1995, history of myocardial infarction 1995. Cardiac catheterization showed only 2 bypasses the ALVARADO to the LAD which was patent, the LAD itself is a very small artery with good flow profile the LAD system. The vein graft to the right coronary artery has 80 percent stenosis at the anastomosis point with mismatch in the size of the vein graft and the craig right coronary artery. The circumflex has mild to moderate disease, the left main coronary artery has 60 percent ostial lesion that is supplying the circumflex artery at this point. In September 2013 he had a cardiac catheterization with stent placement to the left main coronary artery with 3.08 mm Promus Premier stent, a stent to the vein graft to the right coronary artery using 3.020 mm Promus Premier stent without any complication, Stress test was done in January 2018 showing ejection fraction 28 percent dilated left ventricle, total infarction of the whole inferior wall and inferolateral wall. No ischemia was noted Congestive heart failure, history of chronic compensated left ventricular systolic dysfunction, last echocardiogram was done in February 2019 showing ejection fraction 55-60 percent, PA pressure 25 mmHg. Hyperkalemia-improved, continue to monitor. Intolerance to Entresto, had joint pain and muscle pain. Medication stopped previously. History of Ventricular tachycardia, improved after restarting amiodarone and tolerating it well Permanent pacemaker/ICD, has chronic Evera , last interrogation was done on February 20, 2019 showing good sensing and capture activity. No arrhythmia was detected. Continue to monitor Hypertension, restart home blood pressure medication and continue to monitor. Hyperlipidemia, intolerance to statins, welchol, livalo, all causing myalgias and GI upset. couldn't afford Repatha. Continue to monitor as outpatient History of carotid stenosis, mild bilateral nonobstructive disease, last carotid ultrasound was done in February 2019, continue to monitor. Metabolic syndrome, not on any diabetic medicine, history of intolerance to metformin. Patient is doing well with weight loss and exercise. Encouraged to continue. Obesity, BMI is 36, has lost over 70 pounds since his gastric sleeve surgery. Encouraged to continue with diet and exercise Osteoarthritis. Obstructive sleep apnea, intolerant to C Pap machine. Hypothyroidism, monitored and managed by primary care physician. Thank you for your consultation. Please call me if you have any questions. Maki Vazquez MD, FACP, FACC, FSCAI, FHRS, CCDS Interventional Cardiology Cardiac Electrophysiology Vascular Medicine and Endovascular Interventions Ann VAZQUEZ MD Mar 24, 2019 10:47 POS
--- NOTE | 2019-03-24 11:04 | Occupational Ther Daily Note ---
OT Current Status-Daily Note Subjective Pt sitting in chair, agrees to treatment. Pt reports headache, but doesn't rate. States he's already had pain medication. ADL-Treatment Pt sit to stand without assist. Gait to restroom with FWW. Pt had already gathered clothing and placed in restroom. Toilet transfer and toileting complet ed without assist. Pt doffed clothing independently. Transfer to walk in shower using grab bar for safety. Pt completed bathing tasks without assist using hand held shower. Don pullover shirt independently. Pt donned shorts without assist. Stood with good balance during pant hike. Don socks without assist. Pt stood at sink to brush teeth independently. Therapy Code Descriptions/Definitions Functional [place] Measure: 0=Not Assessed/NA 4=Minimal Assistance 1=Total Assistance 5=Supervision or Setup 2=Maximal Assistance 6=Modified [place] 3=Moderate Assistance 7=Complete IndependenceSCALE: Activities may be completed with or without assistive devices. 0-Ailslupuzv-pwwuphx completes the activity by him/herself with no assistance from a helper. 5-Set-up or Clean-up Assistance-helper sets up or cleans up; patient completes activity. [place] assists only prior to or following the activity. 4-Supervision or Touching Assistance-helper provides verbal cues and/or touching/steadying and/or contact guard assistance as patient completes activity. Assistance may be provided throughout the activity or intermittently. 3-Partial/Moderate Assistance-helper does LESS THAN HALF the effort. [place] lifts, holds or supports trunk or limbs, but provides less than half the effort. 2-Substantial/Maximal Assistance-helper does MORE THAN HALF the effort. [place] lifts or holds trunk or limbs and provides more than half the effort. 4-Ptcjinoyx-gememd does ALL the effort. Patient does none of the effort to complete the activity. Or, the assistance of 2 or more helpers is required for the patient to complete the activity. If activity was not attempted, code reason: 7-Patient Refused. 9-Not Applicable-not attempted and the patient did not perform the activity before the current illness, exacerbation or injury. 10-Not Attempted due to Environmental Limitations-(lack of equipment, weather restraints, etc.). 88-Not Attempted due to Medical Conditions or Safety Concerns. Eating (QC): 6 (by report) Oral Hygiene (QC): 6 Shower/Bathe Self (QC): 6 Upper Body Dressing (QC): 6 Lower Body Dressing (QC): 6 Toileting Hygiene (QC): 6 Toilet Transfer (QC): 6 Other Treatment Gait to therapy gym with FWW, no LOB noted. Arm bike x12 minutes to increase overall strength and activity tolerance needed for functional task completion. Pt completed task with moderate resistance and steady pace. No rest breaks needed. Pt performed resistance peg activity with bilateral UE with 1# weights in place to increase strength and coordination skills. Occasional rest breaks taken during activity. Pt completed putty activity with bilateral hands to increase strength and coordination/manipulation skills. Pt able to remove small beads from medium resistance putty with increased time. Pt returned to room, sitting in chair with needs met after session. OT [place] Goals Assisted Goals Time Frame: Apr 07, 2019 Eating (QC): 6 (met 03/24/19) Oral Hygiene (QC): 6 (met 03/24/19) Toileting Hygiene (QC): 6 (met 03/24/19) Shower/Bathe Self (QC): 6 (met 03/24/19) Upper Body Dressing (QC): 6 (met 03/24/19) Lower Body Dressing (QC): 6 (mt 03/24/19) On/Off Footwear (QC): 6 (met 03/24/19) Additional Goals: 1-Demonstrate ADL Tasks, 2-Verbalize Understanding, 3- ImproveStrength/[place] 1=Demonstrate adherence to instructed precautions during ADL tasks. 2=Patient will verbalize/demonstrate understanding of assistive devices/modifications for ADL. 3=Patient will improve strength/tolerance for activity to enable patient to perform ADL's. OT Education/Plan Discharge Recommendations Plan/Recommendations: Continue POC Treatment Plan/Plan of Care Patient would benefit from OT for education, treatment and training to promote independence in ADL's, mobility, safety and/or upper extremity function for ADL's. Plan of Care: ADL Retraining, Functional Mobility, Group Exercise/Act as Ind, UE Funct Exercise/Act Treatment Duration: Apr 07, 2019 Frequency: At least 5 of 7 days/Wk (IRF) Estimated Hrs Per Day: 1.5 hours per day Rehab Potential: Fair Time/GCodes Start Time: 08:00 Stop Time: 09:30 Total Time Billed (hr/min): 90 Billed Treatment Time 1 visit, ADLx3(45minutes), EXx3(45minutes) CRUZITO BARTON OT Mar 24, 2019 11:04 POS
--- NOTE | 2019-03-24 13:07 | NUR ---
"RD ASSESSMENT PMHx: CAD; CHF; HTN; HLD PT INTERACTION: Pt was awake and pleasant during nutrition follow-up. Pt states eating well since last assessment. Note pt avg PO intake of >75% x5d, per chart review. Pt states no recent issues with n/v/c/d since last assessment. Note last BM was 03/22 and pt currently on bowel regimen of miralax BID; senna BID; colace BID; and bisacodyl PRN, per chart review. Note pt has coccyx decubius ulcer, per chart review. ABNORMAL NUTRITION-RELATED LAB VALUES LOW: Ca 8.2; Pro 5.2 HIGH: glu 106 Est. kcal needs: 8561-6520 kcal | 15-20 kcal/kg Est. Pro needs: 121-142 g Pro | 1.2-1.4 g Pro/kg PES STATEMENT: Inadequate protein intake ([id number]) related to increased protein needs as evidenced by wounds (coccyx decubitus ulcer) INTERVENTION: Continue with current diet order of Regular diet. Add Ensure HP (vary) to meals TID. Provides 160 kcal and 16 g Pro per serving for perceived benefit to wound healing. Will continue to follow and reassess as pt needs and status change. MONITOR/EVALUATE: PO Intake; Plan of Care; Hydration Status; Weight Status; Lab Values Emily Mcintosh MS, RD, LD"
--- NOTE | 2019-03-24 13:20 | Physical Therapy Daily Note ---
PT Daily Note-Current Subjective Pt agreeable to PT session. States he is really looking forward to going home tomorrow. States he knows he is safer walking with a walker and will continue doing so at home. Pain Numeric Pain Scale: 8 Location Body Site: Head Comment: with shooting pains througout tx session Appearance Pt sitting up in recliner awake and alert upon arrival. At end of session, pt sitting up in recliner with call light, phone and bedside table within reach. Mental Status Patient Orientation: Person, Place, Time, Eyes Open, Situation, Normal For Age Transfers SCALE: Activities may be completed with or without assistive devices. 1-Ushfujlqvn-rnetwsw completes the activity by him/herself with no assistance from a helper. 5-Set-up or Clean-up Assistance-helper sets up or cleans up; patient completes activity. [place] assists only prior to or following the activity. 4-Supervision or Touching Assistance-helper provides verbal cues and/or touching/steadying and/or contact guard assistance as patient completes activity. Assistance may be provided throughout the activity or intermittently. 3-Partial/Moderate Assistance-helper does LESS THAN HALF the effort. [place] lifts, holds or supports trunk or limbs, but provides less than half the effort. 2-Substantial/Maximal Assistance-helper does MORE THAN HALF the effort. [place] lifts or holds trunk or limbs and provides more than half the effort. 8-Lqpeyrbwg-cacspj does ALL the effort. Patient does none of the effort to complete the activity. Or, the assistance of 2 or more helpers is required for the patient to complete the activity. If activity was not attempted, code reason: 7-Patient Refused. 9-Not Applicable-not attempted and the patient did not perform the activity before the current illness, exacerbation or injury. 10-Not Attempted due to Environmental Limitations-(lack of equipment, weather restraints, etc.). 88-Not Attempted due to Medical Conditions or Safety Concerns. Roll Left & Right (QC): 6 Sit to Lying (QC): 6 Lying to Sitting/Side of Bed(Q: 6 Sit to Stand (QC): 6 Chair/Kho-oj-Xmfau Xfer(QC): 6 Toilet Transfer (QC): 6 Car Transfer (QC): 6 pt demonstrating good safe techniques with all transitions with little effort required Gait Training Does the Patient Walk?: Yes Distance: >400 x2 Walk 50 ft with 2 Turns(QC): 6 Walk 150 ft (QC): 6 Walking 10ft/uneven surface-QC: 6 Gait Assistive Device: FWW fair pace and step length and height, no LOB or unsteadiness, does require rest breaks due to stabbing pains in head/eye from head injury, fwd flexed trunk and occasionally having walker too far fwd but able to self correct Wheelchair Training Does the Pt Use a Wheelchair?: No Stair Training Stair Training: Handrails/: 2 handrails #of Steps: 16 1 Step (curb) (QC): 6 4 Steps (QC): 6 12 Steps (QC): 6 Stairs: Pattern: Step to pt performing step over step and step to gait pattern on stairs, mod fatigue, no LOB Balance Picking up an Object (QC): 6 (No LOB) Exercises Standing: Braiding, Heel/toe raises, 3 way Ex=Flex, Abd, Ext, Marching, Mini squats, Retro gait, Sit to Stand, Side steps, Stepping over objects Standing Reps: 20 Treatments education, safety, transfers, gait on even and uneven surfaces, strength, balance, stairs, curb, activity tolerance, bed mobility, functional mobility, Assessment Current Status: Good Progress PT Short Term Goals Short Term Goals Time Frame: Mar 24, 2019 Roll Left & Right: 6 Sit to lyin Lying to sitting on side of be: 6 Sit to stand: 4 (SBA) Chair/btg-gb-qzelw transfer: 4 (SBA) Toilet transfer: 4 (SBA) Car transfer: 4 (SBA) Walk 10 feet: 4 (SBA) Walk 50 feet with two turns: 4 (SBA) Walking 10ft on uneven surface: 4 (SBA) PT Fdc Goals Fdc Goals PT Grinding Operator Goals Time Frame: Apr 07, 2019 Roll Left & Right (QC): 6 Sit to Lying (QC): 6 Lying-Sitting on Side/Bed(QC): 6 Sit to Stand (QC): 6 Chair/Qwh-bg-Gvknu Xfer(QC): 6 Toilet Transfer (QC): 6 Car Transfer (QC): 6 Does the Patient Walk: Yes Walk 10 feet (QC): 6 Walk 50ft with 2 Turns (QC): 6 Walk 150 ft (QC): 6 Walking 10ft on Uneven Surface: 6 1 Step (curb) (QC): 4 4 Steps (QC): 9 12 Steps (QC): 9 Picking up an Object (QC): 4 Does the Pt use WC or Scooter?: No Type: N/A Type: N/A PT Plan Treatment/Plan Treatment Plan: Continue Plan of Care Treatment Plan: Bed Mobility, Concurrent Therapy, Education, Functional Activity [place], Functional Strength, Group Therapy, Gait, Safety, Therapeutic Exercise, Transfers Treatment Duration: Apr 07, 2019 Frequency: At least 5 of 7 days/Wk (IRF) Estimated Hrs Per Day: 1.5 hours per day Patient and/or Family Agrees t: Yes Safety Risks/Education Patient Education: Gait Training, Transfer Techniques, Steps, Safety Issues Teaching Recipient: Patient Teaching Methods: Discussion Response to Teaching: Verbalize Understanding Discharge Recommendations Therapy Discharge Recommendati: Home & Family Time/GCodes Time In: 1000 Time Out: 1100 Total Billed Treatment Time: 60 Total Billed Treatment 1 visit, GT x30 min, FA x15 min, EX x15 min JUAN J MEYERS PATIENT SUPPORT SPECIALIST Mar 24, 2019 13:20 POS
--- NOTE | 2019-03-24 14:20 | Physical Therapy Daily Note ---
PT Daily Note-Current Subjective Pt agreeable to PT session, although having increased shooting pain in head, states nsg is aware and has had a pain pill Pain Numeric Pain Scale: 8 (shooting pain in head and throbbing) Appearance Pt sitting up in recliner with eyes closed upon arrival, easily aroused. At end of session, pt sitting up in recliner with call light, phone and bedside table within reach, present in room. Mental Status Patient Orientation: Person, Place, Time, Eyes Open, Situation, Normal For Age Transfers SCALE: Activities may be completed with or without assistive devices. 0-Ashpxeftxb-jtnwffa completes the activity by him/herself with no assistance from a helper. 5-Set-up or Clean-up Assistance-helper sets up or cleans up; patient completes activity. [place] assists only prior to or following the activity. 4-Supervision or Touching Assistance-helper provides verbal cues and/or touching/steadying and/or contact guard assistance as patient completes activity. Assistance may be provided throughout the activity or intermittently. 3-Partial/Moderate Assistance-helper does LESS THAN HALF the effort. [place] lifts, holds or supports trunk or limbs, but provides less than half the effort. 2-Substantial/Maximal Assistance-helper does MORE THAN HALF the effort. [place] lifts or holds trunk or limbs and provides more than half the effort. 9-Kugmfnblj-tfgxvp does ALL the effort. Patient does none of the effort to complete the activity. Or, the assistance of 2 or more helpers is required for the patient to complete the activity. If activity was not attempted, code reason: 7-Patient Refused. 9-Not Applicable-not attempted and the patient did not perform the activity before the current illness, exacerbation or injury. 10-Not Attempted due to Environmental Limitations-(lack of equipment, weather restraints, etc.). 88-Not Attempted due to Medical Conditions or Safety Concerns. Sit to Stand (QC): 6 Gait Training Does the Patient Walk?: Yes Distance: 150 x2 Walk 10 feet (QC): 6 Walk 50 ft with 2 Turns(QC): 6 Walk 150 ft (QC): 6 Gait Assistive Device: FWW attempted gait training with quad cane pt's brought in, not enough support and pt too unsteady to be safe with it at this time Wheelchair Training Does the Pt Use a Wheelchair?: No Exercises NuStep Minutes: 15 NuStep Workload: 5 Treatments education, safety, balance, transfers, gait, posture, activity tolerance, functional mobility Assessment Current Status: Good Progress PT Short Term Goals Short Term Goals Time Frame: Mar 24, 2019 Roll Left & Right: 6 Sit to lyin Lying to sitting on side of be: 6 Sit to stand: 4 (SBA) Chair/zjm-gx-mfwye transfer: 4 (SBA) Toilet transfer: 4 (SBA) Car transfer: 4 (SBA) Walk 10 feet: 4 (SBA) Walk 50 feet with two turns: 4 (SBA) Walking 10ft on uneven surface: 4 (SBA) PT Retirement Goals Content Producer Goals PT Retirement Goals Time Frame: Apr 07, 2019 Roll Left & Right (QC): 6 Sit to Lying (QC): 6 Lying-Sitting on Side/Bed(QC): 6 Sit to Stand (QC): 6 Chair/Rpq-qc-Tllvo Xfer(QC): 6 Toilet Transfer (QC): 6 Car Transfer (QC): 6 Does the Patient Walk: Yes Walk 10 feet (QC): 6 Walk 50ft with 2 Turns (QC): 6 Walk 150 ft (QC): 6 Walking 10ft on Uneven Surface: 6 1 Step (curb) (QC): 4 4 Steps (QC): 9 12 Steps (QC): 9 Picking up an Object (QC): 4 Does the Pt use WC or Scooter?: No Type: N/A Type: N/A PT Plan Treatment/Plan Treatment Plan: Continue Plan of Care Treatment Plan: Bed Mobility, Concurrent Therapy, Education, Functional Activity [place], Functional Strength, Group Therapy, Gait, Safety, Therapeutic Exercise, Transfers Treatment Duration: Apr 07, 2019 Frequency: At least 5 of 7 days/Wk (IRF) Estimated Hrs Per Day: 1.5 hours per day Patient and/or Family Agrees t: Yes Safety Risks/Education Patient Education: Gait Training, Transfer Techniques, Issued Written HEP, Safety Issues Teaching Methods: Discussion Response to Teaching: Verbalize Understanding Time/GCodes Time In: 1400 Time Out: 1430 Total Billed Treatment Time: 30 Total Billed Treatment 1 visit, GT x15 min, EX x15 min JUAN J MEYERS TRIM OPERATOR Mar 24, 2019 14:20 POS
--- NOTE | 2019-03-24 16:05 | NUR ---
Continued planning for tentative discharge tomorrow. IMM2 presented, signed, charted. Patient has been preparing for discharge with ARU team and voices no intention to appeal. HHC: Coordinated with [facility], agency confirmed they will initiate services with patient. Will forward final orders when received. Discussed with patient and his spouse Melissa Bustos, preferred provider could not staff for next 10 days. Reviewed alternate agencies in service area, patient asked for [facility] and then [facility]. DME: No new DME indicated at this time. Patient has been participating in therapy with FWW and cane and reportedly sometimes without DME assist. He has been consistent that he wants to use his 4WW at home that he is used to. Spouse indicates she has shower chair. Discharge planning complete unless situation changes to warrant updates.
--- NOTE | 2019-03-24 16:11 | Diagnostic Imaging Report ---
EXAMINATION: CT head without contrast. TECHNIQUE: Multiple contiguous axial images were obtained through the brain without the use of intravenous contrast. All CT scans use one or more of the following dose optimizing techniques: automated exposure control, MA and/or KvP adjustment based on a patient size and exam type, or iterative reconstruction. HISTORY: Subdural hematoma. COMPARISON: 03/16/2019. FINDINGS: There is decreased attenuation of the left-sided subdural hematoma. The thickness of the hematoma has increased. It now measures up to 8 mm in thickness along the left cerebral convexity, at the same location on the prior exam it was approximately 3 mm. The hematoma is partially redistributed and is decreased in attenuation. There is one focus of high attenuation posteriorly, which may represent evolving hemorrhage or new hemorrhage. There is mass effect on the left cerebral hemisphere with mild effacement of the sulci. The degree of mass effect has mildly increased from the prior exam. No significant midline shift. Basilar cisterns are patent. Ventricles are normal in size and configuration. The orbits are normal. Paranasal sinuses are normal. Mastoid air cells are clear. No soft tissue abnormality is seen. No osseous lesions or fractures are seen. IMPRESSION: 1. Decrease in attenuation but increase in size of left cerebral convexity subdural hematoma with a focus of increased attenuation posteriorly, which may represent a new area of hemorrhage. The degree of mass effect on the left cerebral hemisphere has mildly increased. Dictated by: Dictated on workstation # [id number]
[2019-03-24 16:15] VITALS: BP 135/76
[2019-03-24] MEDS: TAMSULOSIN 0.4 MG (FLOMAX) CAP PO SCH (17:57)
[2019-03-24] MEDS: DIVALPROEX 250 MG DELAYED RELEASE (DEPAKOTE) TAB PO SCH (20:20)
[2019-03-24] MEDS: meTOproloL SUCCINATE 50 MG (TOPROL XL) TAB PO SCH (20:21)
[2019-03-24] MEDS: MONTELUKAST 10 MG (SINGULAIR) TAB PO SCH (20:21)
[2019-03-25 05:18] VITALS: BP 114/65
[2019-03-25] MEDS: RT-ADVAIR HFA 115/21 MCG PER PUFF IH SCH (07:16)
--- NOTE | 2019-03-25 08:33 | Discharge Summary ---
Diagnosis/Chief Complaint Date of Admission Mar 17, 2019 at 11:10 Date of Discharge Discharge Date: Mar 25, 2019 Discharge Diagnosis Assessment: Subdural hematoma Falls Weakness of legs Bipolar disorder CHF CAD MELVA Gout left foot Confusion due to Percocet Plan: IRF protocol O2 CPAP Monitor closely DC Percocet start Hydrocodone Discharge on Saturday Dr Manuel 04/08/19 repeat scan then (1) Subdural hematoma, post-traumatic Status: Acute (2) Muscular deconditioning Status: Acute (3) Generalized weakness Status: Acute (4) Gout Status: Acute (5) Coronary arteriosclerosis in [place] artery Status: Chronic (6) Obstructive sleep apnea Status: Chronic (7) Renal insufficiency Status: Chronic (8) Diabetes Status: Chronic (9) Bipolar 1 disorder, depressed, full remission Status: Acute Discharge Summary Discharge Physical Examination Allergies: Coded Allergies: Lmcejdr-Hmt-Dak Reductase Inhibitor (Unverified Allergy, Unknown, 10/24/16) niacin (Verified Allergy, Unknown, 05/05/18) sacubitril (Verified Allergy, Unknown, 05/05/18) valsartan (Verified Allergy, Unknown, 05/05/18) Vitals & I&Os Vital Signs Date Time Temp Pulse Resp B/P (MAP) Pulse Ox O2 Delivery O2 Flow Rate FiO2 03/25/19 09:25 155/65 03/25/19 07:39 Room Air 03/25/19 07:17 93 03/25/19 05:18 36.7 59 16 General Appearance: Alert, Oriented X3, Cooperative Respiratory: Clear to Auscultation Cardiovascular: Regular Rate Neuro: Normal Gait, Normal Speech, Strength at 5/5 X4 Ext Psych/Mental Status: Mental Status NL Hospital Course Was the Problem List Reviewed?: Yes Hospital course: Pt had an uneventful 8 day hospital course after he was admitted after observation following a fall. He was deemed stable for inpatient rehab following a subdural hematoma and he participated in all therapies. Bowels returned back to normal and overall had no significant decline in status although headache actually did increase prompting CT scan which showed no evidence of any rebleed but the evolution of the subdural after speaking with Dr. Wilkins Neurosurgery at [place], he was deemed in need for [place] [facility]. He was transferred to [facility], discharged from the unit and will be on standby. incase he needs us after the [place] surgery is completed. Labs (last 24 hrs) Laboratory Tests 03/18/19 04:40: White Blood Count 7.1, Red Blood Count 3.35L, Hemoglobin 10.9L, Hematocrit 32L, Mean Corpuscular Volume 94, Mean Corpuscular Hemoglobin 33, Mean Corpuscular He moglobin Concent 35, Red Cell Distribution Width 12.8, Platelet Count 174, Mean Platelet Volume 8.5, Neutrophils (%) (Auto) 54, Lymphocytes (%) (Auto) 31, Monocytes (%) (Auto) 15H, Eosinophils (%) (Auto) 0, Basophils (%) (Auto) 0, Neut rophils # (Auto) 3.9, Lymphocytes # (Auto) 2.2, Monocytes # (Auto) 1.1H, Eosinophils # (Auto) 0.0, Basophils # (Auto) 0.0, Sodium Level 138, Potassium Level 4.2, Chloride Level 103, Carbon Dioxide Level 25, Anion Gap 10, Blood Urea Nitrogen 16, Creatinine 0.98, Estimat Glomerular Filtration Rate > 60, BUN/Creatinine Ratio 16, Glucose Level 114H, Calcium Level 8.3L, Corrected Calcium 8.9, Total Bilirubin 0.3, Aspartate Amino Transf (AST/SGOT) 15, Alanine Aminotransferase (ALT/SGPT) 8, Alkaline Phosphatase 42, Total Protein 5.4L, Albumin 3.3 03/23/19 05:00: White Blood Count 8.5, Red Blood Count 3.46L, Hemoglobin 11.1L, Hematocrit 33L, Mean Corpuscular Volume 95, Mean Corpuscular Hemoglobin 32, Mean Corpuscular Hemoglobin Concent 34, Red Cell Distribution Width 13.0, Platelet Count 197, Mean Platelet Volume 8.4, Neutrophils (%) (Auto) 57, Lymphocytes (%) (Auto) 27, Monocytes (%) (Auto) 14H, Eosinophils (%) (Auto) 2, Basophils (%) (Auto) 0, Neutrophils # (Auto) 4.8, Lymphocytes # (Auto) 2.3, Monocytes # (Auto) 1.2H, Eosinophils # (Auto) 0.2, Basophils # (Auto) 0.0, Sodium Level 138, Potassium Level 3.6, Chloride Level 101, Carbon Dioxide Level 26, Anion Gap 11, Blood Urea Nitrogen 15, Creatinine 0.93, Estimat Glomerular Filtration Rate > 60, BUN/Creatinine Ratio 16, Glucose Level 106H, Calcium Level 8.2L, Corrected Calcium 8.8, Total Bilirubin 0.3, Aspartate Amino Transf (AST/SGOT) 13, Alanine Aminotransferase (ALT/SGPT) 9, Alkaline Phosphatase 42, Total Protein 5.2L, Albumin 3.2 Pending Labs Laboratory Tests 03/18/19 04:40: White Blood Count 7.1, Red Blood Count 3.35, Hemoglobin 10.9, Hematocrit 32, Mean Corpuscular Volume 94, Mean Corpuscular Hemoglobin 33, Mean Corpuscular Hemoglobin Concent 35, Red Cell Distribution Width 12.8, Platelet Count 174, Mean Platelet Volume 8.5, Neutrophils (%) (Auto) 54, Lymphocytes (%) (Auto) 31, Monocytes (%) (Auto) 15, Eosinophils (%) (Auto) 0, Basophils (%) (Auto) 0, Neutrophils # (Auto) 3.9, Lymphocytes # (Auto) 2.2, Monocytes # (Auto) 1.1, Eosinophils # (Auto) 0.0, Basophils # (Auto) 0.0, Sodium Level 138, Potassium Level 4.2, Chloride Level 103, Carbon Dioxide Level 25, Anion Gap 10, Blood Urea Nitrogen 16, Creatinine 0.98, Estimat Glomerular Filtration Rate > 60, BU N/Creatinine Ratio 16, Glucose Level 114, Calcium Level 8.3, Corrected Calcium 8.9, Total Bilirubin 0.3, Aspartate Amino Transf (AST/SGOT) 15, Alanine Aminotransferase (ALT/SGPT) 8, Alkaline Phosphatase 42, Total Protein 5.4, Albumin 3.3 03/23/19 05:00: White Blood Count 8.5, Red Blood Count 3.46, Hemoglobin 11.1, Hematocrit 33, Mean Corpuscular Volume 95, Mean Corpuscular Hemoglobin 32, Mean Corpuscular Hemoglobin Concent 34, Red Cell Distribution Width 13.0, Platelet Count 197, Mean Platelet Volume 8.4, Neutrophils (%) (Auto) 57, Lymphocytes (%) (Auto) 27, Monocytes (%) (Auto) 14, Eosinophils (%) (Auto) 2, Basophils (%) (Auto) 0, Neutrophils # (Auto) 4.8, Lymphocytes # (Auto) 2.3, Monocytes # (Auto) 1.2, Eosinophils # (Auto) 0.2, Basophils # (Auto) 0.0, Sodium Level 138, Potassium Level 3.6, Chloride Level 101, Carbon Dioxide Level 26, Anion Gap 11, Blood Urea Nitrogen 15, Creatinine 0.93, Estimat Glomerular Filtration Rate > 60, BUN/Creatinine Ratio 16, Glucose Level 106, Calcium Level 8.2, Corrected Calcium 8.8, Total Bilirubin 0.3, Aspartate Amino Transf (AST/SGOT) 13, Alanine Aminotransferase (ALT/SGPT) 9, Alkaline Phosphatase 42, Total Protein 5.2, Albumin 3.2 Discharge Home Medications: Active Scripts Active Hydrocodone/Acetaminophen 5/325mg Tablet (Acetaminophen/Hydrocodone Bitart) 1 Tab Tab 1 Tab PO Q6HR PRN Reported Plavix (Clopidogrel Bisulfate) 75 Mg Tablet 75 Mg PO DAILY Furosemide 40 Mg Tablet 40 Mg PO DAILY PRN Tylenol Arthritis (Acetaminophen) 650 Mg Tablet.er 650 Mg PO Q4H PRN Colace (Docusate Sodium) 100 Mg Capsule 100 Mg PO BID [Terpenicol Solution] TOP DAILY PRN Metoprolol Succinate 50 Mg Tab.er.24h 50 Mg PO HS Advair 250-50 Diskus (Fluticasone/Salmeterol) 1 Each Blst.w.dev 1 Puff IH DAILY Loratadine 10 Mg Tablet 10 Mg PO DAILY Divalproex Sodium 250 Mg Tablet.dr 1,000 Mg PO HS TAKES 4 (250MG) TABLETS Losartan Potassium 25 Mg Tablet 25 Mg PO DAILY Aspirin EC (Aspirin) 81 Mg Tablet.dr 81 Mg PO DAILY Depakote (Divalproex Sodium) 250 Mg Tablet.dr 500 Mg PO DAILY TAKES 2 (250MG) TABLETS Milton-3 1,050 mg Softgel (Milton-3/Dha/Epa/Dpa/Fish Oil) 1 Each Capsule 1 Cap PO DAILY Ventolin Hfa (Albuterol Sulfate) 1 Puff Puff 2 Puff INH Q4H PRN Singulair (Montelukast Sodium) 10 Mg Tablet 10 Mg PO HS Amiodarone HCl 200 Mg Tablet 100 Mg PO DAILY TAKES 1/2 (200MG) TABLET Fluticasone Propionate 16 Gm Ellery.susp 1 Ellery NS DAILY Levothyroxine Sodium 88 Mcg Tablet 88 Mcg PO DAILY Vitamin D3 (Cholecalciferol (Vitamin D3)) 1,000 Unit Tablet 1,000 Unit PO DAILY Alfuzosin HCl ER (Alfuzosin HCl) 10 Mg Tab.er.24h 10 Mg PO HS Ibuprofen 600 Mg Tablet 600 Mg PO BID PRN Spironolactone 25 Mg Tablet 25 Mg PO DAILY Klor-Con M20 (Potassium Chloride) 20 Meq Tab.er.prt 20 Meq PO BID Centrum Silver Tablet (Multivit-Min/FA/Lycopene/Lut) 1 Each Tablet 1 Tab PO DAILY Furosemide 40 Mg Tablet 40 Mg PO BID Instructions to patient/family Please see electronic discharge instructions given to patient. Diagnosis/Problems Diagnosis/Problems (1) Subdural hematoma, post-traumatic Status: Acute (2) Muscular deconditioning Status: Acute (3) Generalized weakness Status: Acute (4) Gout Status: Acute (5) Coronary arteriosclerosis in [place] artery Status: Chronic (6) Obstructive sleep apnea Status: Chronic (7) Renal insufficiency Status: Chronic (8) Diabetes Status: Chronic (9) Bipolar 1 disorder, depressed, full remission Status: Acute Clinical Quality Measures DVT/VTE Risk/Contraindication: Risk Factor Score Per Nursin RFS Level Per Nursing on Admit: 2=Moderate Contraindications-Pharm: Other *list below* Other: subdural hematoma HARLEY DOVER DO Mar 25, 2019 08:32 POS
[2019-03-25] MEDS: SPIRONOLACTONE 25 MG (ALDACTONE) TAB PO SCH (09:00)
[2019-03-25] MEDS: LORATADINE (CLARITIN) 10 MG TAB PO SCH (09:00)
[2019-03-25] MEDS: DIVALPROEX 500 MG DELAYED RELEASE (DEPAKOTE) TAB PO SCH (09:00)
[2019-03-25] MEDS: AMIODARONE 200 MG (CORDARONE) TAB PO SCH (09:00)
[2019-03-25] MEDS: FLUTICASONE NASAL SPRAY (FLONASE) 16 GM BTL NS SCH (09:00)
[2019-03-25] MEDS: LOSARTAN 25 MG (COZAAR) TAB PO SCH (09:00)
[2019-03-25] MEDS: VITAMIN D3 1,000 UNITS (CHOLECALCIFEROL) TABLET PO SCH (09:00)
[2019-03-25] MEDS: SENNA W/DOCUSATE (SENOKOT S) TABLET PO SCH (09:00)
[2019-03-25] MEDS: POLYETHYLENE GLYCOL 17 GM (MIRALAX) PACK PO SCH (09:00)
[2019-03-25] MEDS: DOCUSATE SODIUM 100 MG (COLACE) CAP PO SCH (09:00)
--- NOTE | 2019-03-25 09:12 | NUR ---
Change in discharge plan. Patient will leave ARU for newly planned admission to [facility] for Neurology and procedure. Spouse Melissa will transport. Patient may be referred back to ARU, to be determined by [facility] specialist and care team. HHC: Updated [facility] that patient would not be discharged home and that HHC would be suspended at this time. Followup next week with update as appropriate.
--- NOTE | 2019-03-25 09:21 | Therapy Team Discharge Summary ---
Therapy Discharge Summary Discharge Recommendations Date of Discharge 03/25/19 Physical Therapy This patient was admitted from observation acute after recent discharge from [facility] (due to a subdural hematoma) that was not successful; he was unable to transfer at home and experienced a fall. Prior to his acute hospital stay at [facility], he was mod indep with all mobility and self care. Upon admission to this unit, he required min assist with transfers; CGA with gait and only walking 40 ft with FWW and unsafe/unable to attempt stairs. Treatment has consisted of functional strength, balance, safety and activity tolerance training to promote mod indep mobility to allow him to return home. At last visit, he was mod indep with transfers, gait with FWW and stairs. He has made excellent progress and has met goals. He is to discharge to [facility] this date for medical managment post subdural hematoma. Will DC from ARU at this time. Occupational Therapy Decreased Activ Tolerance, Decreased Safety Aware, Decreased UE Strength, Impaired Coordination, Impaired Funct Balance, Impaired Self-Care Skills PT Uncrater Goals Intermediate Goals PT Uncrater Goals Time Frame: Apr 07, 2019 Roll Left to Right (QC): 6 (met) Sit to Lying (QC): 6 (met) Lying-Sitting on Side/Bed(QC): 6 (met) Sit to Stand (QC): 6 Chair/Jgm-jr-Frawf Xfer(QC): 6 (met) Car Transfer (QC): 6 (met) Does the Patient Walk: Yes Walk 10 feet (QC): 6 (met) Walk 10ft-Uneven Surface(QC): 6 (met) Walk 50ft with 2 Turns (QC): 6 (met) Walk 150 ft (QC): 6 (met) Does the Pt use WC or Scooter?: No 1 Step (curb) (QC): 4 (exceeded) 4 Steps (QC): 9 12 Steps (QC): 9 Picking up an Object (QC): 4 (exceeded) all goals met or exceeded OT Uncrater Goals Intermediate Goals Time Frame: Apr 07, 2019 Eating (QC): 6 (met 03/24/19) Oral Hygiene (QC): 6 (met 03/24/19) Shower/Bathe Self (QC): 6 (met 03/24/19) Upper Body Dressing (QC): 6 (met 03/24/19) Lower Body Dressing (QC): 6 (mt 03/24/19) On/Off Footwear (QC): 6 (met 03/24/19) Toileting Hygiene (QC): 6 (met 03/24/19) Toilet/Commode Transfer (QC): 6 Additional Goals: 1-Demonstrate ADL Tasks, 2-Verbalize Understanding, 3- ImproveStrength/Mary Jane 1=Demonstrate adherence to instructed precautions during ADL tasks. 2=Patient will verbalize/demonstrate understanding of assistive devices/modifications for ADL. 3=Patient will improve strength/tolerance for activity to enable patient to perform ADL's. KEESHA BUSCH PT Mar 25, 2019 09:21 POS
[2019-03-25 09:25] VITALS: BP 155/65
--- NOTE | 2019-03-25 09:43 | Therapy Team Discharge Summary ---
Therapy Discharge Summary Discharge Recommendations Date of Discharge Occupational Therapy Pt admitted to ARU following acute hospitalization for SDH. On admission pt required min assist with UE/LE dressing and bathing, and CGA with transfer and toileting. Skilled OT intervention focused on ADL training, transfers, strengthening, and safety education. Pt made good progress with therapy and by discharge is completing basic ADLs and transfers with modified independence. Pt has met OT LTG. Pt is being discharged this date to [facility] for continued care related to SDH. Decreased Activ Tolerance, Decreased Safety Aware, Decreased UE Strength, Impaired Coordination, Impaired Funct Balance, Impaired Self-Care Skills PT Alf Goals Alf Goals PT Alf Goals Time Frame: Apr 07, 2019 Roll Left to Right (QC): 6 (met) Sit to Lying (QC): 6 (met) Lying-Sitting on Side/Bed(QC): 6 (met) Sit to Stand (QC): 6 Chair/Khk-ec-Grwbc Xfer(QC): 6 (met) Car Transfer (QC): 6 (met) Does the Patient Walk: Yes Walk 10 feet (QC): 6 (met) Walk 10ft-Uneven Surface(QC): 6 (met) Walk 50ft with 2 Turns (QC): 6 (met) Walk 150 ft (QC): 6 (met) Does the Pt use WC or Scooter?: No 1 Step (curb) (QC): 4 (exceeded) 4 Steps (QC): 9 12 Steps (QC): 9 Picking up an Object (QC): 4 (exceeded) OT Registered Pharmacy Technician Goals Alf Goals Time Frame: Apr 07, 2019 Eating (QC): 6 (met 03/24/19) Oral Hygiene (QC): 6 (met 03/24/19) Shower/Bathe Self (QC): 6 (met 03/24/19) Upper Body Dressing (QC): 6 (met 03/24/19) Lower Body Dressing (QC): 6 (mt 03/24/19) On/Off Footwear (QC): 6 (met 03/24/19) Toileting Hygiene (QC): 6 (met 03/24/19) Toilet/Commode Transfer (QC): 6 Additional Goals: 1-Demonstrate ADL Tasks, 2-Verbalize Understanding, 3-I mproveStrength/Mary Jane 1=Demonstrate adherence to instructed precautions during ADL tasks. 2=Patient will verbalize/demonstrate understanding of assistive devices/modifications for ADL. 3=Patient will improve strength/tolerance for activity to enable patient to perform ADL's. CRUZITO BARTON OT Mar 25, 2019 09:43 POS
== END 2019-03-25 09:25 | disposition short-term general hospital (02) | DRG 949 ==
PROVIDERS: ADMIT Internal Medicine; ATTEND Internal Medicine
DX: S06.5X9D Traumatic subdural hemorrhage with loss of consciousness of unspecified duration, subsequent encounter (principal); R29.898 Other symptoms and signs involving the musculoskeletal system; R53.1 Weakness; M10.9 Gout, unspecified; I25.10 Atherosclerotic heart disease of native coronary artery without angina pectoris; G47.33 Obstructive sleep apnea (adult) (pediatric); I13.0 Hypertensive heart and chronic kidney disease with heart failure and stage 1 through stage 4 chronic kidney disease, or unspecified chronic kidney disease; I50.22 Chronic systolic (congestive) heart failure; N18.9 Chronic kidney disease, unspecified; E11.40 Type 2 diabetes mellitus with diabetic neuropathy, unspecified; I48.91 Unspecified atrial fibrillation; E78.5 Hyperlipidemia, unspecified; Q24.8 Other specified congenital malformations of heart; K57.90 Diverticulosis of intestine, part unspecified, without perforation or abscess without bleeding; M19.91 Primary osteoarthritis, unspecified site; E03.9 Hypothyroidism, unspecified; H54.3 Unqualified visual loss, both eyes; F41.9 Anxiety disorder, unspecified; F31.76 Bipolar disorder, in full remission, most recent episode depressed; R41.0 Disorientation, unspecified; T40.2X5A Adverse effect of other opioids, initial encounter; E87.5 Hyperkalemia; I65.23 Occlusion and stenosis of bilateral carotid arteries; E88.81 Metabolic syndrome and other insulin resistance; E66.9 Obesity, unspecified; I25.2 Old myocardial infarction; Z87.891 Personal history of nicotine dependence; Z95.5 Presence of coronary angioplasty implant and graft; Z95.810 Presence of automatic (implantable) cardiac defibrillator; Z95.1 Presence of aortocoronary bypass graft
CPT/HCPCS: 36415; 70450; 80053; 85025; 94640; 94760

== ENCOUNTER 2019-03-30 12:49 | Inpatient (IN) | payer MEDICARE ==
[~2019-03-30] VITALS: Ht 170.2 cm; Wt 106.2 kg
[~2019-03-30 12:49] MED LIST changes: -ALFU10TA11 PO; +ALFU10TA12 PO; -METO-370 PO; +METO50TA7 PO
[2019-03-30] MEDS ORDERED: BISACODYL 10 MG SUPP (DULCOLAX) PR PRN (13:15)
[2019-03-30] MEDS ORDERED: ONDANSETRON 4 MG (ZOFRAN) ORAL DISSOLVE TAB PO PRN (13:15)
[2019-03-30] MEDS ORDERED: DOCUSATE SODIUM 100 MG (COLACE) CAP PO PRN (13:15)
[2019-03-30] MEDS ORDERED: LACTULOSE SYRUP 10GM/15ML (ENULOSE) 30ML UDC PO PRN (13:15)
[2019-03-30] MEDS ORDERED: diphenhydrAMINE 25 MG TAB (BENADRYL) PO PRN (13:15)
[2019-03-30] MEDS ORDERED: LOPERAMIDE 2 MG (IMODIUM) TABLET PO PRN (13:15)
[2019-03-30] MEDS ORDERED: ALPRAZolam 0.25 MG (XANAX) TAB PO PRN (13:15)
[2019-03-30] MEDS ORDERED: FLEET ENEMA ADULT 1 EA BTL PR PRN (13:15)
[2019-03-30] MEDS ORDERED: ACETAMINOPHEN 500 MG TAB (TYLENOL) PO PRN (13:15)
[2019-03-30] MEDS ORDERED: CALCIUM CARBONATE 500 MG (TUMS) TAB.CHEW PO PRN (13:15)
[2019-03-30] MEDS ORDERED: HYDROcodone/APAP 5 MG/325 MG (LORTAB) TAB PO PRN (13:15)
[2019-03-30] MEDS ORDERED: MELATONIN 3 MG TABLET PO PRN (13:15)
[2019-03-30 14:20] VITALS: BP 126/70
[2019-03-30] MEDS ORDERED: COLC0.6T56 PO (15:18)
[2019-03-30] MEDS ORDERED: HYDR-3812 PO (15:18)
--- NOTE | 2019-03-30 15:20 | NUR ---
UPDATED MED REC WITH LIST OF MEDS FROM [facility]. THE DISCHARGE HAD NO ACTION TAKEN ON THE MEDICATIONS. IT IS SIMPLY A LIST OF MEDS THAT STATES TO DISCUSS THEM WITH PCP. PATIENT HAD BEEN AT [facility] RIGHT BEFORE BEING ADMITTED HERE LAST TIME AND SEVERAL THINGS WERE DIFFERENT ON HIS DISCHARGE MED LIST. I WILL UPDATE THE MED REC BACK TO THAT LIST I WENT OVER WITH THE PATIENT AT ADMISSION LAST VISIT AT A LATER DATE FOR PROPER DISCHARGE TO HOME ORDERS. SEE NOTES ON PREVIOUS ADMISSION FOR MORE DETAILS. Addendum: 03/31/19 at [facility] by DANIE MONTANA [facility] UPDATED MED REC BACK TO THE LIST OF MEDICATIONS THE PATIENT REPORTED TAKING UPON ADMISSION 03-17-19 SO ALL THE CHANGES CAN BE ADDRESSED AT DISCHARGE TO HOME- SEE DETAILED NOTE FROM THAT VISIT ON THAT DATE FOR MORE DETAILS.
--- NOTE | 2019-03-30 15:47 | Physical Therapy Evaluation ---
PT Evaluation-General Medical Diagnosis Admission Date 03/30/2019 Medical Diagnosis: debility Onset Date: Mar 30, 2019 Therapy Diagnosis Therapy Diagnosis: impaired gait, gen weakness, imbalance, decreased activity cayden. Height/Weight Height (Feet): 5 Height (Inches): 6.00 Weight (Pounds): 227 Weight (Ounces): 0.0 Precautions Precautions/Isolations: Fall Prevention, Standard Precautions Referral Physician: Omar Reason for Referral: Evaluation/Treatment Medical History Pertinent Medical History: Atrial Fib, CABG, CAD, Heart Failure, HTN, Hypothro idism, Neuropathy, OA Current History Patient is a 73 y/o male with history of CAD, CHF, HTN, VT. sustained a fall on March 01, 2019, diagnosed with subdural hematoma. Pt was treated at [facility], discharged home where he was not successful so was admitted to this rehab unit. He discharged from this unit as there was slight increase in size and hematoma and patient subsequently was transferred back to [place] where he underwent shane hole procedure 2. He is now back in inpatient rehabilitation facility for generalized debility and weakness. Reviewed History: Yes Social History Home: Single Level Current Living Status: Spouse Entry Into Home: Stairs With Railing Prior Prior Level of Function SCALE: Activities may be completed with or without assistive devices. 1-Fdtlqqnddx-dxkwqsi completes the activity by him/herself with no assistance from a helper. 5-Set-up or Clean-up Assistance-helper sets up or cleans up; patient completes activity. [place] assists only prior to or following the activity. 4-Supervision or Touching Assistance-helper provides verbal cues and/or touching/steadying and/or contact guard assistance as patient completes activity. Assistance may be provided throughout the activity or intermittently. 3-Partial/Moderate Assistance-helper does LESS THAN HALF the effort. [place] lifts, holds or supports trunk or limbs, but provides less than half the effort. 2-Substantial/Maximal Assistance-helper does MORE THAN HALF the effort. [place] lifts or holds trunk or limbs and provides more than half the effort. 5-Nyvdgthdq-nxoazk does ALL the effort. Patient does none of the effort to complete the activity. Or, the assistance of 2 or more helpers is required for the patient to complete the activity. If activity was not attempted, code reason: 7-Patient Refused. 9-Not Applicable-not attempted and the patient did not perform the activity before the current illness, exacerbation or injury. 10-Not Attempted due to Environmental Limitations-(lack of equipment, weather restraints, etc.). 88-Not Attempted due to Medical Conditions or Safety Concerns. Bed Mobility: 6 Transfers (B,C,W/C): 6 Gait: 6 Stairs: 6 Indoor Mobility (Ambulation): Independent Stairs: Independent PT Evaluation-Current Subjective Pt received by car from therapy agrees to start therapy. This will be a co-tx with OT secondary to pt requiring the skill of 2 trained therapists to coordinate UE & LE for functional activities as well as for coordinating balance for functional activities. Pt in bed post-tx with call light, room phone, tray table in reach and all needs met at this time. Pt/Family Goals Pt's goal is to go home and be indep Objective Patient Orientation: Person, Place, Time, Situation ROM/Strength ROM Lower Extremities WFL Strength Lower Extremities B/L LE grossly 4+/5 Integumentary/Posture Integumentary see nursing notes Bowel Incontinence: No Bladder Incontinence: No Sensory Vision: Functional Hearing: Hearing Aid/Aides (does not wear) Sensation Right Lower Extremit: Intact Sensation Left Lower Extremity: Intact Transfers Roll Left to Right (QC): 6 Sit to Lying (QC): 4 (SBA) Lying to Sitting/Side of Bed(Q: 4 (SBA) Sit to Stand (QC): 4 (SBA) Chair/Hlx-gd-Ymwhp Xfer(QC): 4 (SBA) Car Transfer (QC): 4 (CGA) pt is SBA for all bed mobility and transfers from chair to chair and into/out of bed. Pt is CGA for toilet transfers Gait Does the Patient Walk?: Yes Mode of Locomotion: Walk Anticipated Mode of Locomotion: Walk Walk 10 feet (QC): 4 (CGA) Walk 50 ft with 2 Turns(QC): 4 (CGA) Walk 150 ft (QC): 4 (CGA) Walking 10ft/uneven surface-QC: 4 (CGA) Distance: 200'X2, 100' Gait Assistive Device: FWW Comments/Gait Description pt walks with the walker very far in front of himself and requires multiple cues to stay inside of the walker. Pt had to get to the bathroom quickly toward the end of the session and was hurrying and became unsafe letting go of the walker. Wheelchair Training Does the Pt Use a Wheelchair?: No Wheel 50 ft with 2 turns (QC): 9 Wheel 150 ft (QC): 9 Type of Wheelchair: Manual Stairs 1 Step (curb) (QC): 4 (CGA) 4 Steps (QC): 88 12 Steps (QC): 88 Walking Assistive Device: Walker Balance Sitting Static: Normal Sitting Dynamic: Good Standing Static: Fair Standing Dynamic: Poor Picking up an Object (QC): 88 Treatment PT assisted pt with balance while OT performed ADL and high level balance training. OT assisted pt with balance while PT performed transfers, ambulation, and high level balance training. PT assisted with LE placement and coordination while OT assisted with UE placement and coordination during transfers and ambulation training. pt performed transfer training, bed mobility training, step training, balance training, skilled ambulation training education, and functional LE strengthening (hip flexion, heel raises, 5 min kicking activity, hip abd/add) Assessment/Needs pt is motivated to work with therapy. pt fatigues quickly with high level balance training. Pt can be impulsive and unsafe at time when he gets into a hurry. Pt has incident this date where he must get to the rest room quickly and becomes unsafe. Rehab Potential: Good PT Short Term Goals Short Term Goals Time Frame: Apr 06, 2019 Chair/dez-sp-coliy transfer: 4 (sba) Toilet transfer: 4 (sba) Walk 10 feet: 5 Walk 50 feet with two turns: 5 Walk 150 feet: 5 1 step (curb): 4 (sba) 4 steps: 4 (sba) PT Used Car Lot Attendant Goals Used Car Lot Attendant Goals PT Chcf Goals Time Frame: Apr 27, 2019 Roll Left & Right (QC): 6 Sit to Lying (QC): 6 Lying-Sitting on Side/Bed(QC): 6 Sit to Stand (QC): 6 Chair/Bum-wm-Dqrzm Xfer(QC): 6 Toilet Transfer (QC): 6 Car Transfer (QC): 6 Does the Patient Walk: Yes Walk 10 feet (QC): 6 Walk 50ft with 2 Turns (QC): 6 Walk 150 ft (QC): 6 Walking 10ft on Uneven Surface: 6 1 Step (curb) (QC): 6 4 Steps (QC): 6 12 Steps (QC): 4 (sba) Picking up an Object (QC): 4 (sba) Does the Pt use WC or Scooter?: No Type: N/A Type: N/A PT Plan Problem List Problem List: Activity Tolerance, Functional Strength, Safety, Balance, Gait, Transfer, Bed Mobility, ROM Treatment/Plan Treatment Plan: Continue Plan of Care Treatment Plan: Bed Mobility, Concurrent Therapy, Education, Functional Activi ty Mary Jane, Functional Strength, Group Therapy, Gait, Safety, Therapeutic Exercise, Transfers Treatment Duration: Apr 27, 2019 Frequency: At least 5 of 7 days/Wk (IRF) Estimated Hrs Per Day: 1.5 hours per day Patient and/or Family Agrees t: Yes Safety Risks/Education Patient Education: Gait Training, Transfer Techniques, Steps, Correct Positioning, Safety Issues Teaching Recipient: Patient Teaching Methods: Demonstration, Discussion Response to Teaching: Return Demonstration, Reinforcement Needed Discharge Recommendations Therapy Discharge Recommendati: Home & Family Time/GCodes Time In: 1420 Time Out: 1600 Total Billed Treatment Time: 90 Total Billed Treatment OT eval [id number] PT eval [id number] Co-TX PT and OT [id number] 1 visit EVM 10' FA 3 40' GT (1) 20' EX (1) 20' KEESHA BUSCH PT Mar 30, 2019 15:47 POS
--- NOTE | 2019-03-30 15:47 | Occupational Therapy Eval ---
OT Evaluation-General/PLF Medical Diagnosis Admission Date Medical Diagnosis: Subdural Hematoma, bur hole procedure Onset Date: Mar 30, 2019 Therapy Diagnosis Therapy Diagnosis: Decreased ADL function and functional mobilty Height/Weight Height (Feet): 5 Height (Inches): 6.00 Weight (Pounds): 227 Weight (Ounces): 0.0 Precautions Precautions/Isolations: Standard Precautions Weight Bear Status Weight Bearing Restriction: Weight Bearing/Tolerated WBAT bilaterally Referral Physician: Omar Referral Reason: Activity Tolerance, Self Care, Evaluation/Treatment, Strengthening/ROM Medical History Pertinent Medical History: Atrial Fib, CABG, CAD, Heart Failure, HTN, Hypothroidism, Neuropathy, OA Additional Medical History a fib, CABG, CAD, HTN, hypothyroidism, neuropathy, OA, hyperlipidemia, sleep apnea, GERD, bipolar disorder, bilateral TKA Current History Bur hole procedure completed after scan showed increased hematoma site. Reviewed History: Yes Social History Home: Single Level Current Living Status: Spouse Entry Into Home: Stairs With Railing, Level Entry Steps Into Home: 0 Steps Inside Home: 0 ADL-Prior Level of Function SCALE: Activities may be completed with or without assistive devices. 9-Dyzwfoyowz-oqcnmvs completes the activity by him/herself with no assistance from a helper. 5-Set-up or Clean-up Assistance-helper sets up or cleans up; patient completes activity. [place] assists only prior to or following the activity. 4-Supervision or Touching Assistance-helper provides verbal cues and/or touching/steadying and/or contact guard assistance as patient completes activity. Assistance may be provided throughout the activity or intermittently. 3-Partial/Moderate Assistance-helper does LESS THAN HALF the effort. [place] lifts, holds or supports trunk or limbs, but provides less than half the effort. 2-Substantial/Maximal Assistance-helper does MORE THAN HALF the effort. [place] lifts or holds trunk or limbs and provides more than half the effort. 1-Qpermlcft-lxesuh does ALL the effort. Patient does none of the effort to complete the activity. Or, the assistance of 2 or more helpers is required for the patient to complete the activity. If activity was not attempted, code reason: 7-Patient Refused. 9-Not Applicable-not attempted and the patient did not perform the activity before the current illness, exacerbation or injury. 10-Not Attempted due to Environmental Limitations-(lack of equipment, weather restraints, etc.). 88-Not Attempted due to Medical Conditions or Safety Concerns. ADL PLOF Comments Pt was IND in self care tasks prior to admission. Self Care: Independent Functional Cognition: Independent DME/Equipment: Grab Bars, Tub/Shower DME/Equipment Comments grab bars, tub/ shower. Occupation: retired Drive Self: Yes Leisure Interests: dogs OT Current Status Subjective Pt seen in therapy gym. Pt states no current pain, agreeable to OT evaluation and PT/ OT co-treat. Co-treat rendered due to pt's medical status, decreased balance and endurance, and decreased safety awareness which requires the assist of 2 therapists that an aide would not be able to provide. OT focused on UE strength, endurance, functional transfers and PT focused on standing/ sitting balance and gross/ LE motor strength. Mental Status/Objective Patient Orientation: Person, Place, Situation, Normal For Age Current Glasses/Contacts: Yes Hearing Aids: No Dentures/Partials: No Hand Dominance: Left Upper Extremity ROM WFL BUE Upper Extremity Coordination WFL BUE Upper Extremity Sensation WFL BUE Upper Extremity Strength 4-/5 Bilaterally ADL-Treatment Eating (QC): 6 Oral Hygiene (QC): 7 Shower/Bathe Self (QC): 7 Upper Body Dressing (QC): 7 Lower Body Dressing (QC): 4 (SUP while in sitting/ SBA in stance.) On/Off Footwear (QC): 4 (SUP during LB dressing/ sock don doffing) Toileting Hygiene (QC): 4 (SUP during stance) Toilet Transfer (QC): 4 (CGA to toilet. SUP off toilet.) Other Treatments Pt completes OT IND evaluation from [id number]. OT/ PT co-treat from [id number]. Pt completes sit to stand from w/c with SBA, ambulates with FWW to room. Pt familiar with ARU expectations as he d/c'd from ARU last week. Pt denies need for bathroom or bathing tasks as pt showered earlier this date. Pt agrees to ADLs following day. Pt completes high-level sitting and standing dynamic balance activities, utilizing the skill of two trained therapists. Pt completes dynamic functional mobility, ball throw on wiggle cushion in seated, crossing midline activities in sitting and standing with intermittent instances of balance loss and self-correction. Pt demonstrates decreased endurance in sit/ stance, c/o fatigue. Pt educated on importance of head coverage, pt jokes throughout session, takes head coverage off intermittently with cues for placement. Pt ambulates back to room to complete ADLs/ functional transfers on/off toilet, compeltes toileting routine, and bed mob with SUP. Pt left in bed with call light in reach, all needs met. Education OT Patient Education: Correct positioning, Exercise program, Modified ADL techniques, Rehab process, Safety issues, Transfer techniques Teaching Recipient: Patient Teaching Methods: Demonstration, Discussion Response to Teaching: Verbalize Understanding, Return Demonstration OT Short Term Goals Short Term Goals Shower/bathe self: 4 Upper body dressin Lower body dressin OT Fdc Goals Fdc Goals Time Frame: Apr 06, 2019 Eating (QC): 6 Oral Hygiene (QC): 6 Toileting Hygiene (QC): 6 Shower/Bathe Self (QC): 6 Upper Body Dressing (QC): 6 Lower Body Dressing (QC): 6 On/Off Footwear (QC): 6 Additional Goals: 1-Demonstrate ADL Tasks, 2-Verbalize Understanding, 3- ImproveStrength/[place] 1=Demonstrate adherence to instructed precautions during ADL tasks. 2=Patient will verbalize/demonstrate understanding of assistive devices/modifications for ADL. 3=Patient will improve strength/tolerance for activity to enable patient to perform ADL's. OT Education/Plan Problem List/Assessment Assessment: Decreased Activ Tolerance, Decreased Safety Aware, Decreased UE Strength, Impaired Funct Balance, Impaired I ADL's, Impaired Self-Care Skills Discharge Recommendations Plan/Recommendations: Continue POC Therapy Discharge Recommendati: Home & Family Patient/Family Goals To return home. Treatment Plan/Plan of Care Treatment,Training & Education: Yes Patient would benefit from OT for education, treatment and training to promote independence in ADL's, mobility, safety and/or upper extremity function for ADL's. Plan of Care: ADL Retraining, Caregiver Training, Concurrent Therapy, Functional Mobility, Group Exercise/Act as Ind, UE Funct Exercise/Act Treatment Duration: Apr 06, 2019 Frequency: At least 5 of 7 days/Wk (IRF) Estimated Hrs Per Day: 1.5 hours per day Agreement: Yes Rehab Potential: Good Time/GCodes Start Time: 14:20 Stop Time: 16:00 Total Time Billed (hr/min): 90 Billed Treatment Time 1, EVM(10), EX 4 (65), FA (15)=90 OT individual evaluation: [id number] Co-treat ([id number]) rendered due to pt's medical status, decreased balance and endurance, and decreased safety awareness which requires the assist of 2 therapists that an aide would not be able to provide. OT focused on UE strength, endurance, functional transfers and PT focused on standing/ sitting balance and gross/ LE motor strength. BENEDICT WALKER OTR Mar 30, 2019 15:47 POS
[2019-03-30] MEDS: ENOXAPARIN 40 MG/0.4 ML (LOVENOX) SYR SC SCH (16:18)
[2019-03-30] MEDS ORDERED: ACETAMINOPHEN 325 MG TABLET PO PRN (17:30)
[2019-03-30 17:34] VITALS: BP 131/67
--- NOTE | 2019-03-30 19:06 | NUR ---
bedside report received from JUMA ROD, assume care of pt
[2019-03-30 20:55] VITALS: BP 131/55
[2019-03-30] MEDS: POLYETHYLENE GLYCOL 17 GM (MIRALAX) PACK PO SCH (21:01)
[2019-03-30] MEDS: COLCHICINE 0.6 MG (COLCRYS) TABLET PO SCH (21:01)
[2019-03-30] MEDS: MONTELUKAST 10 MG (SINGULAIR) TAB PO SCH (21:01)
[2019-03-30] MEDS: SENNA W/DOCUSATE (SENOKOT S) TABLET PO SCH (21:01)
[2019-03-30] MEDS: DIVALPROEX 500 MG DELAYED RELEASE (DEPAKOTE) TAB PO SCH (21:01)
[2019-03-30] MEDS: DOCUSATE SODIUM 100 MG (COLACE) CAP PO SCH (21:02)
[2019-03-30] MEDS: HYDROcodone/APAP 5 MG/325 MG (LORTAB) TAB PO PRN (21:02)
--- NOTE | 2019-03-30 21:02 | NUR ---
pt sleeping when this nurse entered his room had to be awakened for meds & assessments, stated needed pain med for headache rated pain at 5/10 on numeric scale, upon returning to room pt had to be awakened again to take meds & then again for assessments gave pt Lortab 5 1 tab due to drowsiness of pt
[2019-03-30] MEDS: meTOproloL SUCCINATE 50 MG (TOPROL XL) TAB PO SCH (21:03)
--- NOTE | 2019-03-30 21:40 | NUR ---
pt sleeping pain level 0/10 on flacc scale, bed alarm on
[2019-03-31 06:00] VITALS: BP 130/78
[2019-03-31 06:39] LABS: BASOPHILS % (AUTO) 0 % (0-10); EOSINOPHILS # (AUTO) 0.3 10^3/uL (0.0-0.3); EOSINOPHILS % (AUTO) 4 % (0-10); HEMATOCRIT 39 % (40-54); HEMOGLOBIN 12.6 G/DL (13.3-17.7); LYMPHOCYTES % (AUTO) 29 % (12-44); MEAN CORPUSCULAR HEMOGLOBIN 31 PG (25-34); MEAN CORPUSCULAR HGB CONC 33 G/DL (32-36); MEAN CORPUSCULAR VOLUME 96 FL (80-99); MEAN PLATELET VOLUME 8.8 FL (7.4-10.4); MONOCYTES % (AUTO) 15 % (0-12); NEUTROPHILS # (AUTO) 3.4 X 10^3 (1.8-7.8); NEUTROPHILS % (AUTO) 52 % (42-75); PLATELET COUNT 257 10^3/uL (130-400); RED CELL DISTRIBUTION WIDTH 12.9 % (10.0-14.5); WHITE BLOOD COUNT 6.7 10^3/uL (4.3-11.0)
[2019-03-31] MEDS: LEVOTHYROXINE 88 MCG (LEVOTHORID) TAB PO SCH (06:44)
[2019-03-31] MEDS: VITAMIN D3 1,000 UNITS (CHOLECALCIFEROL) TABLET PO SCH (06:44)
[2019-03-31] MEDS: MULTIVIT W/MINERALS TAB (THERAGRAN M) PO SCH (06:44)
[2019-03-31] MEDS: HYDROcodone/APAP 5 MG/325 MG (LORTAB) TAB PO PRN ×4 (06:49→22:33)
--- NOTE | 2019-03-31 06:49 | NUR ---
pt sleeping upon waking pt stated in pain level 6/10 on numeric scale, lortab 5 1 tab given
[2019-03-31 06:57] LABS: ALANINE AMINOTRANSFERASE 14 U/L (0-55); ALBUMIN 3.4 GM/DL (3.2-4.5); ALKALINE PHOSPHATASE 56 U/L (40-136); BILIRUBIN,TOTAL 0.4 MG/DL (0.1-1.0); BUN/CREATININE RATIO 13; CALCIUM 9.1 MG/DL (8.5-10.1); CARBON DIOXIDE 21 MMOL/L (21-32); CHLORIDE 107 MMOL/L (98-107); CREATININE SERUM 0.86 MG/DL (0.60-1.30); GFR ESTIMATED > 60; GLUCOSE 74 MG/DL (70-105); POTASSIUM 4.2 MMOL/L (3.6-5.0); SODIUM 141 MMOL/L (135-145); TOTAL PROTEIN 6.1 GM/DL (6.4-8.2)
--- NOTE | 2019-03-31 07:22 | NUR ---
pt states pain level 3/10 on numeric scale, bedside report given to VIRGILIO ROD
[2019-03-31] MEDS: COLCHICINE 0.6 MG (COLCRYS) TABLET PO SCH ×2 (08:22→21:10)
[2019-03-31] MEDS: AMIODARONE 200 MG (CORDARONE) TAB PO SCH (08:23)
[2019-03-31] MEDS: LOSARTAN 50 MG (COZAAR) TAB PO SCH (08:23)
[2019-03-31] MEDS: DOCUSATE SODIUM 100 MG (COLACE) CAP PO SCH ×2 (08:23→21:14)
[2019-03-31] MEDS: LORATADINE (CLARITIN) 10 MG TAB PO SCH (08:23)
[2019-03-31] MEDS: DIVALPROEX 500 MG DELAYED RELEASE (DEPAKOTE) TAB PO SCH ×2 (08:23→21:10)
[2019-03-31] MEDS: FLUTICASONE NASAL SPRAY (FLONASE) 16 GM BTL NS SCH (08:24)
[2019-03-31] MEDS: POLYETHYLENE GLYCOL 17 GM (MIRALAX) PACK PO SCH ×2 (08:25→21:13)
[2019-03-31] MEDS: SENNA W/DOCUSATE (SENOKOT S) TABLET PO SCH ×2 (08:25→21:13)
--- NOTE | 2019-03-31 08:30 | NUR ---
DR. GAGE HERE TO SEE PATIENT AND INFORMED TOPROL WAS HELD LAST NIGHT. STATES SINCE PATIENT HAS AN ICD THAT TOPROL DOES NOT NEED TO BE HELD. PATIENT DOESN'T FEEL IS SLEEPING TOO MUCH AFTER PAIN MEDICATION AND IS REQUESTING TO TAKE 2 LORTABS INSTEAD OF 1. [place]AS[place] AND COOPERATIVE. STATES LEFT TEMPORAL HEADACHE HAS IMPROVED SINCE SURGERY. PATIENT COMPLAINING THAT PAPER SURGICAL CAP THAT WAS PUT ON AT [facility] YESTERDAY IS IRRITATING HIS HEAD AND OKAY'D BY DR. DOVER THAT IT CAN BE LEFT OFF.
--- NOTE | 2019-03-31 08:38 | PM&R Post Admission Assessment ---
PM&R HP Date of Visit: Mar 31, 2019 Time of Visit: 08:45 History of Present Illness CC: Subdural hematoma s/p shane hole procedure [facility] [place] POD # 5 Per previous hospital course prior to transfer: Hospital course: Pt had an uneventful 8 day hospital course after he was admitted after observation following a fall. He was deemed stable for inpatient rehab following a subdural hematoma and he participated in all therapies. Bowels returned back to normal and overall had no significant decline in status although headache actually did increase prompting CT scan which showed no evidence of any rebleed but the evolution of the subdural after speaking with Dr. Wil[facility] Neuro[facility] at [facility], he was deemed in need for Shane Holes. He was transferred to [facility], discharged from the unit and will be on standby. incase he needs us after the [place] Hole surgery is completed. Patient presents today for rehabilitation and recovery following shane hole procedure postop day number 5. He did remain in the ICU for 3 days after subdural hematoma evacuation. Headache still present but not as bad as before. Hydrocodone taken 2 at a time. Bowels are moving. Dr. Childers consulted due to heart rate of 55 that since he has an ICD in place Toprol will be maintained. Patient was independent prior to admission and the goal is to regain enough confidence and strength in order to return home with his partner. Past Qesdhtv-Wwmmvi-Lpzbco Hx Past Med/Social Hx: Reviewed Nursing Past Med/Soc Hx, Reviewed and Corrections made Patient Social History Marrital Status: cohabiting Employed/Student: retired Alcohol Use: Denies Use Recreational Drug Use: No Smoking Status: Former Smoker Former Smoker, Quit: May 07, 1984 Physical Abuse Screen: No Sexual Abuse: No Recent Foreign Travel: No Contact w/other who traveled: No Recent Hopitalizations: Yes (SUBDERAL HEMATOMA with bur hole procedure x2) Recent Infectious Disease Expo: No Immunizations Up To Date Date of Pneumonia Vaccine: Mar 05, 2016 Date of Influenza Vaccine: Jan 27, 2019 Seasonal Allergies Seasonal Allergies: Yes Past Medical History Surgeries: Abdominal, Coronary Stent, Orthopedic, Pacemaker Respiratory: COPD, Sleep Apnea Currently Using CPAP: Yes (not able to use r/t claustrophobia) Currently Using BIPAP: No Cardiac: Atrial Fibrillation, Chronic Edema/Swelling, Congenital Heart Disease, High Cholesterol, Hypertension, Valvular Heart Disease pacemaker/defibrillator Neurological: Neuropathy, Traumatic Brain Injury SDH Reproductive: No Sexually Transmitted Disease: No HIV/AIDS: No Genitourinary: Benign Prostatic Hyperpl, Renal Failure Gastrointestinal: Diverticulosis, Polyps Musculoskeletal: Degenerate Disk Disease, Arthritis, Chronic Back Pain, Gout Endocrine: Hypothyroidsim Loss of Vision: Bilateral Hearing Impairment: Denies, Bilateral Hearing Aide Psychosocial: Anxiety, Bipolar, Depression History of Blood Disorders: No Adverse Reaction to Blood [place]: No Family History Alzheimer's disease 19 MOTHER Hypertension 19 FATHER G8 BROTHER G8 SISTER Myocardial infarction 19 FATHER No Pertinent Family Hx Prior Level of Function Bed Mobility: 6 Transfers: 6 Gait: 6 Stairs: 6 Indoor Mobility (Ambulation): Independent Stairs: Independent Self Care: Independent Functional Cognition: Independent Occupation: retired Drive Self: Yes Leisure Interests: dogs Current Level of Fuctioning Roll Left to Right: 6 Sit to Lyin (SBA) Lying to Sitting/Side of Bed: 4 (SBA) Sit to Stand: 4 (SBA) Chair/Ger-ku-Fxwxl Xfer: 4 (SBA) Car Transfer: 4 (CGA) Does the Patient Walk: Yes Mode of Locomotion: Walk Anticipated Mode of Locomotion: Walk Walk 10 feet: 4 (CGA) Walk 50 ft with 2 Turns: 4 (CGA) Walk 150 ft: 4 (CGA) Walking 10ft on uneven surface: 4 (CGA) Gait Assistive Device: FWW Does the Pt Use a Wheelchair: No 1 Step (curb): 4 (CGA) 4 Steps: 88 Walking Assistive Device: Walker 12 Steps: 88 Picking up an Object: 88 Eatin Oral Hygiene: 7 Shower/Bathe Self: 7 Upper Body Dressin Lower Body Dressin (SUP while in sitting/ SBA in stance.) On/Off Footwear: 4 (SUP during LB dressing/ sock don doffing) Toileting Hygiene: 4 (SUP during stance) Toilet Transfer: 4 (CGA to toilet. SUP off toilet.) PM&R Allergy/Meds/Data Review Allergies Coded Allergies: Ywdhzgr-Gay-Wuq Reductase Inhibitor (Unverified Allergy, Unknown, 10/24/16) niacin (Verified Allergy, Unknown, 05/05/18) sacubitril (Verified Allergy, Unknown, 05/05/18) valsartan (Verified Allergy, Unknown, 05/05/18) Home Medications Scheduled Alfuzosin HCl (Alfuzosin HCl ER), 10 MG PO HS, (Reported) Amiodarone HCl (Amiodarone HCl), 100 MG PO DAILY, (Reported) Aspirin (Aspirin EC), 81 MG PO DAILY, (Reported) Cholecalciferol (Vitamin D3) (Vitamin D3), 1,000 UNIT PO DAILY, (Reported) Clopidogrel Bisulfate (Plavix), 75 MG PO DAILY, (Reported) Divalproex Sodium (Depakote), 500 MG PO DAILY, (Reported) Divalproex Sodium (Divalproex Sodium), 1,000 MG PO HS, (Reported) Docusate Sodium (Colace), 100 MG PO BID, (Reported) Fluticasone Propionate (Fluticasone Propionate), 1 SPRAY NS DAILY, (Reported) Fluticasone/Salmeterol (Advair 250-50 Diskus), 1 PUFF IH DAILY, (Reported) Furosemide (Furosemide), 40 MG PO BID, (Reported) Levothyroxine Sodium (Levothyroxine Sodium), 88 MCG PO DAILY, (Reported) Loratadine (Loratadine), 10 MG PO DAILY, (Reported) Losartan Potassium (Losartan Potassium), 25 MG PO DAILY, (Reported) Metoprolol Succinate (Metoprolol Succinate), 50 MG PO HS, (Reported) Montelukast Sodium (Singulair), 10 MG PO HS, (Reported) Multivit-Min/FA/Lycopene/Lut (Centrum Silver Tablet), 1 TAB PO DAILY, (Reported) [place]-3/Dha/Epa/Dpa/Fish Oil ([place]-3 1,050 mg Softgel), 1 CAP PO DAILY, (Reported) Potassium Chloride (Potassium Chloride), 20 MEQ PO BID, (Reported) Spironolactone (Aldactone), 25 MG PO DAILY, (Reported) Scheduled PRN Acetaminophen (Tylenol Arthritis), 650 MG PO Q4H PRN for PAIN-MILD (1-4), (Reported) Albuterol Sulfate (Ventolin Hfa), 2 PUFF INH Q4H PRN for SHORTNESS OF BREATH, (Reported) Furosemide (Furosemide), 40 MG PO DAILY PRN for SWELLING, (Reported) Ibuprofen (Ibu), 600 MG PO BID PRN for PAIN-MILD (1-4), (Reported) Oxycodone HCl/Acetaminophen (Percocet 5-325 mg Tablet), 1 TAB PO Q8H PRN for PAIN-MODERATE (5-7), (Reported) [Terpenicol Solution], TOP DAILY PRN for TOE FUNGUS, (Reported) Discontinued Medications Alfuzosin HCl (Alfuzosin HCl ER), 10 MG PO HS, (Reported) Discontinued Reason: No Longer Taking Aspirin (Aspirin EC), 81 MG PO DAILY, (Reported) Discontinued Reason: No Longer Taking Clopidogrel Bisulfate (Plavix), 75 MG PO DAILY, (Reported) Furosemide (Furosemide), 40 MG PO BID, (Reported) Discontinued Reason: No Longer Taking Furosemide (Furosemide), 40 MG PO DAILY PRN for EXTRA DOSE PRN SWELLING, (Reported) Discontinued Reason: No Longer Taking Ibuprofen (Ibuprofen), 600 MG PO BID PRN for PAIN-MILD, (Reported) Discontinued Reason: No Longer Taking [place]-3/Dha/Epa/Dpa/Fish Oil ([place]-3 1,050 mg Softgel), 1 CAP PO DAILY, (Reported) Discontinued Reason: No Longer Taking Oxycodone HCl/Acetaminophen (Percocet 5-325 mg Tablet), 1 TAB PO Q8H PRN for PAIN-MODERATE (5-7), (Reported) Potassium Chloride (Klor-Con M20), 20 MEQ PO BID, (Reported) Discontinued Reason: No Longer Taking Spironolactone (Spironolactone), 25 MG PO DAILY, (Reported) Discontinued Reason: No Longer Taking Current Medications Current Medications Reviewed Laboratory Data Laboratory Tests 03/31/19 05:57: White Blood Count 6.7, Red Blood Count 4.01L, Hemoglobin 12.6L, Hematocrit 39L, Mean Corpuscular Volume 96, Mean Corpuscular Hemoglobin 31, Mean Corpuscular Hemoglobin Concent 33, Red Cell Distribution Width 12.9, Platelet Count 257, Mean Platelet Volume 8.8, Neutrophils (%) (Auto) 52, Lymphocytes (%) (Auto) 29, Monocytes (%) (Auto) 15H, Eosinophils (%) (Auto) 4, Basophils (%) (Auto) 0, Neutrophils # (Auto) 3.4, Lymphocytes # (Auto) 2.0, Monocytes # (Auto) 1.0, Eosinophils # (Auto) 0.3, Basophils # (Auto) 0.0, Sodium Level 141, Potassium Level 4.2, Chloride Level 107, Carbon Dioxide Level 21, Anion Gap 13, Blood Urea Nitrogen 11, Creatinine 0.86, Estimat Glomerular Filtration Rate > 60, BUN/Creatinine Ratio 13, Glucose Level 74, Calcium Level 9.1, Corrected Calcium 9.6, Total Bilirubin 0.4, Aspartate Amino Transf (AST/SGOT) 26, Alanine Aminotransferase (ALT/SGPT) 14, Alkaline Phosphatase 56, Total Protein 6.1L, Albumin 3.4 Review of Systems Constitutional: see HPI, dizziness, malaise, weakness EENTM: no symptoms reported Respiratory: no symptoms reported Cardiovascular: no symptoms reported Gastrointestinal: no symptoms reported Genitourinary: no symptoms reported Musculoskeletal: back pain, joint pain, muscle stiffness, muscle weakness Skin: no symptoms reported Psychiatric/Neurological: Anxiety, Depressed, Headache, Numbness, Tingling, Weakness Physical Exam Physical Exam Vital Signs Vital Signs - First Documented Capillary Refill : Height, Weight, BMI Height: 5'6.00" Weight: 227lbs. 0.0oz. [id number]; 36.66 BMI Method: General Appearance: No Apparent Distress, WD/WN, Chronically ill, Obese Eyes: Bilateral Eye Normal Inspection, Bilateral Eye PERRL HEENT: PERRL/EOMI, TMs Normal, Normal ENT Inspection, Pharynx Normal Neck: Full Range of Motion, Normal Inspection, Non Tender, Supple, Carotid Bruit Respiratory: Chest Non Tender, Lungs Clear, Normal Breath Sounds, No Accessory Muscle Use, No Respiratory Distress Cardiovascular: Regular Rate, Rhythm, No Edema, No Gallop, No JVD, No Murmur, Normal Peripheral Pulses Gastrointestinal: Normal Bowel Sounds, No Organomegaly, No Pulsatile Mass, Non Tender, Soft Back: Normal Inspection, No CVA Tenderness, No Vertebral Tenderness Extremity: Normal Capillary Refill, Normal Inspection, Normal Range of Motion, Non Tender, No Calf Tenderness, No Pedal Edema Neurologic/Psychiatric: Alert, Oriented x3, No Motor/Sensory Deficits, Normal Mood/Affect, manager stylist II-XII Norm as Tested, Motor Weakness (generalized legs 4/5) Skin: Normal Color, Warm/Dry Lymphatic: No Adenopathy PM&R Medical Assessment & Plan REHAB/MEDICAL ASSESSMENT AND PLAN: REHAB IMPAIRMENT GROUP: Subdural hematoma s/p shane holes ETIOLOGIC DIAGNOSIS: Subdural hematoma s/p shane holes The comorbidities that impact the patients function and/or functional outcome by: MELVA, CHF, Gout, Bipolar REHAB PLAN: The patient is being admitted to our comprehensive inpatient rehabilitation [facility] and can tolerate the intensity of service consisting of at least: 180 minutes of therapy a day, 5 out of 7 days a week Rehab treatment will consist of: PT will focus on ambulation and strengthening, OT will focus on regaining ADL's The patient/family has a good understanding of our discharge process and will benefit from an interdisciplinary inpatient rehabilitation program. The patient has potential to make improvement and is in need of at least two of the following multidisciplinary therapies including but not limited to physical, occupational, speech, and prosthetics and orthotics. Additionally the patient will need services from respiratory, nutritional services, wound care, psychology, etc. (Customize this to each patient). Given the patients complex condition and risk of further medical complications, rehabilitation services cannot be safely or effectively provided at a lower level of care such as a jail facility. BARRIERS TO DISCHARGE: Ability to ambulate and take care of himself at home with partner ESTIMATED LOS: 7 days DISPOSITION: Home RELEVANT CHANGES SINCE PREADMISSION SCREENING: I have compared the patients medical and functional status at the time of the preadmission screening and there are: no changes PROGNOSIS: Good REHABILITATION GOALS: 1. Ability to regain ambulation strength and fall risk prevention All the above goals were reviewed with the patient and he/she is in agreement. By signing this document, I acknowledge that I have personally performed a full physical examination on this patient within 24 hours of admission to this inpatient rehabilitation facility and have determined the patient to be able to tolerate the above course of treatment at an intensive level for a reasonable period of time. I will be completing a detailed individualized Plan of Care for this patient by day #4 of the patients stay based upon the Preadmission Screen, the Post-Admission Evaluation, and the therapy evaluations. Admission Dx/Comorbidities: (1) History of shane hole surgery ICD Codes: Z98.890 - Other specified postprocedural states (2) Subdural hematoma ICD Codes: S06.5X9A - Traumatic subdural hemorrhage with loss of consciousness of unspecified duration, initial encounter (3) Bipolar 1 disorder, depressed, full remission Status: Acute ICD Codes: F31.76 - Bipolar 1 disorder, depressed, full remission (4) Coronary arteriosclerosis in [place] artery Status: Chronic ICD Codes: I25.10 - Coronary arteriosclerosis in [place] artery (5) Obstructive sleep apnea Status: Chronic ICD Codes: G47.33 - Obstructive sleep apnea (6) Renal insufficiency Status: Chronic ICD Codes: N28.9 - Renal insufficiency (7) Diabetes Status: Chronic ICD Codes: E11.9 - Diabetes (8) Generalized weakness Status: Acute ICD Codes: R53.1 - Weakness (9) Gout Status: Acute ICD Codes: M10.9 - Gout, unspecified (10) Muscular deconditioning Status: Acute ICD Codes: R29.898 - Other symptoms and signs involving the musculoskeletal system HARLEY DOVER DO Mar 31, 2019 08:38 POS
--- NOTE | 2019-03-31 09:09 | Consultation-Cardiology ---
HPI-Cardiology Cardiology Consultation Date of Consultation 03/31/19 Date of Admission Time Seen by Provider: 08:15 Indication: CHF HPI Patient is a 73 y/o male with history of CAD, CHF, HTN, VT. sustained a fall on March 01, 2019, diagnosed with subdural hematoma. There was slight increase in size and hematoma and patient subsequently was transferred back to [facility] where he underwent shane hole procedure 2. He is now back in inpatient rehabilitation facility for generalized debility and weakness. Denies any chest pain or palpitation. Recovering well. Denies any dizziness or light headedness. Continues complain of small left sided headache. Home Medications & Allergies Allergies: Coded Allergies: Cjlrvmx-Zfc-Pyr Reductase Inhibitor (Unverified Allergy, Unknown, 10/24/16) niacin (Verified Allergy, Unknown, 05/05/18) sacubitril (Verified Allergy, Unknown, 05/05/18) valsartan (Verified Allergy, Unknown, 05/05/18) Home Medication List Reviewed: Yes RBH-Xykdjv-Jxbnkp Hx Patient Social History Marital Status: domestic partnership Employed/Student: retired Alcohol Use: Denies Use Recreational Drug Use: No Former smoker/When Quit: Dec 30, 1982 Recent Foreign Travel: No Recent Infectious Disease Expo: No Recent Hopitalizations: Yes (SUBDERAL HEMATOMA with bur hole procedure x2) Physical Abuse Screen: No Sexual Abuse: No Immunizations Up To Date Date of Pneumonia Vaccine: Mar 05, 2016 Date of Influenza Vaccine: Jan 27, 2019 Past Medical History CAD, CHF, HTN, HLP Family Medical History Significant Family History: No Pertinent Family Hx Family History: Alzheimer's disease 19 MOTHER Hypertension 19 FATHER G8 BROTHER G8 SISTER Myocardial infarction 19 FATHER Review of Systems-General Review of Systems Constitutional: No chills, No diaphoresis, No fever, No malaise; weakness EENTM: see HPI; No hearing loss, No blurred vision, No double vision, No vision loss, No epistaxis Respiratory: No cough, No dyspnea on exertion Cardiovascular: No chest pain, No edema; Hx of Intervention; No palpitations; vascular heart diseas Gastrointestinal: No abdominal pain, No constipation Genitourinary: No frequency, No hematuria Musculoskeletal: No back pain, No joint pain Psychiatric/Neurological: Denies Anxiety, Denies Depressed Reviewed Test Results Reviewed Test Results Lab Laboratory Tests 03/31/19 05:57: White Blood Count 6.7, Red Blood Count 4.01L, Hemoglobin 12.6L, Hematocrit 39L, Mean Corpuscular Volume 96, Mean Corpuscular Hemoglobin 31, Mean Corpuscular Hemoglobin Concent 33, Red Cell Distribution Width 12.9, Platelet Count 257, Mean Platelet Volume 8.8, Neutrophils (%) (Auto) 52, Lymphocytes (%) (Auto) 29, Monocytes (%) (Auto) 15H, Eosinophils (%) (Auto) 4, Basophils (%) (Auto) 0, Neutrophils # (Auto) 3.4, Lymphocytes # (Auto) 2.0, Monocytes # (Auto) 1.0, Eosinophils # (Auto) 0.3, Basophils # (Auto) 0.0, Sodium Level 141, Potassium Level 4.2, Chloride Level 107, Carbon Dioxide Level 21, Anion Gap 13, Blood Urea Nitrogen 11, Creatinine 0.86, Estimat Glomerular Filtration Rate > 60, BUN/Creatinine Ratio 13, Glucose Level 74, Calcium Level 9.1, Corrected Calcium 9.6, Total Bilirubin 0.4, Aspartate Amino Transf (AST/SGOT) 26, Alanine Aminotransferase (ALT/SGPT) 14, Alkaline Phosphatase 56, Total Protein 6.1L, Albumin 3.4 Physical Exam Physical Exam Vital Signs Vital Signs - First Documented Capillary Refill : Height, Weight, BMI Height: 5'6.00" Weight: 227lbs. 0.0oz. 102.092400qf; 36.66 BMI Method: General Appearance: No Apparent Distress, WD/WN HEENT: PERRL/EOMI, Other (C/D/I sutures in place to left scalp) Neck: Non Tender, Supple Respiratory: Lungs Clear, Normal Breath Sounds Cardiovascular: Regular Rate, Rhythm, No Edema, No Gallop, No JVD Gastrointestinal: Non Tender, Soft Rectal: Deferred Back: No CVA Tenderness Extremity: Non Tender, No Calf Tenderness, No Pedal Edema A/P-Cardiology Admission Diagnosis Subdural hematoma CAD CHF VT HTN Assessment/Plan Generalized weakness with frequent falls recently, PT/OT to eval. continue inpatient rehabilitation. Subdural hematoma secondary to trauma sustained from a fall on 03/11/19. Dx with subdural hematoma and transferred to [facility]. Repeat CT head reveals minimal increase in size of subdural hematoma. Patient was transferred back to [facility] where he underwent Bur hole x2. Now back in IRF. Continue to monitor. Coronary artery disease, history of CABG 3 done in 1995, history of myocardial infarction 1995. Cardiac catheterization showed only 2 bypasses the ALVARADO to the LAD which was patent, the LAD itself is a very small artery with good flow profile the LAD system. The vein graft to the right coronary artery has 80 percent stenosis at the anastomosis point with mismatch in the size of the vein graft and the [place] right coronary artery. The circumflex has mild to moderate disease, the left main coronary artery has 60 percent ostial lesion that is supplying the circumflex artery at this point. In September 2013 he had a cardiac ca theterization with stent placement to the left main coronary artery with 3.08 mm Promus Premier stent, a stent to the vein graft to the right coronary artery using 3.020 mm Promus Premier stent without any complication, Stress test was done in January 2018 showing ejection fraction 28 percent dilated left ventricle, total infarction of the whole inferior wall and inferolateral wall. No ischemia was noted Congestive heart failure, history of chronic compensated left ventricular systolic dysfunction, last echocardiogram was done in February 2019 showing ejection fraction 55-60 percent, PA pressure 25 mmHg. Intolerance to Entresto, had joint pain and muscle pain. Medication stopped previously. History of Ventricular tachycardia, maintained on amiodarone Permanent pacemaker/ICD, has Medtronic Evera , last interrogation was done on February 20, 2019 showing good sensing and capture activity. No arrhythmia was detected. Continue to monitor Hypertension, restart home blood pressure medication and continue to monitor. Hyperlipidemia, intolerance to statins, welchol, livalo, all causing myalgias and GI upset. couldn't afford Repatha. Continue to monitor as outpatient History of carotid stenosis, mild bilateral nonobstructive disease, last carotid ultrasound was done in February 2019, continue to monitor. Metabolic syndrome, not on any diabetic medicine, history of intolerance to metformin. Patient is doing well with weight loss and exercise. Encouraged to continue. Obesity, BMI is 36, has lost over 70 pounds since his gastric sleeve surgery. Encouraged to continue with diet and exercise Osteoarthritis. Obstructive sleep apnea, intolerant to C Pap machine. Hypothyroidism, monitored and managed by primary care physician. Thank you for allowing us to participate in the management of Mr. Camargo. This is Vanessa Liang PA-C, as a scribe for Dr. Childers Patient was seen and evaluated with Vanessa, examination performed, management plan was discussed, agree with the current scribed note, I made few changes to the note using Italic font Patient has denied any chest pain, recovering slowly, still having generalized weakness On examination lungs were clear to auscultation bilaterally, heart is regular Has history of permanent pacemaker/ICD Restart home medication and monitor blood pressure and lipids Monitor telemetry Clinical Quality Measures DVT/VTE Risk/Contraindication: Risk Factor Score Per Nursin RFS Level Per Nursing on Admit: 4+=Very High VANESSA HAINES Mar 31, 2019 09:09 BEAN ARRIAZA MD Mar 31, 2019 15:26 POS
--- NOTE | 2019-03-31 09:17 | NUR ---
Initial Assessment Patient was admitted to ARU 03/30/19 from [facility] for subdural hematoma and post op for Kula Holes x 2. Patient had been on ARU 03/17/19 until symptoms prompted diagnostics and patient was transferred back to [place] neurosurgery. Patient is active with physical therapy and indicates he is happy to be back. He resides at home with his spouse, Melissa Bustos, also his DPOA. Plan is home when safely able with: HHC: RN and PT/OT DME: FWW. Patient has 4WW but therapy has recommended standard FWW, patient understands this may be private pay depending on when he got the other walker. He has a shower chair. ADVANCED DIRECTIVE: Current, his spouse Melissa as noted. INSURED: Adequate. Medicare and [facility] AA. Patient has history of participation in the weekly team conference summary and is aware of the process. Follow for resume of discharge planning foundation started during earlier admission.
[2019-03-31] MEDS ORDERED: RT-ALBUINH INH (09:56)
[2019-03-31] MEDS ORDERED: [UNRECOGNIZED DRUG - OTHER] TOP (09:56)
[2019-03-31] MEDS ORDERED: ALFU10TA12 PO (09:56)
[2019-03-31] MEDS ORDERED: ASPI-983 PO (09:56)
[2019-03-31] MEDS ORDERED: LOSA25TA41 PO (09:56)
[2019-03-31] MEDS ORDERED: CLOP75TA69 PO (09:56)
[2019-03-31] MEDS ORDERED: IBUP-844 PO (09:56)
[2019-03-31] MEDS ORDERED: POTA-51 PO (09:56)
[2019-03-31] MEDS ORDERED: FURO40TA4 PO ×2 (09:56)
[2019-03-31] MEDS ORDERED: OMEG-91 PO (09:56)
[2019-03-31] MEDS ORDERED: OXYC1TAB87 PO (09:56)
[2019-03-31] MEDS ORDERED: MULT-1029 PO (09:56)
[2019-03-31] MEDS ORDERED: SPIR25TA PO (09:56)
--- NOTE | 2019-03-31 10:05 | Occupational Ther Daily Note ---
OT Current Status-Daily Note Subjective Pt seen in recliner chair, denies pain; pt agreeable to OT tx session. Mental Status/Objective Patient Orientation: Normal For Age ADL-Treatment Therapy Code Descriptions/Definitions Functional Isabella Measure: 0=Not Assessed/NA 4=Minimal Assistance 1=Total Assistance 5=Supervision or Setup 2=Maximal Assistance 6=Modified Isabella 3=Moderate Assistance 7=Complete IndependenceSCALE: Activities may be completed with or without assistive devices. 2-Tgxqrmwtip-slqmcim completes the activity by him/herself with no assistance from a helper. 5-Set-up or Clean-up Assistance-helper sets up or cleans up; patient completes activity. [place] assists only prior to or following the activity. 4-Supervision or Touching Assistance-helper provides verbal cues and/or touching/steadying and/or contact guard assistance as patient completes activity. Assistance may be provided throughout the activity or intermittently. 3-Partial/Moderate Assistance-helper does LESS THAN HALF the effort. [place] lifts, holds or supports trunk or limbs, but provides less than half the effort. 2-Substantial/Maximal Assistance-helper does MORE THAN HALF the effort. [place] lifts or holds trunk or limbs and provides more than half the effort. 9-Gwcimeqkg-aermcd does ALL the effort. Patient does none of the effort to comp lete the activity. Or, the assistance of 2 or more helpers is required for the patient to complete the activity. If activity was not attempted, code reason: 7-Patient Refused. 9-Not Applicable-not attempted and the patient did not perform the activity before the current illness, exacerbation or injury. 10-Not Attempted due to Environmental Limitations-(lack of equipment, weather restraints, etc.). 88-Not Attempted due to Medical Conditions or Safety Concerns. Eating (QC): 6 Oral Hygiene (QC): 6 Shower/Bathe Self (QC): 4 (Pt completes sponge bath, does not shower head due to mitchell. SBA in stance to complete yarely/ bottom hygiene; assist with back) Upper Body Dressing (QC): 6 Lower Body Dressing (QC): 4 (SBA in stance) Toileting Hygiene (QC): 4 (SBA in stance) Toilet Transfer (QC): 7 on/ off footwear: 6: washes, dries, lotions, and dons/ doffs socks. Other Treatment Pt seen in recliner chair, no head protection on; pt states DO stated he no longer needs to wear head coverage. pt completes ADLs in room. Pt chooses arm bike exercise for 11 min with 25 watt resistance without break. Pt experiences no SOB; pt ambulates to room with FWW and SBA. Pt returns to recliner chair end of session, call light in reach, all needs met. Education OT Patient Education: Correct positioning, Energy conservation, Exercise program, Modified ADL techniques, Safety issues Teaching Recipient: Patient Teaching Methods: Demonstration, Discussion Response to Teaching: Verbalize Understanding, Return Demonstration OT Short Term Goals Short Term Goals Shower/bathe self: 4 Upper body dressin Lower body dressin OT Longterm Goals Longterm Goals Time Frame: Apr 06, 2019 Eating (QC): 6 (met) Oral Hygiene (QC): 6 (met) Toileting Hygiene (QC): 6 Shower/Bathe Self (QC): 6 Upper Body Dressing (QC): 6 (met) Lower Body Dressing (QC): 6 On/Off Footwear (QC): 6 Additional Goals: 1-Demonstrate ADL Tasks, 2-Verbalize Understanding, 3- ImproveStrength/Mary Jane 1=Demonstrate adherence to instructed precautions during ADL tasks. 2=Patient will verbalize/demonstrate understanding of assistive devices/m odifications for ADL. 3=Patient will improve strength/tolerance for activity to enable patient to perform ADL's. OT Education/Plan Problem List/Assessment Assessment: Decreased Activ Tolerance, Decreased Safety Aware, Decreased UE Strength, Impaired I ADL's, Impaired Self-Care Skills Discharge Recommendations Plan/Recommendations: Continue POC Treatment Plan/Plan of Care Treatment,Training & Education: Yes Patient would benefit from OT for education, treatment and training to promote independence in ADL's, mobility, safety and/or upper extremity function for ADL's. Plan of Care: ADL Retraining, Caregiver Training, Concurrent Therapy, Functional Mobility, Group Exercise/Act as Ind, UE Funct Exercise/Act Treatment Duration: Apr 06, 2019 Frequency: At least 5 of 7 days/Wk (IRF) Estimated Hrs Per Day: 1.5 hours per day Agreement: Yes Rehab Potential: Good Time/GCodes Start Time: 09:00 Stop Time: 10:00 Total Time Billed (hr/min): 60 Billed Treatment Time 1, ADL 3 (45), EX (15)= (60) BENEDICT WALKER OTR Mar 31, 2019 10:05 POS
--- NOTE | 2019-03-31 10:07 | Physical Therapy Daily Note ---
PT Daily Note-Current Subjective Pt agreeable to PT session. States he doesn't think he is going to be able to go home for a while and frustrates him, liyah since he misses his dog so much. Noted pt with anxiety this am. Pt requesting pain med for increasing RODRIGUEZ and nurse administered. Toward end of session, pt c/o upset stomach Pain Numeric Pain Scale: 5-Moderate Pain Comment: left side head christian Appearance upon arrival, pt sitting up in recliner awake and alert. At end of session, pt sitting up in recliner with call light, phone and bedside table within reach Mental Status Patient Orientation: Person, Place, Time, Eyes Open, Situation pt does often joke around and answer questions incorrectly on purpose Transfers SCALE: Activities may be completed with or without assistive devices. 8-Bekiyeqitl-rztvtxw completes the activity by him/herself with no assistance from a helper. 5-Set-up or Clean-up Assistance-helper sets up or cleans up; patient completes activity. [place] assists only prior to or following the activity. 4-Supervision or Touching Assistance-helper provides verbal cues and/or touching/steadying and/or contact guard assistance as patient completes activity. Assistance may be provided throughout the activity or intermittently. 3-Partial/Moderate Assistance-helper does LESS THAN HALF the effort. [place] lifts, holds or supports trunk or limbs, but provides less than half the effort. 2-Substantial/Maximal Assistance-helper does MORE THAN HALF the effort. [place] lifts or holds trunk or limbs and provides more than half the effort. 7-Uzieygjtk-lkllrh does ALL the effort. Patient does none of the effort to complete the activity. Or, the assistance of 2 or more helpers is required for the patient to complete the activity. If activity was not attempted, code reason: 7-Patient Refused. 9-Not Applicable-not attempted and the patient did not perform the activity before the current illness, exacerbation or injury. 10-Not Attempted due to Environmental Limitations-(lack of equipment, weather restraints, etc.). 88-Not Attempted due to Medical Conditions or Safety Concerns. Sit to Stand (QC): 4 good hand placement, SBA provided due to increased head pain and fatigue Gait Training Does the Patient Walk?: Yes Distance: 150, 300 x2, 150 Walk 10 feet (QC): 4 Walk 50 ft with 2 Turns(QC): 4 Walk 150 ft (QC): 4 Gait Persons Needed: 1 Gait Assistive Device: FWW good pace and step length, mod to max skilled inst required to improve posture and distance from walker, kyphotic fwd flexed with head down Wheelchair Training Does the Pt Use a Wheelchair?: No Neuromuscular in // bars on Airex: static stance x2 min NBOS and WBOS with occasional use of UE's due to unsteadiness, heel/toe raises requiring use of UE's for balance and c/o pain in feet/ankles. // bars tandem and grapevine walking with BUE support due to balance fwd and retro x32 ft. Pt requiring frequent rest breaks due to increased fatigue Treatments education, safety, transfers, gait, strength, balance, NM re ed, activity tolerance, functional mobility, posture Assessment Current Status: Good Progress easily fatigues requiring frequent sitting and standing rest breaks throughout tx session PT Short Term Goals Short Term Goals Time Frame: Apr 06, 2019 Chair/nid-gs-cmfzl transfer: 4 (sba) Toilet transfer: 4 (sba) Walk 10 feet: 5 Walk 50 feet with two turns: 5 Walk 150 feet: 5 1 step (curb): 4 (sba) 4 steps: 4 (sba) PT Freight Elevator Operator Goals Detention Goals PT Freight Elevator Operator Goals Time Frame: May 18, 2019 Roll Left & Right (QC): 6 Sit to Lying (QC): 6 Lying-Sitting on Side/Bed(QC): 6 Sit to Stand (QC): 6 Chair/Zki-aa-Kgoqk Xfer(QC): 6 Toilet Transfer (QC): 6 Car Transfer (QC): 6 Does the Patient Walk: Yes Walk 10 feet (QC): 6 Walk 50ft with 2 Turns (QC): 6 Walk 150 ft (QC): 6 Walking 10ft on Uneven Surface: 6 1 Step (curb) (QC): 6 4 Steps (QC): 6 12 Steps (QC): 4 (sba) Picking up an Object (QC): 4 (sba) Does the Pt use WC or Scooter?: No Type: N/A Type: N/A PT Plan Treatment/Plan Treatment Plan: Continue Plan of Care Treatment Plan: Bed Mobility, Concurrent Therapy, Education, Functional Activity Mary Jane, Functional Strength, Group Therapy, Gait, Safety, Therapeutic Exercise, Transfers Treatment Duration: May 18, 2019 Frequency: At least 5 of 7 days/Wk (IRF) Estimated Hrs Per Day: 1.5 hours per day Patient and/or Family Agrees t: Yes Safety Risks/Education Patient Education: Gait Training, Transfer Techniques, Safety Issues Teaching Recipient: Patient Teaching Methods: Demonstration, Discussion Response to Teaching: Reinforcement Needed (with posture and distance from walker liyah) Time/GCodes Time In: 1000 Time Out: 1100 Total Billed Treatment Time: 60 Total Billed Treatment 1 visit, NM x15 min, GT x20 min, FA x25 min JUAN J MEYERS SEASONAL DRIVER Mar 31, 2019 10:07 POS
--- NOTE | 2019-03-31 10:30 | Progress Note ---
MONSERRAT CORBETT,MED STUDENT 03/31/19 1030: Progress Note HPI: Mr. Camargo is a 73 y/o male who presented to the inpatient rehab unit via transfer from [place] for subdural hematoma s/p bur holes in left frontal and parietal areas, placed on 03/25/19. He has a history of hypertension, hypothyroid, atrial fibrillation, CKD, gout, MELVA, CHF, bipolar disorder, and frequent falls. He complains of some pain at the left side of his head where the bur holes were placed, but this is slowly improving. The pain is associated with some nausea. He reports a bowel movement today. No other complaints or concerns at this time. His goal for inpatient rehab is to reduce his fall risk in the future. Denies chest pain, shortness of breath, abdominal pain, or dizziness. Physical exam: HEENT: bur hole incisions on left side of scalp are clean/dry/intact, no erythema or drainage noted Cardiovascular: Bradycardia with regular rhythm, no murmur Respiratory: Lungs CTAB, no wheezes Abdominal: Soft, nontender, nondistended Assessment: Frequent falls Subdural hematoma s/p bur holes Hypertension Hypothyroid Bradycardia Plan: Dr. Childers consulted, pt has ICD in place so bradycardia is less concerning Labs reviewed PT and OT ordered Continue pain control as needed REINA DOVER DO 03/31/19 2148: Supervisory-Addendum Brief Verification & Attestation Participated in pt care: history, MDM, physical Personally performed: exam, history, MDM, supervision of care Care discussed with: Medical Student Procedures: n/a Results interpretation: Verified all documentation Verification and Attestation of Medical Student E/M Service A medical student performed and documented this service in my presence. I reviewed and verified all information documented by the medical student and made modifications to such information, when appropriate. I personally performed the physical exam and medical decision making. Reina Dover, Mar 31, 2019,21:47 MONSERRAT CORBETT,MED STUDENT Mar 31, 2019 10:30 REINA MORLEY DO Mar 31, 2019 21:48 POS
--- NOTE | 2019-03-31 10:50 | NUR ---
Pastoral care visit.
--- NOTE | 2019-03-31 11:31 | ST Cognitive Linguistic Eval ---
Speech Evaluation-General Medical Diagnosis debility Onset Date: Mar 30, 2019 Therapy Diagnosis Therapy Diagnosis: Cognitive-communication Referral Referring Physician: Dr. Nelson Medical History Pertinent Medical History: Atrial Fib, CABG, CAD, Heart Failure, HTN, Hypothroidism, Neuropathy, OA Reviewed History: Yes Social History Current Living Status: Spouse Speech PLF-Current Status Prior Level of Function Patient lived at home with his where he was independent for his daily needs. Subjective Patient was pleasant and cooperative with the cognitive assessment. Language Eval: Auditory Comprehends Simple Yes/No Ques: Functional Indent/Objects Multiple Paez: Functional Ident/Pics in Multiple Paez: Functional Follows 1-Step Commands: Functional Follows Complex Directions: Functional Follows General Conversations: Functional Language Eval: Verbal Language Completes Spontaneous Greeting: Functional Produces Auto, Serial Info: Functional Imitates Simple Words/Phrases: Functional Word Finding: Functional Requests Basic Needs: Functional States Basic Personal Info: Functional Expresses Complex Ideas: Functional Objective Cognitive Domain Attention: WNL Memory: Mild Problem Solving: Functional Executive Functions: WNL Visuospatial Skills: WNL Composite Severity Rating: WNL Clock Drawing Severity Rating: WNL Objective Formal/Standardized Tests [facility] Status ([facility]) Results 28/30, within normal range of function Oral Motor/Speech Production Within Normal Limits Impression The patient is a pleasant 73 year old male who was re-admitted to the ARU following a brain surgery. Patient was given the SLUMS with a score of 28/30 obtained. This score falls in the normal range of function.Patient will not require further ST services at this time. Speech Patient Assess Expression of Ideas/Wants: Expression (4) Understanding Verbal Content: Understands (4) Brief Interview-Mental Status: Yes Repetition of Three Words: Three (3) Temporal Orientation: Year: Correct (3) Temporal Orientation: Month: Accurate within 5 days(2) Temporal Orientation: Day: Correct (1) Recall : Wear to say "Sock": Yes, no cue required (2) Recall : Color: Yes, no cue required (2) Recall : Bed: Yes, no cue required (2) Memory/Recall Ability: Current season, Location of own room, Staff names and faces, That he or she is in a hsp/hsp unit Speech-Plan Patient/Family Goals Patient/Family Goals: Patient plans on returning home with his post rehab. Treatment Plan Speech Therapy Treatment Plan: Discontinue ST Patient does not require ST services. Frequency: 1 time per week Estimated Hrs Per Day: .25 hour per day Rehab Potential: Good Barriers to Learning: None identified Pt/Family Agrees to Plan: Yes Safety Risks/Education Teaching Recipient: Patient Teaching Methods: Discussion Response to Teaching: Verbalize Understanding Education Topics Provided: Safety within his room and communication of wants/needs. Time Speech Therapy Time In: 11:00 Speech Therapy Time Out: 11:15 Total Billed Time: 15 Billed Treatment Time 1, MAGDY Mccauley Mar 31, 2019 11:31 POS
--- NOTE | 2019-03-31 14:36 | Therapy Group Daily Note ---
Therapy Daily Group Note Patient Education Topic Home Safety, Fall Prevention, Exercises Exercises LE Seated Exercise, Balance, Sit to/from Stand, Walking, Stretching, Gross Motor Session Ratio (pt:therapist): 4:1 Goal of Session: Energy Conservation Tech., Home Safety Strategies, Memory Strategies, UE/LE Strengthing, Safety with Transfers To improve overall endurance, strength, and education on home safety strategies. Goal Met for this Session: Yes Pt Benefit of Group: Contributions to Others, F/U Use of Strategies @Home, Increased Functional Safety, Increased Functional Strength, Recognition of Peers, Socialization Other/Notes Pt. participated in group therapy session to work on socialization, memory, LE strength, as well as core strength. Pt. ambulated to therapy gym with walker and SBA. Participated in socialization task with saying his name, where he was from, and answering question regarding [place]sha song from memory. Pt. then participated in LE ROM exercises, as well as core strength exercises seated. Pt. educated on importance of these exercises for ambulation and endurance strategies. Pt. then participated in home safety education, with therapist speaking about each room in the house, and how to implement safety in the home. Therapist demonstrated safe floor transfer as well. Pt. verbalized understanding. Ended session with "name that tune" on [place] songs. Pt. able to participate with other pt.s and engage in conversations regarding Reynaldo mas memories. Pt. ambulated back to room with SBA. All needs met. Start Time: 13:00 Stop Time: 14:10 Total Billed Treatment Time: 70 Total Billed Treatment 1, GRP FLASH AMADOR OT Mar 31, 2019 14:36 POS
[2019-03-31] MEDS: ENOXAPARIN 40 MG/0.4 ML (LOVENOX) SYR SC SCH (15:41)
--- NOTE | 2019-03-31 16:02 | NUR ---
"RD ASSESSMENT PMHx: afib; hypercholesterolemia; HTN; diverticulosis; hypothyroidism PT INTERACTION: Pt was awake and pleasant during nutrition assessment. Pt states current appetite is not good, and has been this way for some time. Note pt avg PO intake of 50% x1d, per chart review. Pt states following a regular diet at home, and currently has no issues with chewing/swallowing food. Pt states having some issues with nausea when he was at a facility in [place], but nothing since admit. Pt states no recent issues with c/d at this time. Note last BM was 03/31, and pt currently on bowel regimen of colace BID; miralax BID; senna BID; miralax BID; and bisacodyl PRN, per chart review. Pt states no recent wt changes. Note unable to determine recent wt hx, per chart review. ABNORMAL NUTRITION-RELATED LAB VALUES LOW: Pro 6.1 HIGH: Est. kcal needs: 3918-8170 kcal | 15-20 kcal/kg Est. Pro needs: 85-106 g Pro | 0.8-1.0 g Pro/kg PES STATEMENT: Inadequate oral intake (NI-2.1) related to loss of appetite | nausea as evidenced by pt interview | avg PO intake 50% x1d INTERVENTION: Continue with current diet order of Regular diet. Pt may benefit from nutrition supplementation if PO intake declines. Will continue to follow and reassess as pt needs and status change. MONITOR/EVALUATE: PO Intake; Plan of Care; Hydration Status; Weight Status; Lab Values Emily Mcintosh, MS, RD, LD"
[2019-03-31 17:48] VITALS: BP 151/73
[2019-03-31] MEDS: meTOproloL SUCCINATE 50 MG (TOPROL XL) TAB PO SCH (21:10)
[2019-03-31] MEDS: MONTELUKAST 10 MG (SINGULAIR) TAB PO SCH (21:13)
[2019-04-01] MEDS: HYDROcodone/APAP 5 MG/325 MG (LORTAB) TAB PO PRN ×2 (05:51→14:38)
[2019-04-01] MEDS: MULTIVIT W/MINERALS TAB (THERAGRAN M) PO SCH (05:51)
[2019-04-01] MEDS: VITAMIN D3 1,000 UNITS (CHOLECALCIFEROL) TABLET PO SCH (05:51)
[2019-04-01] MEDS: LEVOTHYROXINE 88 MCG (LEVOTHORID) TAB PO SCH (05:51)
[2019-04-01 06:01] VITALS: BP 126/72
[2019-04-01] MEDS: RT-ADVAIR HFA 115/21 MCG PER PUFF IH SCH (08:00)
--- NOTE | 2019-04-01 09:05 | Cardiology Progress Note ---
Subjective Date Seen by Provider: Apr 01, 2019 Time Seen by Provider: 09:04 Subjective/Events-last exam Patient is sitting up in chair, no new complaints. Denies any chest pain or dyspnea. Review of Systems General: No Chills, No Night Sweats, No Fatigue, No Malaise, No Appetite, No Other HEENT: No Head Aches, No Visual Changes, No Eye Pain, No Ear Pain, No Dysphasia, No Sinus Congestion, No Post Nasal Drip, No Sore Throat, No Other Pulmonary: Dyspnea; No Cough, No Pleuritic Chest Pain, No Other Cardiovascular: No: Chest Pain, Palpitations, Orthopnea, Paroxysmal Noc. Dyspnea, Edema, Lt Headedness, Other Objective-Cardiology Exam Last Set of Vital Signs Vital Signs 04/01/19 04/01/19 06:01 09:00 Temp 36.6 Pulse 58 Resp 18 B/P (MAP) 126/72 (90) Pulse Ox 96 O2 Delivery Room Air Capillary Refill : I&O Intake and Output 04/01/19 00:00 Intake Total 1040 ml Balance 1040 ml Intake Oral 1040 ml # Voids 4 # Bowel Movements 1 General: Alert, Oriented X3, Cooperative HEENT: Atraumatic, PERRLA Neck: Supple, No JVD, No Thyromegaly Lungs: Clear to Auscultation, Normal Air Movement Heart: Regular Rate, Normal S1, Normal S2, No Murmurs Extremities: No Clubbing, No Cyanosis, No Edema, Normal Pulses, No Tenderness/Swelling Skin: No Rashes, No Breakdown, No Significant Lesion Neuro: Normal Gait, Normal Speech, Strength at 5/5 X4 Ext, Normal Tone, Sensation Intact Psych/Mental Status: Mental Status NL, Mood NL A/P-Cardiology Admission Diagnosis Subdural hematoma CAD CHF VT HTN Assessment/Plan Generalized weakness with frequent falls recently, PT/OT to evoh. continue inpatient rehabilitation. Subdural hematoma secondary to trauma sustained from a fall on 03/11/19. Dx with subdural hematoma and transferred to [place]. Repeat CT head reveals minimal increase in size of subdural hematoma. Patient was transferred back to [place] where he underwent Bur hole x2. Now back in IRF. Continue to monitor. Coronary artery disease, history of CABG 3 done in 1995, history of myocardial infarction 1995. Cardiac catheterization showed only 2 bypasses the ALVARADO to the LAD which was patent, the LAD itself is a very small artery with good flow profile the LAD system. The vein graft to the right coronary artery has 80 percent stenosis at the anastomosis point with mismatch in the size of the vein graft and the ho-chunk right coronary artery. The circumflex has mild to moderate disease, the left main coronary artery has 60 percent ostial lesion that is supplying the circumflex artery at this point. In September 2013 he had a cardiac catheterization with stent placement to the left main coronary artery with 3.08 mm Promus Premier stent, a stent to the vein graft to the right coronary artery using 3.020 mm Promus Premier stent without any complication, Stress test was done in January 2018 showing ejection fraction 28 percent dilated left ventricle, total infarction of the whole inferior wall and inferolateral wall. No ischemia was noted Congestive heart failure, history of chronic compensated left ventricular systolic dysfunction, last echocardiogram was done in February 2019 showing ejection fraction 55-60 percent, PA pressure 25 mmHg. Intolerance to Entresto, had joint pain and muscle pain. Medication stopped previously. History of Ventricular tachycardia, maintained on amiodarone Permanent pacemaker/ICD, has eduFiretronic GetAFivea , last interrogation was done on February 20, 2019 showing good sensing and capture activity. No arrhythmia was detected. Continue to monitor Hypertension, restart home blood pressure medication and continue to monitor. Hyperlipidemia, intolerance to statins, welchol, livalo, all causing myalgias and GI upset. couldn't afford Repatha. Continue to monitor as outpatient History of carotid stenosis, mild bilateral nonobstructive disease, last carotid ultrasound was done in February 2019, continue to monitor. Metabolic syndrome, not on any diabetic medicine, history of intolerance to metformin. Patient is doing well with weight loss and exercise. Encouraged to continue. Obesity, BMI is 36, has lost over 70 pounds since his gastric sleeve surgery. Encouraged to continue with diet and exercise Osteoarthritis. Obstructive sleep apnea, intolerant to C Pap machine. Hypothyroidism, monitored and managed by primary care physician. Patient was seen and evaluated with Vanessa, examination performed, management plan was discussed, agree with the current scribed note, I made few changes to the note using Italic font Patient was seen at bedside, sitting comfortably, denied any active pain On examination lungs were clear to auscultation, heart is regular Feeling better. Continue on current medication and monitor blood pressure and lipids No changes are recommended at this Clinical Quality Measures DVT/VTE Risk/Contraindication: Risk Factor Score Per Nursin RFS Level Per Nursing on Admit: 4+=Very High Supervisory-Addendum Brief Supervisory Addendum Participated in pt care: history, MDM, physical Personally performed: exam, history, MDM Care discussed with: VANESSA CHENEY Apr 01, 2019 09:05 BEAN ARRIAZA MD Apr 01, 2019 16:53 POS
--- NOTE | 2019-04-01 09:24 | PM&R Progress Note ---
Subjective HPI/CC On Admission Date Seen by Provider: Apr 01, 2019 Time Seen by Provider: 09:00 Subjective/Events-last exam Sutures will be removed tomorrow Heart rate 58 Was reported to have balance issues but that does not appear to be the case Changed Lortab to Q6 but he has not required it at all today Will plan for DC on 04/06/19 Checked meds and labs Reviewed therapy notes Conferred with broadloom weaver of Systems General: Fatigue Neurological: Other (RODRIGUEZ) Objective Exam Vital Signs Vital Signs Date Time Temp Pulse Resp B/P (MAP) Pulse Ox O2 Delivery O2 Flow Rate FiO2 04/01/19 17:34 36.6 46 18 132/69 (90) 97 Room Air Capillary Refill : General Appearance: No Apparent Distress, WD/WN, Chronically ill HEENT: PERRL/EOMI, Normal ENT Inspection, Pharynx Normal, Other (C/D/I sutures in place to left scalp) Neck: Full Range of Motion, Normal Inspection, Non Tender, Supple Respiratory: Chest Non Tender, Lungs Clear, Normal Breath Sounds, No Accessory Muscle Use, No Respiratory Distress Cardiovascular: Regular Rate, Rhythm, No Edema, No Gallop, No JVD Gastrointestinal: Non Tender, Soft Rectal: Deferred Back: No CVA Tenderness Extremity: Non Tender, No Calf Tenderness, No Pedal Edema Neurologic/Psychiatric: Alert, Oriented x3, No Motor/Sensory Deficits, Normal Mood/Affect, thread dresser II-XII Norm as Tested, Motor Weakness (generalized legs 4/5) Skin: Normal Color, Warm/Dry Lymphatic: No Adenopathy Results/Procedures Lab Patient resulted labs reviewed. FIM Transfers Therapy Code Descriptions/Definitions Functional [place] Measure: 0=Not Assessed/NA 4=Minimal Assistance 1=Total Assistance 5=Supervision or Setup 2=Maximal Assistance 6=Modified [place] 3=Moderate Assistance 7=Complete IndependenceSCALE: Activities may be completed with or without assistive devices. 3-Wryckypvbp-ctbeyac completes the activity by him/herself with no assistance from a helper. 5-Set-up or Clean-up Assistance-helper sets up or cleans up; patient completes activity. [place] assists only prior to or following the activity. 4-Supervision or Touching Assistance-helper provides verbal cues and/or touching/steadying and/or contact guard assistance as patient completes activity. Assistance may be provided throughout the activity or intermittently. 3-Partial/Moderate Assistance-helper does LESS THAN HALF the effort. [place] lifts, holds or supports trunk or limbs, but provides less than half the effort. 2-Substantial/Maximal Assistance-helper does MORE THAN HALF the effort. [place] lifts or holds trunk or limbs and provides more than half the effort. 6-Ndfnkbrjg-eqyuvn does ALL the effort. Patient does none of the effort to complete the activity. Or, the assistance of 2 or more helpers is required for the patient to complete the activity. If activity was not attempted, code reason: 7-Patient Refused. 9-Not Applicable-not attempted and the patient did not perform the activity before the current illness, exacerbation or injury. 10-Not Attempted due to Environmental Limitations-(lack of equipment, weather restraints, etc.). 88-Not Attempted due to Medical Conditions or Safety Concerns. Roll Left to Right (QC): 6 Sit to Lying (QC): 4 (SBA) Sit to Stand (QC): 4 Chair/Wvz-ui-Ysrtw Xfer(QC): 4 (SBA) Car Transfer (QC): 4 (CGA) Gait Training Does the Patient Walk?: Yes Distance: 150, 300 x2, 150 Walk 10 feet (QC): 4 Walk 50 ft with 2 Turns(QC): 4 Walk 150 ft (QC): 4 Walking 10ft/uneven surface-QC: 4 (CGA) Gait Persons Needed: 1 Gait Assistive Device: FWW Wheelchair Training Does the Pt Use a Wheelchair?: No Wheel 50 ft with 2 turns (QC): 9 Wheel 150 ft (QC): 9 Stair Training 1 Step (curb) (QC): 4 (CGA) 4 Steps (QC): 88 12 Steps (QC): 88 Balance Picking up an Object (QC): 88 ADL-Treatment Eating (QC): 6 Oral Hygiene (QC): 6 Shower/Bathe Self (QC): 4 (Pt completes sponge bath, does not shower head due to mit[place]. SBA in stance to complete yarely/ bottom hygiene; assist with back) Upper Body Dressing (QC): 6 Lower Body Dressing (QC): 4 (SBA in stance) On/Off Footwear (QC): 4 (SUP during LB dressing/ sock don doffing) Toileting Hygiene (QC): 4 (SBA in stance) Toilet Transfer (QC): 7 Assessment/Plan Assessment and Plan Assess & Plan/Chief Complaint Assessment: s/p SHANE holes due to subdural hematoma CHF MELVA Spinal disease Gout Asthma CAD HLP Plan: IRF protocol Pain control but decrease Hydrocodone use to decrease fall risk at home Monitor (1) History of shane hole surgery (2) Subdural hematoma (3) Bipolar 1 disorder, depressed, full remission Status: Acute (4) Coronary arteriosclerosis in [place] artery Status: Chronic (5) Obstructive sleep apnea Status: Chronic (6) Renal insufficiency Status: Chronic (7) Diabetes Status: Chronic (8) Generalized weakness Status: Acute (9) Gout Status: Acute (10) Muscular deconditioning Status: Acute HARLEY DOVER DO Apr 01, 2019 09:24 POS
--- NOTE | 2019-04-01 09:26 | Individualized Plan of Care ---
Individualized Plan of Care Rehab Nursing IPOC Order Admission Date Mar 30, 2019 at 14:20 Current Orders Orders Admission Order(Inpt,Obs,Sdc) (03/30/19 13:10) Vital Signs: Per Unit Policy ( 08,16,00 (03/30/19 13:10) Leobardo Lin 09,21 (03/30/19 13:10) Sequential Compression Device Q4H (03/30/19 13:10) Plant Machinist-Inpt Rehab Con (03/30/19 13:10) Rehab Nursing Orders-Ipoc (03/30/19 13:10) Physical Therapy Rehab Orders (03/30/19 13:10) Occupational Therapy Rehab Ord (03/30/19 13:10) Speech Therapy Rehab Orders (03/30/19 13:10) Cbc With Automated Diff (03/31/19 06:00) Comprehensive Metabolic Panel (03/31/19 06:00) General/Regular (03/30/19 Dinner) Intake & Output 06,14, (03/30/19 13:10) Precautions (Aru) (03/30/19 13:10) Weekly Weight WEEK (03/30/19 13:10) Rehab-Intensity Of Therapy (03/30/19 13:10) Initiate Admission Nursing Pro .admission (03/30/19 13:10) Acetaminophen Tablet (Tylenol Tablet) (03/30/19 13:15) Alprazolam Tablet (Xanax Tablet) (03/30/19 13:15) Calcium Carbonate Chew Tablet (Antacid C (03/30/19 13:15) Diphenhydramine Tablet (Benadryl Tablet) (03/30/19 13:15) Docusate Sodium Capsule (Colace Capsule) (03/30/19 13:15) Bisacodyl Suppository (Dulcolax Supposit (03/30/19 13:15) Lactulose Oral Solution (Enulose Oral So (03/30/19 13:15) Na Phos/Na Biphos Enema (Fleet Enema Lukasz (03/30/19 13:15) Guaifenesin/Codeine Syrup (Robitussin Ac (03/30/19 13:15) Hydrocodone/Apap 5/325 Tablet (Lortab 5 (03/30/19 13:15) Loperamide Tablet (Imodium Tablet) (03/30/19 13:15) Enoxaparin Injection (Lovenox Injection) (03/30/19 16:11) Melatonin Tablet (Melatonin Tablet) (03/30/19 13:15) Polyethylene Glycol Powder Pkt (Miralax (03/30/19 21:00) Ondansetron Oral Dissolve Tab (Zofran (03/30/19 13:15) Senna S Tablet (Senokot S Tablet) (03/30/19 21:00) Transfer - Bed/Room/Location (03/30/19 14:20) Ambulate 08,12,20 (03/30/19 14:52) Sequential Compression Device Q4H (03/30/19 14:52) Patient Visit (03/30/19 ) Pt Eval Moderate Complexity (03/30/19 ) Functional Activities, Ea 15 (03/30/19 ) Gait Training, Ea 15 Min (03/30/19 ) Exercise Therap, Ea 15 Min (03/30/19 ) Amiodarone Tablet (Cordarone Tablet) (03/31/19 09:00) Docusate Sodium Capsule (Colace Capsule) (03/30/19 21:00) Fluticasone Nasal [place] (Flonase Nasal S (03/31/19 09:00) Levothyroxine Tablet (Synthroid Tablet) (03/31/19 06:30) Loratadine Tablet (Claritin Tablet) (03/31/19 09:00) Metoprolol Succinate (Xl) Tab (Toprol Xl (03/30/19 21:00) Acetaminophen Tablet/Caplet (Tylenol T (03/30/19 17:30) Cholecalciferol Capsule/Tablet (Vitamin (03/31/19 07:00) Colchicine Tablet (Colcrys Tablet) (03/30/19 21:00) Divalproex Delay Release Tab (Depakote T (03/31/19 09:00) Fluticasone/Salmeterol Common (Advair 11 (03/31/19 08:00) Hydrocodone/Apap 5/325 Tablet (Lortab 5 (03/30/19 17:30) Losartan Tablet (Cozaar Tablet) (03/31/19 09:00) Montelukast Tablet (Singulair Tablet) (03/30/19 21:00) Therapeutic Multivitamin Tab (Vitamins, (03/31/19 07:00) Divalproex Delay Release Tab (Depakote T (03/30/19 21:00) Request Ot Evaluate & Treat (03/30/19 17:39) Patient Visit (03/31/19 ) Speech Sound Lang Comp (03/31/19 ) Patient Visit (03/31/19 ) Gait Training, Ea 15 Min (03/31/19 ) Ex Neuromuscular, Ea 15 Min (03/31/19 ) Functional Activities, Ea 15 (03/31/19 ) Rehab Nursing Orders: Ongoing Assess. of Cognitive Status, Ongoing Assess. of Function Status, DVT Prophylaxis, Fall Prevention, Fluid/Electrolyte/Nutrition Mgmt, Medication Management & Education, Management of Risks & Complications, Management of Skin Intergrity, Nutrition Management, Pain Management, Patient/Family Support, Safety Management Intensity of Therapy to be met Patient to be seen: Min.3h per day/5 of 7d PT IPOC Problem List: Activity Tolerance, Functional Strength, Safety, Balance, Gait, Transfer, Bed Mobility, ROM Treatment Plan: Continue Plan of Care Bed Mobility, Concurrent Therapy, Education, Functional Activity Mary Jane, Functional Strength, Group Therapy, Gait, Safety, Therapeutic Exercise, Transfers Treatment Duration: Apr 27, 2019 Frequency: At least 5 of 7 days/Wk (IRF) Estimated Hrs Per Day: 1.5 hours per day OT IPOC Problems: Decreased Activ Tolerance, Decreased Safety Aware, Decreased UE Strength, Impaired I ADL's, Impaired Self-Care Skills OT Treatment, Training and Edu: Yes Plan of Care: ADL Retraining, Caregiver Training, Concurrent Therapy, Functional Mobility, Group Exercise/Act as Ind, UE Funct Exercise/Act Treatment Duration: Apr 06, 2019 Frequency: At least 5 of 7 days/Wk (IRF) Estimated Hrs Per Day: 1.[address] IPOC Speech Therapy Treatment Plan: Discontinue ST Treatment Duration: Mar 31, 2019 Frequency: 1 time per week Estimated Hrs Per Day: .25 hour per day Plant Machinist/Case Mgmt Plant Machinist/Case Managemen: Discharge Planning Dietitian/Adz Worker Dietitian/Adz Worker to monitor nutritional status and make changes and/or recommendations as needed and work with speech pathology on dietary upgrades as the occur. Physician IPOC Medical Issues being managed closely and that require the 24 hour availability of a physician: Patient with recent fall and subdural hematoma then required shane hole procedure will require close monitoring even off all anticoagulation and all antiplatelet agents Medical Issues: DVT Prophylaxis, Falls Precautions, Pain Management Brief Synthesis of Preadmission Screen, Post-Admission Evaluation, and Therapy Evaluations: PT will focus on balance dysfunction and fall prevention with ambulation with a walker OT we'll focus on regaining independent ADL status Medical Prognosis: Good Anticipated Length of Stay: 7 days HARLEY DOVER DO Apr 01, 2019 09:26 POS
[2019-04-01] MEDS: POLYETHYLENE GLYCOL 17 GM (MIRALAX) PACK PO SCH ×2 (10:00→21:12)
[2019-04-01] MEDS: FLUTICASONE NASAL SPRAY (FLONASE) 16 GM BTL NS SCH (10:00)
--- NOTE | 2019-04-01 10:03 | Occupational Ther Daily Note ---
OT Current Status-Daily Note Subjective Pt seen in recliner chair, alert. Pt denies pain, 1 instance of sharp pain in head during session with grimacing. Pt agreeable to OT tx session. Mental Status/Objective Patient Orientation: Normal For Age ADL-Treatment Therapy Code Descriptions/Definitions Functional [place] Measure: 0=Not Assessed/NA 4=Minimal Assistance 1=Total Assistance 5=Supervision or Setup 2=Maximal Assistance 6=Modified [place] 3=Moderate Assistance 7=Complete IndependenceSCALE: Activities may be completed with or without assistive devices. 9-Wreaytxmvi-jfnfpkt completes the activity by him/herself with no assistance from a helper. 5-Set-up or Clean-up Assistance-helper sets up or cleans up; patient completes activity. [place] assists only prior to or following the activity. 4-Supervision or Touching Assistance-helper provides verbal cues and/or touching/steadying and/or contact guard assistance as patient completes activity. Assistance may be provided throughout the activity or intermittently. 3-Partial/Moderate Assistance-helper does LESS THAN HALF the effort. [place] lifts, holds or supports trunk or limbs, but provides less than half the effort. 2-Substantial/Maximal Assistance-helper does MORE THAN HALF the effort. [place] lifts or holds trunk or limbs and provides more than half the effort. 8-Pkcrqucpp-xmmxze does ALL the effort. Patient does none of the effort to complete the activity. Or, the assistance of 2 or more helpers is required for the patient to complete the activity. If activity was not attempted, code reason: 7-Patient Refused. 9-Not Applicable-not attempted and the patient did not perform the activity before the current illness, exacerbation or injury. 10-Not Attempted due to Environmental Limitations-(lack of equipment, weather restraints, etc.). 88-Not Attempted due to Medical Conditions or Safety Concerns. Eating (QC): 6 on/ off footwear: shoes 6 in recliner chair. Other Treatment Pt completes shoe donning edge of chair. Pt sit to stand with SBA to FWW, utilizes to ambulates with cues to maintain upright posture to therapy gym. Pt sits EOM to complete UE and core exercises through session. Pt utilizes 6#, 3#, and 1# dumbbell weights with 15 reps of 1 set of each exercise, including wrist ext/ flexors, int/ ext rotation, biceps, triceps, shoulder flexion (R <90* due to pain in R shoulder with RTC mm), and core twists with and without leg raises for additional balance challenging with skilled cues for positioning and speed. Pt completes with good balance, requires rest breaks in between exercise. Pt requires cues for attention to task and continuation. Pt ambulates back to room with added cues for posture, pt states got cane for pt which pt declines to utilize. Pt educated on talking to PT about beneficial equipment. Pt sits in recliner chair, all needs met, call light in reach. Education OT Patient Education: Correct positioning, Exercise program, Home exercise program, Purpose of tx/functional activities, Safety issues Teaching Recipient: Patient Teaching Methods: Demonstration, Discussion Response to Teaching: Verbalize Understanding, Return Demonstration, Reinforcement Needed OT Short Term Goals Short Term Goals Shower/bathe self: 4 Upper body dressin Lower body dressin OT Group Home Goals Group Home Goals Time Frame: Apr 06, 2019 Eating (QC): 6 (met) Oral Hygiene (QC): 6 (met) Toileting Hygiene (QC): 6 Shower/Bathe Self (QC): 6 Upper Body Dressing (QC): 6 (met) Lower Body Dressing (QC): 6 On/Off Footwear (QC): 6 (met) Additional Goals: 1-Demonstrate ADL Tasks, 2-Verbalize Understanding, 3- ImproveStrength/Mary Jane 1=Demonstrate adherence to instructed precautions during ADL tasks. 2=Patient will verbalize/demonstrate understanding of assistive devices/modifications for ADL. 3=Patient will improve strength/tolerance for activity to enable patient to perform ADL's. OT Education/Plan Problem List/Assessment Assessment: Decreased Activ Tolerance, Decreased Safety Aware, Decreased UE Strength, Impaired Funct Balance, Impaired I ADL's, Impaired Self-Care Skills Discharge Recommendations Plan/Recommendations: Continue POC Therapy Discharge Recommendati: Home & Family Treatment Plan/Plan of Care Treatment,Training & Education: Yes Patient would benefit from OT for education, treatment and training to promote independence in ADL's, mobility, safety and/or upper extremity function for ADL's. Plan of Care: ADL Retraining, Caregiver Training, Concurrent Therapy, Functional Mobility, Group Exercise/Act as Ind, UE Funct Exercise/Act Treatment Duration: Apr 06, 2019 Frequency: At least 5 of 7 days/Wk (IRF) Estimated Hrs Per Day: 1.5 hours per day Agreement: Yes Rehab Potential: Good Time/GCodes Start Time: 09:00 Stop Time: 10:00 Total Time Billed (hr/min): 60 Billed Treatment Time 1, ADL (15), EX 3(45) (60) BENEDICT WALKER OTR Apr 01, 2019 10:03 POS
--- NOTE | 2019-04-01 10:04 | Physical Therapy Daily Note ---
PT Daily Note-Current Subjective Pt agreeable to PT session. States he would really like to go home soon. States his headache is a little better today. Pain Numeric Pain Scale: 6 Comment: haeadache throbbing in R latter-day, shoulders Appearance Pt sitting up in recliner awake and alert. At end of session, pt sitting up in recliner with call light, phone and bedside table within reach Mental Status Patient Orientation: Person, Place, Time, Eyes Open, Situation Transfers SCALE: Activities may be completed with or without assistive devices. 0-Xycekrrrhe-lfgjecv completes the activity by him/herself with no assistance from a helper. 5-Set-up or Clean-up Assistance-helper sets up or cleans up; patient completes activity. [place] assists only prior to or following the activity. 4-Supervision or Touching Assistance-helper provides verbal cues and/or touching/steadying and/or contact guard assistance as patient completes activity. Assistance may be provided throughout the activity or intermittently. 3-Partial/Moderate Assistance-helper does LESS THAN HALF the effort. [place] lifts, holds or supports trunk or limbs, but provides less than half the effort. 2-Substantial/Maximal Assistance-helper does MORE THAN HALF the effort. [place] lifts or holds trunk or limbs and provides more than half the effort. 2-Wpdjnwjhm-nkvyjt does ALL the effort. Patient does none of the effort to complete the activity. Or, the assistance of 2 or more helpers is required for the patient to complete the activity. If activity was not attempted, code reason: 7-Patient Refused. 9-Not Applicable-not attempted and the patient did not perform the activity before the current illness, exacerbation or injury. 10-Not Attempted due to Environmental Limitations-(lack of equipment, weather restraints, etc.). 88-Not Attempted due to Medical Conditions or Safety Concerns. Roll Left & Right (QC): 6 Sit to Lying (QC): 6 Lying to Sitting/Side of Bed(Q: 6 Sit to Stand (QC): 6 Chair/Jqg-kf-Hvlyy Xfer(QC): 6 Toilet Transfer (QC): 6 Gait Training Does the Patient Walk?: Yes Distance: 200 x2 Walk 10 feet (QC): 4 Walk 50 ft with 2 Turns(QC): 4 Walk 150 ft (QC): 4 Walking 10ft/uneven surface-QC: 4 Gait Persons Needed: 1 Gait Assistive Device: FWW kyphotic fwd flexed posture, improved some with lower walker and providing skilled verb inst for technique and posture. Steady gait, no LOB or unsteadiness. Supervision provided and verb inst only required posture and x1 episode to walk closer to walker Stair Training Stair Training: Handrails/: 2 handrails #of Steps: 12 1 Step (curb) (QC): 4 4 Steps (QC): 4 12 Steps (QC): 4 Stairs: Pattern: Reciprocal some fatigue by end of stair training Balance Picking up an Object (QC): 6 (holding walker able to squat and bend to pick remover pen off floor without LOB or unsteadiness) Exercises Supine Ex: Ankle pumps, Heel Slides, Straight leg raise, Hip abd/add Supine Reps: 20 Seated Therapy Exercises: Ankle pumps, Sit to stand, Long arc quads, Hip flexion, Hip abd/add Seated Reps: 10 Treatments education, safety, bed mobility, transfers, gait with FWW on even and uneven surfaces, balance, strength, stairs and curb, activity tolerance, functional mobility Assessment Current Status: Good Progress PT Short Term Goals Short Term Goals Time Frame: Apr 06, 2019 Chair/rlh-pl-fvhmj transfer: 4 (sba) Toilet transfer: 4 (sba) Walk 10 feet: 5 Walk 50 feet with two turns: 5 Walk 150 feet: 5 1 step (curb): 4 (sba) 4 steps: 4 (sba) PT Fdc Goals Fdc Goals PT Supervisor Garage Goals Time Frame: Apr 27, 2019 Roll Left & Right (QC): 6 Sit to Lying (QC): 6 Lying-Sitting on Side/Bed(QC): 6 Sit to Stand (QC): 6 Chair/Hrl-nu-Nypsu Xfer(QC): 6 Toilet Transfer (QC): 6 Car Transfer (QC): 6 Does the Patient Walk: Yes Walk 10 feet (QC): 6 Walk 50ft with 2 Turns (QC): 6 Walk 150 ft (QC): 6 Walking 10ft on Uneven Surface: 6 1 Step (curb) (QC): 6 4 Steps (QC): 6 12 Steps (QC): 4 (sba) Picking up an Object (QC): 4 (sba) Does the Pt use WC or Scooter?: No Type: N/A Type: N/A PT Plan Treatment/Plan Treatment Plan: Continue Plan of Care Treatment Plan: Bed Mobility, Concurrent Therapy, Education, Functional Activity Mary Jane, Functional Strength, Group Therapy, Gait, Safety, Therapeutic Exercise, Transfers Treatment Duration: Apr 27, 2019 Frequency: At least 5 of 7 days/Wk (IRF) Estimated Hrs Per Day: 1.5 hours per day Patient and/or Family Agrees t: Yes Safety Risks/Education Patient Education: Gait Training, Transfer Techniques, Safety Issues Teaching Recipient: Patient Teaching Methods: Discussion Response to Teaching: Verbalize Understanding Time/GCodes Time In: 1000 Time Out: 1100 Total Billed Treatment Time: 60 Total Billed Treatment 1 visit, GT x30 min, FA x15 min, EX x15 min JUAN J MEYERS PTA Apr 01, 2019 10:04 POS
[2019-04-01] MEDS: DOCUSATE SODIUM 100 MG (COLACE) CAP PO SCH ×2 (10:12→21:11)
[2019-04-01] MEDS: COLCHICINE 0.6 MG (COLCRYS) TABLET PO SCH ×2 (10:12→21:11)
[2019-04-01] MEDS: SENNA W/DOCUSATE (SENOKOT S) TABLET PO SCH ×2 (10:12→21:12)
[2019-04-01] MEDS: DIVALPROEX 500 MG DELAYED RELEASE (DEPAKOTE) TAB PO SCH ×2 (10:12→21:11)
[2019-04-01] MEDS: LORATADINE (CLARITIN) 10 MG TAB PO SCH (10:13)
[2019-04-01] MEDS: LOSARTAN 50 MG (COZAAR) TAB PO SCH (10:13)
[2019-04-01] MEDS: AMIODARONE 200 MG (CORDARONE) TAB PO SCH (10:14)
--- NOTE | 2019-04-01 14:47 | Therapy Group Daily Note ---
Therapy Daily Group Note Patient Education Topic Exercises Exercises LE Seated Exercise, UE Exercise Session Ratio (pt:therapist): 3:1 Goal of Session: UE/LE Strengthing Goal Met for this Session: Yes Pt Benefit of Group: Contributions to Others, Increased Functional Strength, Improved Cognition, Recognition of Peers, Socialization Other/Notes Pt ambulated using FWW to [facility] for OT/PT group. Group consisted of introductions (name, place born, [place] donnie ghotra), socialization, UE/LE seated exercises and educational topic of 'Physical Activity as You Age. Pt introduced self appropriately and actively listened to peers. Pt's were able to acknowledge understanding of educational topic by giving personal exercises completed at home and ideas of where and objects to use during exercises. Pt was attempted to complete all seated exercises, decreased UE AROM made it difficult to complete exercises though was able to complete LE seated exercises without difficulty, able to follow directions to complete and sequence. After therapy, pt sitting in recliner with call light/phone in reach. All needs met in room. Start Time: 13:00 Stop Time: 14:15 Total Billed Treatment Time: 75 Total Billed Treatment 1-GRP KEESHA MORAN Apr 01, 2019 14:47 POS
[2019-04-01] MEDS: ENOXAPARIN 40 MG/0.4 ML (LOVENOX) SYR SC SCH (17:05)
[2019-04-01 17:34] VITALS: BP 132/69
[2019-04-01] MEDS: meTOproloL SUCCINATE 50 MG (TOPROL XL) TAB PO SCH (21:11)
[2019-04-01] MEDS: MONTELUKAST 10 MG (SINGULAIR) TAB PO SCH (21:11)
[2019-04-02 05:53] VITALS: BP 155/78
[2019-04-02] MEDS: MULTIVIT W/MINERALS TAB (THERAGRAN M) PO SCH (06:05)
[2019-04-02] MEDS: LEVOTHYROXINE 88 MCG (LEVOTHORID) TAB PO SCH (06:05)
[2019-04-02] MEDS: VITAMIN D3 1,000 UNITS (CHOLECALCIFEROL) TABLET PO SCH (06:05)
--- NOTE | 2019-04-02 09:34 | PM&R Progress Note ---
Subjective HPI/CC On Admission Date Seen by Provider: Apr 02, 2019 Time Seen by Provider: 08:15 Subjective/Events-last exam Day pass will be completed on Saturday. Had a large BM this morning. Balance was off a little at night. Sutures out today. Bed alarm at night. Checked meds and labs Reviewed therapy notes Conferred with custom designer of Systems General: Fatigue Neurological: Weakness, Numbness, Incoordination Objective Exam Vital Signs Vital Signs Date Time Temp Pulse Resp B/P (MAP) Pulse Ox O2 Delivery O2 Flow Rate FiO2 04/02/19 20:25 Room Air 04/02/19 16:36 36.7 52 16 149/74 (99) 98 Capillary Refill : General Appearance: No Apparent Distress, WD/WN, Chronically ill HEENT: PERRL/EOMI, Normal ENT Inspection, Pharynx Normal, Other (C/D/I sutures in place to left scalp) Neck: Full Range of Motion, Normal Inspection, Non Tender, Supple Respiratory: Chest Non Tender, Lungs Clear, Normal Breath Sounds, No Accessory Muscle Use, No Respiratory Distress Cardiovascular: Regular Rate, Rhythm, No Edema, No Gallop, No JVD Gastrointestinal: Normal Bowel Sounds, Non Tender, Soft Rectal: Deferred Back: No CVA Tenderness Extremity: Non Tender, No Calf Tenderness, No Pedal Edema Neurologic/Psychiatric: Alert, Oriented x3, No Motor/Sensory Deficits, Normal Mood/Affect, angle roll operator II-XII Norm as Tested, Motor Weakness (generalized legs 4/5) Skin: Normal Color, Warm/Dry Lymphatic: No Adenopathy Results/Procedures Lab Patient resulted labs reviewed. FIM Transfers Therapy Code Descriptions/Definitions Functional [place] Measure: 0=Not Assessed/NA 4=Minimal Assistance 1=Total Assistance 5=Supervision or Setup 2=Maximal Assistance 6=Modified [place] 3=Moderate Assistance 7=Complete IndependenceSCALE: Activities may be completed with or without assistive devices. 0-Yiurzkwgfk-kgvjluk completes the activity by him/herself with no assistance from a helper. 5-Set-up or Clean-up Assistance-helper sets up or cleans up; patient completes activity. [place] assists only prior to or following the activity. 4-Supervision or Touching Assistance-helper provides verbal cues and/or touching/steadying and/or contact guard assistance as patient completes activity. Assistance may be provided throughout the activity or intermittently. 3-Partial/Moderate Assistance-helper does LESS THAN HALF the effort. [place] lifts, holds or supports trunk or limbs, but provides less than half the effort. 2-Substantial/Maximal Assistance-helper does MORE THAN HALF the effort. [place] lifts or holds trunk or limbs and provides more than half the effort. 1-Wnpskrzxn-vfvsjm does ALL the effort. Patient does none of the effort to complete the activity. Or, the assistance of 2 or more helpers is required for the patient to complete the activity. If activity was not attempted, code reason: 7-Patient Refused. 9-Not Applicable-not attempted and the patient did not perform the activity before the current illness, exacerbation or injury. 10-Not Attempted due to Environmental Limitations-(lack of equipment, weather restraints, etc.). 88-Not Attempted due to Medical Conditions or Safety Concerns. Roll Left to Right (QC): 6 Sit to Lying (QC): 6 Sit to Stand (QC): 6 Chair/Oij-py-Rlktt Xfer(QC): 6 Car Transfer (QC): 4 (CGA) Gait Training Does the Patient Walk?: Yes Distance: 200 x2 Walk 10 feet (QC): 4 Walk 50 ft with 2 Turns(QC): 4 Walk 150 ft (QC): 4 Walking 10ft/uneven surface-QC: 4 Gait Persons Needed: 1 Gait Assistive Device: FWW Wheelchair Training Does the Pt Use a Wheelchair?: No Wheel 50 ft with 2 turns (QC): 9 Wheel 150 ft (QC): 9 Stair Training Stair Training: Handrails/: 2 handrails #of Steps: 12 1 Step (curb) (QC): 4 4 Steps (QC): 4 12 Steps (QC): 4 Stairs: Pattern: Reciprocal Balance Picking up an Object (QC): 6 (holding walker able to squat and bend to picking machine operator pen off floor without LOB or unsteadiness) ADL-Treatment Eating (QC): 6 Oral Hygiene (QC): 6 Shower/Bathe Self (QC): 4 (Pt completes sponge bath, does not shower head due to [place]. SBA in stance to complete yarely/ bottom hygiene; assist with back) Upper Body Dressing (QC): 6 Lower Body Dressing (QC): 4 (SBA in stance) On/Off Footwear (QC): 4 (SUP during LB dressing/ sock don doffing) Toileting Hygiene (QC): 4 (SBA in stance) Toilet Transfer (QC): 7 Assessment/Plan Assessment and Plan Assess & Plan/Chief Complaint Assessment: s/p SHANE holes due to subdural hematoma CHF MELVA Spinal disease Gout Asthma CAD HLP Plan: IRF protocol Pain control but decrease Hydrocodone use to decrease fall risk at home Monitor (1) History of shane hole surgery (2) Subdural hematoma (3) Bipolar 1 disorder, depressed, full remission Status: Acute (4) Coronary arteriosclerosis in [place] artery Status: Chronic (5) Obstructive sleep apnea Status: Chronic (6) Renal insufficiency Status: Chronic (7) Diabetes Status: Chronic (8) Generalized weakness Status: Acute (9) Gout Status: Acute (10) Muscular deconditioning Status: Acute HARLEY DOVER DO Apr 02, 2019 09:34 POS
[2019-04-02] MEDS: COLCHICINE 0.6 MG (COLCRYS) TABLET PO SCH ×2 (10:03→20:28)
[2019-04-02] MEDS: DOCUSATE SODIUM 100 MG (COLACE) CAP PO SCH ×2 (10:04→20:32)
[2019-04-02] MEDS: LORATADINE (CLARITIN) 10 MG TAB PO SCH (10:04)
[2019-04-02] MEDS: DIVALPROEX 500 MG DELAYED RELEASE (DEPAKOTE) TAB PO SCH ×2 (10:04→20:28)
[2019-04-02] MEDS: SENNA W/DOCUSATE (SENOKOT S) TABLET PO SCH ×2 (10:04→20:32)
[2019-04-02] MEDS: LOSARTAN 50 MG (COZAAR) TAB PO SCH (10:04)
[2019-04-02] MEDS: AMIODARONE 200 MG (CORDARONE) TAB PO SCH (10:04)
--- NOTE | 2019-04-02 10:04 | Cardiology Progress Note ---
Subjective Date Seen by Provider: Apr 02, 2019 Time Seen by Provider: 08:20 Subjective/Events-last exam Patient sitting up in chair, denies any chest pain or dyspnea. Review of Systems General: No Chills, No Night Sweats, No Fatigue, No Malaise, No Appetite, No Other HEENT: No Head Aches, No Visual Changes, No Eye Pain, No Ear Pain, No Dysphasia, No Sinus Congestion, No Post Nasal Drip, No Sore Throat, No Other Pulmonary: Dyspnea; No Cough, No Pleuritic Chest Pain, No Other Cardiovascular: No: Chest Pain, Palpitations, Orthopnea, Paroxysmal Noc. Dyspnea, Edema, Lt Headedness, Other Objective-Cardiology Exam Last Set of Vital Signs Vital Signs 04/02/19 05:53 Temp 36.5 Pulse 56 Resp 22 B/P (MAP) 155/78 (103) Pulse Ox 95 O2 Delivery Room Air Capillary Refill : I&O Intake and Output 04/02/19 00:00 Intake Total 1140 ml Balance 1140 ml Intake Oral 1140 ml # Voids 6 # Bowel Movements 1 General: Alert, Oriented X3, Cooperative HEENT: Atraumatic, PERRLA Neck: Supple, No JVD, No Thyromegaly Lungs: Clear to Auscultation, Normal Air Movement Heart: Regular Rate, Normal S1, Normal S2, No Murmurs Extremities: No Clubbing, No Cyanosis, No Edema, Normal Pulses, No Tenderness/Swelling Skin: No Rashes, No Breakdown, No Significant Lesion Neuro: Normal Gait, Normal Speech, Strength at 5/5 X4 Ext, Normal Tone, Sensation Intact Psych/Mental Status: Mental Status NL, Mood NL A/P-Cardiology Admission Diagnosis Subdural hematoma CAD CHF VT HTN Assessment/Plan Generalized weakness with frequent falls recently, PT/OT to eval. continue inpatient rehabilitation. Subdural hematoma secondary to trauma sustained from a fall on 03/11/19. Dx with subdural hematoma and transferred to [facility]. Repeat CT head reveals minimal increase in size of subdural hematoma. Patient was transferred back to [facility] where he underwent Bur hole x2. Now back in IRF. Continue to monitor. Coronary artery disease, history of CABG 3 done in 1995, history of myocardial infarction 1995. Cardiac catheterization showed only 2 bypasses the ALVARADO to the LAD which was patent, the LAD itself is a very small artery with good flow profile the LAD system. The vein graft to the right coronary artery has 80 percent stenosis at the anastomosis point with mismatch in the size of the vein graft and the [place] right coronary artery. The circumflex has mild to moderate disease, the left main coronary artery has 60 percent ostial lesion that is supplying the circumflex artery at this point. In September 2013 he had a cardiac catheterization with stent placement to the left main coronary artery with 3.08 mm Promus Premier stent, a stent to the vein graft to the right coronary artery using 3.020 mm Promus Premier stent without any complication, Stress test was done in January 2018 showing ejection fraction 28 percent dilated left ventricle, total infarction of the whole inferior wall and inferolateral wall. No ischemia was noted Congestive heart failure, history of chronic compensated left ventricular systolic dysfunction, last echocardiogram was done in February 2019 showing ejection fraction 55-60 percent, PA pressure 25 mmHg. Intolerance to Entresto, had joint pain and muscle pain. Medication stopped previously. History of Ventricular tachycardia, maintained on amiodarone Permanent pacemaker/ICD, has HipClubtronic Traklight , last interrogation was done on February 20, 2019 showing good sensing and capture activity. No arrhythmia was detected. Continue to monitor Hypertension, controlled, continue to monitor blood pressure/heart rate Hyperlipidemia, intolerance to statins, welchol, livalo, all causing myalgias and GI upset. couldn't afford Repatha. Continue to monitor as outpatient History of carotid stenosis, mild bilateral nonobstructive disease, last carotid ultrasound was done in February 2019, continue to monitor. Metabolic syndrome, not on any diabetic medicine, history of intolerance to metformin. Patient is doing well with weight loss and exercise. Encouraged to continue. Obesity, BMI is 36, has lost over 70 pounds since his gastric sleeve surgery. Encouraged to continue with diet and exercise Osteoarthritis. Obstructive sleep apnea, intolerant to C Pap machine. Hypothyroidism, monitored and managed by primary care physician. Patient was seen and evaluated with Vanessa, examination performed, management plan was discussed, agree with the current scribed note, I made few changes to the note using Italic font Patient is sitting in bed comfortably, denied any chest pain or shortness of breath. No palpitation On examination lungs were clear to auscultation, heart is regular Recovering slowly, continue to monitor blood pressure and heart rate Continue with physical therapy Clinical Quality Measures DVT/VTE Risk/Contraindication: Risk Factor Score Per Nursin RFS Level Per Nursing on Admit: 4+=Very High VANESSA HAINES Apr 02, 2019 10:04 BEAN ARRIAZA MD Apr 02, 2019 16:34 POS
[2019-04-02] MEDS: FLUTICASONE NASAL SPRAY (FLONASE) 16 GM BTL NS SCH (10:05)
[2019-04-02] MEDS: POLYETHYLENE GLYCOL 17 GM (MIRALAX) PACK PO SCH ×2 (11:08→20:32)
--- NOTE | 2019-04-02 11:15 | NUR ---
PT TRANSFERRED TO ROOM 226, TRANSITION ROOM. ALL PERSONAL BELONGINGS TRANSFERRED W PT TO ROOM BY MANAGEMENT STAFF.
--- NOTE | 2019-04-02 12:09 | Physical Therapy Daily Note ---
PT Daily Note-Current Subjective Patient prepared for PT. Reports 2/10 pain in L side of head that he states is getting better. Concerned that continuing pain and need for pain pill will prevent him from discharging home. Pain Numeric Pain Scale: 2 Location: Left Location Body Site: Head Pain Description: Throbbing Mental Status Patient Orientation: Normal For Age Transfers SCALE: Activities may be completed with or without assistive devices. 5-Lffiznecrx-jwgjlat completes the activity by him/herself with no assistance from a helper. 5-Set-up or Clean-up Assistance-helper sets up or cleans up; patient completes activity. [place] assists only prior to or following the activity. 4-Supervision or Touching Assistance-helper provides verbal cues and/or touching/steadying and/or contact guard assistance as patient completes activity. Assistance may be provided throughout the activity or intermittently. 3-Partial/Moderate Assistance-helper does LESS THAN HALF the effort. [place] lifts, holds or supports trunk or limbs, but provides less than half the effort. 2-Substantial/Maximal Assistance-helper does MORE THAN HALF the effort. [place] lifts or holds trunk or limbs and provides more than half the effort. 1-Uaygckbbx-tkxnxi does ALL the effort. Patient does none of the effort to complete the activity. Or, the assistance of 2 or more helpers is required for the patient to complete the activity. If activity was not attempted, code reason: 7-Patient Refused. 9-Not Applicable-not attempted and the patient did not perform the activity bef ore the current illness, exacerbation or injury. 10-Not Attempted due to Environmental Limitations-(lack of equipment, weather r estraints, etc.). 88-Not Attempted due to Medical Conditions or Safety Concerns. Roll Left & Right (QC): 6 Sit to Lying (QC): 6 Lying to Sitting/Side of Bed(Q: 6 Sit to Stand (QC): 6 Toilet Transfer (QC): 6 Gait Training Does the Patient Walk?: Yes Distance: 250' x2 Walk 10 feet (QC): 4 Walk 50 ft with 2 Turns(QC): 4 Walk 150 ft (QC): 4 Gait Assistive Device: FWW Forward lean/slouched posture over walker, self-corrected; foot strike with flat foot Stair Training #of Steps: 4 (x3) 1 Step (curb) (QC): 4 4 Steps (QC): 4 12 Steps (QC): 4 Stairs: Pattern: Reciprocal Exercises Seated Therapy Exercises: Ankle pumps, Sit to stand (x5), Long arc quads, Hip flexion, Hip abd/add Seated Reps: [address] Ex=Flex, Abd, Ext, Marching, Mini squats, Side steps, Weight shifts Standing Reps: 15 NuStep Minutes: 12 NuStep Workload: 4 Assessment Patient completed all transfers and toileting independently. Ambulated 250' x2 during session with FWW and was able to self-identify and correct forward leaning and slouched posture. Completed seated and standing exercises, demonstrating good strength and continued work on balance. Patient able to self- direct standing balance exercises at parallel bars. Completed 12 minutes on NuStep to continue LE strengthening and mobility. Patient returned to room, seated in recliner with all needs met at conclusion of session. PT Short Term Goals Short Term Goals Time Frame: Apr 06, 2019 Chair/xex-ld-qfgrn transfer: 4 (sba) Toilet transfer: 4 (sba) Walk 10 feet: 5 Walk 50 feet with two turns: 5 Walk 150 feet: 5 1 step (curb): 4 (sba) 4 steps: 4 (sba) PT Mechanical Spreader Operator Goals Mechanical Spreader Operator Goals PT Mechanical Spreader Operator Goals Time Frame: Apr 27, 2019 Roll Left & Right (QC): 6 Sit to Lying (QC): 6 Lying-Sitting on Side/Bed(QC): 6 Sit to Stand (QC): 6 Chair/Gwf-jm-Nxcnb Xfer(QC): 6 Toilet Transfer (QC): 6 Car Transfer (QC): 6 Does the Patient Walk: Yes Walk 10 feet (QC): 6 Walk 50ft with 2 Turns (QC): 6 Walk 150 ft (QC): 6 Walking 10ft on Uneven Surface: 6 1 Step (curb) (QC): 6 4 Steps (QC): 6 12 Steps (QC): 4 (sba) Picking up an Object (QC): 4 (sba) Does the Pt use WC or Scooter?: No Type: N/A Type: N/A PT Plan Treatment/Plan Treatment Plan: Continue Plan of Care Treatment Plan: Bed Mobility, Concurrent Therapy, Education, Functional Activity Mary Jane, Functional Strength, Group Therapy, Gait, Safety, Therapeutic Exercise, Transfers Treatment Duration: Apr 27, 2019 Frequency: At least 5 of 7 days/Wk (IRF) Estimated Hrs Per Day: 1.5 hours per day Patient and/or Family Agrees t: Yes Time/GCodes Time In: 1000 Time Out: 1100 Total Billed Treatment Time: 60 Total Billed Treatment 1 visit EX x2 35min FA 15min GT 10min MARY ESCOBAR PT Apr 02, 2019 12:09 POS
--- NOTE | 2019-04-02 12:13 | NUR ---
Weekly Team Conference Discussed weekly team conference with patient. Team has recommended discharge home on 04/06/19. Patient is in agreement with this plan. He reports he is anxious to return home, but wants to be safe. Patient reports he has a shower chair and a 4WW at home. Discussed the recommendation of a FWW instead of a 4WW due to safety concerns. Patient states maybe he can use the 4WW in the home and the FWW outside of the home. (This worker reported this conversation to Chris Seals PT. PT will assess safety during treatment sessions and make a recommendation for type of walker for patient to use). Discussed recommendation for patient to have a day pass this weekend. Patient verbalizes he would like to go out on a pass this with his significant other. He reports he will most likely go on 04/04/19, but he will talk with his significant other before making a final decision. Patient reports he misses his dog very much. Informed patient that [facility] offers pet visits as long as criteria is met. Patient verbalizes understanding, but states he hates to ask his significant other to do more than she already is and will most likely not request a pet visit. Discussed recommendation of C RN, PT and OT at discharge. Patient is agreeable to this and states he will do whatever the team recommends because he wants to return home safely.
--- NOTE | 2019-04-02 12:59 | Occupational Ther Daily Note ---
OT Current Status-Daily Note Subjective Pt seen in room, pt agreeable to OT tx session. Pt denies pain. Mental Status/Objective Patient Orientation: Normal For Age ADL-Treatment Therapy Code Descriptions/Definitions Functional [place] Measure: 0=Not Assessed/NA 4=Minimal Assistance 1=Total Assistance 5=Supervision or Setup 2=Maximal Assistance 6=Modified [place] 3=Moderate Assistance 7=Complete IndependenceSCALE: Activities may be completed with or without assistive devices. 2-Mwdlpfuser-qiqyusr completes the activity by him/herself with no assistance from a helper. 5-Set-up or Clean-up Assistance-helper sets up or cleans up; patient completes activity. [place] assists only prior to or following the activity. 4-Supervision or Touching Assistance-helper provides verbal cues and/or touching/steadying and/or contact guard assistance as patient completes activity. Assistance may be provided throughout the activity or intermittently. 3-Partial/Moderate Assistance-helper does LESS THAN HALF the effort. [place] lifts, holds or supports trunk or limbs, but provides less than half the effort. 2-Substantial/Maximal Assistance-helper does MORE THAN HALF the effort. [place] lifts or holds trunk or limbs and provides more than half the effort. 0-Zubomogfh-nnoptg does ALL the effort. Patient does none of the effort to complete the activity. Or, the assistance of 2 or more helpers is required for the patient to complete the activity. If activity was not attempted, code reason: 7-Patient Refused. 9-Not Applicable-not attempted and the patient did not perform the activity before the current illness, exacerbation or injury. 10-Not Attempted due to Environmental Limitations-(lack of equipment, weather restraints, etc.). 88-Not Attempted due to Medical Conditions or Safety Concerns. Eating (QC): 6 Oral Hygiene (QC): 6 (Pt completes standing at sink with IND. ) Shower/Bathe Self (QC): 7 Toileting Hygiene (QC): 3 (Pt requires min A for thorough cleaning while in stance.) Toilet Transfer (QC): 4 (SUP during transfer with FWW.) on/ off footwear: 6 IND Other Treatment [id number] Pt seen in recliner chair, completes sit to stand with SBA and ambulates to therapy gym with cues for posture during ambulation and safety awareness. Pt stands at tabletop; utilizing 2# wrist weights bilaterally, pt reaches in all planes with LUE while maintaining balance on FWW with R hand. Pt requires cues for speed of task and maintaining proper posture. Pt reaches with RUE toward midline, unable to reach above 45* shoulder flexion with 2# weight donned. Wrist weights doffed, pt completes AROM with UE body weight in all tolerable planes; due to torn RTC muscle, pt states uncomfort reaching to 90* shoulder flexion with RUE. Pt completes ~2.5 minutes of standing at a time before requesting sit. Pt completes standing balance activity while at FWW with one hand on FWW at a time. Pt states fatigue in UE and LE, requiring sit. Pt returns to room at 1200, sits in recliner chair with call light in reach and all needs met. [id number]: Pt seen in bathroom, per pt required assist for clean up after BM. Pt completes sit to stand from toilet with SUP, completes hand and oral hygiene at sink with IND. Pt returns to recliner chair, denies pain. Pt completes UE theraband exercises with yellow theraband (1 set, 15 reps bilaterally) including shoulder abduction, scaption, internal/ external rotation, biceps and triceps. Pt requires cues for attention and tension. Pt completes AROM of BUE, able to reach full ROM actively in shoulder abduction, 90* RUE in shoulder flexion. Pt completes sit to stand 2x to FWW, cues for hand placement and safety. Pt left in recliner chair with all needs met, call light in reach. Education OT Patient Education: Correct positioning, Exercise program, Home exercise program, Modified ADL techniques, Purpose of tx/functional activities, Safety issues Teaching Recipient: Patient Teaching Methods: Demonstration, Discussion Response to Teaching: Verbalize Understanding, Return Demonstration OT Short Term Goals Short Term Goals Shower/bathe self: 4 Upper body dressin Lower body dressin OT Supervisor [employer] Goals Fpc Goals Time Frame: Apr 06, 2019 Eating (QC): 6 (met) Oral Hygiene (QC): 6 (met) Toileting Hygiene (QC): 6 Shower/Bathe Self (QC): 6 Upper Body Dressing (QC): 6 (met) Lower Body Dressing (QC): 6 On/Off Footwear (QC): 6 (met) Additional Goals: 1-Demonstrate ADL Tasks, 2-Verbalize Understanding, 3- ImproveStrength/Mary Jane 1=Demonstrate adherence to instructed precautions during ADL tasks. 2=Patient will verbalize/demonstrate understanding of assistive devices/modifications for ADL. 3=Patient will improve strength/tolerance for activity to enable patient to perform ADL's. OT Education/Plan Problem List/Assessment Assessment: Decreased Activ Tolerance, Decreased Safety Aware, Decreased UE Strength, Impaired Funct Balance, Impaired I ADL's, Impaired Self-Care Skills Discharge Recommendations Plan/Recommendations: Continue POC Treatment Plan/Plan of Care Treatment,Training & Education: Yes Patient would benefit from OT for education, treatment and training to promote independence in ADL's, mobility, safety and/or upper extremity function for ADL's. Plan of Care: ADL Retraining, Caregiver Training, Concurrent Therapy, Functional Mobility, Group Exercise/Act as Ind, UE Funct Exercise/Act Treatment Duration: Apr 06, 2019 Frequency: At least 5 of 7 days/Wk (IRF) Estimated Hrs Per Day: 1.5 hours per day Agreement: Yes Rehab Potential: Good Time/GCodes Start Time: 11:00 (2nd: 1305) Stop Time: 12:00 (2nd stop time: 1335) Total Time Billed (hr/min): 90 Billed Treatment Time 1, ADL (15), EX 5 (75)= 90 BENEDICT WALKER OTR Apr 02, 2019 12:59 POS
--- NOTE | 2019-04-02 13:38 | Physical Therapy Daily Note ---
PT Daily Note-Current Subjective Patient in bathroom at initiation of treatment after bowel incontinence. Patient reports he would still like to walk during session. Pain Numeric Pain Scale: 2 Location: Left Location Body Site: Head Pain Description: Ache Mental Status Patient Orientation: Normal For Age Transfers SCALE: Activities may be completed with or without assistive devices. 2-Ypxtytwjde-nlgepgc completes the activity by him/herself with no assistance from a helper. 5-Set-up or Clean-up Assistance-helper sets up or cleans up; patient completes activity. [place] assists only prior to or following the activity. 4-Supervision or Touching Assistance-helper provides verbal cues and/or touching/steadying and/or contact guard assistance as patient completes activity. Assistance may be provided throughout the activity or intermittently. 3-Partial/Moderate Assistance-helper does LESS THAN HALF the effort. [place] lifts, holds or supports trunk or limbs, but provides less than half the effort. 2-Substantial/Maximal Assistance-helper does MORE THAN HALF the effort. [place] lifts or holds trunk or limbs and provides more than half the effort. 0-Yfuhqbzfn-qydenz does ALL the effort. Patient does none of the effort to complete the activity. Or, the assistance of 2 or more helpers is required for the patient to complete the activity. If activity was not attempted, code reason: 7-Patient Refused. 9-Not Applicable-not attempted and the patient did not perform the activity before the current illness, exacerbation or injury. 10-Not Attempted due to Environmental Limitations-(lack of equipment, weather restraints, etc.). 88-Not Attempted due to Medical Conditions or Safety Concerns. Sit to Stand (QC): 6 Chair/Wlb-oa-Cjoes Xfer(QC): 6 Toilet Transfer (QC): 6 Gait Training Does the Patient Walk?: Yes Distance: 500' x2 Walk 10 feet (QC): 4 Walk 50 ft with 2 Turns(QC): 4 Walk 150 ft (QC): 4 Gait Assistive Device: FWW Self-correct forward posture Assessment Treatment initiated with set up for cleaning of bowel incontinence. Patient transferred, cleaned, and dressed self. Ambulated with FWW 500' x2 with 2 minute seated rest in between, self addressing forward leaned/slouched posture over walker. Patient educated on benefits of using FWW over 4WW upon discharge to home. Patient on toilet at conclusion of treatment with call light accessible. PT Short Term Goals Short Term Goals Time Frame: Apr 06, 2019 Chair/jdw-ur-osswj transfer: 4 (sba) Toilet transfer: 4 (sba) Walk 10 feet: 5 Walk 50 feet with two turns: 5 Walk 150 feet: 5 1 step (curb): 4 (sba) 4 steps: 4 (sba) PT Mcfp Goals Mcfp Goals PT Automatic Teller Machine Servicer Goals Time Frame: Apr 27, 2019 Roll Left & Right (QC): 6 Sit to Lying (QC): 6 Lying-Sitting on Side/Bed(QC): 6 Sit to Stand (QC): 6 Chair/Gap-dq-Xhhsr Xfer(QC): 6 Toilet Transfer (QC): 6 Car Transfer (QC): 6 Does the Patient Walk: Yes Walk 10 feet (QC): 6 Walk 50ft with 2 Turns (QC): 6 Walk 150 ft (QC): 6 Walking 10ft on Uneven Surface: 6 1 Step (curb) (QC): 6 4 Steps (QC): 6 12 Steps (QC): 4 (sba) Picking up an Object (QC): 4 (sba) Does the Pt use WC or Scooter?: No Type: N/A Type: N/A PT Plan Treatment/Plan Treatment Plan: Continue Plan of Care Treatment Plan: Bed Mobility, Concurrent Therapy, Education, Functional Activity Mary Jane, Functional Strength, Group Therapy, Gait, Safety, Therapeutic Exercise, Transfers Treatment Duration: Apr 27, 2019 Frequency: At least 5 of 7 days/Wk (IRF) Estimated Hrs Per Day: 1.5 hours per day Patient and/or Family Agrees t: Yes Time/GCodes Time In: 1230 Time Out: 1400 Total Billed Treatment Time: 30 Total Billed Treatment 1 visit FA 15min GT 15min MARY ESCOBAR PT Apr 02, 2019 13:38 POS
[2019-04-02] MEDS: ENOXAPARIN 40 MG/0.4 ML (LOVENOX) SYR SC SCH (16:02)
[2019-04-02] MEDS: guaiFENesin/CODEINE (ROBITUSSIN AC) 10ML UDC PO PRN ×2 (16:02→22:37)
[2019-04-02 16:36] VITALS: BP 149/74
[2019-04-02] MEDS: MONTELUKAST 10 MG (SINGULAIR) TAB PO SCH (20:29)
[2019-04-02] MEDS: meTOproloL SUCCINATE 50 MG (TOPROL XL) TAB PO SCH (20:29)
--- NOTE | 2019-04-03 05:25 | NUR ---
Sutures to head d/c'd at this time. Pt cayden well. Cont to monitor.
[2019-04-03] MEDS: VITAMIN D3 1,000 UNITS (CHOLECALCIFEROL) TABLET PO SCH (05:30)
[2019-04-03] MEDS: MULTIVIT W/MINERALS TAB (THERAGRAN M) PO SCH (05:30)
[2019-04-03] MEDS: LEVOTHYROXINE 88 MCG (LEVOTHORID) TAB PO SCH (05:30)
[2019-04-03] MEDS: guaiFENesin/CODEINE (ROBITUSSIN AC) 10ML UDC PO PRN ×2 (05:37→10:51)
[2019-04-03 06:05] VITALS: BP 146/82
--- NOTE | 2019-04-03 09:57 | Physical Therapy Daily Note ---
PT Daily Note-Current Subjective pt in chair sitting in therapy gym pre-tx agrees to therapy and denies pain at this time. pt is very motivated to go home today. Appearance pt in recliner post-tx with call light, phone, table in reach with all needs met at this time. pt reminded he needs to call or ask nursing before getting up as pt reports he has been getting up and going to the bathroom on his own. Mental Status Patient Orientation: Person, Place, Time, Situation Transfers SCALE: Activities may be completed with or without assistive devices. 7-Sufxwsnoys-acfpzmi completes the activity by him/herself with no assistance from a helper. 5-Set-up or Clean-up Assistance-helper sets up or cleans up; patient completes activity. [place] assists only prior to or following the activity. 4-Supervision or Touching Assistance-helper provides verbal cues and/or touching/steadying and/or contact guard assistance as patient completes activity. Assistance may be provided throughout the activity or intermittently. 3-Partial/Moderate Assistance-helper does LESS THAN HALF the effort. [place] lifts, holds or supports trunk or limbs, but provides less than half the effort. 2-Substantial/Maximal Assistance-helper does MORE THAN HALF the effort. [place] lifts or holds trunk or limbs and provides more than half the effort. 9-Mhfbmplte-wcpvib does ALL the effort. Patient does none of the effort to complete the activity. Or, the assistance of 2 or more helpers is required for the patient to complete the activity. If activity was not attempted, code reason: 7-Patient Refused. 9-Not Applicable-not attempted and the patient did not perform the activity before the current illness, exacerbation or injury. 10-Not Attempted due to Environmental Limitations-(lack of equipment, weather restraints, etc.). 88-Not Attempted due to Medical Conditions or Safety Concerns. Roll Left & Right (QC): 6 Sit to Lying (QC): 6 Lying to Sitting/Side of Bed(Q: 6 Sit to Stand (QC): 4 (SBA) Chair/Ghp-iy-Xxtdx Xfer(QC): 4 (SBA) Toilet Transfer (QC): 4 (SBA) Car Transfer (QC): 4 (SBA) Gait Training Does the Patient Walk?: Yes Distance: 100',400' Walk 10 feet (QC): 4 (SBA) Walk 50 ft with 2 Turns(QC): 4 (SBA) Walk 150 ft (QC): 4 (SBA) Walking 10ft/uneven surface-QC: 4 (SBA) Gait Assistive Device: FWW Pt continues to walk with walker too far out infront of himself. Pt has 2 episodes of his R knee buckling during ambulation this session. Wheelchair Training Does the Pt Use a Wheelchair?: No Stair Training Stair Training: Handrails/: 2 handrails #of Steps: 8 1 Step (curb) (QC): 4 (SBA) 4 Steps (QC): 4 (SBA) 12 Steps (QC): 88 Stairs: Pattern: Reciprocal Balance Picking up an Object (QC): 4 (SBA) Exercises NuStep Minutes: 15 NuStep Workload: 5 Treatments pt performed transfer training, bed mobility training, skilled ambulation training, functional LE strengthening, and education. Assessment Current Status: Good Progress pt continues to be impulsive and unsafe at times when he gets in a hurry with ambulation or transfers. Pt has 2 episode of his R knee bucking during ambulation but is able to correct himself. Pt also has incident where he was transitioning onto a carpeted surface where the walker got caught on the edge and the pt lost control of the walker but had no fall. Pt requested trying a 4 wheeled walker, this PT advised the pt that use of the 4 wheeled walker is unsafe at this time secondary to pts forward positioning of the FWW, pt reports he understands. PT Short Term Goals Short Term Goals Time Frame: Apr 06, 2019 Chair/ebf-ys-isylj transfer: 4 (sba) Toilet transfer: 4 (sba) Walk 10 feet: 5 Walk 50 feet with two turns: 5 Walk 150 feet: 5 1 step (curb): 4 (sba) 4 steps: 4 (sba) PT Custodial Goals Custodial Goals PT Operations Analyst Goals Time Frame: Apr 27, 2019 Roll Left & Right (QC): 6 Sit to Lying (QC): 6 Lying-Sitting on Side/Bed(QC): 6 Sit to Stand (QC): 6 Chair/Ihk-ak-Bfody Xfer(QC): 6 Toilet Transfer (QC): 6 Car Transfer (QC): 6 Does the Patient Walk: Yes Walk 10 feet (QC): 6 Walk 50ft with 2 Turns (QC): 6 Walk 150 ft (QC): 6 Walking 10ft on Uneven Surface: 6 1 Step (curb) (QC): 6 4 Steps (QC): 6 12 Steps (QC): 4 (sba) Picking up an Object (QC): 4 (sba) Does the Pt use WC or Scooter?: No Type: N/A Type: N/A PT Plan Problem List Problem List: Activity Tolerance, Functional Strength, Safety, Balance, Gait, Transfer, Bed Mobility, ROM Treatment/Plan Treatment Plan: Continue Plan of Care Treatment Plan: Bed Mobility, Concurrent Therapy, Education, Functional Activity Mary Jane, Functional Strength, Group Therapy, Gait, Safety, Therapeutic Exercise, Transfers Treatment Duration: Apr 27, 2019 Frequency: At least 5 of 7 days/Wk (IRF) Estimated Hrs Per Day: 1.5 hours per day Patient and/or Family Agrees t: Yes Safety Risks/Education Patient Education: Gait Training, Transfer Techniques, Steps, Correct Positioning, Safety Issues Teaching Recipient: Patient Teaching Methods: Demonstration, Discussion Response to Teaching: Return Demonstration, Reinforcement Needed Time/GCodes Time In: 0900 Time Out: 1000 Total Billed Treatment Time: 60 Total Billed Treatment 1 visit GT 25' FA 35 RENETTA SHARP PT Apr 03, 2019 09:57 POS
[2019-04-03] MEDS ORDERED: ACHD5005 PO (09:59)
[2019-04-03] MEDS ORDERED: LOSA50TA63 PO (09:59)
--- NOTE | 2019-04-03 10:01 | D/C HH Face to Face Order ---
D/C Face to Face Orders Reconcile Patient Problems Problems Reviewed?: Yes Instructions for Patient Via [facility], Patient Instructions/FollowUp: Dr Nelson in 1 week Physician to follow Patient: Dr Nelson Discharge Diet for Home: Cardiac Diet Patient Problems: Subdural hematoma Patient Data-Allergies,Ht & Wt Patient Allergies: Coded Allergies: Nnygjsy-Gln-Yeu Reductase Inhibitor (Unverified Allergy, Unknown, 10/24/16) niacin (Verified Allergy, Unknown, 05/05/18) sacubitril (Verified Allergy, Unknown, 05/05/18) valsartan (Verified Allergy, Unknown, 05/05/18) Height (Feet): 5 Height (Inches): 6.00 Weight (Pounds): 227 Weight (Ounces): 0.0 Home Health Need/Face to Face Date of Face to Face: Apr 03, 2019 Clinical Findings: Generalized weakness and fatigue, Muscle weakness, Unsteady gait I have seen Pt wwma-fj-jrkc: Yes Discharged To: Home Diagnosis/Conditions: Subdural hematoma Patient is Homebound due to: Doug fall risk due to instabilty, Muscle weakness Homebound Status Due to the above stated illness, injury or surgical procedure (medical condition or diagnosis) and associated clinical findings, the patient is homebound because of his/her inability to leave home except with aid of a supportive device and/or person AND leaving the home requires a considerable and taxing effort or is medically contraindicated. Pt req the following assistanc: Walker Home Health Nursing Orders Home Health Services Order: Nursing Services, Document Improvement Specialist-Evaluate & Treat, Physical Therapy-Evaluate & Treat [facility] that this patient is under my care and that I, a nurse practitioner or a physician; a assistant superintendent for curriculum working with me, had a face to face encounter that - meets the physician face to face encounter requirements with this patient as dated. HARLEY NELSON DO Apr 03, 2019 10:01 POS
--- NOTE | 2019-04-03 10:22 | Occupational Ther Daily Note ---
OT Current Status-Daily Note Subjective Pt sitting in chair, agrees to therapy. Pt reports 3/10 headache. ADL-Treatment Pt requesting shower this morning, MARCEL lopez. Pt retrieved clothing using FWW for balance. Gait to restroom with FWW. Toilet transfer completed with SBA. Toileting SBA. [place] clothing without assist. Pt used transfer bench to transfer to tub/shower with cues for safety. Seated bathing completed using hand held shower. Pt able to wash all areas, but required supervision for balance during standing to wash buttocks. Don pullover shirt with set up. Pt able to don shorts using FWW for balance during standing for pant hike. Pt donned shoes and socks with set up and increased time. Pt stood at sink to brush teeth without assist. Pt requests to ambulate. Pt performed gait to therapy gym with FWW, occasional cues for safety. Pt sitting in therapy gym with PT present for treatment after session. Therapy Code Descriptions/Definitions Functional [place] Measure: 0=Not Assessed/NA 4=Minimal Assistance 1=Total Assistance 5=Supervision or Setup 2=Maximal Assistance 6=Modified [place] 3=Moderate Assistance 7=Complete IndependenceSCALE: Activities may be completed with or without assistive devices. 0-Bytpldddon-hfdzupg completes the activity by him/herself with no assistance from a helper. 5-Set-up or Clean-up Assistance-helper sets up or cleans up; patient completes activity. [place] assists only prior to or following the activity. 4-Supervision or Touching Assistance-helper provides verbal cues and/or touching/steadying and/or contact guard assistance as patient completes activity. Assistance may be provided throughout the activity or intermittently. 3-Partial/Moderate Assistance-helper does LESS THAN HALF the effort. [place] lifts, holds or supports trunk or limbs, but provides less than half the effort. 2-Substantial/Maximal Assistance-helper does MORE THAN HALF the effort. [place] lifts or holds trunk or limbs and provides more than half the effort. 5-Afjuydrrc-dhllqq does ALL the effort. Patient does none of the effort to complete the activity. Or, the assistance of 2 or more helpers is required for the patient to complete the activity. If activity was not attempted, code reason: 7-Patient Refused. 9-Not Applicable-not attempted and the patient did not perform the activity before the current illness, exacerbation or injury. 10-Not Attempted due to Environmental Limitations-(lack of equipment, weather restraints, etc.). 88-Not Attempted due to Medical Conditions or Safety Concerns. Eating (QC): 6 (per pt report) Oral Hygiene (QC): 6 Shower/Bathe Self (QC): 4 (SBA) Upper Body Dressing (QC): 5 Lower Body Dressing (QC): 5 Toileting Hygiene (QC): 4 (SBA) Toilet Transfer (QC): 4 (SBA) OT Short Term Goals Short Term Goals Shower/bathe self: 4 Upper body dressin Lower body dressin OT Loan Administrator Goals Loan Administrator Goals Time Frame: Apr 06, 2019 Eating (QC): 6 (met) Oral Hygiene (QC): 6 (met) Toileting Hygiene (QC): 6 Shower/Bathe Self (QC): 6 Upper Body Dressing (QC): 6 (met) Lower Body Dressing (QC): 6 On/Off Footwear (QC): 6 (met) Additional Goals: 1-Demonstrate ADL Tasks, 2-Verbalize Understanding, 3- ImproveStrength/[place] 1=Demonstrate adherence to instructed precautions during ADL tasks. 2=Patient will verbalize/demonstrate understanding of assistive device s/modifications for ADL. 3=Patient will improve strength/tolerance for activity to enable patient to perform ADL's. OT Education/Plan Discharge Recommendations Plan/Recommendations: Continue POC Treatment Plan/Plan of Care Patient would benefit from OT for education, treatment and training to promote independence in ADL's, mobility, safety and/or upper extremity function for ADL's. Plan of Care: ADL Retraining, Caregiver Training, Concurrent Therapy, Functional Mobility, Group Exercise/Act as Ind, UE Funct Exercise/Act Treatment Duration: Apr 06, 2019 Frequency: At least 5 of 7 days/Wk (IRF) Estimated Hrs Per Day: 1.5 hours per day Agreement: Yes Rehab Potential: Good Time/GCodes Start Time: 08:00 Stop Time: 09:00 Total Time Billed (hr/min): 60 Billed Treatment Time 1 visit, ADLx4(60minutes) CRUZITO BARTON OT Apr 03, 2019 10:22 POS
[2019-04-03] MEDS: DIVALPROEX 500 MG DELAYED RELEASE (DEPAKOTE) TAB PO SCH (10:32)
[2019-04-03] MEDS: LOSARTAN 50 MG (COZAAR) TAB PO SCH (10:32)
[2019-04-03] MEDS: COLCHICINE 0.6 MG (COLCRYS) TABLET PO SCH (10:32)
[2019-04-03] MEDS: LORATADINE (CLARITIN) 10 MG TAB PO SCH (10:32)
[2019-04-03] MEDS: AMIODARONE 200 MG (CORDARONE) TAB PO SCH (10:32)
[2019-04-03] MEDS: POLYETHYLENE GLYCOL 17 GM (MIRALAX) PACK PO SCH (10:33)
[2019-04-03] MEDS: DOCUSATE SODIUM 100 MG (COLACE) CAP PO SCH (10:33)
[2019-04-03] MEDS: SENNA W/DOCUSATE (SENOKOT S) TABLET PO SCH (10:33)
[2019-04-03] MEDS: FLUTICASONE NASAL SPRAY (FLONASE) 16 GM BTL NS SCH (10:33)
--- NOTE | 2019-04-03 11:13 | Cardiology Progress Note ---
Subjective Date Seen by Provider: Apr 03, 2019 Time Seen by Provider: 11:12 Subjective/Events-last exam patient is getting dressed and ready to go home. Denied any chest pain. Review of Systems General: No Chills, No Night Sweats, No Fatigue, No Malaise, No Appetite, No Other HEENT: No Head Aches, No Visual Changes, No Eye Pain, No Ear Pain, No Dysphasia, No Sinus Congestion, No Post Nasal Drip, No Sore Throat, No Other Pulmonary: No Dyspnea, No Cough, No Pleuritic Chest Pain, No Other Cardiovascular: No: Chest Pain, Palpitations, Orthopnea, Paroxysmal Noc. Dyspnea, Edema, Lt Headedness, Other Objective-Cardiology Exam Last Set of Vital Signs Vital Signs 04/03/19 06:05 Temp 36.4 Pulse 57 Resp 16 B/P (MAP) 146/82 (103) Pulse Ox 97 O2 Delivery Room Air Capillary Refill : I&O Intake and Output 04/03/19 00:00 Intake Total 920 ml Balance 920 ml Intake Oral 920 ml # Voids 8 # Bowel Movements 3 General: Alert, Oriented X3, Cooperative HEENT: Atraumatic, PERRLA Neck: Supple, No JVD, No Thyromegaly Lungs: Clear to Auscultation, Normal Air Movement Heart: Regular Rate, Normal S1, Normal S2, No Murmurs Extremities: No Clubbing, No Cyanosis, No Edema, Normal Pulses, No Tenderness/Swelling Skin: No Rashes, No Breakdown, No Significant Lesion Neuro: Normal Gait, Normal Speech, Strength at 5/5 X4 Ext, Normal Tone, Sensation Intact Psych/Mental Status: Mental Status NL, Mood NL A/P-Cardiology Admission Diagnosis Subdural hematoma CAD CHF VT HTN Assessment/Plan Generalized weakness with frequent falls recently, muscle strength is improving, gait is better. Using a walker. Possible discharge today Subdural hematoma secondary to trauma sustained from a fall on 03/11/19. Dx with subdural hematoma and transferred to [place]. Repeat CT head reveals minimal increase in size of subdural hematoma. Patient was transferred back to [place] where he underwent Bur hole x2. Now back in IRF. doing better and going home today Coronary artery disease, history of CABG 3 done in 1995, history of myocardial infarction 1995. Cardiac catheterization showed only 2 bypasses the ALVARADO to the LAD which was patent, the LAD itself is a very small artery with good flow profile the LAD system. The vein graft to the right coronary artery has 80 percent stenosis at the anastomosis point with mismatch in the size of the vein graft and the [place] right coronary artery. The circumflex has mild to moderate disease, the left main coronary artery has 60 percent ostial lesion that is supplying the circumflex artery at this point. In September 2013 he had a cardiac catheterization with stent placement to the left main coronary artery with 3.08 mm Promus Premier stent, a stent to the vein graft to the right coronary artery using 3.020 mm Promus Premier stent without any complication, Stress test was done in January 2018 showing ejection fraction 28 percent dilated left ventricle, total infarction of the whole inferior wall and inferolateral wall. No ischemia was noted Congestive heart failure, history of chronic compensated left ventricular systolic dysfunction, last echocardiogram was done in February 2019 showing ejection fraction 55-60 percent, PA pressure 25 mmHg. Intolerance to Entresto, had joint pain and muscle pain. Medication stopped previously. History of Ventricular tachycardia, maintained on amiodarone Permanent pacemaker/ICD, has Smartvuetronic A Curated Worlda , last interrogation was done on February 20, 2019 showing good sensing and capture activity. No arrhythmia was detected. Continue to monitor Hypertension, controlled, continue to monitor blood pressure/heart rate Hyperlipidemia, intolerance to statins, welchol, livalo, all causing myalgias and GI upset. couldn't afford Repatha. Continue to monitor as outpatient History of carotid stenosis, mild bilateral nonobstructive disease, last carotid ultrasound was done in February 2019, continue to monitor. Metabolic syndrome, not on any diabetic medicine, history of intolerance to metformin. Patient is doing well with weight loss and exercise. Encouraged to continue. Obesity, BMI is 36, has lost over 70 pounds since his gastric sleeve surgery. Encouraged to continue with diet and exercise Osteoarthritis. Obstructive sleep apnea, intolerant to C Pap machine. Hypothyroidism, monitored and managed by primary care physician. Clinical Quality Measures DVT/VTE Risk/Contraindication: Risk Factor Score Per Nursin RFS Level Per Nursing on Admit: 4+=Very High BEAN GAGE MD Apr 03, 2019 11:13 POS
--- NOTE | 2019-04-03 12:53 | Therapy Team Discharge Summary ---
Therapy Discharge Summary Discharge Recommendations Date of Discharge 04/03/19 Therapy D/C Recommendations: Physical Therapy Home Care Physical Therapy This patient returned to ARU post recent discharge. He had dischrged due to transfer to [facility] for further medical managment post hematoma. His PLOF was mod indep wtih all mobility. Upon admission to this unit, he was SBa with transfers and CGA with gait. Treatment has focused on functional strength and mobilty with balance and safety training. At discharge he is mod indep with bed mobilty but SBA with gait and transfers using a FWW. He still tends to walk with walker too far ahead and forward flexed. Recommend pt follow with [facility] PT at discharge. DC PT. Occupational Therapy Decreased Activ Tolerance, Decreased Safety Aware, Decreased UE Strength, Impaired Funct Balance, Impaired I ADL's, Impaired Self-Care Skills PT Court Interpreter Goals Court Interpreter Goals PT [facility] Goals Time Frame: Apr 27, 2019 Roll Left to Right (QC): 6 (met) Sit to Lying (QC): 6 (met) Lying-Sitting on Side/Bed(QC): 6 (met) Sit to Stand (QC): 6 (unmet) Chair/Guw-nt-Nvetj Xfer(QC): 6 (unmet) Car Transfer (QC): 6 (unmet) Does the Patient Walk: Yes Walk 10 feet (QC): 6 (unmet) Walk 10ft-Uneven Surface(QC): 6 (unmet) Walk 50ft with 2 Turns (QC): 6 (unmet) Walk 150 ft (QC): 6 (unmet) Does the Pt use WC or Scooter?: No 1 Step (curb) (QC): 6 (unmet) 4 Steps (QC): 6 12 Steps (QC): 4 (sba) Picking up an Object (QC): 4 (sba) OT Chcf Goals Court Interpreter Goals Time Frame: Apr 06, 2019 Eating (QC): 6 (met) Oral Hygiene (QC): 6 (met) Shower/Bathe Self (QC): 6 Upper Body Dressing (QC): 6 (met) Lower Body Dressing (QC): 6 On/Off Footwear (QC): 6 (met) Toileting Hygiene (QC): 6 Toilet/Commode Transfer (QC): 6 Additional Goals: 1-Demonstrate ADL Tasks, 2-Verbalize Understanding, 3- ImproveStrength/Mary Jane 1=Demonstrate adherence to instructed precautions during ADL tasks. 2=Patient will verbalize/demonstrate understanding of assistive devices/modifications for ADL. 3=Patient will improve strength/tolerance for activity to enable patient to perform ADL's. KEESHA BUSCH PT Apr 03, 2019 12:53 POS
--- NOTE | 2019-04-03 12:53 | NUR ---
Patient discharged to home after assessment by physician and patient request to leave today. HHC: Finalized with patient choice agency, [facility]. DME: Referral sent to patient/spouse choice agency, [facility] for FWW. They opted to sheepskin pickler this item, agency informed. IMM2 signed freely by patient, it was his request to return home at this time. He is dressed and ready to exit with his spouse. All ARU team have emphasized to patient to use FWW at this time, he verbalizes agreement and understanding. RN fully engaged in discharge process. Addendum: 04/03/19 at 1326 by GALINA TALBOT Informed by [facility] that patient used Medicare benefit for FWW Apr 2018; therefore, will be private pay.
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
--- NOTE | 2019-04-03 13:28 | Therapy Team Discharge Summary ---
Therapy Discharge Summary Discharge Recommendations Date of Discharge Therapy D/C Recommendations: Physical Therapy Home Care Occupational Therapy Pt admitted to ARU following transfer to [facility] for shane hole procedure for SDH. On admission pt required CGA with transfers and SBA for LE dressing, bathing, and toileting. Skilled OT intervention focused on ADL training, transfers, strengthening, and safety. Pt made progress with therapy and by discharge is completing eating and oral hygiene independently. Pt is set up for dressing and SBA for toilet transfer and bathing. Pt met goals for eating and oral hygiene, but did not meet other goals. Pt discharge home. D/c ARU OT at this time. Decreased Activ Tolerance, Decreased Safety Aware, Decreased UE Strength, Impaired Funct Balance, Impaired I ADL's, Impaired Self-Care Skills PT Jail Goals Floor Director Goals PT Floor Director Goals Time Frame: Apr 27, 2019 Roll Left to Right (QC): 6 (met) Sit to Lying (QC): 6 (met) Lying-Sitting on Side/Bed(QC): 6 (met) Sit to Stand (QC): 6 (unmet) Chair/Dti-yv-Nnkco Xfer(QC): 6 (unmet) Car Transfer (QC): 6 (unmet) Does the Patient Walk: Yes Walk 10 feet (QC): 6 (unmet) Walk 10ft-Uneven Surface(QC): 6 (unmet) Walk 50ft with 2 Turns (QC): 6 (unmet) Walk 150 ft (QC): 6 (unmet) Does the Pt use WC or Scooter?: No 1 Step (curb) (QC): 6 (unmet) 4 Steps (QC): 6 12 Steps (QC): 4 (sba) Picking up an Object (QC): 4 (sba) OT Jail Goals Floor Director Goals Time Frame: Apr 06, 2019 Eating (QC): 6 (met) Oral Hygiene (QC): 6 (met) Shower/Bathe Self (QC): 6 (not met) Upper Body Dressing (QC): 6 (not met) Lower Body Dressing (QC): 6 (not met) On/Off Footwear (QC): 6 (not met) Toileting Hygiene (QC): 6 (not met) Toilet/Commode Transfer (QC): 6 (not met) Additional Goals: 1-Demonstrate ADL Tasks, 2-Verbalize Understanding, 3-Impro veStrength/Mary Jane 1=Demonstrate adherence to instructed precautions during ADL tasks. 2=Patient will verbalize/demonstrate understanding of assistive devices/modifications for ADL. 3=Patient will improve strength/tolerance for activity to enable patient to perform ADL's. CRUZITO BARTON OT Apr 03, 2019 13:28 POS
[2019-04-03 16:29] VITALS: BP 128/74
[2019-05-13] MEDS ORDERED: LOSA50TA63 PO (17:06)
[2019-05-13] MEDS ORDERED: FEXO180T84 PO (17:10)
== END 2019-04-03 12:30 | disposition home health service (06) | DRG 949 ==
PROVIDERS: ADMIT Internal Medicine; ATTEND Internal Medicine
DX: S06.5X9D Traumatic subdural hemorrhage with loss of consciousness of unspecified duration, subsequent encounter (principal); J44.9 Chronic obstructive pulmonary disease, unspecified; G47.33 Obstructive sleep apnea (adult) (pediatric); I48.91 Unspecified atrial fibrillation; I13.0 Hypertensive heart and chronic kidney disease with heart failure and stage 1 through stage 4 chronic kidney disease, or unspecified chronic kidney disease; I50.22 Chronic systolic (congestive) heart failure; N18.9 Chronic kidney disease, unspecified; I47.2 Ventricular tachycardia; E88.81 Metabolic syndrome and other insulin resistance; E66.9 Obesity, unspecified; Q24.9 Congenital malformation of heart, unspecified; E78.5 Hyperlipidemia, unspecified; G62.9 Polyneuropathy, unspecified; E03.9 Hypothyroidism, unspecified; F31.76 Bipolar disorder, in full remission, most recent episode depressed; F41.9 Anxiety disorder, unspecified; N40.0 Benign prostatic hyperplasia without lower urinary tract symptoms; M19.91 Primary osteoarthritis, unspecified site; K57.90 Diverticulosis of intestine, part unspecified, without perforation or abscess without bleeding; M10.9 Gout, unspecified; H54.3 Unqualified visual loss, both eyes; I25.2 Old myocardial infarction; Z87.891 Personal history of nicotine dependence; Z95.5 Presence of coronary angioplasty implant and graft; Z95.810 Presence of automatic (implantable) cardiac defibrillator; Z95.1 Presence of aortocoronary bypass graft; W19.XXXD Unspecified fall, subsequent encounter
CPT/HCPCS: 36415; 80053; 85025